=== PATIENT | female | born 1950 | race Caucasian/White ===

== ENCOUNTER 2017-09-17 16:03 | Inpatient (IN) | payer MEDICARE, SELFPAY ==
[2017-09-17 16:14] VITALS: BP 160/121; PULSE 112; RESP 24; TEMP 36.7; O2SAT 99; BMI 53.1
--- NOTE | 2017-09-17 16:20 | CT_ITS ---
CT abdomen pelvis w con CLINICAL INDICATION: Abdominal pain, GI bleed, acute abdominal pain ITS.REASON: gi bleed ORDERING PHYSICIAN: Benton Atwood MD PATIENT AGE: 67 years COMPARISON: None TECHNIQUE: Axial images obtained with sagittal and coronal reformats. PROCEDURE: Oral Contrast: None IV Contrast: 75 mL's of [id number]. FINDINGS: No acute finding in the lung bases. There has been prior cholecystectomy. No ductal dilatation. The liver has an unremarkable appearance. There is splenomegaly at 19 cm. The pancreas and right adrenal gland are unremarkable. Nonspecific nodularity left adrenal gland indeterminate. There is a 2 x 1.9 cm round area of isodensity involving the left kidney posteriorly and superiorly which could be due to a renal cyst however, the texture is somewhat coarse possibly related to the technique. Solid lesion or complex cyst is considered. Recommend ultrasound for further evaluation. No obstructing renal or ureteral calculi. Scattered small lymph nodes are present in the mesentery's. There is mild stranding of the fat medial to the paracolic gutters on both sides slightly more prominent on the right. This is of questionable clinical significance. The stranding of the fat on the right is posterior to the appendix but not immediately adjacent to the appendix. No convincing evidence of appendicitis. Diverticulosis of the colon, no evidence of diverticulitis. Prior hysterectomy. Mild wall thickening of the rectum possibly related to lack of distention. The stomach is slightly distended with heterogeneous density nonspecific but could be seen with blood products. There are severe osteoarthritic changes of the right hip with subcortical cystic change and mild osteoarthritic change of the left hip. IMPRESSION: 1. Mild wall thickening of the rectum . This may be related to nondistention. Inflammation or even neoplasm is also a consideration in this patient with GI bleeding. There is diverticulosis of the colon 2. Mild stomach distention with heterogeneous slight hyperdensity of the contents which could be related to blood products 3. Splenomegaly. 4. Complex left renal lesion. Recommend ultrasound for further evaluation
[2017-09-17 16:34] LABS: Basophils % 0.2 % (0.1-2.0); Eosinophils # 0.2 K/mm3 (0.0-0.4); Eosinophils % 2.1 % (0.1-12.0); Hematocrit 33.4 % (37.0-47.0); Hemoglobin 10.1 g/dL (12.2-16.2); Lymphocytes # 1.3 K/mm3 (0.7-4.5); Lymphocytes % 14.4 K/mm3 (10-50); Mean Corpuscular HGB Conc 30.1 g/dL (31.8-35.4); Mean Corpuscular Hemoglobin 24.3 pg (27.0-31.2); Mean Corpuscular Volume 80.6 fl (81-99); Monocytes # 0.3 K/mm3 (0.1-1.0); Monocytes % 3.1 % (1.7-9.3); Neutrophils # 7.4 K/mm3 (1.8-7.8); Neutrophils % 80.2 % (37.0-80.0); Platelet Count 178 K/mm3 (142-424); Red Blood Count 4.15 M/mm3 (4.20-5.40); Red Cell Distribution Width 16.5 % (11.5-17.5); White Blood Count 9.2 K/mm3 (4.8-10.8)
[2017-09-17 16:54] LABS: Microscopic, Urine URINE MICROSCOPIC (MICROSCOPIC)
[2017-09-17 17:02] LABS: Alanine Aminotransferase 63 U/L (12-78); Albumin Level 2.9 gm/dL (3.4-5.0); Albumin/Globulin Ratio 0.7 (1.1-1.8); Alkaline Phosphatase 218 U/L (46-116); Anion Gap 14.9 mEq/L (5-15); Aspartate Amino Transferase 56 U/L (15-37); Bilirubin,Total 0.5 mg/dL (0.2-1.0); Blood Urea Nitrogen 19 mg/dL (7-18); Carbon Dioxide 24 mmol/L (21.0-32.0); Chloride 98 mmol/L (98-107); Creatine Kinase 62 U/L (26-192); Creatinine Clearance Estimated 34 mL/min (0-300); Creatinine,Serum 1.35 mg/dL (0.55-1.02); Estimated Glomerular Filt Rate 39 ml/min (>60); GFR (African American) 48 ML/MIN (>60); Globulin 4.3 gm/dl (1.3-3.2); Lipase 131 u/L (73-393); Potassium 4.9 mmoL/L (3.5-5.1); Sodium 132 mmol/L (136-145); Total Protein,Serum 7.2 gm/dL (6.4-8.2); Troponin I 0.03 ng/ml (0.00-0.06)
[2017-09-17 17:15] LABS: CKMB Relative Index 0.8 U/L (0-4.0); Creatine Kinase MB < 0.5 mg/ml (0.0-3.6); Glucose 512 mg/dL (74-106)
[2017-09-17 17:16] LABS: Appearance,Urine CLEAR (Clear); Bilirubin,Urine Negative (Negative); Blood, Urine 2+ (Negative); Color,Urine YELLOW (Yellow); Glucose,Urine (UA) 3+ (Negative); Ketones,Urine Negative (Negative); Leukocyte Esterase,Urine Negative (Negative); Nitrate,Urine Negative (Negative); PH,Urine 5.5 (5.0-8.5); Protein,Urine Negative (Negative); Urobilinogen,Urine 0.2 EU/dl (0.2)
--- NOTE | 2017-09-17 17:16 | PC.NURSE ---
CRITICAL LAB VALUE CALLED FROM LAB BY [facility]. GLUCOSE 512. DR ROQUE NOTIFIED.
[2017-09-17 17:29] LABS: Bacteria,Urine 3+ /lpf; WBC,Urine Occasional #/hpf (0-3)
--- NOTE | 2017-09-17 17:46 | HMH.EDGENADL ---
ED Disposition Clinical Impression: Upper gastrointestinal bleed, Hyperglycemia Disposition: Still a Patient Condition on Discharge: Good - Critical Care Critical Care Time: No Attestation: On 09/17/17, the high probability of a clinically significant, sudden or life threatening deterioration of the following system(s) required my full and direct attention, intervention and personal management. The time I documented below is in addition to time spent performing reported procedures but includes the following listed in this critical care notation. Medical Decision Making - [place] Inquiry Pt receiving controlled substance: No Vital Signs: 09/17/17 16:14 09/17/17 20:20 Temperature 98.1 F 98.9 F Temperature Source Oral Oral Pulse Rate 80 Pulse Rate [Right Brachial] 112 H Respiratory Rate 24 16 Blood Pressure 135/85 Blood Pressure [Right Arm] 160/121 Blood Pressure Mean [Right Arm] 134 Blood Pressure Source Automatic Cuff Blood Pressure Position Supine 02 Sat by Pulse Oximetry 99 Oxygen Delivery Method Room Air Room Air - Lab Data Lab Results 09/17/17 13:25: WBC 9.2, RBC 4.15 L, Hgb 10.1 L, Hct 33.4 L, MCV 80.6 L, MCH 24.3 L, MCHC 30.1 L, RDW 16.5, Plt Count 178, MPV 8.0, Neut % (Auto) 80.2 H, Lymph % (Auto) 14.4, [place] % (Auto) 3.1, Eos % (Auto) 2.1, Baso % (Auto) 0.2, Neut # (Auto) 7.4, Lymph # (Auto) 1.3, [place] # (Auto) 0.3, Eos # (Auto) 0.2, Baso # (Auto) 0.0 09/17/17 13:25: Sodium 132 L, Potassium 4.9, Chloride 98, Carbon Dioxide 24, Anion Gap 14.9, BUN 19 H, Creatinine 1.35 H, Estimated Creat Clear 34, Estimated GFR 39 L, Est GFR ( Amer) 48 L, Glucose 512 H*, Calcium 8.0 L, Total Bilirubin 0.5, AST 56 H, ALT 63, Alkaline Phosphatase 218 H, Total Creatine Kinase 62, CK-MB (CK-2) < 0.5, CK-MB (CK-2) Rel Index 0.8, Troponin I 0.03, Total Protein 7.2, Albumin 2.9 L, Globulin 4.3 H, Albumin/Globulin Ratio 0.7 L, Lipase 131 09/17/17 16:35: Urine Color Yellow, Urine Appearance Clear, Urine pH 5.5, Ur Specific [place] 1.010, Urine Protein Negative, Urine Glucose (UA) 3+, Urine Ketones Negative, Urine Blood 2+, Urine Nitrate Negative, Urine Bilirubin Negative, Urine Urobilinogen 0.2, Ur Leukocyte Esterase Negative, Urine RBC None, Urine WBC Occasional, Ur Squamous Epith Cells 3-5, Urine Bacteria 3+, Stool Occult Blood Positive A Result diagrams: 09/17/17 13:25 09/17/17 13:25 Orders (Tests/Meds): ED MEDICATIONS Generic Name Dose Route Start Last Admin Trade Name Freq PRN Reason Stop Dose Admin Pantoprazole Sodium 80 mg/ 100 mls @ 10 mls/hr 09/17/17 17:36 09/17/17 18:00 Sodium Chloride IV 09/20/17 17:35 10 mls/hr .Q10H HALIE Administration Sodium Chloride 10 ml 09/17/17 17:51 09/17/17 17:53 Rad-Saline Flush 10ml Syringe IV 10/17/17 17:50 10 ml NEEDED PRN Administration Maintain IV Site Discontinued Medications Generic Name Dose Route Start Last Admin Trade Name Freq PRN Reason Stop Dose Admin Pantoprazole Sodium 80 mg/ 100 mls @ 100 mls/hr 09/17/17 16:35 09/17/17 16:36 Sodium Chloride IV 09/17/17 17:34 100 mls/hr ONCE ONE Administration Sodium Chloride 500 mls @ 999 mls/hr 09/17/17 16:45 09/17/17 18:00 Sod Chlor 0.9% 1000ml Bag IV 09/17/17 17:15 999 mls/hr .Q31M HALIE Administration Insulin Human Lispro 12 unit 09/17/17 18:16 09/17/17 18:27 Humalog 100 Units/Ml 3ml Vial (Ssi) SQ 09/17/17 18:17 12 unit ONCE ONE Administration Iopamidol 75 ml 09/17/17 17:51 09/17/17 17:53 [id number]; 75ml Vial IV 09/17/17 17:52 75 ml ONCE ONE Administration Ondansetron HCl 4 mg 09/17/17 16:35 09/17/17 16:36 Zofran 4mg/2ml Vial IV 09/17/17 16:36 4 mg ONCE ONE Administration Sodium Chloride 1,000 ml 09/17/17 18:17 09/17/17 18:27 Sod Chlor 0.9% 1000ml Bag IV 09/17/17 18:18 1,000 ml BOLUS ONE Administration ORDERS Category Date Time Status CT abdomen pelvis w con Stat Cat Scan 09/17/17 16:20 Taken U
[2017-09-17 18:38] LABS: Occult Blood,Stool Positive (Negative)
[2017-09-17 20:20] VITALS: BP 135/85; PULSE 80; RESP 16; TEMP 37.2; O2SAT 96
[2017-09-17 20:58] VITALS: BMI 51.5
[2017-09-17 20:59] VITALS: BP 181/84; PULSE 108; RESP 22; TEMP 37.3; O2SAT 98
--- NOTE | 2017-09-17 21:06 | XR_ITS ---
XR chest portable HISTORY: ITS.REASON: GI bleed, scope in AM ORDERING PHYSICIAN: Yaerd Bowie MD PATIENT AGE: 67 years COMPARISON: None available FINDINGS: The cardiomediastinal silhouette and pulmonary vascularity are within normal limits. The lungs are clear without infiltrates, suspicious nodules, or pleural effusions. No acute bony abnormalities. IMPRESSION: Negative chest, no acute finding
--- NOTE | 2017-09-17 21:10 | HMH.ACPN2 ---
Internal Medicine - PN: Subj *Date: 09/17/17 *Time: 21:10 Interval history: This 67-year-old female was admitted with GI bleeding. Yesterday she started with dark stools. Today she has had some dark stools but also some stools with blood. He vomited once apparently with a small blood clot present. There is a strong family history of colon cancer and gets colonoscopies on a regular basis. She states she had a colonoscopy last year [facility]. We have record of a colonoscopy 12/07/[address] Waldrop here at [facility]. This study showed multiple angioectasias in the colon. She also had diverticulosis and 5 polyps were removed at the time. I am not aware of the pathology reports on those polyps. She also had surgery at [facility] July 17, 2001. At that time Dr. Galan did a total vaginal hysterectomy and BSO with anterior and posterior colporrhaphies. Also in her [facility] record is a negative mammogram August 11, 2002. Exam Vital signs and Labs for Last 24 Hours: Temp Pulse Resp BP Pulse Ox 99.1 F 108 H 22 181/84 98 09/17/17 20:59 09/17/17 20:59 09/17/17 20:59 09/17/17 20:59 09/17/17 20:59 I & O for Last 24 hours: Intake & Output 09/15/17 09/16/17 09/17/17 09/18/17 11:59 11:59 11:59 11:59 Intake Total 1500 / 1500 Balance 1500 / 1500 Weight 291 lb 2 oz - Constitutional no acute distress Comments: Somewhat pale - *Routine HEENT Exam Eye: Present: PERRL ENT: Present: mucous membranes moist - *Routine Respiratory Exam Present: CTA bilaterally - *Routine Cardiovascular Exam Present: tachycardia (sinus, 120) - *Routine Abdominal Exam Comments: Obese, soft, nontender. - *Routine Rectal Exam Comments: Not performed at this time. - *Routine Neurological Exam Present: alert, CN II-XII intact Assessment and Plan (1) Lower GI bleed Current visit: Yes Status: Acute Category: Medical Code(s): K92.2 - Gastrointestinal hemorrhage, unspecified (2) Anemia due to acute blood loss Current visit: Yes Status: Acute Category: Medical Code(s): D62 - Acute posthemorrhagic anemia (3) Obesity Current visit: Yes Status: Chronic Category: Medical Code(s): E66.9 - Obesity, unspecified (4) Type 2 diabetes mellitus Current visit: Yes Status: Chronic Category: Medical Code(s): E11.9 - Type 2 diabetes mellitus without complications - Assessment and plan all Dx Assessment and Plan for all problems:: Follow H&H. Type and hold PRBC. She is scheduled for UGI in AM per Dr. Herring, but with hx of polyps and angioectasias will likely require colonoscopy as well
--- NOTE | 2017-09-17 21:18 | P.PN_ITS ---
Internal Medicine - PN: Subj *Date: 09/17/17 *Time: 21:10 Interval history: This 67-year-old female was admitted with GI bleeding. Yesterday she started with dark stools. Today she has had some dark stools but also some stools with blood. He vomited once apparently with a small blood clot present. There is a strong family history of colon cancer and gets colonoscopies on a regular basis. She states she had a colonoscopy last year [facility]. We have record of a colonoscopy 12/07/[address] Waldrop here at [facility]. This study showed multiple angioectasias in the colon. She also had diverticulosis and 5 polyps were removed at the time. I am not aware of the pathology reports on those polyps. She also had surgery at [facility] July 17, 2001. At that time Dr. Galan did a total vaginal hysterectomy and BSO with anterior and posterior colporrhaphies. Also in her [facility] record is a negative mammogram August 11, 2002. Exam Vital signs and Labs for Last 24 Hours: Temp Pulse Resp BP Pulse Ox 99.1 F 108 H 22 181/84 98 09/17/17 20:59 09/17/17 20:59 09/17/17 20:59 09/17/17 20:59 09/17/17 20:59 I & O for Last 24 hours: Intake & Output 09/15/17 09/16/17 09/17/17 09/18/17 11:59 11:59 11:59 11:59 Intake Total 1500 / 1500 Balance 1500 / 1500 Weight 291 lb 2 oz - Constitutional no acute distress Comments: Somewhat pale - *Routine HEENT Exam Eye: Present: PERRL ENT: Present: mucous membranes moist - *Routine Respiratory Exam Present: CTA bilaterally - *Routine Cardiovascular Exam Present: tachycardia (sinus, 120) - *Routine Abdominal Exam Comments: Obese, soft, nontender. - *Routine Rectal Exam Comments: Not performed at this time. - *Routine Neurological Exam Present: alert, CN II-XII intact Assessment and Plan (1) Lower GI bleed Current visit: Yes Status: Acute Category: Medical Code(s): K92.2 - Gastrointestinal hemorrhage, unspecified (2) Anemia due to acute blood loss Current visit: Yes Status: Acute Category: Medical Code(s): D62 - Acute posthemorrhagic anemia (3) Obesity Current visit: Yes Status: Chronic Category: Medical Code(s): E66.9 - Obesity, unspecified (4) Type 2 diabetes mellitus Current visit: Yes Status: Chronic Category: Medical Code(s): E11.9 - Type 2 diabetes mellitus without complications - Assessment and plan all Dx Assessment and Plan for all problems:: Follow H&H. Type and hold PRBC. She is scheduled for UGI in AM per Dr. Herring , but with hx of polyps and angioectasias will likely require colonoscopy as well
[2017-09-17 21:30] VITALS: O2SAT 98
[2017-09-17 21:35] LABS: Basophils % 0.4 % (0.1-2.0); Eosinophils # 0.2 K/mm3 (0.0-0.4); Hematocrit 31.6 % (37.0-47.0); Hemoglobin 9.6 g/dL (12.2-16.2); Lymphocytes # 2.5 K/mm3 (0.7-4.5); Lymphocytes % 24.6 K/mm3 (10-50); Mean Corpuscular HGB Conc 30.3 g/dL (31.8-35.4); Mean Corpuscular Hemoglobin 24.4 pg (27.0-31.2); Mean Corpuscular Volume 80.6 fl (81-99); Mean Platelet Volume 8.4 fl (7.4-10.4); Monocytes # 0.4 K/mm3 (0.1-1.0); Monocytes % 4.3 % (1.7-9.3); Neutrophils % 68.8 % (37.0-80.0); Platelet Count 202 K/mm3 (142-424); Red Blood Count 3.92 M/mm3 (4.20-5.40); Red Cell Distribution Width 16.7 % (11.5-17.5); White Blood Count 10.2 K/mm3 (4.8-10.8)
[2017-09-18] VITALS (46 sets, daily range): BP systolic 85–151; BP diastolic 36–97; PULSE 87–110; RESP 16–22; TEMP 36.4–37.4; O2SAT 93–100
[2017-09-18 01:16] LABS: POC Glucose,Bedside 338 mg/dL (70-110)
--- NOTE | 2017-09-18 04:27 | PC.NURSE ---
pt has not rested well this shift, pt c/o nausea and vomiting PRN medication given per MAR which provided temporary relief, pt has had several episodes of diarrhea this shift, dark red blood noted in stool, bowel sounds are hyperactive, breath sounds are clear, no acute distress noted at this time, call light in reach, will continue to monitor.
--- NOTE | 2017-09-18 05:32 | PC.NURSE ---
pt had 100 emesis blood tinged
--- NOTE | 2017-09-18 06:21 | HMH.GSCON ---
*Admission Date: 09/17/17 *Chief complaint: Blood in vomit and bowels *History of present illness: Patient is a 67-year-old morbidly obese diabetic white female. She states that yesterday she had some vague abdominal pain. She then had vomiting of what she describes as clots. She had dark stools and had had bowel movements with fresh or blood. Presented to the emergency department where she was seen and evaluated. She is found to be hemodynamically stable with hemoglobin and hematocrit within reasonable limits. She did undergo CT scan which interestingly revealed findings of generous appendix. Given her clinical history plan was made for admission and surgical consultation. Of note, the patient has undergone regular colonoscopies and had a colonoscopy last year in [facility] which was reportedly unremarkable. She is previously had polyps and telangiectasias on the colonoscopies. Review of Systems - Review of Systems Review of systems:: pertinent systems reviewed and negative unless documented below [facility] History I have reviewed the patient's past medical history: Yes Medical History: Reports:: Congestive Heart Failure, Diabetes Mellitus Type 2, Heart Murmur, Hyperlipidemia, Hypertension, MRSA Denies:: Cancer, Diabetes Mellitus Type 1 Other Medical History: Reports: Arthritis, Liver Disease Laterality Cases: Left: Arthroscopy Knee Other Surgeries: Yes: Colonoscopy, Hysterectomy-Total, Tubal Ligation Amputation: Yes (right great toe) Fractures: No - *Social History Educational Level: Completed College Smoking Status: Never smoker Alcohol Intake: never Occupational Status: disabled - Psychiatric History Expresses thoughts of harming self/others: None Suicide Plan Description: No Plan *Family Hx:: Cancer, Coronary Artery Disease, Diabetes, Hyperlipidemia, Hypertension Meds Home Medications Medication Instructions Recorded Confirmed Type Budesonide/Formoterol Fumarate 2 puffs IH BID 09/17/17 09/17/17 History [Symbicort 160-4.5 Mcg Inhaler] Cyclobenzaprine HCl 10 mg PO BID 09/17/17 09/17/17 History [Cyclobenzaprine 10mg Tab] Diclofenac Sodium [Diclofenac 75mg 75 mg PO BID 09/17/17 09/17/17 History Tab] Fluoxetine HCl [Fluoxetine HCl] 40 mg PO DAILY 09/17/17 09/17/17 History Gabapentin [Gabapentin 300mg Cap] 300 mg PO TID 09/17/17 09/17/17 History Hydrocodone/Acetaminophen 1 tab PO BID 09/17/17 09/17/17 History [Hydrocodone-Acetamin 10-325 mg] Insulin Regular, Human [Humulin R] 10 units SQ ACHS 09/17/17 09/17/17 History Levothyroxine Sodium 112 mcg PO DAILY 09/17/17 09/17/17 History [Levothyroxine 112mcg (0.112mg) Tab] Lisinopril/Hydrochlorothiazide 1 tab PO DAILY 09/17/17 09/17/17 History [Lisinopril-Hctz 10-12.5 mg Tab] Omeprazole [Omeprazole 40mg 40 mg PO DAILY 09/17/17 09/17/17 History Capsule] glipiZIDE [Glipizide ER] 10 mg PO BID 09/17/17 09/17/17 History Allergies Allergy/AdvReac Type Severity Reaction Status Date / Time Diazepam Allergy Intermediate I-HIVES Uncoded 06/24/17 14:39 Tuberculin Allergy Unknown POSITIVE Uncoded 06/24/17 14:39 REACTOR TO SKIN TEST Exam Vital signs and Labs for Last 24 Hours: Temp Pulse Resp BP Pulse Ox 98.6 F 100 H 20 141/59 99 09/18/17 04:00 09/18/17 04:00 09/18/17 04:00 09/18/17 04:00 09/18/17 04:00 Laboratory Results - last 24 hr 09/17/17 21:30: WBC 10.2, RBC 3.92 L, Hgb 9.6 L, Hct 31.6 L, MCV 80.6 L, MCH 24.4 L, MCHC 30.3 L, RDW 16.7, Plt Count 202, MPV 8.4, Neut % (Auto) 68.8, Lymph % (Auto) 24.6, [place] % (Auto) 4.3, Eos % (Auto) 2.0, Baso % (Auto) 0.4, Neut # (Auto) 7.0, Lymph # (Auto) 2.5, [place] # (Auto) 0.4, Eos # (Auto) 0.2, Baso # (Auto) 0.0 09/17/17 22:29: POC Glucose 338 09/17/17 22:40: Blood Type O Positive, Antibody Screen Negative, Crossmatch (AHG) See Detail I & O for Last 24 hours: Intake & Output 09/15/17 09/16/17 09/17/17 09/18/17 11:59 11:59 11:59 11:59 Intake Total 890 / 23
--- NOTE | 2017-09-18 06:24 | P.CONS_ITS ---
*Admission Date: 09/17/17 *Chief complaint: Blood in vomit and bowels *History of present illness: Patient is a 67-year-old morbidly obese diabetic white female. She states that yesterday she had some vague abdominal pain. She then had vomiting of what she describes as clots. She had dark stools and had had bowel movements with fresh or blood. Presented to the emergency department where she was seen and evaluated. She is found to be hemodynamically stable with hemoglobin and hematocrit within reasonable limits. She did undergo CT scan which interestingly revealed findings of generous appendix. Given her clinical history plan was made for admission and surgical consultation. Of note, the patient has undergone regular colonoscopies and had a colonoscopy last year in [facility] which was reportedly unremarkable. She is previously had polyps and telangiectasias on the colonoscopies. Review of Systems - Review of Systems Review of systems:: pertinent systems reviewed and negative unless documented below [facility] History I have reviewed the patient's past medical history: Yes Medical History: Reports:: Congestive Heart Failure, Diabetes Mellitus Type 2, Heart Murmur, Hyperlipidemia, Hypertension, MRSA Denies:: Cancer, Diabetes Mellitus Type 1 Other Medical History: Reports: Arthritis, Liver Disease Laterality Cases: Left: Arthroscopy Knee Other Surgeries: Yes: Colonoscopy, Hysterectomy-Total, Tubal Ligation Amputation: Yes (right great toe) Fractures: No - *Social History Educational Level: Completed College Smoking Status: Never smoker Alcohol Intake: never Occupational Status: disabled - Psychiatric History Expresses thoughts of harming self/others: None Suicide Plan Description: No Plan *Family Hx:: Cancer, Coronary Artery Disease, Diabetes, Hyperlipidemia, Hypertension Meds Home Medications Medication Instructions Recorded Confirmed Type Budesonide/Formoterol Fumarate 2 puffs IH BID 09/17/17 09/17/17 History [Symbicort 160-4.5 Mcg Inhaler] Cyclobenzaprine HCl 10 mg PO BID 09/17/17 09/17/17 History [Cyclobenzaprine 10mg Tab] Diclofenac Sodium [Diclofenac 75mg 75 mg PO BID 09/17/17 09/17/17 History Tab] Fluoxetine HCl [Fluoxetine HCl] 40 mg PO DAILY 09/17/17 09/17/17 History Gabapentin [Gabapentin 300mg Cap] 300 mg PO TID 09/17/17 09/17/17 History Hydrocodone/Acetaminophen 1 tab PO BID 09/17/17 09/17/17 History [Hydrocodone-Acetamin 10-325 mg] Insulin Regular, Human [Humulin R] 10 units SQ ACHS 09/17/17 09/17/17 History Levothyroxine Sodium 112 mcg PO DAILY 09/17/17 09/17/17 History [Levothyroxine 112mcg (0.112mg) Tab] Lisinopril/Hydrochlorothiazide 1 tab PO DAILY 09/17/17 09/17/17 History [Lisinopril-Hctz 10-12.5 mg Tab] Omeprazole [Omeprazole 40mg 40 mg PO DAILY 09/17/17 09/17/17 History Capsule] glipiZIDE [Glipizide ER] 10 mg PO BID 09/17/17 09/17/17 History Allergies Allergy/AdvReac Type Severity Reaction Status Date / Time Diazepam Allergy Intermediate I-HIVES Uncoded 06/24/17 14:39 Tuberculin Allergy Unknown POSITIVE Uncoded 06/24/17 14:39 REACTOR TO SKIN TEST Exam Vital signs and Labs for Last 24 Hours: Temp Pulse Resp BP Pulse Ox 98.6 F 100 H 20 141/59 99 09/18/17 04:00 09/18/17 04:00 09/18/17 04:00 09/18/17 04:00 09/18/17 04:00 Laboratory Results - last 24 hr 09/17/17 21:3
[2017-09-18 07:04] LABS: POC Glucose,Bedside 386 mg/dL (70-110)
[2017-09-18 07:08] LABS: Basophils % 0.3 % (0.1-2.0); Eosinophils # 0.1 K/mm3 (0.0-0.4); Eosinophils % 1.6 % (0.1-12.0); Lymphocytes # 1.6 K/mm3 (0.7-4.5); Mean Corpuscular HGB Conc 30.7 g/dL (31.8-35.4); Mean Corpuscular Hemoglobin 24.4 pg (27.0-31.2); Mean Corpuscular Volume 79.4 fl (81-99); Mean Platelet Volume 7.7 fl (7.4-10.4); Monocytes # 0.3 K/mm3 (0.1-1.0); Neutrophils # 6.7 K/mm3 (1.8-7.8); Neutrophils % 77.1 % (37.0-80.0); Platelet Count 144 K/mm3 (142-424); Red Blood Count 2.75 M/mm3 (4.20-5.40); Red Cell Distribution Width 17.2 % (11.5-17.5); White Blood Count 8.7 K/mm3 (4.8-10.8)
[2017-09-18 07:11] LABS: Hematocrit 21.8 % (37.0-47.0)
[2017-09-18 07:12] LABS: Hemoglobin 6.7 g/dL (12.2-16.2)
--- NOTE | 2017-09-18 07:26 | HMH.PHAVTE ---
[facility] Pharmacy VTE Monitoring - Patient Demographics Admission date: 09/17/17 Report Date: 09/18/17 Time: 07:26 Allergies/Adverse Reactions: Patient Allergies Diazepam Allergy (Intermediate, Uncoded 06/24/17 14:39) I-HIVES Tuberculin Allergy (Unknown, Uncoded 06/24/17 14:39) POSITIVE REACTOR TO SKIN TEST Height: 1.6 m Weight: 132.052 kg Patient Problems: Current Active Problems Upper gastrointestinal bleed (Acute) Hyperglycemia (Acute) Lower GI bleed (Acute) Anemia due to acute blood loss (Acute) Obesity (Chronic) Type 2 diabetes mellitus (Chronic) - VTE Risk Labs: VTE Related Lab Results Hgb 6.7 g/dL (12.2-16.2) L* D 09/18/17 06:30 Hct 21.8 % (37.0-47.0) L* 09/18/17 06:30 Plt Count 144 K/mm3 (142-424) D 09/18/17 06:30 BUN 19 mg/dL (7-18) H 09/17/17 13:25 Creatinine 1.35 mg/dL (0.55-1.02) H 09/17/17 13:25 Estimated Creat Clear 34 mL/min (0-300) 09/17/17 13:25 VTE Score: 7 VTE Risk Level: Moderate Risk - Prophylaxis VTE Prophylaxis Ordered?: Yes Types of VTE Prophylaxis: TEDS Knee High Location of Applied Device: Bilateral Lower Extremeties - VTE Diagnosis Confirmed Treatment or plan recommended: Continue Current Treatment
--- NOTE | 2017-09-18 07:32 | PC.NURSE ---
Dr Bowie notified of critical Hgb of 6.7 and Hct of 21.8 along with more frequent bowel movements and blood in stool, orders obtained to begin transfusion of 3 units PRBC now and hold an additional 3 units
--- NOTE | 2017-09-18 07:34 | PC.NURSE ---
Dr. Herring notified per [place] of critical Hgb and Hct due to scheduled EGD
--- NOTE | 2017-09-18 08:24 | HMH.HP ---
*Admission Date: 09/17/17 *Chief complaint: abdominal pain, vomiting blood, blood in stool *History of present illness: Patient is a 67-year-old morbidly obese diabetic white female. She states that yesterday she had some vague abdominal pain. She then had vomiting of what she describes as clots. She had dark stools and had had bowel movements with fresh blood. She presented to the emergency department where she was seen and evaluated. She did undergo a CT scan which interestingly revealed findings of a generous appendix. Given her clinical history, she was admitted for a surgical consultation. She has undergone regular colonoscopies and had a colonoscopy last year in [facility] which was reportedly unremarkable. She has previously had polyps and telangiectasias on the colonoscopies. There is a strong family history of colon cancer. We have record of a colonoscopy 12/07/[address] Palma gerber at [facility]. This study showed multiple telangioectasias in the colon. She also had diverticulosis and 5 polyps were removed at the time. She has continued to vomit blood and have blood in her stool all night. At this time her H&H is low and she is getting ready to have a blood transfusion. [facility] History Medical History: Reports:: Congestive Heart Failure, Diabetes Mellitus Type 2, Heart Murmur, Hyperlipidemia, Hypertension, MRSA Denies:: Cancer, Diabetes Mellitus Type 1 Other Medical History: Reports: Arthritis, Liver Disease Laterality Cases: Left: Arthroscopy Knee Other Surgeries: Yes: Colonoscopy, Hysterectomy-Total, Tubal Ligation Amputation: Yes (right great toe) Fractures: No - *Social History Educational Level: Completed College Smoking Status: Never smoker Alcohol Intake: never Occupational Status: disabled - Psychiatric History Expresses thoughts of harming self/others: None Suicide Plan Description: No Plan *Family Hx:: Cancer, Coronary Artery Disease, Diabetes, Hyperlipidemia, Hypertension Review of Systems - Constitutional Reports weakness, Denies fever(s), Denies headache(s) - Eyes Denies blurry vision, Denies double vision - ENT Reports nasal congestion, Denies sore throat - *Cardiovascular Reports shortness of breath, Denies chest pain - *Respiratory Reports shortness of breath, Denies cough - *Gastrointestinal Reports abdominal pain, Reports vomiting blood, Reports bright, red blood in stools, Reports nausea, Reports vomiting - *Genitourinary Denies difficulty urinating, Denies painful urination - *Musculoskeletal Reports body aches, Denies joint pain - *Neurologic Reports dizziness, Reports weakness, Denies headache(s) Meds Home Medications Medication Instructions Recorded Confirmed Type Budesonide/Formoterol Fumarate 2 puffs IH BID 09/17/17 09/17/17 History [Symbicort 160-4.5 Mcg Inhaler] Cyclobenzaprine HCl 10 mg PO BID 09/17/17 09/17/17 History [Cyclobenzaprine 10mg Tab] Diclofenac Sodium [Diclofenac 75mg 75 mg PO BID 09/17/17 09/17/17 History Tab] Fluoxetine HCl [Fluoxetine HCl] 40 mg PO BID 09/17/17 09/18/17 History Gabapentin [Gabapentin 300mg Cap] 600 mg PO TID 09/17/17 09/18/17 History Hydrocodone/Acetaminophen 1 tab PO TIDP PRN 09/17/17 09/18/17 History [Hydrocodone-Acetamin 10-325 mg] Insulin Regular, Human [Humulin R] 10 units SQ ACHS 09/17/17 09/17/17 History Levothyroxine Sodium 112 mcg PO DAILY 09/17/17 09/17/17 History [Levothyroxine 112mcg (0.112mg) Tab] Lisinopril/Hydrochlorothiazide 1 tab PO DAILY 09/17/17 09/17/17 History [Lisinopril-Hctz 10-12.5 mg Tab] Omeprazole [Omeprazole 40mg 40 mg PO DAILY 09/17/17 09/17/17 History Capsule] glipiZIDE [Glipizide ER] 10 mg PO DAILY 09/17/17 09/18/17 History Allergies Allergy/AdvReac Type Severity Reaction Status Date / Time Diazepam Allergy Intermediate I-HIVES Uncoded 06/24/17 14:39 Tuberculin Allergy Unknown POSITIVE Uncoded 06/24/17 14:39 REACTOR TO SKIN TEST
--- NOTE | 2017-09-18 08:29 | P.HP_ITS ---
*Admission Date: 09/17/17 *Chief complaint: abdominal pain, vomiting blood, blood in stool *History of present illness: Patient is a 67-year-old morbidly obese diabetic white female. She states that yesterday she had some vague abdominal pain. She then had vomiting of what she describes as clots. She had dark stools and had had bowel movements with fresh blood. She presented to the emergency department where she was seen and evaluated. She did undergo a CT scan which interestingly revealed findings of a generous appendix. Given her clinical history, she was admitted for a surgical consultation. She has undergone regular colonoscopies and had a colonoscopy last year in [facility] which was reportedly unremarkable. She has previously had polyps and telangiectasias on the colonoscopies. There is a strong family history of colon cancer. We have record of a colonoscopy 12/07/[address] Palma gerber at [facility]. This study showed multiple telangioectasias in the colon. She also had diverticulosis and 5 polyps were removed at the time. She has continued to vomit blood and have blood in her stool all night. At this time her H&H is low and she is getting ready to have a blood transfusion. [facility] History Medical History: Reports:: Congestive Heart Failure, Diabetes Mellitus Type 2, Heart Murmur, Hyperlipidemia, Hypertension, MRSA Denies:: Cancer, Diabetes Mellitus Type 1 Other Medical History: Reports: Arthritis, Liver Disease Laterality Cases: Left: Arthroscopy Knee Other Surgeries: Yes: Colonoscopy, Hysterectomy-Total, Tubal Ligation Amputation: Yes (right great toe) Fractures: No - *Social History Educational Level: Completed College Smoking Status: Never smoker Alcohol Intake: never Occupational Status: disabled - Psychiatric History Expresses thoughts of harming self/others: None Suicide Plan Description: No Plan *Family Hx:: Cancer, Coronary Artery Disease, Diabetes, Hyperlipidemia, Hypertension Review of Systems - Constitutional Reports weakness, Denies fever(s), Denies headache(s) - Eyes Denies blurry vision, Denies double vision - ENT Reports nasal congestion, Denies sore throat - *Cardiovascular Reports shortness of breath, Denies chest pain - *Respiratory Reports shortness of breath, Denies cough - *Gastrointestinal Reports abdominal pain, Reports vomiting blood, Reports bright, red blood in stools, Reports nausea, Reports vomiting - *Genitourinary Denies difficulty urinating, Denies painful urination - *Musculoskeletal Reports body aches, Denies joint pain - *Neurologic Reports dizziness, Reports weakness, Denies headache(s) Meds Home Medications Medication Instructions Recorded Confirmed Type Budesonide/Formoterol Fumarate 2 puffs IH BID 09/17/17 09/17/17 History [Symbicort 160-4.5 Mcg Inhaler] Cyclobenzaprine HCl 10 mg PO BID 09/17/17 09/17/17 History [Cyclobenzaprine 10mg Tab] Diclofenac Sodium [Diclofenac 75mg 75 mg PO BID 09/17/17 09/17/17 History Tab] Fluoxetine HCl [Fluoxetine HCl] 40 mg PO BID 09/17/17 09/18/17 History Gabapentin [Gabapentin 300mg Cap] 600 mg PO TID 09/17/17 09/18/17 History Hydrocodone/Acetaminophen 1 tab PO TIDP PRN 09/17/17 09/18/17 History [Hydrocodone-Acetamin 10-325 mg] Insulin Regular, Human [Humulin R] 10 units SQ ACHS 09/17/17 09/17/17 History Levothyroxine Sodium 112 mcg PO DAILY 09/17/17 09/17/17 History [Levothyroxine 112mcg (0.112mg) Tab] Lisinopril/Hydrochlorothiazid
[2017-09-18 12:07] LABS: POC Glucose,Bedside 332 mg/dL (70-110)
--- NOTE | 2017-09-18 14:15 | HMH.SCOPE ---
- Procedure: Date: 09/18/17 Procedure Performed:: Esophagogastroduodenoscopy Indications:: 67-year-old white female with multiple medical comorbidities. She has had some epigastric pain. She presented to the emergency department with signs of GI blood loss. She does describe some symptoms progressively consistent with hematochezia. She was admitted for inpatient management. Initially her hemoglobin was within reasonable limits. Following morning she had significant drop in hemoglobin and hematocrit. She is appropriately transfused. Surgical consultation was obtained and plan was made for upper endoscopy initially. Performing Provider:: Bebo Herring MD Referring Provider:: Darryl Bowie MD Sedation:: Propofol Procedure:: Consent was obtained and patient was taken to endoscopy procedure room. She was positioned in a lateral decubitus position. Adequate intravenous sedation was achieved with anesthesia titration of propofol. Olympus endoscope was inserted via the oropharynx. In the proximal esophagus there was some minor nodularity likely consistent with chronic esophagitis. However, visualization was somewhat difficult due to the patient's body habitus and secretions. The endoscope was advanced through the esophagus remainder which appeared relatively unremarkable. Stomach was cannulated and insufflated. Retroflexion revealed no evidence of any significant hiatal hernia. There was some diffuse nonerosive gastritis. There was findings of some minor benign-appearing gastric polyps and minuscule erosions in the prepyloric location but no evidence of any recent bleeding or ulcerations. Pylorus was traversed. Duodenal bulb and duodenal sweep appeared unremarkable. Endoscope was withdrawn through the stomach and esophagus with careful surveillance. Endoscope was withdrawn. Findings:: Probable diffuse chronic esophagitis with some nodularity of the proximal esophagus. Diffuse nonerosive gastritis with minuscule erosions focally at the prepylorus and rare polyp Recommendations:: No obvious source of upper GI etiology for blood loss. She may have lower GI source/etiology such as diverticular bleed. Tentatively will plan for colonoscopy tomorrow. I would recommend a follow-up upper endoscopy in several weeks for reassessment of the esophagus. Complications:: None immediate Estimated blood obtained (mL): 1
--- NOTE | 2017-09-18 14:20 | P.PN_ITS ---
[facility] Anesthesia Checklist - Patient Identification Patient Identification: Arm Band, Verbal (Name & ) - Structural Data Admitted From: Inpatient Planned Operative Procedure/s: egd Consent for Planned Operative Procedure(s) Verified: Yes Verified Documents: Surgical Consent - NPO Status Verified Time NPO: 00:00 - Chart Verification Results Verified: CBC, BMP - Additional verifications Patient : No Anesthesia Reactions: No Hx Blood Transfusions: Yes Blood Transfusion Reaction: No Cephalosporin Allergy: No Previous Colonoscopy: Yes - Cardiovascular Assessment Heart Sounds: S1 & S2 Pulse Strength: Baseline Pulse Rhythm: Regular Peripheral Edema: No - Airway Assessment C-Spine Mobility Assessed: Yes TMJ Mobility Assessed: Yes Dentition: Edentulous - Neurological Assessment Level of Consciousness: Awake, Alert, Appropriate Hx Seizures: No Numbness or tingling in extremities: No - Anesthesia Plan Anesthesia Risk discussed: Yes Anesthesia Plan: Verified ASA Class: III Anesthesia Type: MAC [facility] Anesthesia HX I have reviewed the patient's past medical history: Yes Medical History: Reports:: Congestive Heart Failure, Diabetes Mellitus Type 2, Heart Murmur, Hyperlipidemia, Hypertension, MRSA Denies:: Cancer, Diabetes Mellitus Type 1 Other Medical History: Reports: Arthritis, Liver Disease Laterality Cases: Left: Arthroscopy Knee Other Surgeries: Yes: Colonoscopy, Hysterectomy-Total, Tubal Ligation Amputation: Yes (right great toe) Fractures: No *Family Hx:: Cancer, Coronary Artery Disease, Diabetes, Hyperlipidemia, Hypertension
--- NOTE | 2017-09-18 14:55 | PC.NURSE ---
DURING BLOOD ADMINISTRATION PT DOWN FOR EGD. BLOOD MONITORED BY MARY LOREDO DURING EGD PROCEDURE. BLOOD COMPLETED AT 1336 DURING PROCEDURE.
--- NOTE | 2017-09-18 14:56 | PC.NURSE ---
ONE HOUR POST VITAL COMPLETED BY MARY LOREDO WITH SURGERY/PRE OP
--- NOTE | 2017-09-18 15:09 | PC.NURSE ---
DURING BLOOD ADMINISTRATION PT WAS TAKEN FOR EDG PROCEDURE. BLOOD BEING MONITORED BY MARY LOREDO IN PREOP/SURGERY DURING EGD. COMPLETION TIME 1336 WHILE IN EGD.
--- NOTE | 2017-09-18 15:12 | PC.NURSE ---
THIS VITAL WAS OBTAINED PER MARY.
[2017-09-18 16:25] LABS: Hematocrit 26.1 % (37.0-47.0); Hemoglobin 8.5 g/dL (12.2-16.2)
[2017-09-18 17:40] LABS: POC Glucose,Bedside 345 mg/dL (70-110)
--- NOTE | 2017-09-18 19:53 | PC.NURSE ---
REPORT GIVEN TO RADHA LOREDO
[2017-09-18 22:38] LABS: Hematocrit 28.3 % (37.0-47.0); Hemoglobin 8.9 g/dL (12.2-16.2)
[2017-09-18 23:05] LABS: POC Glucose,Bedside 235 mg/dL (70-110)
[2017-09-19] VITALS (37 sets, daily range): BP systolic 95–169; BP diastolic 46–89; PULSE 89–97; RESP 12–20; TEMP 36.5–37.1; O2SAT 93–100; BMI 53.0
--- NOTE | 2017-09-19 02:47 | PC.NURSE ---
last unit of blood transfused 09/18/17 at 1936, post H&H has improved with Hgb 8.9 and Hct 28.3, since transfusion pt states she feels better, pt states her bowel movements have decreased and less blood is noted in stool, pt denies nausea and vomiting at this time, pt has been able to rest well this shift, breath sounds are clear, bowel sounds are hyperactive, pt has been drinking golytely and tolerating well, no acute distress noted at this time, call light in reach, will continue to monitor.
[2017-09-19 06:47] LABS: Basophils % 0.3 % (0.1-2.0); Eosinophils # 0.2 K/mm3 (0.0-0.4); Eosinophils % 3.1 % (0.1-12.0); Hemoglobin 9.6 g/dL (12.2-16.2); Lymphocytes # 1.8 K/mm3 (0.7-4.5); Lymphocytes % 23.7 K/mm3 (10-50); Mean Corpuscular Hemoglobin 25.8 pg (27.0-31.2); Mean Corpuscular Volume 83.1 fl (81-99); Mean Platelet Volume 7.5 fl (7.4-10.4); Monocytes # 0.3 K/mm3 (0.1-1.0); Monocytes % 4.3 % (1.7-9.3); Neutrophils # 5.2 K/mm3 (1.8-7.8); Neutrophils % 68.6 % (37.0-80.0); Platelet Count 107 K/mm3 (142-424); Red Blood Count 3.73 M/mm3 (4.20-5.40); Red Cell Distribution Width 16.9 % (11.5-17.5); White Blood Count 7.6 K/mm3 (4.8-10.8)
[2017-09-19 06:59] LABS: Anion Gap 12.6 mEq/L (5-15); Blood Urea Nitrogen 15 mg/dL (7-18); Carbon Dioxide 25 mmol/L (21.0-32.0); Chloride 102 mmol/L (98-107); Creatinine Clearance Estimated 40 mL/min (0-300); Creatinine,Serum 1.17 mg/dL (0.55-1.02); Estimated Glomerular Filt Rate 46 ml/min (>60); GFR (African American) 56 ML/MIN (>60); Glucose 311 mg/dL (74-106); Potassium 3.6 mmoL/L (3.5-5.1); Sodium 136 mmol/L (136-145)
--- NOTE | 2017-09-19 07:15 | PC.NURSE ---
Report given to Hallie Devine RN
--- NOTE | 2017-09-19 08:22 | P.PN_ITS ---
Internal Medicine - PN: Subj *Date: 09/19/17 *Time: 08:19 Interval history: The patient is feeling much better today. She had an EGD yesterday showing no source of the bleeding. She did tolerate clear liquids last night. She is scheduled for a colonoscopy this morning. She states when she started the GoLYTELY last night, she was having completely bloody stools. The blood has now resolved and her stools are only watery. Still has some lower abdominal pain. Exam Vital signs and Labs for Last 24 Hours: Temp Pulse Resp BP Pulse Ox 98.6 F 94 H 20 148/89 100 09/19/17 00:00 09/19/17 04:00 09/19/17 04:00 09/19/17 04:00 09/19/17 04:00 Laboratory Results - last 24 hr 09/17/17 22:40: Blood Type O Positive, Antibody Screen Negative, Crossmatch (AHG ) See Detail 09/18/17 12:00: POC Glucose 332 09/18/17 16:05: Hgb 8.5 L D, Hct 26.1 L 09/18/17 17:09: POC Glucose 345 09/18/17 22:20: Hgb 8.9 L, Hct 28.3 L 09/18/17 22:27: POC Glucose 235 09/19/17 06:30: WBC 7.6, RBC 3.73 L D, Hgb 9.6 L, Hct 31.0 L, MCV 83.1, MCH 25.8 L, MCHC 31.0 L, RDW 16.9, Plt Count 107 L D, MPV 7.5, Neut % (Auto) 68.6, Lymph % (Auto) 23.7, [place] % (Auto) 4.3, Eos % (Auto) 3.1, Baso % (Auto) 0.3, Neut # (Auto) 5.2, Lymph # (Auto) 1.8, [place] # (Auto) 0.3, Eos # (Auto) 0.2, Baso # (Auto) 0.0 09/19/17 06:30: Sodium 136, Potassium 3.6 D, Chloride 102, Carbon Dioxide 25, Anion Gap 12.6, BUN 15, Creatinine 1.17 H, Estimated Creat Clear 40, Estimated GFR 46 L, Est GFR ( Amer) 56 L, Glucose 311 H I & O for Last 24 hours: Intake & Output 09/16/17 09/17/17 09/18/17 09/19/17 11:59 11:59 11:59 11:59 Intake Total 940 / 2440 1188 / 1188 Output Total 300 / 300 Balance 640 / 2140 1188 / 1188 Weight 291 lb 2 oz 299 lb 3 oz - Constitutional no acute distress - *Routine Respiratory Exam Present: CTA bilaterally - *Routine Cardiovascular Exam Present: RRR - *Routine Abdominal Exam Present: soft, normoactive bowel sounds, tenderness (bilateral lower quadrants) - *Routine Extremities Exam Absent: edema Assessment and Plan (1) Lower GI bleed Current visit: Yes Status: Acute Category: Medical Code(s): K92.2 - Gastrointestinal hemorrhage, unspecified (2) Anemia due to acute blood loss Current visit: Yes Status: Acute Category: Medical Code(s): D62 - Acute posthemorrhagic anemia (3) Obesity Current visit: Yes Status: Chronic Category: Medical Code(s): E66.9 - Obesity, unspecified (4) Type 2 diabetes mellitus Current visit: Yes Status: Chronic Category: Medical Code(s): E11.9 - Type 2 diabetes mellitus without complications (5) Hypertension Current visit: Yes Status: Chronic Category: Medical Code(s): I10 - Essential (primary) hypertension - Assessment and plan all Dx Assessment and Plan for all problems:: Patient is having colonoscopy today. Will discuss further care with surgery.
--- NOTE | 2017-09-19 09:04 | PC.NURSE ---
Patient off floor for colonoscopy.
--- NOTE | 2017-09-19 10:20 | P.PCN_ITS ---
- Procedure: Date: 09/19/17 Procedure Performed:: Total colonoscopy Indications:: Patient is a 67-year-old diabetic female. She presented to the emergency department with hematochezia characterized as maroon colored stools. She describes some significant rectal blood. She also stated that she had an episode of hematemesis. ER evaluation included CT scan which was relatively unremarkable. She was found to have a reasonable hemoglobin and hematocrit and was admitted for inpatient management. She showed significant decline her hemoglobin and hematocrit overnight requiring transfusion. Surgery was consulted and yesterday she underwent upper endoscopy which revealed no evidence of any obvious etiology for acute blood loss. Plan was made for colonoscopy. She underwent bowel preparation yesterday and she states that the bleeding resolved overnight. Plan was made to proceed with colonoscopy. It should be noted that patient has undergone regular colonoscopies due to family history of colon cancer and had a colonoscopy last year in [facility]. Performing Provider:: Bebo Herring MD Referring Provider:: Darryl Bowie MD Sedation:: Propofol Procedure:: Consent was obtained and patient was taken to endoscopy procedure room. She was positioned in a lateral decubitus position. Anesthesia was achieved with titration of propofol. Variable stiffness Olympus colonoscope was inserted via the anus. With minimal difficulty it was advanced to the cecum. Ileocecal valve and appendiceal orifice were clearly identified. Colonoscope was advanced briefly into the ileocecal valve. Colonoscope was withdrawn through the colon with careful surveillance. She had evidence of pandiverticulosis. She had scattered telangiectasias. These were rare. In the sigmoid colon there is some minor ethmoid diverticuli with edema. Within the rectum there was noted to be internal hemorrhoids which were nonbleeding. Colonoscope was withdrawn. Findings:: Diverticulosis Rare vascular telangiectasias Recommendations:: They had lower GI bleeding possibly as a diverticular bleed versus telangiectasia. Former more likely. This appears to have resolved at this. May be able to discharge once hemoglobin is assuredly stable Complications:: None Estimated blood obtained (mL): 0
--- NOTE | 2017-09-19 11:34 | PC.NURSE ---
Patient returned from floor from colonscopy at 1045 VS: B/P 135/53 P: 91 RR: 18 O2: 93% on RA. Only complaint is pain in her knees at this time. States that this pain is chronic and just needs her am meds. AM meds given at this time.
[2017-09-19 16:05] LABS: POC Glucose,Bedside 306 mg/dL (70-110)
[2017-09-19 16:05] LABS: POC Glucose,Bedside 321 mg/dL (70-110)
[2017-09-19 16:50] LABS: Hematocrit 24.5 % (37.0-47.0)
[2017-09-19 16:55] LABS: POC Glucose,Bedside 405 mg/dL (70-110)
[2017-09-19 16:59] LABS: Hemoglobin 7.7 g/dL (12.2-16.2)
--- NOTE | 2017-09-19 17:29 | P.PN_ITS ---
Internal Medicine - PN: Subj *Date: 09/19/17 *Time: 17:26 Interval history: Clinically stable and comfortable. Colonoscopy revealed no specific bleeding lesion. Telangiectasias were present, but no polyps. H&H at this time is 7.7. Will transfuse 2 units PRBC. Exam Vital signs and Labs for Last 24 Hours: Temp Pulse Resp BP Pulse Ox 98.0 F 95 H 18 143/56 98 09/19/17 16:00 09/19/17 16:00 09/19/17 16:00 09/19/17 16:00 09/19/17 16:00 Laboratory Results - last 24 hr 09/17/17 22:40: Blood Type O Positive, Antibody Screen Negative, Crossmatch (AHG ) See Detail 09/18/17 17:09: POC Glucose 345 09/18/17 22:20: Hgb 8.9 L, Hct 28.3 L 09/18/17 22:27: POC Glucose 235 09/19/17 05:56: POC Glucose 306 09/19/17 06:30: WBC 7.6, RBC 3.73 L D, Hgb 9.6 L, Hct 31.0 L, MCV 83.1, MCH 25.8 L, MCHC 31.0 L, RDW 16.9, Plt Count 107 L D, MPV 7.5, Neut % (Auto) 68.6, Lymph % (Auto) 23.7, [place] % (Auto) 4.3, Eos % (Auto) 3.1, Baso % (Auto) 0.3, Neut # (Auto) 5.2, Lymph # (Auto) 1.8, [place] # (Auto) 0.3, Eos # (Auto) 0.2, Baso # (Auto) 0.0 09/19/17 06:30: Sodium 136, Potassium 3.6 D, Chloride 102, Carbon Dioxide 25, Anion Gap 12.6, BUN 15, Creatinine 1.17 H, Estimated Creat Clear 40, Estimated GFR 46 L, Est GFR ( Amer) 56 L, Glucose 311 H 09/19/17 11:20: POC Glucose 321 09/19/17 16:20: Hgb 7.7 L*, Hct 24.5 L 09/19/17 16:24: POC Glucose 405 I & O for Last 24 hours: Intake & Output 09/17/17 09/18/17 09/19/17 09/20/17 11:59 11:59 11:59 11:59 Intake Total 940 / 2440 1188 / 1188 240 / 240 Output Total 300 / 300 100 / 100 Balance 640 / 2140 1188 / 1188 140 / 140 Weight 291 lb 2 oz 299 lb 3 oz 299 lb 2.994 oz Assessment and Plan (1) Lower GI bleed Current visit: Yes Status: Acute Category: Medical Code(s): K92.2 - Gastrointestinal hemorrhage, unspecified (2) Anemia due to acute blood loss Current visit: Yes Status: Acute Category: Medical Code(s): D62 - Acute posthemorrhagic anemia (3) Obesity Current visit: Yes Status: Chronic Category: Medical Code(s): E66.9 - Obesity, unspecified (4) Type 2 diabetes mellitus Current visit: Yes Status: Chronic Category: Medical Code(s): E11.9 - Type 2 diabetes mellitus without complications (5) Hypertension Current visit: Yes Status: Chronic Category: Medical Code(s): I10 - Essential (primary) hypertension - Assessment and plan all Dx Assessment and Plan for all problems:: transfuse 2 units PRBC.
--- NOTE | 2017-09-19 17:59 | PC.NURSE ---
Spoke with Dr. Bowie face to face related to patient's hgb results. States that he wants 2 units PRBCs transfused now. States that he is not sure if he knows how to put the order in himself but he would try. This nurse looked at his progress note and saw the transfuse order at the bottom of the note. New order placed to transfuse 2 units now.
--- NOTE | 2017-09-19 18:58 | PC.NURSE ---
4th unit of blood started. Patient tolerated this well. Denies any pain or discomfort at this time. Daughter at bedside.
--- NOTE | 2017-09-19 19:34 | PC.NURSE ---
report given to lupe carr
[2017-09-19 23:39] LABS: POC Glucose,Bedside 370 mg/dL (70-110)
[2017-09-20] VITALS (8 sets, daily range): BP systolic 109–143; BP diastolic 41–74; PULSE 76–92; RESP 18–20; TEMP 36.6–37.3; O2SAT 94–98
[2017-09-20 06:59] LABS: POC Glucose,Bedside 249 mg/dL (70-110)
--- NOTE | 2017-09-20 07:33 | PC.NURSE ---
REPORT GIVEN TO Kimberly SCHMITZ W/C
--- NOTE | 2017-09-20 07:49 | PC.NURSE ---
PT SLEPT INTERVALS. RECEIVED 2 UNITS OF PRBC THIS SHIFT AND TOLERATED THEM WELL. NO S/S OF REACTION NOTED. ON ROOM AIR. ONE IV INFUSING NS AND PROTONIX DRIP, OTHER IS NOW SALINE LOCKED. FLUSHES WELL. NO C/O PAIN OR DISCOMFORT REPORTED. UP TO BSC WITH ASSIST. PT HAS CBC THIS AM ORDERED. PT STABLE. REPORT TO ONCOMING NURSE.
[2017-09-20 08:04] LABS: Basophils % 0.3 % (0.1-2.0); Eosinophils # 0.1 K/mm3 (0.0-0.4); Monocytes # 0.2 K/mm3 (0.1-1.0); Platelet Count 80 K/mm3 (142-424); Red Blood Count 3.52 M/mm3 (4.20-5.40)
--- NOTE | 2017-09-20 08:31 | HMH.ACPN2 ---
Internal Medicine - PN: Subj *Date: 09/20/17 *Time: 08:31 Interval history: Patient states she is feeling much better today. She slept well last night has been tolerating her diet. She has had a normal bowel movement and no nausea and vomiting. Exam Vital signs and Labs for Last 24 Hours: Temp Pulse Resp BP Pulse Ox 98.9 F 88 20 109/52 95 09/20/17 08:00 09/20/17 08:00 09/20/17 08:00 09/20/17 08:00 09/20/17 08:00 Laboratory Results - last 24 hr 09/17/17 22:40: Blood Type O Positive, Antibody Screen Negative, Crossmatch (AHG) See Detail 09/19/17 05:56: POC Glucose 306 09/19/17 11:20: POC Glucose 321 09/19/17 16:20: Hgb 7.7 L*, Hct 24.5 L 09/19/17 16:24: POC Glucose 405 09/19/17 22:56: POC Glucose 370 09/20/17 06:25: POC Glucose 249 I & O for Last 24 hours: Intake & Output 09/17/17 09/18/17 09/19/17 09/20/17 11:59 11:59 11:59 11:59 Intake Total 940 / 2440 1188 / 1188 3247 / 3247 Output Total 300 / 300 901 / 901 Balance 640 / 2140 1188 / 1188 2346 / 2346 Weight 291 lb 2 oz 299 lb 3 oz 300 lb 6 oz - Constitutional no acute distress - *Routine Respiratory Exam Present: CTA bilaterally - *Routine Cardiovascular Exam Present: RRR - *Routine Abdominal Exam Present: soft, normoactive bowel sounds. Absent: tenderness - *Routine Extremities Exam Present: edema Assessment and Plan (1) Lower GI bleed Current visit: Yes Status: Acute Category: Medical Code(s): K92.2 - Gastrointestinal hemorrhage, unspecified (2) Anemia due to acute blood loss Current visit: Yes Status: Acute Category: Medical Code(s): D62 - Acute posthemorrhagic anemia (3) Obesity Current visit: Yes Status: Chronic Category: Medical Code(s): E66.9 - Obesity, unspecified (4) Type 2 diabetes mellitus Current visit: Yes Status: Chronic Category: Medical Code(s): E11.9 - Type 2 diabetes mellitus without complications (5) Hypertension Current visit: Yes Status: Chronic Category: Medical Code(s): I10 - Essential (primary) hypertension - Assessment and plan all Dx Assessment and Plan for all problems:: Colonoscopy revealed no specific bleeding lesion. Telangiectasias were present, but no polyps. Her H&H last night was 7.7. She was tansfused with 2 units of PRBC. Will get labs this am. If H&H has improved, she can possibly be discharged home.
[2017-09-20 08:36] LABS: Eosinophils % 2.9 % (0.1-12.0); Hematocrit 29.4 % (37.0-47.0); Lymphocytes % 27.9 K/mm3 (10-50); Mean Corpuscular HGB Conc 32.9 g/dL (31.8-35.4); Mean Corpuscular Hemoglobin 27.4 pg (27.0-31.2); Mean Corpuscular Volume 83.4 fl (81-99); Mean Platelet Volume 8.1 fl (7.4-10.4); Neutrophils # 2.4 K/mm3 (1.8-7.8); Red Cell Distribution Width 17.1 % (11.5-17.5); White Blood Count 3.7 K/mm3 (4.8-10.8)
--- NOTE | 2017-09-20 08:36 | P.PN_ITS ---
Internal Medicine - PN: Subj *Date: 09/20/17 *Time: 08:31 Interval history: Patient states she is feeling much better today. She slept well last night has been tolerating her diet. She has had a normal bowel movement and no nausea and vomiting. Exam Vital signs and Labs for Last 24 Hours: Temp Pulse Resp BP Pulse Ox 98.9 F 88 20 109/52 95 09/20/17 08:00 09/20/17 08:00 09/20/17 08:00 09/20/17 08:00 09/20/17 08:00 Laboratory Results - last 24 hr 09/17/17 22:40: Blood Type O Positive, Antibody Screen Negative, Crossmatch (AHG ) See Detail 09/19/17 05:56: POC Glucose 306 09/19/17 11:20: POC Glucose 321 09/19/17 16:20: Hgb 7.7 L*, Hct 24.5 L 09/19/17 16:24: POC Glucose 405 09/19/17 22:56: POC Glucose 370 09/20/17 06:25: POC Glucose 249 I & O for Last 24 hours: Intake & Output 09/17/17 09/18/17 09/19/17 09/20/17 11:59 11:59 11:59 11:59 Intake Total 940 / 2440 1188 / 1188 3247 / 3247 Output Total 300 / 300 901 / 901 Balance 640 / 2140 1188 / 1188 2346 / 2346 Weight 291 lb 2 oz 299 lb 3 oz 300 lb 6 oz - Constitutional no acute distress - *Routine Respiratory Exam Present: CTA bilaterally - *Routine Cardiovascular Exam Present: RRR - *Routine Abdominal Exam Present: soft, normoactive bowel sounds. Absent: tenderness - *Routine Extremities Exam Present: edema Assessment and Plan (1) Lower GI bleed Current visit: Yes Status: Acute Category: Medical Code(s): K92.2 - Gastrointestinal hemorrhage, unspecified (2) Anemia due to acute blood loss Current visit: Yes Status: Acute Category: Medical Code(s): D62 - Acute posthemorrhagic anemia (3) Obesity Current visit: Yes Status: Chronic Category: Medical Code(s): E66.9 - Obesity, unspecified (4) Type 2 diabetes mellitus Current visit: Yes Status: Chronic Category: Medical Code(s): E11.9 - Type 2 diabetes mellitus without complications (5) Hypertension Current visit: Yes Status: Chronic Category: Medical Code(s): I10 - Essential (primary) hypertension - Assessment and plan all Dx Assessment and Plan for all problems:: Colonoscopy revealed no specific bleeding lesion. Telangiectasias were present , but no polyps. Her H&H last night was 7.7. She was tansfused with 2 units of PRBC. Will get labs this am. If H&H has improved, she can possibly be discharged home.
[2017-09-20 08:41] LABS: Hemoglobin 9.7 g/dL (12.2-16.2)
--- NOTE | 2017-09-20 08:59 | HMH.GSPN ---
Subjective Patient reports: no new complaints, feels better Narrative: No rectal bleeding for about 36 hours. Required transfusion of 2 units overnight for dropping H/H 7.7 with good response. Exam Vital signs and Labs for Last 24 Hours: Temp Pulse Resp BP Pulse Ox 98.9 F 88 20 109/52 95 09/20/17 08:00 09/20/17 08:00 09/20/17 08:00 09/20/17 08:00 09/20/17 08:00 Laboratory Results - last 24 hr 09/17/17 22:40: Blood Type O Positive, Antibody Screen Negative, Crossmatch (AHG) See Detail 09/19/17 05:56: POC Glucose 306 09/19/17 11:20: POC Glucose 321 09/19/17 16:20: Hgb 7.7 L*, Hct 24.5 L 09/19/17 16:24: POC Glucose 405 09/19/17 22:56: POC Glucose 370 09/20/17 06:25: POC Glucose 249 09/20/17 06:42: WBC 3.7 L D, RBC 3.52 L, Hgb 9.7 L D, Hct 29.4 L, MCV 83.4, MCH 27.4, MCHC 32.9, RDW 17.1, Plt Count 80 L D, MPV 8.1, Neut % (Auto) 64.0, Lymph % (Auto) 27.9, [place] % (Auto) 5.0, Eos % (Auto) 2.9, Baso % (Auto) 0.3, Neut # (Auto) 2.4, Lymph # (Auto) 1.0, [place] # (Auto) 0.2, Eos # (Auto) 0.1, Baso # (Auto) 0.0 I & O for Last 24 hours: Intake & Output 09/17/17 09/18/17 09/19/17 09/20/17 11:59 11:59 11:59 11:59 Intake Total 940 / 2440 1188 / 1188 3247 / 3247 Output Total 300 / 300 901 / 901 Balance 640 / 2140 1188 / 1188 2346 / 2346 Weight 291 lb 2 oz 299 lb 3 oz 300 lb 6 oz - *Routine Abdominal Exam Present: soft Progress Note: A&P (1) Lower GI bleed Status: Acute Assessment and plan: No evidence of any additional bleeding. Once H/H determined to be stable may be able to discharge. Current Visit: Yes (2) Anemia due to acute blood loss Status: Acute Current Visit: Yes (3) Obesity Status: Chronic Current Visit: Yes (4) Type 2 diabetes mellitus Status: Chronic Current Visit: Yes (5) Hypertension Status: Chronic Current Visit: Yes
[2017-09-20 09:01] LABS: Alanine Aminotransferase 36 U/L (12-78); Albumin Level 2.6 gm/dL (3.4-5.0); Albumin/Globulin Ratio 0.8 (1.1-1.8); Alkaline Phosphatase 134 U/L (46-116); Anion Gap 14.4 mEq/L (5-15); Aspartate Amino Transferase 30 U/L (15-37); Bilirubin,Total 0.4 mg/dL (0.2-1.0); Blood Urea Nitrogen 11 mg/dL (7-18); Carbon Dioxide 23 mmol/L (21.0-32.0); Chloride 106 mmol/L (98-107); Creatinine Clearance Estimated 44 mL/min (0-300); Estimated Glomerular Filt Rate 56 ml/min (>60); GFR (African American) 67 ML/MIN (>60); Globulin 3.1 gm/dl (1.3-3.2); Glucose 238 mg/dL (74-106); Potassium 3.4 mmoL/L (3.5-5.1); Sodium 140 mmol/L (136-145); Total Protein,Serum 5.7 gm/dL (6.4-8.2)
[2017-09-20 09:14] LABS: Calcium 6.9 mg/dL (8.5-10.1)
[2017-09-20 11:24] LABS: POC Glucose,Bedside 298 mg/dL (70-110)
[2017-09-20 14:32] LABS: Hematocrit 29.6 % (37.0-47.0); Hemoglobin 9.6 g/dL (12.2-16.2)
--- NOTE | 2017-09-20 17:32 | PC.NURSE ---
PT HAS BEEN A&Ox4 THIS SHIFT. VSS. AFEBRILE. HEART RATE REG. LUNGS CTA. ABD ROUND, SOFT AND NON-TENDER /C ACTIVE BS X4 QUADS. PT REPORTS NO S/S OF BLEEDING THIS SHIFT. PT HAS REQUIRED INSULIN SLIDING SCALE COVERAGE (SEE MAR). PT C/O CHRONIC PAIN TO LOWER EXTREMITIES SECONDARY TO NEUROPATHY. PROTONIX GTT @ 10ML/HR INFUSING /C 0.9%NaCl @ 100ML/HR VIA (L) HAND. NO S/S OF INFILTRATION. (R) HAND IV SALINE LOCKED; FLUSHES EASILY WITH GOOD BLOOD RETURN. BED IN LOW POSITION, CALL [facility] WITHIN REACH. FAMILY HAS BEEN VISITING THIS SHIFT. WILL CONTINUE TO MONITOR.
--- NOTE | 2017-09-20 19:03 | PC.NURSE ---
Report given to Antony Mcwillimas RN
--- NOTE | 2017-09-20 19:53 | PC.NURSE ---
PT FULL CODE, REPORT FROM HEYDI
--- NOTE | 2017-09-20 21:20 | PC.NURSE ---
Dr Bowie visited. New orders received.
[2017-09-21] VITALS: BP 154/75; PULSE 92; RESP 18; TEMP 36.8; O2SAT 96
[2017-09-21 02:12] LABS: POC Glucose,Bedside 345 mg/dL (70-110)
[2017-09-21 02:13] LABS: POC Glucose,Bedside 294 mg/dL (70-110)
[2017-09-21 04:00] VITALS: BP 144/59; PULSE 87; RESP 18; TEMP 36.9; O2SAT 95
--- NOTE | 2017-09-21 05:55 | PC.NURSE ---
PT SLEPT LONG INTERVALS THIS SHIFT. C/O KNEE PAIN X2 REQUIRING PRN PAIN MEDICATION. STOPPED PROTONIX GTT ORDER WAS PLACED YESTERDAY TO D/C IT. CONTINUES ON IV FLUIDS NS@100/HR. VSS. BREATH SOUNDS CLEAR. NO COUGH NOTED. NO C/O CHEST PAIN OR SOA. CONTINUES ON ROOM AIR. PT STABLE. WILL CONTINUE TO MONITOR. REPORT TO BE GIVEN TO ONCOMING NURSE.
[2017-09-21 06:24] LABS: Basophils % 0.2 % (0.1-2.0); Eosinophils # 0.1 K/mm3 (0.0-0.4); Eosinophils % 3.2 % (0.1-12.0); Hemoglobin 8.7 g/dL (12.2-16.2); Lymphocytes # 0.8 K/mm3 (0.7-4.5); Lymphocytes % 26.8 K/mm3 (10-50); Mean Corpuscular HGB Conc 32.5 g/dL (31.8-35.4); Mean Corpuscular Hemoglobin 27.1 pg (27.0-31.2); Mean Corpuscular Volume 83.5 fl (81-99); Mean Platelet Volume 8.5 fl (7.4-10.4); Monocytes # 0.1 K/mm3 (0.1-1.0); Monocytes % 4.9 % (1.7-9.3); Neutrophils # 1.8 K/mm3 (1.8-7.8); Platelet Count 76 K/mm3 (142-424); Red Cell Distribution Width 17.5 % (11.5-17.5); White Blood Count 2.8 K/mm3 (4.8-10.8)
[2017-09-21 06:28] LABS: Hematocrit 26.7 % (37.0-47.0)
[2017-09-21 06:44] LABS: Anion Gap 11.6 mEq/L (5-15); Blood Urea Nitrogen 8 mg/dL (7-18); Carbon Dioxide 25 mmol/L (21.0-32.0); Chloride 106 mmol/L (98-107); Creatinine Clearance Estimated 44 mL/min (0-300); Creatinine,Serum 0.89 mg/dL (0.55-1.02); Estimated Glomerular Filt Rate 64 ml/min (>60); GFR (African American) 77 ML/MIN (>60); Glucose 232 mg/dL (74-106); Potassium 3.6 mmoL/L (3.5-5.1); Sodium 139 mmol/L (136-145)
[2017-09-21 07:08] LABS: POC Glucose,Bedside 243 mg/dL (70-110)
--- NOTE | 2017-09-21 07:18 | PC.NURSE ---
REPORT GIVEN TO Kimberly SCHMITZ W/C
[2017-09-21 08:00] VITALS: BP 124/63; PULSE 96; RESP 18; TEMP 36.3; O2SAT 98
--- NOTE | 2017-09-21 08:15 | PC.NURSE ---
0715 - Report received from Antony Mcwilliams RN
--- NOTE | 2017-09-21 09:04 | HMH.GSPN ---
Subjective Patient reports: no new complaints Narrative: Patient feels well with no complaints. No clinical bleeding. Exam Vital signs and Labs for Last 24 Hours: Temp Pulse Resp BP Pulse Ox 97.3 F L 96 H 18 124/63 98 09/21/17 08:00 09/21/17 08:00 09/21/17 08:00 09/21/17 08:00 09/21/17 08:00 Laboratory Results - last 24 hr 09/17/17 22:40: Crossmatch (AHG) See Detail 09/20/17 06:42: Sodium 140, Potassium 3.4 L, Chloride 106, Carbon Dioxide 23, Anion Gap 14.4, BUN 11 D, Creatinine 1.00, Estimated Creat Clear 44, Estimated GFR 56 L, Est GFR ( Amer) 67, Glucose 238 H, Calcium 6.9 L D, Total Bilirubin 0.4, AST 30 D, ALT 36 D, Alkaline Phosphatase 134 H, Total Protein 5.7 L, Albumin 2.6 L, Globulin 3.1, Albumin/Globulin Ratio 0.8 L 09/20/17 10:54: POC Glucose 298 09/20/17 14:00: Hgb 9.6 L, Hct 29.6 L 09/20/17 17:16: POC Glucose 345 09/20/17 20:12: POC Glucose 294 09/21/17 06:15: WBC 2.8 L, RBC 3.20 L, Hgb 8.7 L, Hct 26.7 L, MCV 83.5, MCH 27.1, MCHC 32.5, RDW 17.5, Plt Count 76 L, MPV 8.5, Neut % (Auto) 65.0, Lymph % (Auto) 26.8, [place] % (Auto) 4.9, Eos % (Auto) 3.2, Baso % (Auto) 0.2, Neut # (Auto) 1.8, Lymph # (Auto) 0.8, [place] # (Auto) 0.1, Eos # (Auto) 0.1, Baso # (Auto) 0.0 09/21/17 06:15: Sodium 139, Potassium 3.6, Chloride 106, Carbon Dioxide 25, Anion Gap 11.6, BUN 8 D, Creatinine 0.89, Estimated Creat Clear 44, Estimated GFR 64, Est GFR ( Amer) 77, Glucose 232 H 09/21/17 06:24: POC Glucose 243 I & O for Last 24 hours: Intake & Output 09/18/17 09/19/17 09/20/17 09/21/17 11:59 11:59 11:59 11:59 Intake Total 940 / 2440 1188 / 1188 3247 / 3247 3477 / 3477 Output Total 300 / 300 901 / 901 1800 / 1800 Balance 640 / 2140 1188 / 1188 2346 / 2346 1677 / 1677 Weight 291 lb 2 oz 299 lb 3 oz 300 lb 6 oz - *Routine Abdominal Exam Present: soft Progress Note: A&P (1) Lower GI bleed Status: Acute Assessment and plan: No additional surgical recommendations at this time. She does seem to be showing evidence of some pancytopenia on her CBC this morning. Current Visit: Yes (2) Anemia due to acute blood loss Status: Acute Current Visit: Yes (3) Obesity Status: Chronic Current Visit: Yes (4) Type 2 diabetes mellitus Status: Chronic Current Visit: Yes (5) Hypertension Status: Chronic Current Visit: Yes
--- NOTE | 2017-09-21 09:34 | HMH.ACPN2 ---
Internal Medicine - PN: Subj *Date: 09/21/17 *Time: 09:34 Interval history: The patient is comfortable and anxious for discharge. Her hemoglobin has declined from 9.7 to 8.7 which is of concern. She has seen no active bleeding. The case is discussed with Dr. Herring. My plan is to discharge patient and see her in follow-up in the office tomorrow and repeat a CBC. I will also discharge her on sucralfate 1 g 4 times daily. Exam Vital signs and Labs for Last 24 Hours: Temp Pulse Resp BP Pulse Ox 97.3 F L 96 H 18 124/63 98 09/21/17 08:00 09/21/17 08:00 09/21/17 08:00 09/21/17 08:00 09/21/17 08:00 Laboratory Results - last 24 hr 09/17/17 22:40: Crossmatch (AHG) See Detail 09/20/17 10:54: POC Glucose 298 09/20/17 14:00: Hgb 9.6 L, Hct 29.6 L 09/20/17 17:16: POC Glucose 345 09/20/17 20:12: POC Glucose 294 09/21/17 06:15: WBC 2.8 L, RBC 3.20 L, Hgb 8.7 L, Hct 26.7 L, MCV 83.5, MCH 27.1, MCHC 32.5, RDW 17.5, Plt Count 76 L, MPV 8.5, Neut % (Auto) 65.0, Lymph % (Auto) 26.8, [place] % (Auto) 4.9, Eos % (Auto) 3.2, Baso % (Auto) 0.2, Neut # (Auto) 1.8, Lymph # (Auto) 0.8, [place] # (Auto) 0.1, Eos # (Auto) 0.1, Baso # (Auto) 0.0 09/21/17 06:15: Sodium 139, Potassium 3.6, Chloride 106, Carbon Dioxide 25, Anion Gap 11.6, BUN 8 D, Creatinine 0.89, Estimated Creat Clear 44, Estimated GFR 64, Est GFR ( Amer) 77, Glucose 232 H 09/21/17 06:24: POC Glucose 243 I & O for Last 24 hours: Intake & Output 03/09/19/17 09/20/17 09/21/17 11:59 11:59 11:59 11:59 Intake Total 940 / 2440 1188 / 1188 3247 / 3247 3477 / 3477 Output Total 300 / 300 901 / 901 1800 / 1800 Balance 640 / 2140 1188 / 1188 2346 / 2346 1677 / 1677 Weight 291 lb 2 oz 299 lb 3 oz 300 lb 6 oz - Constitutional no acute distress - *Routine Respiratory Exam Present: CTA bilaterally - *Routine Cardiovascular Exam Present: RRR - *Routine Abdominal Exam Present: soft Comments: Obese - *Routine Extremities Exam Comments: 2+ leg edema Assessment and Plan (1) Lower GI bleed Current visit: Yes Status: Acute Category: Medical Code(s): K92.2 - Gastrointestinal hemorrhage, unspecified (2) Anemia due to acute blood loss Current visit: Yes Status: Acute Category: Medical Code(s): D62 - Acute posthemorrhagic anemia (3) Obesity Current visit: Yes Status: Chronic Category: Medical Code(s): E66.9 - Obesity, unspecified (4) Type 2 diabetes mellitus Current visit: Yes Status: Chronic Qualifiers: Diabetes mellitus complication status: without complication Category: Medical Code(s): E11.9 - Type 2 diabetes mellitus without complications (5) Hypertension Current visit: Yes Status: Chronic Category: Medical Code(s): I10 - Essential (primary) hypertension (6) Hyperglycemia Current visit: Yes Status: Chronic Category: Medical Code(s): R73.9 - Hyperglycemia, unspecified - Assessment and plan all Dx Assessment and Plan for all problems:: Discharge today with follow-up tomorrow in the office for CBC. Sucralfate added to the regimen
--- NOTE | 2017-09-21 09:37 | P.PN_ITS ---
Internal Medicine - PN: Subj *Date: 09/21/17 *Time: 09:34 Interval history: The patient is comfortable and anxious for discharge. Her hemoglobin has declined from 9.7 to 8.7 which is of concern. She has seen no active bleeding. The case is discussed with Dr. Herring. My plan is to discharge patient and see her in follow-up in the office tomorrow and repeat a CBC. I will also discharge her on sucralfate 1 g 4 times daily. Exam Vital signs and Labs for Last 24 Hours: Temp Pulse Resp BP Pulse Ox 97.3 F L 96 H 18 124/63 98 09/21/17 08:00 09/21/17 08:00 09/21/17 08:00 09/21/17 08:00 09/21/17 08:00 Laboratory Results - last 24 hr 09/17/17 22:40: Crossmatch (AHG) See Detail 09/20/17 10:54: POC Glucose 298 09/20/17 14:00: Hgb 9.6 L, Hct 29.6 L 09/20/17 17:16: POC Glucose 345 09/20/17 20:12: POC Glucose 294 09/21/17 06:15: WBC 2.8 L, RBC 3.20 L, Hgb 8.7 L, Hct 26.7 L, MCV 83.5, MCH 27.1 , MCHC 32.5, RDW 17.5, Plt Count 76 L, MPV 8.5, Neut % (Auto) 65.0, Lymph % ( Auto) 26.8, [place] % (Auto) 4.9, Eos % (Auto) 3.2, Baso % (Auto) 0.2, Neut # (Auto ) 1.8, Lymph # (Auto) 0.8, [place] # (Auto) 0.1, Eos # (Auto) 0.1, Baso # (Auto) 0.0 09/21/17 06:15: Sodium 139, Potassium 3.6, Chloride 106, Carbon Dioxide 25, Anion Gap 11.6, BUN 8 D, Creatinine 0.89, Estimated Creat Clear 44, Estimated GFR 64, Est GFR ( Amer) 77, Glucose 232 H 09/21/17 06:24: POC Glucose 243 I & O for Last 24 hours: Intake & Output 03/09/19/17 09/20/17 09/21/17 11:59 11:59 11:59 11:59 Intake Total 940 / 2440 1188 / 1188 3247 / 3247 3477 / 3477 Output Total 300 / 300 901 / 901 1800 / 1800 Balance 640 / 2140 1188 / 1188 2346 / 2346 1677 / 1677 Weight 291 lb 2 oz 299 lb 3 oz 300 lb 6 oz - Constitutional no acute distress - *Routine Respiratory Exam Present: CTA bilaterally - *Routine Cardiovascular Exam Present: RRR - *Routine Abdominal Exam Present: soft Comments: Obese - *Routine Extremities Exam Comments: 2+ leg edema Assessment and Plan (1) Lower GI bleed Current visit: Yes Status: Acute Category: Medical Code(s): K92.2 - Gastrointestinal hemorrhage, unspecified (2) Anemia due to acute blood loss Current visit: Yes Status: Acute Category: Medical Code(s): D62 - Acute posthemorrhagic anemia (3) Obesity Current visit: Yes Status: Chronic Category: Medical Code(s): E66.9 - Obesity, unspecified (4) Type 2 diabetes mellitus Current visit: Yes Status: Chronic Qualifiers: Diabetes mellitus complication status: without complication Category: Medical Code(s): E11.9 - Type 2 diabetes mellitus without complications (5) Hypertension Current visit: Yes Status: Chronic Category: Medical Code(s): I10 - Essential (primary) hypertension (6) Hyperglycemia Current visit: Yes Status: Chronic Category: Medical Code(s): R73.9 - Hyperglycemia, unspecified - Assessment and plan all Dx Assessment and Plan for all problems:: Discharge today with follow-up tomorrow in the office for CBC. Sucralfate added to the regimen
--- NOTE | 2017-09-22 15:19 | HMH.DCSUM ---
General - General Admission date: 09/17/17 Discharge date: 09/21/17 HPI HPI: Patient is a 67-year-old morbidly obese diabetic white female. She states that yesterday she had some vague abdominal pain. She then had vomiting of what she describes as clots. She had dark stools and had had bowel movements with fresh blood. She presented to the emergency department where she was seen and evaluated. She did undergo a CT scan which interestingly revealed findings of a generous appendix. Given her clinical history, she was admitted for a surgical consultation. She has undergone regular colonoscopies and had a colonoscopy last year in [place] which was reportedly unremarkable. She has previously had polyps and telangiectasias on the colonoscopies. There is a strong family history of colon cancer. We have record of a colonoscopy 12/07/[address] Waldrop here at [facility]. This study showed multiple telangioectasias in the colon. She also had diverticulosis and 5 polyps were removed at the time. Hospital Course Hospital Course: She continued to vomit blood and have blood in her stool and her H&H dropped, therefore she had to have a blood transfusion. She was seen by surgery and Dr. Herring did an EGD. He found diffuse chronic esophagitis with some nodularity of the proximal esophagus. He also found diffuse nonerosive gastritis with minuscule erosions focally at the prepylorus and rare polyp. There was no obvious source of upper GI etiology for blood loss. She then had a colonoscopy. The colonoscopy revealed no specific bleeding lesion. Telangiectasias were present, but there were no polyps. Her H&H dropped again, therefore she was transfused with 2 more units PRBC. She began feeling better and was tolerating a diet. Her H&H dropped slightly but she was stable to be discharged on sucralfate 1g 4 times a day. She will follow-up in the office for a repeat CBC. Objective Vital signs: Temp Pulse Resp BP Pulse Ox 97.3 F L 96 H 18 124/63 98 09/21/17 08:00 09/21/17 08:00 09/21/17 08:00 09/21/17 08:00 09/21/17 08:00 Narrative: - Constitutional Comments: Does not appear to feel well - *Routine HEENT Exam Head: Present: normocephalic, atraumatic Eye: Present: EOMI, PERRL ENT: Present: mucous membranes dry - *Routine Neck Exam Present: supple, full ROM - *Routine Respiratory Exam Present: CTA bilaterally - *Routine Cardiovascular Exam Present: tachycardia - *Routine Abdominal Exam Present: soft, normoactive bowel sounds, tenderness (diffusely ttp but worse in the lower quadrants) - *Routine Extremities Exam Present: edema - *Routine Skin Exam Present: pallor - *Routine Neurological Exam Present: alert, oriented X3 DS: Diagnosis - Discharge Diagnosis (1) Lower GI bleed Status: Acute (2) Anemia due to acute blood loss Status: Acute (3) Obesity Status: Chronic (4) Type 2 diabetes mellitus Status: Chronic (5) Hypertension Status: Chronic Discharge Plan - Patient Discharge Instructions ACTIVITY: Limited activity DIET: continue same diet Additional Instructions: Return to the hospital with any evidence of bleeding. Patient Instructions: Gastrointestinal Bleeding - Follow up Plan Follow up with: Yared Bowie MD [Primary Care Provider] - (Appointment tomorrow in the office of [facility]) Disposition: Home, Self-Longterm Medications: Home Medications Medication Instructions Recorded Confirmed Type Budesonide/Formoterol Fumarate 2 puffs IH BID 09/17/17 09/17/17 History [Symbicort 160-4.5 Mcg Inhaler] Cyclobenzaprine HCl 10 mg PO BID 09/17/17 09/17/17 History [Cyclobenzaprine 10mg Tab] Fluoxetine HCl 40 mg PO BID 09/17/17 09/18/17 History Gabapentin [Gabapentin 300mg Cap] 600 mg PO TID 09/17/17 09/18/17 History Hydrocodone/Acetaminophen 1 tab PO TIDP PRN 09/17/17 09/18/17 History [Hydrocodone-Acetam
--- NOTE | 2017-09-22 15:25 | P.DS_ITS ---
General - General Admission date: 09/17/17 Discharge date: 09/21/17 HPI HPI: Patient is a 67-year-old morbidly obese diabetic white female. She states that yesterday she had some vague abdominal pain. She then had vomiting of what she describes as clots. She had dark stools and had had bowel movements with fresh blood. She presented to the emergency department where she was seen and evaluated. She did undergo a CT scan which interestingly revealed findings of a generous appendix. Given her clinical history, she was admitted for a surgical consultation. She has undergone regular colonoscopies and had a colonoscopy last year in [facility] which was reportedly unremarkable. She has previously had polyps and telangiectasias on the colonoscopies. There is a strong family history of colon cancer. We have record of a colonoscopy 12/07/[address] Waldrop here at [facility]. This study showed multiple telangioectasias in the colon. She also had diverticulosis and 5 polyps were removed at the time. Hospital Course Hospital Course: She continued to vomit blood and have blood in her stool and her H&H dropped, therefore she had to have a blood transfusion. She was seen by surgery and Dr. Herring did an EGD. He found diffuse chronic esophagitis with some nodularity of the proximal esophagus. He also found diffuse nonerosive gastritis with minuscule erosions focally at the prepylorus and rare polyp. There was no obvious source of upper GI etiology for blood loss. She then had a colonoscopy. The colonoscopy revealed no specific bleeding lesion. Telangiectasias were present, but there were no polyps. Her H&H dropped again, therefore she was transfused with 2 more units PRBC. She began feeling better and was tolerating a diet. Her H&H dropped slightly but she was stable to be discharged on sucralfate 1g 4 times a day. She will follow-up in the office for a repeat CBC. Objective Vital signs: Temp Pulse Resp BP Pulse Ox 97.3 F L 96 H 18 124/63 98 09/21/17 08:00 09/21/17 08:00 09/21/17 08:00 09/21/17 08:00 09/21/17 08:00 Narrative: - Constitutional Comments: Does not appear to feel well - *Routine HEENT Exam Head: Present: normocephalic, atraumatic Eye: Present: EOMI, PERRL ENT: Present: mucous membranes dry - *Routine Neck Exam Present: supple, full ROM - *Routine Respiratory Exam Present: CTA bilaterally - *Routine Cardiovascular Exam Present: tachycardia - *Routine Abdominal Exam Present: soft, normoactive bowel sounds, tenderness (diffusely ttp but worse in the lower quadrants) - *Routine Extremities Exam Present: edema - *Routine Skin Exam Present: pallor - *Routine Neurological Exam Present: alert, oriented X3 DS: Diagnosis - Discharge Diagnosis (1) Lower GI bleed Status: Acute (2) Anemia due to acute blood loss Status: Acute (3) Obesity Status: Chronic (4) Type 2 diabetes mellitus Status: Chronic (5) Hypertension Status: Chronic Discharge Plan - Patient Discharge Instructions ACTIVITY: Limited activity DIET: continue same diet Additional Instructions: Return to the hospital with any evidence of bleeding. Patient Instructions: Gastrointestinal Bleeding - Follow up Plan Follow up with: Yared Bowie MD [Primary Care Provider] - (Appointment tomorrow in the office of [facility]) Disposition: Home, Self-Fpc Medications:
== END 2017-09-21 11:05 | disposition home or self-care (01) | DRG 378 ==
LOC: ER 18:14 → 2ND 20:05
PROVIDERS: Physician Assistant; Surgery; Admitting Provider Family Medicine; Emergency Provider Emergency Medicine; PCP Family Medicine; Visit Provider Family Medicine
PROC: 0DJ08ZZ Inspection of Upper Intestinal Tract, Via Natural or Artificial Opening Endoscopic (ICD-10-PCS; CPT 43235; principal; 2017-09-18 14:00)
PROC: 0DJD8ZZ Inspection of Lower Intestinal Tract, Via Natural or Artificial Opening Endoscopic (ICD-10-PCS; principal; 2017-09-19 09:00)
DX: K92.2 Gastrointestinal hemorrhage, unspecified (principal); D62 Acute posthemorrhagic anemia; E66.01 Morbid (severe) obesity due to excess calories; Z68.43 Body mass index [BMI] 50.0-59.9, adult; E11.9 Type 2 diabetes mellitus without complications; I10 Essential (primary) hypertension; Z71.3 Dietary counseling and surveillance
CPT/HCPCS: 43235; 36415; 71045; 74177; 80048; 80053; 81001; 82272; 82550; 82553; 82962; 83690; 84484; 85014; 85018; 85025; 85044; 86850; 87086; 87088; 87186; 93005; 94761; 96365; 96366; 96367; 96372; 96374; 96375; 99284; 99291; G0328; J2405; P9016; Q9967

== ENCOUNTER 2017-09-23 04:23 | Inpatient (IN) | payer MEDICARE, SELFPAY ==
[2017-09-23] VITALS (29 sets, daily range): BP systolic 103–159; BP diastolic 42–90; PULSE 80–114; RESP 16–24; TEMP 36.2–37.4; O2SAT 95–100; BMI 53.1; BMI 53.8
[2017-09-23 04:54] LABS: Basophils % 0.2 % (0.1-2.0); Eosinophils # 0.2 K/mm3 (0.0-0.4); Eosinophils % 3.1 % (0.1-12.0); Hematocrit 27.4 % (37.0-47.0); Hemoglobin 8.8 g/dL (12.2-16.2); Lymphocytes # 1.1 K/mm3 (0.7-4.5); Lymphocytes % 17.3 K/mm3 (10-50); Mean Corpuscular HGB Conc 31.9 g/dL (31.8-35.4); Mean Corpuscular Hemoglobin 26.7 pg (27.0-31.2); Mean Corpuscular Volume 83.7 fl (81-99); Mean Platelet Volume 9.6 fl (7.4-10.4); Monocytes # 0.3 K/mm3 (0.1-1.0); Monocytes % 4.6 % (1.7-9.3); Neutrophils # 4.8 K/mm3 (1.8-7.8); Neutrophils % 74.7 % (37.0-80.0); Platelet Count 125 K/mm3 (142-424); Red Blood Count 3.28 M/mm3 (4.20-5.40); Red Cell Distribution Width 17.3 % (11.5-17.5); White Blood Count 6.4 K/mm3 (4.8-10.8)
[2017-09-23 05:04] LABS: Alanine Aminotransferase 34 U/L (12-78); Albumin Level 2.5 gm/dL (3.4-5.0); Albumin/Globulin Ratio 0.7 (1.1-1.8); Alkaline Phosphatase 158 U/L (46-116); Anion Gap 11.7 mEq/L (5-15); Aspartate Amino Transferase 29 U/L (15-37); Bilirubin,Total 0.5 mg/dL (0.2-1.0); Blood Urea Nitrogen 8 mg/dL (7-18); Carbon Dioxide 26 mmol/L (21.0-32.0); Chloride 101 mmol/L (98-107); Creatinine Clearance Estimated 42 mL/min (0-300); Creatinine,Serum 1.11 mg/dL (0.55-1.02); Estimated Glomerular Filt Rate 49 ml/min (>60); GFR (African American) 60 ML/MIN (>60); Globulin 3.7 gm/dl (1.3-3.2); Glucose 338 mg/dL (74-106); Potassium 3.7 mmoL/L (3.5-5.1); Sodium 135 mmol/L (136-145); Total Protein,Serum 6.2 gm/dL (6.4-8.2)
--- NOTE | 2017-09-23 05:38 | HMH.EDGIBL ---
ED Disposition Clinical Impression: Lower GI bleed Disposition: Admitted as Observation Condition on Discharge: Good Instructions: DI for Gastrointestinal Bleeding Referrals: Yaerd Bowie MD [Primary Care Provider] - - Critical Care Critical Care Time: No Attestation: On 09/23/17, the high probability of a clinically significant, sudden or life threatening deterioration of the following system(s) required my full and direct attention, intervention and personal management. The time I documented below is in addition to time spent performing reported procedures but includes the following listed in this critical care notation. Medical Decision Making - Medical Records Medical records reviewed: Yes: I reviewed the patient's medical records. - Vaughn Inquiry Pt receiving controlled substance: No Vaughn was queried for this patient: No Vital Signs: 09/23/17 04:31 09/23/17 05:55 Temperature 98.6 F Temperature Source Oral Pulse Rate [Right Brachial] 101 H 101 H Respiratory Rate 20 18 Blood Pressure [Right Arm] 153/68 121/90 Blood Pressure Mean [Right Arm] 96 100 Blood Pressure Source [Right Arm] Automatic Cuff Automatic Cuff Blood Pressure Position [Right Arm] Supine Sitting 02 Sat by Pulse Oximetry 98 96 Oxygen Delivery Method Room Air Room Air - Lab Data Lab results reviewed: Yes: I reviewed the patient's lab results. Lab Results 09/23/17 04:40: WBC 6.4 D, RBC 3.28 L, Hgb 8.8 L, Hct 27.4 L, MCV 83.7, MCH 26.7 L, MCHC 31.9, RDW 17.3, Plt Count 125 L D, MPV 9.6, Neut % (Auto) 74.7, Lymph % (Auto) 17.3, [place] % (Auto) 4.6, Eos % (Auto) 3.1, Baso % (Auto) 0.2, Neut # (Auto) 4.8, Lymph # (Auto) 1.1, [place] # (Auto) 0.3, Eos # (Auto) 0.2, Baso # (Auto) 0.0 09/23/17 04:40: Sodium 135 L, Potassium 3.7, Chloride 101, Carbon Dioxide 26, Anion Gap 11.7, BUN 8, Creatinine 1.11 H D, Estimated Creat Clear 42, Estimated GFR 49 L, Est GFR ( Amer) 60 D, Glucose 338 H, Calcium 7.7 L D, Total Bilirubin 0.5, AST 29, ALT 34, Alkaline Phosphatase 158 H, Total Protein 6.2 L, Albumin 2.5 L, Globulin 3.7 H, Albumin/Globulin Ratio 0.7 L Result diagrams: 09/23/17 04:40 09/23/17 04:40 - Physician Consults Physician Consulted: ru Reason -: Admission Additional Consult: gilsonran Reason -: Pt condition GI Bleed HPI - General Chief complaint: GI Bleed Stated complaint: GI Bleed;Blood in stool Time Seen by Provider: 09/23/17 05:38 Mode of Arrival: Wheelchair Source of Information: Patient, Spouse, Medical Record Limitations: Physical Limitations Description of Symptoms (Recalled from ER Triage Doc. by RN): reports gi bleed. was just dc from hospital on friday for a gi bleed, was seen in [facility] office friday for a follow up. reports red stool states it is not bright red blood, but not coffee ground either - History of Present Illness HPI Narrative: pt with recent h admit with gi bleed - pt was seen yesterday by dr ru logan MD complaint: gross hematochezia Onset (ago): day(s) Consistency: intermittent Severity: moderate Context: diverticular disease - Related Data Home Medications Medication Instructions Recorded Confirmed Budesonide/Formoterol Fumarate 2 puffs IH BID 09/17/17 09/23/17 [Symbicort 160-4.5 Mcg Inhaler] Cyclobenzaprine HCl 10 mg PO BID 09/17/17 09/23/17 [Cyclobenzaprine 10mg Tab] Fluoxetine HCl 40 mg PO BID 09/17/17 09/23/17 Gabapentin [Gabapentin 300mg Cap] 600 mg PO TID 09/17/17 09/23/17 Hydrocodone/Acetaminophen 1 tab PO TIDP PRN 09/17/17 09/23/17 [Hydrocodone-Acetamin 10-325 mg] Insulin Regular, Human [Humulin R] 0 units SQ ACHS 09/17/17 09/23/17 Levothyroxine Sodium 112 mcg PO DAILY 09/17/17 09/23/17 [Levothyroxine 112mcg (0.112mg) Tab] Lisinopril/Hydrochlorothiazide 1 tab PO DAILY 09/17/17 09/23/17 [Lisinopril-Hctz 10-12.5 mg Tab] Omeprazole [Omeprazole 40mg 40 mg PO DAILY 09/17/17 09/23/17 Capsule] glipiZIDE [Glipizide ER] 10 mg PO BID
--- NOTE | 2017-09-23 05:41 | ED_ITS ---
ED Disposition Clinical Impression: Lower GI bleed Disposition: Admitted as Observation Condition on Discharge: Good Instructions: DI for Gastrointestinal Bleeding Referrals: Yared Bowie MD [Primary Care Provider] - - Critical Care Critical Care Time: No Attestation: On 09/23/17, the high probability of a clinically significant, sudden or life threatening deterioration of the following system(s) required my full and direct attention, intervention and personal management. The time I documented below is in addition to time spent performing reported procedures but includes the following listed in this critical care notation. Medical Decision Making - Medical Records Medical records reviewed: Yes: I reviewed the patient's medical records. - Vaughn Inquiry Pt receiving controlled substance: No Vaughn was queried for this patient: No Vital Signs: 09/23/17 04:31 09/23/17 05:55 Temperature 98.6 F Temperature Source Oral Pulse Rate [Right Brachial] 101 H 101 H Respiratory Rate 20 18 Blood Pressure [Right Arm] 153/68 121/90 Blood Pressure Mean [Right Arm] 96 100 Blood Pressure Source [Right Arm] Automatic Cuff Automatic Cuff Blood Pressure Position [Right Arm] Supine Sitting 02 Sat by Pulse Oximetry 98 96 Oxygen Delivery Method Room Air Room Air - Lab Data Lab results reviewed: Yes: I reviewed the patient's lab results. Lab Results 09/23/17 04:40: WBC 6.4 D, RBC 3.28 L, Hgb 8.8 L, Hct 27.4 L, MCV 83.7, MCH 26.7 L, MCHC 31.9, RDW 17.3, Plt Count 125 L D, MPV 9.6, Neut % (Auto) 74.7, Lymph % (Auto) 17.3, [place] % (Auto) 4.6, Eos % (Auto) 3.1, Baso % (Auto) 0.2, Neut # (Auto) 4.8, Lymph # (Auto) 1.1, [place] # (Auto) 0.3, Eos # (Auto) 0.2, Baso # (Auto) 0.0 09/23/17 04:40: Sodium 135 L, Potassium 3.7, Chloride 101, Carbon Dioxide 26, Anion Gap 11.7, BUN 8, Creatinine 1.11 H D, Estimated Creat Clear 42, Estimated GFR 49 L, Est GFR ( Amer) 60 D, Glucose 338 H, Calcium 7.7 L D, Total Bilirubin 0.5, AST 29, ALT 34, Alkaline Phosphatase 158 H, Total Protein 6.2 L, Albumin 2.5 L, Globulin 3.7 H, Albumin/Globulin Ratio 0.7 L Result diagrams: 09/23/17 04:40 09/23/17 04:40 - Physician Consults Physician Consulted: ru Reason -: Admission Additional Consult: gilsonran Reason -: Pt condition GI Bleed HPI - General Chief complaint: GI Bleed Stated complaint: GI Bleed;Blood in stool Time Seen by Provider: 09/23/17 05:38 Mode of Arrival: Wheelchair Source of Information: Patient, Spouse, Medical Record Limitations: Physical Limitations Description of Symptoms (Recalled from ER Triage Doc. by RN): reports gi bleed. was just dc from hospital on friday for a gi bleed, was seen in [facility] office friday for a follow up. reports red stool states it is not bright red blood, but not coffee ground either - History of Present Illness HPI Narrative: pt with recent h admit with gi bleed - pt was seen yesterday by dr ru logan MD complaint: gross hematochezia Onset (ago): day(s) Consistency: intermittent Severity: moderate Context: diverticular disease - Related Data Home Medications Medication Instructions Recorded Confirmed Budesonide/Formoterol Fumarate 2 puffs IH BID 09/17/17 09/23/17 [Symbicort 160-4.5 Mcg Inhaler] Cyclobenzaprine HCl 10 mg PO BID 09/17/17 09/23/17 [Cyclobenzaprine 10mg Tab] Fluoxetine HCl 40 mg PO BID 09/17/17
[2017-09-23 06:10] LABS: Calcium 7.7 mg/dL (8.5-10.1)
--- NOTE | 2017-09-23 07:20 | PC.NURSE ---
Dr. Sarabia spoke with Dr. Bowie.
--- NOTE | 2017-09-23 07:27 | PC.NURSE ---
Dr. Sarabia spoke with Dr. Herring.
--- NOTE | 2017-09-23 08:29 | NM_ITS ---
NM GI Bleed (Tagged RBC) CLINICAL INDICATION: ITS.REASON: gi bleed ORDERING PHYSICIAN: Yared Bowie MD PATIENT AGE: 67 years DOSE: 26.0 mCi technetium sulfur colloid with tagged on longus red blood cells COMPARISON: None FINDINGS: Anterior images obtained of the abdomen for 5 minutes for 1 hour following the injection of radiopharmaceutical. During this time there is no evidence of lower GI bleed. The patient rebleeds within the next 24 hours then would recommend rescanning. IMPRESSION: Negative for lower GI bleed
--- NOTE | 2017-09-23 09:14 | P.PN_ITS ---
Internal Medicine - PN: Subj *Date: 09/23/17 *Time: 09:10 Interval history: Ms. Amin returns to the hospital after her GI bleed. She saw some blood in her stool last night and had been instructed to return if this occurred. She was actually seen in the office of [facility] yesterday by Dr. vences. Her hemoglobin in the office was 9 which was actually up from an 8.7 at time of discharge. She refused her weight yesterday in the office. She seems to be holding fluid having greater than 2+ pretibial edema today. This could account for some decline in her H&H. She also has noticed swelling of the upper lip today. Sucralfate is the only new thing that we have added to her regimen. 4 she is also taking iron. Dr. Herring was consulted regarding readmission. He felt that we should put her in and tag red blood cells for a radiologic study for her blood loss. Exam Vital signs and Labs for Last 24 Hours: Temp Pulse Resp BP Pulse Ox 97.8 F 96 H 18 117/50 97 09/23/17 08:52 09/23/17 08:52 09/23/17 08:52 09/23/17 08:52 09/23/17 08:52 Laboratory Results - last 24 hr 09/23/17 08:00: Blood Type O Positive, Antibody Screen Negative, Crossmatch (AHG ) See Detail I & O for Last 24 hours: Intake & Output 09/20/17 09/21/17 09/22/17 09/23/17 11:59 11:59 11:59 11:59 Weight 304 lb 4 oz - Constitutional no acute distress - *Routine HEENT Exam Comments: She does have some swelling of the upper lip. - *Routine Respiratory Exam Absent: respiratory distress, stridor, wheezes - *Routine Cardiovascular Exam Present: RRR - *Routine Abdominal Exam Comments: Obese, soft, and nontender. - *Routine Rectal Exam Comments: Not performed today. When she was scoped Dr. Herring noted some hemorrhoidal tissue. - *Routine Neurological Exam Present: alert, oriented X3 Assessment and Plan (1) Lower GI bleed Current visit: Yes Status: Acute Category: Medical Code(s): K92.2 - Gastrointestinal hemorrhage, unspecified (2) Anemia due to acute blood loss Current visit: No Status: Acute Category: Medical Code(s): D62 - Acute posthemorrhagic anemia (3) Hyperglycemia Current visit: No Status: Chronic Category: Medical Code(s): R73.9 - Hyperglycemia, unspecified (4) Hypertension Current visit: No Status: Chronic Category: Medical Code(s): I10 - Essential (primary) hypertension (5) Obesity Current visit: No Status: Chronic Category: Medical Code(s): E66.9 - Obesity, unspecified (6) Type 2 diabetes mellitus Current visit: No Status: Chronic Qualifiers: Diabetes mellitus complication status: without complication Category: Medical Code(s): E11.9 - Type 2 diabetes mellitus without complications - Assessment and plan all Dx Assessment and Plan for all problems:: Tagged red blood cell study has been ordered by Dr. Sarabia.
--- NOTE | 2017-09-23 09:16 | XR_ITS ---
XR chest 2V HISTORY: ITS.REASON: edema ORDERING PHYSICIAN: Yared Bowie MD PATIENT AGE: 67 years COMPARISON: 09/17/2017 FINDINGS: Borderline cardiomegaly without failure.. The lungs are clear without infiltrates, suspicious nodules, or pleural effusions. Calcified granuloma left midlung Mild degenerative change thoracic spine. IMPRESSION: No change with no acute finding
--- NOTE | 2017-09-23 10:01 | HMH.HP ---
*Admission Date: 09/23/17 *Chief complaint: GI bleeding *History of present illness: Ms. Amin is a 71-year-old female who returns to [facility] after her GI bleed. She was discharged to home from [facility] on 09/21/2017 and did fine until awakening at about 2 AM this morning with nausea. She then went to the bathroom and had a stool with noted blood and blood clots. She also noted that the previous day she had had several normal stools without any noted blood. During the hospitalization she had a GI workup with upper endoscopy and colonoscopy which revealed diffuse chronic esophagitis, nonerosive gastritis, diverticulosis, and rare vascular telangiectasis. She was seen in the office of [facility] 09/22/[address] Bowie. She saw some blood in her stool last night and had been instructed to return to the hospital if this occurred; her hemoglobin in the office was 9 which was actually up from an 8.7 at time of discharge. She appeared to be holding fluid with having greater than 2+ pretibial edema today. This could account for some decline in her H&H. She also noticed swelling of the upper lip today. Sucralfate is the only new thing that we have added to her regimen. She is also taking iron. Dr. Herring was consulted regarding readmission. He felt that we should put her in and tag red blood cells for a radiologic study for her blood loss. At time of this exam patient is just feeling weak. She denies abdominal pain, and nausea. She has completed breakfast and ate without any problems. [facility] History Medical History: Reports:: Congestive Heart Failure, Diabetes Mellitus Type 2, Heart Murmur, Hyperlipidemia, Hypertension Denies:: Cancer, Diabetes Mellitus Type 1, MRSA, Seizures Other Medical History: Reports: Arthritis, Liver Disease. Denies: Blood Transfusion Reaction Laterality Cases: Left: Arthroscopy Knee Other Surgeries: Yes: Colonoscopy, EGD, Hysterectomy-Total, Tubal Ligation Amputation: Yes (right great toe) Fractures: No - *Social History Educational Level: Completed College Smoking Status: Never smoker Alcohol Intake: never Occupational Status: retired, disabled Housing: house Household Members: spouse - Psychiatric History Expresses thoughts of harming self/others: None Suicide Plan Description: No Plan *Family Hx:: Unable to obtain, Cancer, Coronary Artery Disease, Diabetes, Hyperlipidemia, Hypertension Review of Systems - *Neurologic Denies seizure-like activity Meds Home Medications Medication Instructions Recorded Confirmed Type Budesonide/Formoterol Fumarate 2 puffs IH BID 09/17/17 09/23/17 History [Symbicort 160-4.5 Mcg Inhaler] Cyclobenzaprine HCl 10 mg PO BID 09/17/17 09/23/17 History [Cyclobenzaprine 10mg Tab] Fluoxetine HCl 40 mg PO BID 09/17/17 09/23/17 History Gabapentin [Gabapentin 300mg Cap] 600 mg PO TID 09/17/17 09/23/17 History Hydrocodone/Acetaminophen 1 tab PO TIDP PRN 09/17/17 09/23/17 History [Hydrocodone-Acetamin 10-325 mg] Insulin Regular, Human [Humulin R] 0 units SQ ACHS 09/17/17 09/23/17 History Levothyroxine Sodium 112 mcg PO DAILY 09/17/17 09/23/17 History [Levothyroxine 112mcg (0.112mg) Tab] Lisinopril/Hydrochlorothiazide 1 tab PO DAILY 09/17/17 09/23/17 History [Lisinopril-Hctz 10-12.5 mg Tab] Omeprazole [Omeprazole 40mg 40 mg PO DAILY 09/17/17 09/23/17 History Capsule] glipiZIDE [Glipizide ER] 10 mg PO BID 09/17/17 09/23/17 History Albuterol Sulfate [Albuterol HFA 2 puffs IH Q4HP PRN 09/18/17 09/23/17 History Inhaler] Furosemide [Furosemide 20mg Tab] 20 mg PO DAILYP PRN 09/18/17 09/23/17 History Insulin Glargine,Hum.rec.anlog 55 unit SQ DAILY 09/18/17 09/23/17 History [Lantus Insulin 100units/mL 10mL vial] Polyethylene Glycol 3350 [Miralax 17 gm PO DAILYP PRN 09/18/17 09/23/17 History 17gm Packet] Ferrous Sulfate [Ferrous Sulfate 325 mg PO BID 09/23/17 09/23/17 History 325mg Tablet
--- NOTE | 2017-09-23 10:05 | P.HP_ITS ---
*Admission Date: 09/23/17 *Chief complaint: GI bleeding *History of present illness: Ms. Amin is a 71-year-old female who returns to [facility] after her GI bleed. She was discharged to home from [facility] on 09/21/2017 and did fine until awakening at about 2 AM this morning with nausea. She then went to the bathroom and had a stool with noted blood and blood clots. She also noted that the previous day she had had several normal stools without any noted blood. During the hospitalization she had a GI workup with upper endoscopy and colonoscopy which revealed diffuse chronic esophagitis, nonerosive gastritis, diverticulosis, and rare vascular telangiectasis. She was seen in the office of [facility] 09/22/[address] Bowie. She saw some blood in her stool last night and had been instructed to return to the hospital if this occurred; her hemoglobin in the office was 9 which was actually up from an 8.7 at time of discharge. She appeared to be holding fluid with having greater than 2+ pretibial edema today. This could account for some decline in her H&H. She also noticed swelling of the upper lip today. Sucralfate is the only new thing that we have added to her regimen. She is also taking iron. Dr. Herring was consulted regarding readmission. He felt that we should put her in and tag red blood cells for a radiologic study for her blood loss. At time of this exam patient is just feeling weak. She denies abdominal pain, and nausea. She has completed breakfast and ate without any problems. [facility] History Medical History: Reports:: Congestive Heart Failure, Diabetes Mellitus Type 2, Heart Murmur, Hyperlipidemia, Hypertension Denies:: Cancer, Diabetes Mellitus Type 1, MRSA, Seizures Other Medical History: Reports: Arthritis, Liver Disease. Denies: Blood Transfusion Reaction Laterality Cases: Left: Arthroscopy Knee Other Surgeries: Yes: Colonoscopy, EGD, Hysterectomy-Total, Tubal Ligation Amputation: Yes (right great toe) Fractures: No - *Social History Educational Level: Completed College Smoking Status: Never smoker Alcohol Intake: never Occupational Status: retired, disabled Housing: house Household Members: spouse - Psychiatric History Expresses thoughts of harming self/others: None Suicide Plan Description: No Plan *Family Hx:: Unable to obtain, Cancer, Coronary Artery Disease, Diabetes, Hyperlipidemia, Hypertension Review of Systems - *Neurologic Denies seizure-like activity Meds Home Medications Medication Instructions Recorded Confirmed Type Budesonide/Formoterol Fumarate 2 puffs IH BID 09/17/17 09/23/17 History [Symbicort 160-4.5 Mcg Inhaler] Cyclobenzaprine HCl 10 mg PO BID 09/17/17 09/23/17 History [Cyclobenzaprine 10mg Tab] Fluoxetine HCl 40 mg PO BID 09/17/17 09/23/17 History Gabapentin [Gabapentin 300mg Cap] 600 mg PO TID 09/17/17 09/23/17 History Hydrocodone/Acetaminophen 1 tab PO TIDP PRN 09/17/17 09/23/17 History [Hydrocodone-Acetamin 10-325 mg] Insulin Regular, Human [Humulin R] 0 units SQ ACHS 09/17/17 09/23/17 History Levothyroxine Sodium 112 mcg PO DAILY 09/17/17 09/23/17 History [Levothyroxine 112mcg (0.112mg) Tab] Lisinopril/Hydrochlorothiazide 1 tab PO DAILY 09/17/17 09/23/17 History [Lisinopril-Hctz 10-12.5 mg Tab] Omeprazole [Omeprazole 40mg 40 mg PO DAILY 09/17/17 09/23/17 History Capsule] glipiZIDE [Glipizide ER] 10 mg PO BID 09/17/17 09/23/17 History Albuterol Sulfate [Albuterol HFA 2 puffs IH
--- NOTE | 2017-09-23 11:30 | PC.NURSE ---
obtained order to place lima for procedure related to pt having lasix and having to lay for a long period of time without getting up. tried to place lima and pt requested this nurse to stop and not place it after an attempt related to pain.
[2017-09-23 13:22] LABS: POC Glucose,Bedside 378 mg/dL (70-110)
--- NOTE | 2017-09-23 13:26 | PC.NURSE ---
Pt's bowel movement consisted of blood clots. Nurse aware.
[2017-09-23 16:33] LABS: POC Glucose,Bedside 355 mg/dL (70-110)
--- NOTE | 2017-09-23 16:54 | PC.NURSE ---
pt lungs are clear, bowel and heart sounds normal. 2 units of blood transfused this shift as ordered. pt is able to use bedside commode with assist. pt did have moderate bowel movement that appeared to be blood clots. no c/o of pain. no reactions to transfusion. iv patent. call light in reach. new allergy added related to pt stating that sucralfate causes lips to swell. will continue to monitor pt condition.
--- NOTE | 2017-09-23 19:13 | PC.NURSE ---
report given to merlin sung rn
[2017-09-23 19:18] LABS: Hematocrit 28.9 % (37.0-47.0); Hemoglobin 9.5 g/dL (12.2-16.2)
--- NOTE | 2017-09-23 20:01 | PC.NURSE ---
A TINT OF BLOOD NOTED IN PTS URINE. NURSE NOTIFIED
[2017-09-23 22:28] LABS: POC Glucose,Bedside 291 mg/dL (70-110)
[2017-09-24] VITALS (7 sets, daily range): BP systolic 103–149; BP diastolic 57–66; PULSE 92–104; RESP 16–22; TEMP 36.7–37.4; O2SAT 94–99; BMI 54.1
[2017-09-24 06:33] LABS: POC Glucose,Bedside 270 mg/dL (70-110)
--- NOTE | 2017-09-24 06:37 | PC.NURSE ---
Patient resting majority of shift. No sign or symptoms of distress noted. Only patient complaint is her chronic knee pain. Denies and other discomforts. Patient is alert and oriented x3.
[2017-09-24 07:43] LABS: Basophils % 0.2 % (0.1-2.0); Eosinophils # 0.2 K/mm3 (0.0-0.4); Eosinophils % 3.6 % (0.1-12.0); Hematocrit 28.4 % (37.0-47.0); Hemoglobin 9.4 g/dL (12.2-16.2); Lymphocytes # 1.3 K/mm3 (0.7-4.5); Lymphocytes % 22.5 K/mm3 (10-50); Mean Corpuscular Hemoglobin 27.2 pg (27.0-31.2); Mean Corpuscular Volume 82.6 fl (81-99); Mean Platelet Volume 8.8 fl (7.4-10.4); Monocytes # 0.3 K/mm3 (0.1-1.0); Neutrophils # 4.1 K/mm3 (1.8-7.8); Neutrophils % 68.7 % (37.0-80.0); Platelet Count 116 K/mm3 (142-424); Red Blood Count 3.44 M/mm3 (4.20-5.40); Red Cell Distribution Width 16.6 % (11.5-17.5); White Blood Count 5.9 K/mm3 (4.8-10.8)
[2017-09-24 08:11] LABS: Anion Gap 13.5 mEq/L (5-15); Blood Urea Nitrogen 11 mg/dL (7-18); Carbon Dioxide 27 mmol/L (21.0-32.0); Chloride 100 mmol/L (98-107); Creatinine Clearance Estimated 46 mL/min (0-300); Creatinine,Serum 0.96 mg/dL (0.55-1.02); Estimated Glomerular Filt Rate 58 ml/min (>60); GFR (African American) 71 ML/MIN (>60); Glucose 260 mg/dL (74-106); Potassium 3.5 mmoL/L (3.5-5.1); Sodium 137 mmol/L (136-145)
--- NOTE | 2017-09-24 08:14 | HMH.ACPN2 ---
Internal Medicine - PN: Subj *Date: 09/24/17 *Time: 08:14 Interval history: Patient states she is tired this morning. She denies any pain. She slept off and on throughout the night and did eat well this morning. Exam Vital signs and Labs for Last 24 Hours: Temp Pulse Resp BP Pulse Ox 99.0 F 93 H 22 133/65 95 09/24/17 04:00 09/24/17 04:00 09/24/17 04:00 09/24/17 04:00 09/24/17 04:00 Laboratory Results - last 24 hr 09/23/17 08:00: Blood Type O Positive, Antibody Screen Negative, Crossmatch (AHG) See Detail 09/23/17 13:12: POC Glucose 378 09/23/17 16:22: POC Glucose 355 09/23/17 18:45: Hgb 9.5 L, Hct 28.9 L 09/23/17 20:02: POC Glucose 291 09/24/17 06:18: POC Glucose 270 09/24/17 06:30: WBC 5.9, RBC 3.44 L, Hgb 9.4 L, Hct 28.4 L, MCV 82.6, MCH 27.2, MCHC 33.0, RDW 16.6, Plt Count 116 L, MPV 8.8, Neut % (Auto) 68.7, Lymph % (Auto) 22.5, [place] % (Auto) 5.0, Eos % (Auto) 3.6, Baso % (Auto) 0.2, Neut # (Auto) 4.1, Lymph # (Auto) 1.3, [place] # (Auto) 0.3, Eos # (Auto) 0.2, Baso # (Auto) 0.0 I & O for Last 24 hours: Intake & Output 09/21/17 09/22/17 09/23/17 09/24/17 11:59 11:59 11:59 11:59 Intake Total 1582 / 1582 Output Total 600 / 600 1300 / 1300 Balance -600 / -600 282 / 282 Weight 304 lb 4 oz 305 lb 4 oz - Constitutional no acute distress - *Routine Respiratory Exam Present: CTA bilaterally - *Routine Cardiovascular Exam Present: RRR - *Routine Abdominal Exam Present: soft, normoactive bowel sounds. Absent: tenderness - *Routine Extremities Exam Present: edema Assessment and Plan (1) Lower GI bleed Current visit: Yes Status: Acute Category: Medical Code(s): K92.2 - Gastrointestinal hemorrhage, unspecified (2) Anemia due to acute blood loss Current visit: No Status: Acute Category: Medical Code(s): D62 - Acute posthemorrhagic anemia (3) Hyperglycemia Current visit: No Status: Chronic Category: Medical Code(s): R73.9 - Hyperglycemia, unspecified (4) Hypertension Current visit: No Status: Chronic Category: Medical Code(s): I10 - Essential (primary) hypertension (5) Obesity Current visit: No Status: Chronic Category: Medical Code(s): E66.9 - Obesity, unspecified (6) Type 2 diabetes mellitus Current visit: No Status: Chronic Qualifiers: Diabetes mellitus complication status: without complication Category: Medical Code(s): E11.9 - Type 2 diabetes mellitus without complications - Assessment and plan all Dx Assessment and Plan for all problems:: Tagged RBC study shows no evidence of a lower GI bleed. Pt's H&H is stable this am. Will discuss further care with Dr. Bowie.
[2017-09-24 11:02] LABS: Uric Acid 5.9 mg/dL (2.6-7.2)
--- NOTE | 2017-09-24 11:31 | HMH.GSCON ---
*Admission Date: 09/23/17 *Chief complaint: Rectal bleeding *History of present illness: Ms. Amin is a 71-year-old female who returns to [facility] after her GI bleed. She was discharged to home from [facility] on 09/21/2017 and did fine until awakening at about 2 AM this morning with nausea. She then went to the bathroom and had a stool with noted blood and blood clots. She also noted that the previous day she had had several normal stools without any noted blood. During the hospitalization she had a GI workup with upper endoscopy and colonoscopy which revealed diffuse chronic esophagitis, nonerosive gastritis, diverticulosis, and rare vascular telangiectasis. She was seen in the office of [facility] 09/22/[address] Bowie. She saw some blood in her stool last night and had been instructed to return to the hospital if this occurred; her hemoglobin in the office was 9 which was actually up from an 8.7 at time of discharge. She appeared to be holding fluid with having greater than 2+ pretibial edema today. This could account for some decline in her H&H. She also noticed swelling of the upper lip today. Sucralfate is the only new thing that we have added to her regimen. She is also taking iron. Dr. Herring was consulted regarding readmission. He felt that we should put her in and tag red blood cells for a radiologic study for her blood loss. At time of this exam patient is just feeling weak. She denies abdominal pain, and nausea. She has completed breakfast and ate without any problems. Review of Systems - Review of Systems Review of systems:: pertinent systems reviewed and negative unless documented below - *Neurologic Denies seizure-like activity [facility] History Medical History: Reports:: Congestive Heart Failure, Diabetes Mellitus Type 2, Heart Murmur, Hyperlipidemia, Hypertension Denies:: Cancer, Diabetes Mellitus Type 1, MRSA, Seizures Other Medical History: Reports: Arthritis, Liver Disease. Denies: Blood Transfusion Reaction Laterality Cases: Left: Arthroscopy Knee Other Surgeries: Yes: Colonoscopy, EGD, Hysterectomy-Total, Tubal Ligation Amputation: Yes (right great toe) Fractures: No - *Social History Educational Level: Completed College Smoking Status: Never smoker Alcohol Intake: never Occupational Status: retired, disabled Housing: house Household Members: spouse - Psychiatric History Expresses thoughts of harming self/others: None Suicide Plan Description: No Plan *Family Hx:: Unable to obtain, Cancer, Coronary Artery Disease, Diabetes, Hyperlipidemia, Hypertension Meds Home Medications Medication Instructions Recorded Confirmed Type Budesonide/Formoterol Fumarate 2 puffs IH BID 09/17/17 09/23/17 History [Symbicort 160-4.5 Mcg Inhaler] Cyclobenzaprine HCl 10 mg PO BID 09/17/17 09/23/17 History [Cyclobenzaprine 10mg Tab] Fluoxetine HCl 40 mg PO BID 09/17/17 09/23/17 History Gabapentin [Gabapentin 300mg Cap] 600 mg PO TID 09/17/17 09/23/17 History Hydrocodone/Acetaminophen 1 tab PO TIDP PRN 09/17/17 09/23/17 History [Hydrocodone-Acetamin 10-325 mg] Insulin Regular, Human [Humulin R] 0 units SQ ACHS 09/17/17 09/23/17 History Levothyroxine Sodium 112 mcg PO DAILY 09/17/17 09/23/17 History [Levothyroxine 112mcg (0.112mg) Tab] Lisinopril/Hydrochlorothiazide 1 tab PO DAILY 09/17/17 09/23/17 History [Lisinopril-Hctz 10-12.5 mg Tab] Omeprazole [Omeprazole 40mg 40 mg PO DAILY 09/17/17 09/23/17 History Capsule] glipiZIDE [Glipizide ER] 10 mg PO BID 09/17/17 09/23/17 History Albuterol Sulfate [Albuterol HFA 2 puffs IH Q4HP PRN 09/18/17 09/23/17 History Inhaler] Furosemide [Furosemide 20mg Tab] 20 mg PO DAILYP PRN 09/18/17 09/23/17 History Insulin Glargine,Hum.rec.anlog 55 unit SQ HS 09/18/17 09/23/17 History [Lantus Insulin 100units/mL 10mL vial] Polyethylene Glycol 3350 [Miralax 17 gm PO DAILYP PRN 09/18/17 09/23/17 Hist
--- NOTE | 2017-09-24 11:34 | P.CONS_ITS ---
*Admission Date: 09/23/17 *Chief complaint: Rectal bleeding *History of present illness: Ms. Amin is a 71-year-old female who returns to [facility] after her GI bleed. She was discharged to home from [facility] on 09/21/2017 and did fine until awakening at about 2 AM this morning with nausea. She then went to the bathroom and had a stool with noted blood and blood clots. She also noted that the previous day she had had several normal stools without any noted blood. During the hospitalization she had a GI workup with upper endoscopy and colonoscopy which revealed diffuse chronic esophagitis, nonerosive gastritis, diverticulosis, and rare vascular telangiectasis. She was seen in the office of [facility] 09/22/[address] Bowie. She saw some blood in her stool last night and had been instructed to return to the hospital if this occurred; her hemoglobin in the office was 9 which was actually up from an 8.7 at time of discharge. She appeared to be holding fluid with having greater than 2+ pretibial edema today. This could account for some decline in her H&H. She also noticed swelling of the upper lip today. Sucralfate is the only new thing that we have added to her regimen. She is also taking iron. Dr. Herring was consulted regarding readmission. He felt that we should put her in and tag red blood cells for a radiologic study for her blood loss. At time of this exam patient is just feeling weak. She denies abdominal pain, and nausea. She has completed breakfast and ate without any problems. Review of Systems - Review of Systems Review of systems:: pertinent systems reviewed and negative unless documented below - *Neurologic Denies seizure-like activity [facility] History Medical History: Reports:: Congestive Heart Failure, Diabetes Mellitus Type 2, Heart Murmur, Hyperlipidemia, Hypertension Denies:: Cancer, Diabetes Mellitus Type 1, MRSA, Seizures Other Medical History: Reports: Arthritis, Liver Disease. Denies: Blood Transfusion Reaction Laterality Cases: Left: Arthroscopy Knee Other Surgeries: Yes: Colonoscopy, EGD, Hysterectomy-Total, Tubal Ligation Amputation: Yes (right great toe) Fractures: No - *Social History Educational Level: Completed College Smoking Status: Never smoker Alcohol Intake: never Occupational Status: retired, disabled Housing: house Household Members: spouse - Psychiatric History Expresses thoughts of harming self/others: None Suicide Plan Description: No Plan *Family Hx:: Unable to obtain, Cancer, Coronary Artery Disease, Diabetes, Hyperlipidemia, Hypertension Meds Home Medications Medication Instructions Recorded Confirmed Type Budesonide/Formoterol Fumarate 2 puffs IH BID 09/17/17 09/23/17 History [Symbicort 160-4.5 Mcg Inhaler] Cyclobenzaprine HCl 10 mg PO BID 09/17/17 09/23/17 History [Cyclobenzaprine 10mg Tab] Fluoxetine HCl 40 mg PO BID 09/17/17 09/23/17 History Gabapentin [Gabapentin 300mg Cap] 600 mg PO TID 09/17/17 09/23/17 History Hydrocodone/Acetaminophen 1 tab PO TIDP PRN 09/17/17 09/23/17 History [Hydrocodone-Acetamin 10-325 mg] Insulin Regular, Human [Humulin R] 0 units SQ ACHS 09/17/17 09/23/17 History Levothyroxine Sodium 112 mcg PO DAILY 09/17/17 09/23/17 History [Levothyroxine 112mcg (0.112mg) Tab] Lisinopril/Hydrochlorothiazide 1 tab PO DAILY 09/17/17 09/23/17 History [Lisinopril-Hctz 10-12.5 mg Tab] Omeprazole [Omeprazole 40mg 40 mg PO DAILY 09/17/17 09/23/17 History Capsule]
--- NOTE | 2017-09-24 16:50 | SW/DCPLANNER ---
Spoke with patient during care rounds regarding discharge plans. Patient stated that she does not have any needs at home at this time but feels as if she could benefit from home health services. I will follow up with patient at time of discharge to assist with needs/orders/setting up home health.
[2017-09-24 17:27] LABS: POC Glucose,Bedside 416 mg/dL (70-110)
[2017-09-24 17:27] LABS: POC Glucose,Bedside 357 mg/dL (70-110)
--- NOTE | 2017-09-24 19:21 | PC.NURSE ---
report given to kari
--- NOTE | 2017-09-24 19:25 | PC.NURSE ---
PT FULL CODE, REPORT FROM [email or web address]
[2017-09-24 21:43] LABS: POC Glucose,Bedside 349 mg/dL (70-110)
[2017-09-25] VITALS (24 sets, daily range): BP systolic 108–148; BP diastolic 54–75; PULSE 83–98; RESP 16–20; TEMP 36.6–37.4; O2SAT 94–99
--- NOTE | 2017-09-25 05:49 | PC.NURSE ---
PT ALERT AND ORIENTED. SLEPT MOST ALL OF SHIFT. NO REQUEST FOR PAIN MED OF THIS TIME. RESPIRATIONS EVEN AND UNLABORED, BREATH SOUNDS EQUAL AND CLEAR THROUGHOUT. IV X2 SALINE LOCKED, PATENT. NO BLEEDING REPORTED. PT HAS A.M LABS SCHEDULED. PT STABLE. WILL CONTINUE TO MONITOR. REPORT TO BE GIVEN TO ONCOMING NURSE.
[2017-09-25 07:11] LABS: Anion Gap 10.2 mEq/L (5-15); Blood Urea Nitrogen 11 mg/dL (7-18); Carbon Dioxide 30 mmol/L (21.0-32.0); Chloride 99 mmol/L (98-107); Creatinine Clearance Estimated 44 mL/min (0-300); Creatinine,Serum 0.95 mg/dL (0.55-1.02); Estimated Glomerular Filt Rate 59 ml/min (>60); GFR (African American) 71 ML/MIN (>60); Glucose 255 mg/dL (74-106); Potassium 3.2 mmoL/L (3.5-5.1); Sodium 136 mmol/L (136-145)
[2017-09-25 07:15] LABS: Basophils % 0.1 % (0.1-2.0); Eosinophils # 0.1 K/mm3 (0.0-0.4); Eosinophils % 2.9 % (0.1-12.0); Hematocrit 25.1 % (37.0-47.0); Hemoglobin 8.1 g/dL (12.2-16.2); Lymphocytes % 24.9 K/mm3 (10-50); Mean Corpuscular HGB Conc 32.1 g/dL (31.8-35.4); Mean Corpuscular Hemoglobin 26.8 pg (27.0-31.2); Mean Corpuscular Volume 83.5 fl (81-99); Mean Platelet Volume 8.7 fl (7.4-10.4); Monocytes # 0.2 K/mm3 (0.1-1.0); Monocytes % 5.1 % (1.7-9.3); Neutrophils # 2.6 K/mm3 (1.8-7.8); Platelet Count 112 K/mm3 (142-424); Red Cell Distribution Width 16.9 % (11.5-17.5); White Blood Count 3.9 K/mm3 (4.8-10.8)
--- NOTE | 2017-09-25 07:34 | PC.NURSE ---
REPORT GIVEN TO Maribel ANGELES W/C
--- NOTE | 2017-09-25 08:07 | P.PN_ITS ---
Subjective Narrative: Patient states that she has still passed some old blood clots. Exam Vital signs and Labs for Last 24 Hours: Temp Pulse Resp BP Pulse Ox 98.6 F 95 H 16 121/67 95 09/25/17 07:47 09/25/17 07:47 09/25/17 07:47 09/25/17 07:47 09/25/17 07:47 Laboratory Results - last 24 hr 09/24/17 06:30: Sodium 137, Potassium 3.5, Chloride 100, Carbon Dioxide 27, Anion Gap 13.5, BUN 11 D, Creatinine 0.96, Estimated Creat Clear 46, Estimated GFR 58 L, Est GFR ( Amer) 71, Glucose 260 H 09/24/17 06:30: Uric Acid 5.9 09/24/17 12:02: POC Glucose 416 09/24/17 17:04: POC Glucose 357 09/24/17 21:34: POC Glucose 349 09/25/17 06:37: WBC 3.9 L D, RBC 3.00 L, Hgb 8.1 L, Hct 25.1 L, MCV 83.5, MCH 26.8 L, MCHC 32.1, RDW 16.9, Plt Count 112 L, MPV 8.7, Neut % (Auto) 67.0, Lymph % (Auto) 24.9, [place] % (Auto) 5.1, Eos % (Auto) 2.9, Baso % (Auto) 0.1, Neut # (Auto) 2.6, Lymph # (Auto) 1.0, [place] # (Auto) 0.2, Eos # (Auto) 0.1, Baso # (Auto) 0.0 09/25/17 06:37: Sodium 136, Potassium 3.2 L, Chloride 99, Carbon Dioxide 30, Anion Gap 10.2, BUN 11, Creatinine 0.95, Estimated Creat Clear 44, Estimated GFR 59, Est GFR ( Amer) 71, Glucose 255 H I & O for Last 24 hours: Intake & Output 09/22/17 09/23/17 09/24/17 09/25/17 11:59 11:59 11:59 11:59 Intake Total 1822 / 1822 980 / 980 Output Total 600 / 600 1600 / 1600 2500 / 2500 Balance -600 / -600 222 / 222 -1520 / -1520 Weight 304 lb 4 oz 305 lb 4 oz 302 lb 9 oz - Constitutional no acute distress - *Routine Abdominal Exam Present: soft Comments: Minor tenderness in the epigastrium Progress Note: A&P (1) Lower GI bleed Status: Acute Assessment and plan: She has shown some decrease in Hgb/Hct. Possibility that this has been a diverticular bleed that was recurrent bleeding and likely no longer bleeding. This is suggested by the negative tagged red blood cell scan. Possibility of mild bowel etiology may be entertained. At this point I would recommend upper GI with small bowel follow-through tomorrow morning. May ultimately need capsule endoscopy. Current Visit: Yes (2) Anemia due to acute blood loss Status: Acute Current Visit: No (3) Hyperglycemia Status: Chronic Current Visit: No (4) Hypertension Status: Chronic Current Visit: No (5) Obesity Status: Chronic Current Visit: No (6) Type 2 diabetes mellitus Status: Chronic Current Visit: No
--- NOTE | 2017-09-25 08:21 | HMH.ACPN2 ---
Internal Medicine - PN: Subj *Date: 09/25/17 *Time: 08:21 Interval history: Patient has shown some decrease in Hgb/Hct. She states she has been passing dark blood and clots in her stool during the night. She denies any pain. She was able to sleep. She is tolerating her diet. Exam Vital signs and Labs for Last 24 Hours: Temp Pulse Resp BP Pulse Ox 98.6 F 95 H 16 121/67 95 09/25/17 07:47 09/25/17 07:47 09/25/17 07:47 09/25/17 07:47 09/25/17 07:47 Laboratory Results - last 24 hr 09/24/17 06:30: Uric Acid 5.9 09/24/17 12:02: POC Glucose 416 09/24/17 17:04: POC Glucose 357 09/24/17 21:34: POC Glucose 349 09/25/17 06:37: WBC 3.9 L D, RBC 3.00 L, Hgb 8.1 L, Hct 25.1 L, MCV 83.5, MCH 26.8 L, MCHC 32.1, RDW 16.9, Plt Count 112 L, MPV 8.7, Neut % (Auto) 67.0, Lymph % (Auto) 24.9, [place] % (Auto) 5.1, Eos % (Auto) 2.9, Baso % (Auto) 0.1, Neut # (Auto) 2.6, Lymph # (Auto) 1.0, [place] # (Auto) 0.2, Eos # (Auto) 0.1, Baso # (Auto) 0.0 09/25/17 06:37: Sodium 136, Potassium 3.2 L, Chloride 99, Carbon Dioxide 30, Anion Gap 10.2, BUN 11, Creatinine 0.95, Estimated Creat Clear 44, Estimated GFR 59, Est GFR ( Amer) 71, Glucose 255 H I & O for Last 24 hours: Intake & Output 09/22/17 09/23/17 09/24/17 09/25/17 11:59 11:59 11:59 11:59 Intake Total 1822 / 1822 980 / 980 Output Total 600 / 600 1600 / 1600 2500 / 2500 Balance -600 / -600 222 / 222 -1520 / -1520 Weight 304 lb 4 oz 305 lb 4 oz 302 lb 9 oz - Constitutional no acute distress - *Routine Respiratory Exam Present: CTA bilaterally - *Routine Cardiovascular Exam Present: RRR - *Routine Abdominal Exam Present: soft, normoactive bowel sounds, tenderness (epigastric area) - *Routine Extremities Exam Present: edema Assessment and Plan (1) Lower GI bleed Current visit: Yes Status: Acute Category: Medical Code(s): K92.2 - Gastrointestinal hemorrhage, unspecified (2) Anemia due to acute blood loss Current visit: No Status: Acute Category: Medical Code(s): D62 - Acute posthemorrhagic anemia (3) Hyperglycemia Current visit: No Status: Chronic Category: Medical Code(s): R73.9 - Hyperglycemia, unspecified (4) Hypertension Current visit: No Status: Chronic Category: Medical Code(s): I10 - Essential (primary) hypertension (5) Obesity Current visit: No Status: Chronic Category: Medical Code(s): E66.9 - Obesity, unspecified (6) Type 2 diabetes mellitus Current visit: No Status: Chronic Qualifiers: Diabetes mellitus complication status: without complication Category: Medical Code(s): E11.9 - Type 2 diabetes mellitus without complications - Assessment and plan all Dx Assessment and Plan for all problems:: Dr. Herring has seen the patient. He thinks this could possibly have been a diverticular bleed with recurrent bleeding and likely no longer bleeding. Her tagged red blood cell scan was negative. He recommends an upper GI with small bowel follow-through tomorrow morning. The patient may ultimately need a capsule endoscopy. Will discuss giving more blood with Dr. Bowie.
--- NOTE | 2017-09-25 11:28 | US_ITS ---
US kidney retroperitoneal comp HISTORY: ITS.REASON: left renal lesion on CT. Blood loss ORDERING PHYSICIAN: Yared Bowie MD PATIENT AGE: 67 years COMPARISON: CT scan of 09/17/2017 FINDINGS: RIGHT KIDNEY:9 x 5 x 5 cm. No hydronephrosis or obvious renal mass. LEFT KIDNEY:9 x 6 x 5 cm. Isoechoic area along the upper pole left kidney a 2 x 2 cm corresponding to the CT abnormality. This may represent a cyst. There are some low-level internal echoes but may be technical in nature due to the depth of the lesion. Follow-up recommended Incidental note is made of splenomegaly at 17 cm. Ascites is also present. IMPRESSION: 2 cm isoechoic area along upper pole left kidney corresponding to the CT abnormality and may represent a renal cyst. Recommend 6 month follow-up to confirm stability. Splenomegaly with ascites
[2017-09-25 11:57] LABS: POC Glucose,Bedside 257 mg/dL (70-110)
[2017-09-25 12:33] LABS: POC Glucose,Bedside 419 mg/dL (70-110)
[2017-09-25 16:28] LABS: POC Glucose,Bedside 376 mg/dL (70-110)
--- NOTE | 2017-09-25 19:09 | P.PN_ITS ---
Internal Medicine - PN: Subj *Date: 09/25/17 *Time: 19:08 Interval history: She has been stable today. She has received her 2 units of packed red blood cells. We are awaiting the H&H. A CEA is ordered. On her CBC in the morning I will check a manual differential. She requested Flexeril 10 mg p.o. twice daily which she usually takes at home. She says she does not tolerate Valium. Exam Vital signs and Labs for Last 24 Hours: Temp Pulse Resp BP Pulse Ox 98.9 F 91 H 20 117/62 94 L 09/25/17 18:10 09/25/17 18:10 09/25/17 18:10 09/25/17 18:10 09/25/17 18:10 Laboratory Results - last 24 hr 09/23/17 08:00: Blood Type O Positive, Antibody Screen Negative, Crossmatch (AHG ) See Detail 09/24/17 21:34: POC Glucose 349 09/25/17 06:24: POC Glucose 257 09/25/17 06:37: WBC 3.9 L D, RBC 3.00 L, Hgb 8.1 L, Hct 25.1 L, MCV 83.5, MCH 26.8 L, MCHC 32.1, RDW 16.9, Plt Count 112 L, MPV 8.7, Neut % (Auto) 67.0, Lymph % (Auto) 24.9, [place] % (Auto) 5.1, Eos % (Auto) 2.9, Baso % (Auto) 0.1, Neut # (Auto) 2.6, Lymph # (Auto) 1.0, [place] # (Auto) 0.2, Eos # (Auto) 0.1, Baso # (Auto) 0.0 09/25/17 06:37: Sodium 136, Potassium 3.2 L, Chloride 99, Carbon Dioxide 30, Anion Gap 10.2, BUN 11, Creatinine 0.95, Estimated Creat Clear 44, Estimated GFR 59, Est GFR ( Amer) 71, Glucose 255 H 09/25/17 12:03: POC Glucose 419 09/25/17 16:11: POC Glucose 376 I & O for Last 24 hours: Intake & Output 09/23/17 09/24/17 09/25/17 09/26/17 11:59 11:59 11:59 11:59 Intake Total 1822 / 1822 980 / 980 720 / 720 Output Total 600 / 600 1600 / 1600 2700 / 2700 1900 / 1900 Balance -600 / -600 222 / 222 -1720 / -1720 -1180 / -1180 Weight 304 lb 4 oz 305 lb 4 oz 302 lb 9 oz Assessment and Plan (1) Lower GI bleed Current visit: Yes Status: Acute Category: Medical Code(s): K92.2 - Gastrointestinal hemorrhage, unspecified (2) Anemia due to acute blood loss Current visit: No Status: Acute Category: Medical Code(s): D62 - Acute posthemorrhagic anemia (3) Hyperglycemia Current visit: No Status: Chronic Category: Medical Code(s): R73.9 - Hyperglycemia, unspecified (4) Hypertension Current visit: No Status: Chronic Category: Medical Code(s): I10 - Essential (primary) hypertension (5) Obesity Current visit: No Status: Chronic Category: Medical Code(s): E66.9 - Obesity, unspecified (6) Type 2 diabetes mellitus Current visit: No Status: Chronic Qualifiers: Diabetes mellitus complication status: without complication Category: Medical Code(s): E11.9 - Type 2 diabetes mellitus without complications
[2017-09-25 19:22] LABS: Hematocrit 31.7 % (37.0-47.0)
[2017-09-25 19:39] LABS: Hemoglobin 10.8 g/dL (12.2-16.2)
--- NOTE | 2017-09-25 19:56 | PC.NURSE ---
pt received 2 units of prbc. no issues or reactions. stated pain and spasms prn med given for pain and md notified of spasms. no changes from previous assessment. black color stools noted. call light in reach. report given to cass rivera.
[2017-09-25 22:01] LABS: POC Glucose,Bedside 286 mg/dL (70-110)
[2017-09-26 04:00] VITALS: BP 159/85; PULSE 89; RESP 24; TEMP 36.8; O2SAT 95
--- NOTE | 2017-09-26 05:42 | PC.NURSE ---
PATIENT SEEMS TO HAVE RESTED WELL ON AND OFF THIS SHIFT. ONE VERY SMALL BOWEL MOVEMENT WAS NOTED BY THIS NURSE AND WAS DARK IN APPEARANCE. NO BRIGHT RED BLOOD NOTED. FSBS ELEVATED AND SLIDING SCALE INSULIN GIVEN. PATIENT DID C/O PAIN TO KNEE X1 AND RECEIVED PRN PAIN MEDICATION, WHICH WAS EFFECTIVE. PATIENT CURRENTLY IN BED ASLEEP. NO OTHER PROBLEMS NOTED AT THIS TIME. VSS. WILL CONTINUE TO MONITOR.
[2017-09-26 06:15] LABS: POC Glucose,Bedside 249 mg/dL (70-110)
[2017-09-26 06:42] LABS: MANUAL DIFFERENTIAL MANUAL DIFFERENTIAL (MANUAL DIFF)
[2017-09-26 06:45] LABS: Basophils % 0.1 % (0.1-2.0); Eosinophils # 0.1 K/mm3 (0.0-0.4); Hematocrit 29.5 % (37.0-47.0); Mean Corpuscular HGB Conc 33.1 g/dL (31.8-35.4); Mean Corpuscular Hemoglobin 27.7 pg (27.0-31.2); Mean Corpuscular Volume 83.7 fl (81-99); Monocytes # 0.2 K/mm3 (0.1-1.0); Neutrophils # 2.9 K/mm3 (1.8-7.8); Neutrophils % 68.9 % (37.0-80.0); Platelet Count 102 K/mm3 (142-424); Red Blood Count 3.52 M/mm3 (4.20-5.40); Red Cell Distribution Width 16.8 % (11.5-17.5); White Blood Count 4.2 K/mm3 (4.8-10.8)
[2017-09-26 06:52] LABS: Anion Gap 6.1 mEq/L (5-15); Blood Urea Nitrogen 11 mg/dL (7-18); Carbon Dioxide 30 mmol/L (21.0-32.0); Chloride 98 mmol/L (98-107); Creatinine Clearance Estimated 43 mL/min (0-300); Creatinine,Serum 1.02 mg/dL (0.55-1.02); Estimated Glomerular Filt Rate 54 ml/min (>60); GFR (African American) 66 ML/MIN (>60); Glucose 253 mg/dL (74-106); Potassium 3.1 mmoL/L (3.5-5.1); Sodium 131 mmol/L (136-145)
[2017-09-26 06:59] LABS: Hemoglobin 9.8 g/dL (12.2-16.2)
--- NOTE | 2017-09-26 07:35 | PC.NURSE ---
REPORT GIVEN TO Kimberly SCHMITZ W/C
[2017-09-26 07:37] VITALS: BP 155/74; PULSE 97; RESP 20; TEMP 36.9; O2SAT 98
--- NOTE | 2017-09-26 07:37 | P.PN_ITS ---
Subjective Patient reports: feels better Narrative: Patient feels well without any complaints. She has had a few clots with bowel movements. Denies pain or nausea. Exam Vital signs and Labs for Last 24 Hours: Temp Pulse Resp BP Pulse Ox 98.2 F 89 24 159/85 95 09/26/17 04:00 09/26/17 04:00 09/26/17 04:00 09/26/17 04:00 09/26/17 04:00 Laboratory Results - last 24 hr 09/23/17 08:00: Blood Type O Positive, Antibody Screen Negative, Crossmatch (AHG ) See Detail 09/25/17 06:24: POC Glucose 257 09/25/17 12:03: POC Glucose 419 09/25/17 16:11: POC Glucose 376 09/25/17 19:12: Hgb 10.8 L D, Hct 31.7 L 09/25/17 21:26: POC Glucose 286 09/26/17 06:00: WBC 4.2 L, RBC 3.52 L, Hgb 9.8 L, Hct 29.5 L, MCV 83.7, MCH 27.7 , MCHC 33.1, RDW 16.8, Plt Count 102 L, Neut % (Auto) 68.9, Lymph % (Auto) 23.0 , [place] % (Auto) 5.0, Eos % (Auto) 3.0, Baso % (Auto) 0.1, Neut # (Auto) 2.9, Lymph # (Auto) 1.0, [place] # (Auto) 0.2, Eos # (Auto) 0.1, Baso # (Auto) 0.0 09/26/17 06:00: Sodium 131 L, Potassium 3.1 L, Chloride 98, Carbon Dioxide 30, Anion Gap 6.1, BUN 11, Creatinine 1.02, Estimated Creat Clear 43, Estimated GFR 54 L, Est GFR ( Amer) 66, Glucose 253 H 09/26/17 06:01: POC Glucose 249 I & O for Last 24 hours: Intake & Output 09/23/17 09/24/17 09/25/17 09/26/17 11:59 11:59 11:59 11:59 Intake Total 1822 / 1822 980 / 980 920 / 920 Output Total 600 / 600 1600 / 1600 2700 / 2700 2900 / 2900 Balance -600 / -600 222 / 222 -1720 / -1720 -1979 / -1979 Weight 304 lb 4 oz 305 lb 4 oz 302 lb 9 oz 304 lb 6 oz - *Routine Abdominal Exam Present: soft. Absent: tenderness Progress Note: A&P (1) Lower GI bleed Status: Acute Assessment and plan: She had units of packed red blood cells yesterday with greater than expected increase in hemoglobin from 8.1-10.8. This morning's hemoglobin is more appropriate at 9.8. Plan for small bowel follow-through today to rule out small bowel lesion. Otherwise plan to continue to monitor for clinical bleeding and monitor hemoglobin and hematocrit. At this point would favor diverticular bleed which had transiently resolved then recurred then resolved once again. Monitor closely. Current Visit: Yes (2) Anemia due to acute blood loss Status: Acute Current Visit: No (3) Hyperglycemia Status: Chronic Current Visit: No (4) Hypertension Status: Chronic Current Visit: No (5) Obesity Status: Chronic Current Visit: No (6) Type 2 diabetes mellitus Status: Chronic Current Visit: No
[2017-09-26 08:00] VITALS: O2SAT 96
[2017-09-26 08:10] LABS: Eosinophils % 1 % (0-3); Lymphocytes % 16 % (10-50); Monocytes % 3 % (2-9); Neutrophils % 79 % (42-76); Total Cells Counted 100
[2017-09-26 08:11] LABS: Platelet Estimate Slight Decrease; RBC Morphology Normal
--- NOTE | 2017-09-26 08:20 | P.PN_ITS ---
Internal Medicine - PN: Subj *Date: 09/26/17 *Time: 08:18 Interval history: Patient is still passing some clots in her stool. She did get a blood transfusion yesterday and her H&H has improved. She denies any pain and did eat breakfast this morning. Exam Vital signs and Labs for Last 24 Hours: Temp Pulse Resp BP Pulse Ox 98.5 F 97 H 20 155/74 98 09/26/17 07:37 09/26/17 07:37 09/26/17 07:37 09/26/17 07:37 09/26/17 07:37 Laboratory Results - last 24 hr 09/23/17 08:00: Blood Type O Positive, Antibody Screen Negative, Crossmatch (AHG ) See Detail 09/25/17 06:24: POC Glucose 257 09/25/17 12:03: POC Glucose 419 09/25/17 16:11: POC Glucose 376 09/25/17 19:12: Hgb 10.8 L D, Hct 31.7 L 09/25/17 21:26: POC Glucose 286 09/26/17 06:00: WBC 4.2 L, RBC 3.52 L, Hgb 9.8 L, Hct 29.5 L, MCV 83.7, MCH 27.7 , MCHC 33.1, RDW 16.8, Plt Count 102 L, Neut % (Auto) 68.9, Lymph % (Auto) 23.0 , [place] % (Auto) 5.0, Eos % (Auto) 3.0, Baso % (Auto) 0.1, Neut # (Auto) 2.9, Lymph # (Auto) 1.0, [place] # (Auto) 0.2, Eos # (Auto) 0.1, Baso # (Auto) 0.0, Total Counted 100, Neutrophils % (Manual) 79 H, Lymphocytes % (Manual) 16, Monocytes % (Manual) 3, Eosinophils % (Manual) 1, Basophils % (Manual) 1.0, Platelet Estimate Slight decrease, RBC Morphology Normal 09/26/17 06:00: Sodium 131 L, Potassium 3.1 L, Chloride 98, Carbon Dioxide 30, Anion Gap 6.1, BUN 11, Creatinine 1.02, Estimated Creat Clear 43, Estimated GFR 54 L, Est GFR ( Amer) 66, Glucose 253 H 09/26/17 06:01: POC Glucose 249 I & O for Last 24 hours: Intake & Output 09/23/17 09/24/17 09/25/17 09/26/17 11:59 11:59 11:59 11:59 Intake Total 1822 / 1822 980 / 980 920 / 920 Output Total 600 / 600 1600 / 1600 2700 / 2700 2900 / 2900 Balance -600 / -600 222 / 222 -1720 / -1720 -1979 / -1979 Weight 304 lb 4 oz 305 lb 4 oz 302 lb 9 oz 304 lb 6 oz - Constitutional no acute distress - *Routine Respiratory Exam Present: CTA bilaterally - *Routine Cardiovascular Exam Present: RRR - *Routine Abdominal Exam Present: soft, normoactive bowel sounds. Absent: tenderness - *Routine Extremities Exam Absent: edema Assessment and Plan (1) Lower GI bleed Current visit: Yes Status: Acute Category: Medical Code(s): K92.2 - Gastrointestinal hemorrhage, unspecified (2) Anemia due to acute blood loss Current visit: No Status: Acute Category: Medical Code(s): D62 - Acute posthemorrhagic anemia (3) Hyperglycemia Current visit: No Status: Chronic Category: Medical Code(s): R73.9 - Hyperglycemia, unspecified (4) Hypertension Current visit: No Status: Chronic Category: Medical Code(s): I10 - Essential (primary) hypertension (5) Obesity Current visit: No Status: Chronic Category: Medical Code(s): E66.9 - Obesity, unspecified (6) Type 2 diabetes mellitus Current visit: No Status: Chronic Qualifiers: Diabetes mellitus complication status: without complication Category: Medical Code(s): E11.9 - Type 2 diabetes mellitus without complications - Assessment and plan all Dx Assessment and Plan for all problems:: Surgery note states patient is to have an upper GI with small bowel follow- through today. The patient has however eaten breakfast this morning and radiology states she has to be n.p.o. after midnight to do this test. We will discussed with the surgeon.
[2017-09-26 11:58] VITALS: BP 143/77; PULSE 93; RESP 20; TEMP 36.9; O2SAT 97
[2017-09-26 12:24] LABS: POC Glucose,Bedside 357 mg/dL (70-110)
--- NOTE | 2017-09-26 14:54 | PC.NURSE ---
PT WAS OFF THE FLOOR DURING CARE ROUNDS
--- NOTE | 2017-09-26 15:34 | DIET.NUTRFU ---
Pt stated that the food has been really good and she had no complaints. Pt had no questions about diet or nutritional concerns with new diabetic restrictions. Pt appetite has been good with avg PO intake of 75% at last four meals. Glucose improving since diabetic restrictions have been added to diet with 286, 253, 249 recorded. Will continue to monitor.
--- NOTE | 2017-09-26 16:00 | FL_ITS ---
FL upper GI small bowel HISTORY: ITS.REASON: GI bleed ORDERING PHYSICIAN: Yared Bowie MD PATIENT AGE: 67 years COMPARISON: None FINDINGS: The esophagus, stomach, and duodenum have an unremarkable appearance. There is no evidence of hiatal hernia. No ulcer or mass evident. No mucosal abnormalities apparent. There is normal peristalsis. The duodenal C-loop is nondisplaced. There is mild GE reflux noted during the exam. Small bowel has an unremarkable appearance. No obstructing lesions, masses, or mucosal eyes are apparent. FLUOROSCOPY TIME : 2 minutes and 2 seconds. IMPRESSION: 1. Mild gastroesophageal reflux. 2. Otherwise negative upper GI and small bowel follow-through
[2017-09-26 16:58] LABS: POC Glucose,Bedside 307 mg/dL (70-110)
[2017-09-26 20:00] VITALS: BP 113/50; PULSE 89; RESP 20; TEMP 37.1
[2017-09-26 21:00] VITALS: O2SAT 97
[2017-09-27] VITALS: BP 130/66; PULSE 91; RESP 24; TEMP 36.9; O2SAT 97
[2017-09-27 01:04] LABS: POC Glucose,Bedside 310 mg/dL (70-110)
[2017-09-27 04:00] VITALS: BP 118/63; PULSE 81; RESP 18; TEMP 36.9; O2SAT 98
--- NOTE | 2017-09-27 05:17 | PC.NURSE ---
PT RESTED WELL THIS SHIFT. REPORTED ONE STOOL AT BEGINNING OF SHIFT, PT STATES NO BLOOD NOTED. NO C/O PAIN. MEDS ADMIN PER SEP. NO OTHER CONCERNS AT THIS TIME, WILL CONT. TO MONITOR.
[2017-09-27 06:23] LABS: POC Glucose,Bedside 196 mg/dL (70-110)
[2017-09-27 07:02] LABS: Basophils % 0.2 % (0.1-2.0); Eosinophils # 0.1 K/mm3 (0.0-0.4); Eosinophils % 2.8 % (0.1-12.0); Hematocrit 30.8 % (37.0-47.0); Hemoglobin 10.2 g/dL (12.2-16.2); Lymphocytes # 0.8 K/mm3 (0.7-4.5); Lymphocytes % 20.2 K/mm3 (10-50); Mean Corpuscular HGB Conc 32.9 g/dL (31.8-35.4); Monocytes # 0.2 K/mm3 (0.1-1.0); Monocytes % 5.9 % (1.7-9.3); Neutrophils % 70.9 % (37.0-80.0); Platelet Count 103 K/mm3 (142-424); Red Blood Count 3.63 M/mm3 (4.20-5.40); Red Cell Distribution Width 16.9 % (11.5-17.5); White Blood Count 4.2 K/mm3 (4.8-10.8)
[2017-09-27 07:05] LABS: Anion Gap 9.4 mEq/L (5-15); Blood Urea Nitrogen 10 mg/dL (7-18); Carbon Dioxide 30 mmol/L (21.0-32.0); Chloride 99 mmol/L (98-107); Creatinine Clearance Estimated 44 mL/min (0-300); Creatinine,Serum 0.92 mg/dL (0.55-1.02); Estimated Glomerular Filt Rate 61 ml/min (>60); GFR (African American) 74 ML/MIN (>60); Glucose 188 mg/dL (74-106); Potassium 3.4 mmoL/L (3.5-5.1); Sodium 135 mmol/L (136-145)
--- NOTE | 2017-09-27 07:24 | PC.NURSE ---
report given to Rosalva Rivera RN
[2017-09-27 07:40] VITALS: BP 135/70; PULSE 91; RESP 20; TEMP 36.8; O2SAT 96
--- NOTE | 2017-09-27 07:54 | HMH.ACPN2 ---
Internal Medicine - PN: Subj *Date: 09/27/17 *Time: 07:54 Interval history: She seems to have stabilized. Her H&H has actually increased. She is in no discomfort. She is not short of breath. She is anxious for discharge if possible. Exam Vital signs and Labs for Last 24 Hours: Temp Pulse Resp BP Pulse Ox 98.2 F 91 H 20 135/70 96 09/27/17 07:40 09/27/17 07:40 09/27/17 07:40 09/27/17 07:40 09/27/17 07:40 Laboratory Results - last 24 hr 09/26/17 06:00: Total Counted 100, Neutrophils % (Manual) 79 H, Lymphocytes % (Manual) 16, Monocytes % (Manual) 3, Eosinophils % (Manual) 1, Basophils % (Manual) 1.0, Platelet Estimate Slight decrease, RBC Morphology Normal 09/26/17 12:03: POC Glucose 357 09/26/17 16:30: POC Glucose 307 09/26/17 20:51: POC Glucose 310 09/27/17 06:11: POC Glucose 196 09/27/17 06:46: WBC 4.2 L, RBC 3.63 L, Hgb 10.2 L, Hct 30.8 L, MCV 85.0, MCH 28.0, MCHC 32.9, RDW 16.9, Plt Count 103 L, MPV 9.0, Neut % (Auto) 70.9, Lymph % (Auto) 20.2, [place] % (Auto) 5.9, Eos % (Auto) 2.8, Baso % (Auto) 0.2, Neut # (Auto) 3.0, Lymph # (Auto) 0.8, [place] # (Auto) 0.2, Eos # (Auto) 0.1, Baso # (Auto) 0.0 09/27/17 06:46: Sodium 135 L, Potassium 3.4 L, Chloride 99, Carbon Dioxide 30, Anion Gap 9.4, BUN 10, Creatinine 0.92, Estimated Creat Clear 44, Estimated GFR 61, Est GFR ( Amer) 74, Glucose 188 H Laboratory Tests 09/23/17 09/24/17 09/25/17 18:45 06:30 06:37 Hgb 9.5 L 9.4 L 8.1 L 0309/26/17 09/27/17 19:12 06:00 06:46 Hgb 10.8 L D 9.8 L 10.2 L I & O for Last 24 hours: Intake & Output 09/24/17 09/25/17 09/26/17 09/27/17 11:59 11:59 11:59 11:59 Intake Total 1822 / 1822 980 / 980 920 / 920 Output Total 1600 / 1600 2700 / 2700 2900 / 2900 1700 / 1700 Balance 222 / 222 -1720 / -1720 -1980 / -1980 -1700 / -1700 Weight 305 lb 4 oz 302 lb 9 oz 304 lb 6 oz 302 lb 1 oz - Constitutional no acute distress - *Routine HEENT Exam Eye: Present: PERRL. Absent: conjunctival icterus ENT: Present: mucous membranes moist - *Routine Respiratory Exam Present: CTA bilaterally - *Routine Cardiovascular Exam Present: RRR - *Routine Abdominal Exam Present: soft. Absent: tenderness - *Routine Extremities Exam Absent: edema Assessment and Plan (1) Lower GI bleed Current visit: Yes Status: Acute Category: Medical Code(s): K92.2 - Gastrointestinal hemorrhage, unspecified (2) Anemia due to acute blood loss Current visit: No Status: Acute Category: Medical Code(s): D62 - Acute posthemorrhagic anemia (3) Hyperglycemia Current visit: No Status: Chronic Category: Medical Code(s): R73.9 - Hyperglycemia, unspecified (4) Hypertension Current visit: No Status: Chronic Category: Medical Code(s): I10 - Essential (primary) hypertension (5) Obesity Current visit: No Status: Chronic Category: Medical Code(s): E66.9 - Obesity, unspecified (6) Type 2 diabetes mellitus Current visit: No Status: Chronic Qualifiers: Diabetes mellitus complication status: without complication Category: Medical Code(s): E11.9 - Type 2 diabetes mellitus without complications - Assessment and plan all Dx Assessment and Plan for all problems:: Discharge today. Continue iron. See medication list. The patient was instructed to return in the event of recurrent bleeding. She will otherwise be seen in the office of [facility] on Friday 09/29.
--- NOTE | 2017-09-27 07:58 | P.PN_ITS ---
Internal Medicine - PN: Subj *Date: 09/27/17 *Time: 07:54 Interval history: She seems to have stabilized. Her H&H has actually increased. She is in no discomfort. She is not short of breath. She is anxious for discharge if possible. Exam Vital signs and Labs for Last 24 Hours: Temp Pulse Resp BP Pulse Ox 98.2 F 91 H 20 135/70 96 09/27/17 07:40 09/27/17 07:40 09/27/17 07:40 09/27/17 07:40 09/27/17 07:40 Laboratory Results - last 24 hr 09/26/17 06:00: Total Counted 100, Neutrophils % (Manual) 79 H, Lymphocytes % ( Manual) 16, Monocytes % (Manual) 3, Eosinophils % (Manual) 1, Basophils % ( Manual) 1.0, Platelet Estimate Slight decrease, RBC Morphology Normal 09/26/17 12:03: POC Glucose 357 09/26/17 16:30: POC Glucose 307 09/26/17 20:51: POC Glucose 310 09/27/17 06:11: POC Glucose 196 09/27/17 06:46: WBC 4.2 L, RBC 3.63 L, Hgb 10.2 L, Hct 30.8 L, MCV 85.0, MCH 28.0, MCHC 32.9, RDW 16.9, Plt Count 103 L, MPV 9.0, Neut % (Auto) 70.9, Lymph % (Auto) 20.2, [place] % (Auto) 5.9, Eos % (Auto) 2.8, Baso % (Auto) 0.2, Neut # ( Auto) 3.0, Lymph # (Auto) 0.8, [place] # (Auto) 0.2, Eos # (Auto) 0.1, Baso # (Auto ) 0.0 09/27/17 06:46: Sodium 135 L, Potassium 3.4 L, Chloride 99, Carbon Dioxide 30, Anion Gap 9.4, BUN 10, Creatinine 0.92, Estimated Creat Clear 44, Estimated GFR 61, Est GFR ( Amer) 74, Glucose 188 H Laboratory Tests 09/23/17 09/24/17 09/25/17 18:45 06:30 06:37 Hgb 9.5 L 9.4 L 8.1 L 0309/26/17 09/27/17 19:12 06:00 06:46 Hgb 10.8 L D 9.8 L 10.2 L I & O for Last 24 hours: Intake & Output 09/24/17 09/25/17 09/26/17 09/27/17 11:59 11:59 11:59 11:59 Intake Total 1822 / 1822 980 / 980 920 / 920 Output Total 1600 / 1600 2700 / 2700 2900 / 2900 1700 / 1700 Balance 222 / 222 -1720 / -1720 -1980 / -1980 -1700 / -1700 Weight 305 lb 4 oz 302 lb 9 oz 304 lb 6 oz 302 lb 1 oz - Constitutional no acute distress - *Routine HEENT Exam Eye: Present: PERRL. Absent: conjunctival icterus ENT: Present: mucous membranes moist - *Routine Respiratory Exam Present: CTA bilaterally - *Routine Cardiovascular Exam Present: RRR - *Routine Abdominal Exam Present: soft. Absent: tenderness - *Routine Extremities Exam Absent: edema Assessment and Plan (1) Lower GI bleed Current visit: Yes Status: Acute Category: Medical Code(s): K92.2 - Gastrointestinal hemorrhage, unspecified (2) Anemia due to acute blood loss Current visit: No Status: Acute Category: Medical Code(s): D62 - Acute posthemorrhagic anemia (3) Hyperglycemia Current visit: No Status: Chronic Category: Medical Code(s): R73.9 - Hyperglycemia, unspecified (4) Hypertension Current visit: No Status: Chronic Category: Medical Code(s): I10 - Essential (primary) hypertension (5) Obesity Current visit: No Status: Chronic Category: Medical Code(s): E66.9 - Obesity, unspecified (6) Type 2 diabetes mellitus Current visit: No Status: Chronic Qualifiers: Diabetes mellitus complication status: without complication Category: Medical Code(s): E11.9 - Type 2 diabetes mellitus without complications - Assessment and plan all Dx Assessment and Plan for all problems:: Discharge today. Continue iron. See medication list. The patient was instructed to return in the event of recurrent bleeding. She will
--- NOTE | 2017-09-27 08:53 | P.PN_ITS ---
Subjective Patient reports: feels better (wanting to go home) Exam Vital signs and Labs for Last 24 Hours: Temp Pulse Resp BP Pulse Ox 98.2 F 91 H 20 135/70 96 09/27/17 07:40 09/27/17 07:40 09/27/17 07:40 09/27/17 07:40 09/27/17 07:40 Laboratory Results - last 24 hr 09/26/17 12:03: POC Glucose 357 09/26/17 16:30: POC Glucose 307 09/26/17 20:51: POC Glucose 310 09/27/17 06:11: POC Glucose 196 09/27/17 06:46: WBC 4.2 L, RBC 3.63 L, Hgb 10.2 L, Hct 30.8 L, MCV 85.0, MCH 28.0, MCHC 32.9, RDW 16.9, Plt Count 103 L, MPV 9.0, Neut % (Auto) 70.9, Lymph % (Auto) 20.2, [place] % (Auto) 5.9, Eos % (Auto) 2.8, Baso % (Auto) 0.2, Neut # ( Auto) 3.0, Lymph # (Auto) 0.8, [place] # (Auto) 0.2, Eos # (Auto) 0.1, Baso # (Auto ) 0.0 09/27/17 06:46: Sodium 135 L, Potassium 3.4 L, Chloride 99, Carbon Dioxide 30, Anion Gap 9.4, BUN 10, Creatinine 0.92, Estimated Creat Clear 44, Estimated GFR 61, Est GFR ( Amer) 74, Glucose 188 H I & O for Last 24 hours: Intake & Output 09/24/17 09/25/17 09/26/17 09/27/17 11:59 11:59 11:59 11:59 Intake Total 1822 / 1822 980 / 980 920 / 920 Output Total 1600 / 1600 2700 / 2700 2900 / 2900 1700 / 1700 Balance 222 / 222 -1720 / -1720 -1979 / -1979 -1699 / -1700 Weight 305 lb 4 oz 302 lb 9 oz 304 lb 6 oz 302 lb 1 oz - Constitutional no acute distress - *Routine Respiratory Exam Absent: respiratory distress - *Routine Abdominal Exam Present: soft Progress Note: A&P (1) Lower GI bleed Status: Acute Assessment and plan: HH improved this AM. No sign of ongoing blood loss. D/C home as per PCP RTC with Dr. Herring in ~ 1 week Current Visit: Yes (2) Anemia due to acute blood loss Status: Acute Current Visit: No (3) Hyperglycemia Status: Chronic Current Visit: No (4) Hypertension Status: Chronic Current Visit: No (5) Obesity Status: Chronic Current Visit: No (6) Type 2 diabetes mellitus Status: Chronic Current Visit: No
[2017-09-27 18:36] LABS: CEA 2.5 ng/mL (0.0-4.7)
--- NOTE | 2017-09-28 11:18 | HMH.DCSUM ---
General - General Admission date: 09/23/17 Discharge date: 09/27/17 HPI HPI: Ms. Amin is a 71-year-old female who returns to [facility] after her GI bleed. She was discharged to home from [facility] on 09/21/2017 and did fine until awakening at about 2 AM this morning with nausea. She then went to the bathroom and had a stool with noted blood and blood clots. She also noted that the previous day she had had several normal stools without any noted blood. During the hospitalization she had a GI workup with upper endoscopy and colonoscopy which revealed diffuse chronic esophagitis, nonerosive gastritis, diverticulosis, and rare vascular telangiectasis. She was seen in the office of [facility] 09/22/[address] Bowie. She saw some blood in her stool last night and had been instructed to return to the hospital if this occurred; her hemoglobin in the office was 9 which was actually up from an 8.7 at time of discharge. She appeared to be holding fluid with having greater than 2+ pretibial edema today. This could account for some decline in her H&H. She also noticed swelling of the upper lip today. Sucralfate is the only new thing that we have added to her regimen. She is also taking iron. Dr. Herring was consulted regarding readmission. He felt that we should put her in and tag red blood cells for a radiologic study for her blood loss. Hospital Course Hospital Course: She was initially given 2 units of PRBC's. Her tagged RBC study showed no evidence of a lower GI bleed. Her H&H dropped again and she had to be given 2 more units of PRBC's. Dr. Herring felt she would need an Upper GI with SBFT. The patient had her upper GI with small bowel follow-through. It was negative. Her H&H stablized and she was anxious for discharge. She was stable to be discharged on iron. She was instructed to return in the event of recurrent bleeding. She will otherwise be seen in the office of [facility] on Friday 09/29. Objective Vital signs: Temp Pulse Resp BP Pulse Ox 98.2 F 91 H 20 135/70 96 09/27/17 07:40 09/27/17 07:40 09/27/17 07:40 09/27/17 07:40 09/27/17 07:40 Narrative: - Constitutional no acute distress, morbidly obese - *Routine HEENT Exam Head: Present: normocephalic, atraumatic Eye: Present: PERRL. Absent: scleral injection ENT: Present: mucous membranes moist - *Routine Neck Exam Present: supple. Absent: lymphadenopathy, thyromegaly - *Routine Respiratory Exam Present: CTA bilaterally - *Routine Cardiovascular Exam Present: RRR - *Routine Abdominal Exam Present: soft, normoactive bowel sounds. Absent: tenderness, guarding - *Routine Extremities Exam Present: edema. Absent: calf tenderness - *Routine Neurological Exam Present: alert, oriented X3 Results Labs on day of discharge: Labs from last 24 hours 09/25/17 19:12 Carcinoembryonic Ag 2.5 DS: Diagnosis - Discharge Diagnosis (1) Lower GI bleed Status: Acute (2) Anemia due to acute blood loss Status: Acute (3) Hyperglycemia Status: Chronic (4) Hypertension Status: Chronic (5) Obesity Status: Chronic (6) Type 2 diabetes mellitus Status: Chronic Discharge Plan - Patient Discharge Instructions ACTIVITY: Limited activity DIET: low fat, low cholesterol Additional Instructions: FiberCon tablets are recommended, 2 daily. Patient Instructions: Gastrointestinal Bleeding - Follow up Plan Follow up with: Bebo Herring MD [Staff Physician] - 1 week Yared Bowie MD [Primary Care Provider] - Disposition: Home, Self-Shelter Medications: Home Medications Medication Instructions Recorded Confirmed Type Budesonide/Formoterol Fumarate 2 puffs IH BID 09/17/17 09/23/17 History [Symbicort 160-4.5 Mcg Inhaler] Cyclobenzaprine HCl 10 mg PO BID 09/17/17 09/23/17 History [Cyclobenzaprine 10mg Tab] Fluoxe
--- NOTE | 2017-09-28 11:25 | P.DS_ITS ---
General - General Admission date: 09/23/17 Discharge date: 09/27/17 HPI HPI: Ms. Amin is a 71-year-old female who returns to [facility] after her GI bleed. She was discharged to home from [facility] on 09[facility]2017 and did fine until awakening at about 2 AM this morning with nausea. She then went to the bathroom and had a stool with noted blood and blood clots. She also noted that the previous day she had had several normal stools without any noted blood. During the hospitalization she had a GI workup with upper endoscopy and colonoscopy which revealed diffuse chronic esophagitis, nonerosive gastritis, diverticulosis, and rare vascular telangiectasis. She was seen in the office of [facility] 09/22/[address] Bowie. She saw some blood in her stool last night and had been instructed to return to the hospital if this occurred; her hemoglobin in the office was 9 which was actually up from an 8.7 at time of discharge. She appeared to be holding fluid with having greater than 2+ pretibial edema today. This could account for some decline in her H&H. She also noticed swelling of the upper lip today. Sucralfate is the only new thing that we have added to her regimen. She is also taking iron. Dr. Herring was consulted regarding readmission. He felt that we should put her in and tag red blood cells for a radiologic study for her blood loss. Hospital Course Hospital Course: She was initially given 2 units of PRBC's. Her tagged RBC study showed no evidence of a lower GI bleed. Her H&H dropped again and she had to be given 2 more units of PRBC's. Dr. Herring felt she would need an Upper GI with SBFT. The patient had her upper GI with small bowel follow-through. It was negative. Her H&H stablized and she was anxious for discharge. She was stable to be discharged on iron. She was instructed to return in the event of recurrent bleeding. She will otherwise be seen in the office of [facility] on Friday 09/29. Objective Vital signs: Temp Pulse Resp BP Pulse Ox 98.2 F 91 H 20 135/70 96 09/27/17 07:40 09/27/17 07:40 09/27/17 07:40 09/27/17 07:40 09/27/17 07:40 Narrative: - Constitutional no acute distress, morbidly obese - *Routine HEENT Exam Head: Present: normocephalic, atraumatic Eye: Present: PERRL. Absent: scleral injection ENT: Present: mucous membranes moist - *Routine Neck Exam Present: supple. Absent: lymphadenopathy, thyromegaly - *Routine Respiratory Exam Present: CTA bilaterally - *Routine Cardiovascular Exam Present: RRR - *Routine Abdominal Exam Present: soft, normoactive bowel sounds. Absent: tenderness, guarding - *Routine Extremities Exam Present: edema. Absent: calf tenderness - *Routine Neurological Exam Present: alert, oriented X3 Results Labs on day of discharge: Labs from last 24 hours 09/25/17 19:12 Carcinoembryonic Ag 2.5 DS: Diagnosis - Discharge Diagnosis (1) Lower GI bleed Status: Acute (2) Anemia due to acute blood loss Status: Acute (3) Hyperglycemia Status: Chronic (4) Hypertension Status: Chronic (5) Obesity Status: Chronic (6) Type 2 diabetes mellitus Status: Chronic Discharge Plan - Patient Discharge Instructions ACTIVITY: Limited activity DIET: low fat, low cholesterol Additional Instructions: FiberCon tablets are recommende
--- NOTE | 2017-09-30 13:25 | SW/DCPLANNER ---
Patient has been accepted for home health services under [facility].....I have spoke with Adela from [place] and she has stated that they will be contacting this patient. I have attempted to contact patient multiple times along with quality nurse Valentina to make a follow up phone call. There has been no answer at patients phone number nor husbands phone number. Adela has stated she will contact me back if she can not make contact with patient.
== END 2017-09-27 09:51 | disposition home or self-care (01) | DRG 378 ==
LOC: ER 07:47 → 2ND 07:58
PROVIDERS: Physician Assistant; Admitting Provider Family Medicine; Emergency Provider Emergency Medicine; PCP Family Medicine; Visit Provider Family Medicine
DX: K92.2 Gastrointestinal hemorrhage, unspecified (principal); D62 Acute posthemorrhagic anemia; I50.9 Heart failure, unspecified; E11.9 Type 2 diabetes mellitus without complications; I10 Essential (primary) hypertension
CPT/HCPCS: 36430; 36415; 71046; 74245; 76770; 78278; 80048; 80053; 82378; 82962; 84550; 85007; 85014; 85018; 85025; 85048; 85049; 86850; 94640; 99282; 99284; A9512; A9560; P9016

== ENCOUNTER → 2017-12-23 09:03 | Outpatient (CLI) | payer MEDICARE, SELFPAY ==
[2017-12-23 13:38] LABS: Basophils % 0.3 % (0.1-2.0); Eosinophils # 0.1 K/mm3 (0.0-0.4); Eosinophils % 4.6 % (0.1-12.0); Hematocrit 37.8 % (37.0-47.0); Hemoglobin 11.8 g/dL (12.2-16.2); Lymphocytes # 0.7 K/mm3 (0.7-4.5); Lymphocytes % 23.2 K/mm3 (10-50); Mean Corpuscular HGB Conc 31.2 g/dL (31.8-35.4); Mean Corpuscular Hemoglobin 25.1 pg (27.0-31.2); Mean Corpuscular Volume 80.5 fl (81-99); Mean Platelet Volume 8.9 fl (7.4-10.4); Monocytes # 0.2 K/mm3 (0.1-1.0); Monocytes % 5.4 % (1.7-9.3); Neutrophils # 1.9 K/mm3 (1.8-7.8); Neutrophils % 66.6 % (37.0-80.0); Platelet Count 81 K/mm3 (142-424); Red Cell Distribution Width 14.3 % (11.5-17.5); White Blood Count 2.8 K/mm3 (4.8-10.8)
[2017-12-23 13:56] LABS: Alanine Aminotransferase 60 U/L (12-78); Albumin Level 3.3 gm/dL (3.4-5.0); Albumin/Globulin Ratio 0.7 (1.1-1.8); Alkaline Phosphatase 240 U/L (46-116); Anion Gap 16.8 mEq/L (5-15); Aspartate Amino Transferase 63 U/L (15-37); Bilirubin,Total 0.5 mg/dL (0.2-1.0); Blood Urea Nitrogen 15 mg/dL (7-18); Calcium 8.9 mg/dL (8.5-10.1); Carbon Dioxide 24 mmol/L (21.0-32.0); Chloride 99 mmol/L (98-107); Chol/HDL Ratio 7.2 (1-3.5); Cholesterol 239 mg/dL (140-200); Creatinine,Serum 1.14 mg/dL (0.55-1.02); Estimated Glomerular Filt Rate 48 ml/min (>60); Free T4 (Free Thyroxine) 1.27 ng/dl (0.76-1.46); GFR (African American) 58 ML/MIN (>60); Globulin 4.5 gm/dl (1.3-3.2); Glucose 347 mg/dL (74-106); HDL Cholesterol 33 mg/dL (29-89); LDL Cholesterol 141 mg/dL (0-130); Potassium 4.8 mmoL/L (3.5-5.1); Sodium 135 mmol/L (136-145); Thyroid Stimulating Hormone 6.19 uIU/ml (0.358-3.740); Total Protein,Serum 7.8 gm/dL (6.4-8.2); Triglycerides 323 mg/dL (30-200); VLDL Cholesterol 65 mg/dL (0-40)
== END ==
PROVIDERS: PCP Physician Assistant; Visit Provider Physician Assistant
DX: I10 Essential (primary) hypertension (principal); E11.9 Type 2 diabetes mellitus without complications; E78.5 Hyperlipidemia, unspecified; E03.9 Hypothyroidism, unspecified
CPT/HCPCS: 36415; 80053; 80061; 83036; 84439; 84443; 85025

== ENCOUNTER → 2018-04-08 08:08 | Outpatient (CLI) | payer MEDICARE, OTHER, SELFPAY ==
[2018-04-08 13:47] LABS: Basophils % 0.3 % (0.1-2.0); Eosinophils # 0.2 K/mm3 (0.0-0.4); Eosinophils % 4.7 % (0.1-12.0); Hematocrit 34.2 % (37.0-47.0); Lymphocytes # 0.9 K/mm3 (0.7-4.5); Mean Corpuscular HGB Conc 32.3 g/dL (31.8-35.4); Mean Corpuscular Hemoglobin 26.2 pg (27.0-31.2); Mean Platelet Volume 8.3 fl (7.4-10.4); Monocytes # 0.2 K/mm3 (0.1-1.0); Monocytes % 4.7 % (1.7-9.3); Neutrophils # 2.9 K/mm3 (1.8-7.8); Neutrophils % 69.3 % (37.0-80.0); Platelet Count 99 K/mm3 (142-424); Red Blood Count 4.22 M/mm3 (4.20-5.40); Red Cell Distribution Width 14.4 % (11.5-17.5); White Blood Count 4.2 K/mm3 (4.8-10.8)
[2018-04-08 14:07] LABS: Alanine Aminotransferase 25 U/L (12-78); Albumin Level 3.1 gm/dL (3.4-5.0); Albumin/Globulin Ratio 0.7 (1.1-1.8); Alkaline Phosphatase 237 U/L (46-116); Anion Gap 15.1 mEq/L (5-15); Aspartate Amino Transferase 25 U/L (15-37); Bilirubin,Total 0.3 mg/dL (0.2-1.0); Blood Urea Nitrogen 33 mg/dL (7-18); Calcium 8.5 mg/dL (8.5-10.1); Carbon Dioxide 25 mmol/L (21.0-32.0); Chloride 99 mmol/L (98-107); Chol/HDL Ratio 5.1 (1-3.5); Cholesterol 182 mg/dL (140-200); Creatinine,Serum 1.33 mg/dL (0.55-1.02); Estimated Glomerular Filt Rate 40 ml/min (>60); GFR (African American) 48 ML/MIN (>60); Globulin 4.2 gm/dl (1.3-3.2); Glucose 123 mg/dL (74-106); HDL Cholesterol 36 mg/dL (29-89); LDL Cholesterol 107 mg/dL (0-130); Potassium 4.1 mmoL/L (3.5-5.1); Sodium 135 mmol/L (136-145); Thyroid Stimulating Hormone 2.91 uIU/ml (0.358-3.740); Total Protein,Serum 7.3 gm/dL (6.4-8.2); Triglycerides 193 mg/dL (30-200); VLDL Cholesterol 39 mg/dL (0-40)
[2018-04-08 14:19] LABS: Hemoglobin A1C 9.9 % (0.0-7.0)
== END ==
PROVIDERS: PCP Nurse Practitioner Family; Visit Provider Nurse Practitioner Family
DX: E11.9 Type 2 diabetes mellitus without complications (principal); I10 Essential (primary) hypertension; E78.5 Hyperlipidemia, unspecified; E03.9 Hypothyroidism, unspecified
CPT/HCPCS: 36415; 80053; 80061; 83036; 84443; 85025

== ENCOUNTER → 2019-01-13 14:56 | Outpatient (CLI) | payer MEDICARE, SELFPAY ==
[2019-01-13 15:09] LABS: Basophils % 0.5 % (0.1-2.0); Eosinophils # 0.1 K/mm3 (0.0-0.4); Eosinophils % 2.9 % (0.1-12.0); Hematocrit 30.8 % (37.0-47.0); Hemoglobin 9.2 g/dL (12.2-16.2); Lymphocytes # 0.7 K/mm3 (0.7-4.5); Lymphocytes % 25.9 % (10-50); Mean Corpuscular Hemoglobin 24.5 pg (27.0-31.2); Mean Corpuscular Volume 81.8 fl (81-99); Monocytes # 0.1 K/mm3 (0.1-1.0); Monocytes % 3.5 % (1.7-9.3); Neutrophils # 1.9 K/mm3 (1.8-7.8); Neutrophils % 67.2 % (37.0-80.0); Platelet Count 81 K/mm3 (142-424); Red Blood Count 3.77 M/mm3 (4.20-5.40); Red Cell Distribution Width 15.4 % (11.5-17.5); White Blood Count 2.8 K/mm3 (4.8-10.8)
[2019-01-13 15:24] LABS: Alanine Aminotransferase 38 U/L (12-78); Albumin Level 2.8 gm/dL (3.4-5.0); Albumin/Globulin Ratio 0.6 (1.1-1.8); Alkaline Phosphatase 195 U/L (46-116); Amylase 34 U/L (25-115); Anion Gap 13.8 mEq/L (5-15); Aspartate Amino Transferase 35 U/L (15-37); Bilirubin,Total 0.3 mg/dL (0.2-1.0); Blood Urea Nitrogen 27 mg/dL (7-18); Calcium 8.7 mg/dL (8.5-10.1); Carbon Dioxide 24 mmol/L (21.0-32.0); Chloride 103 mmol/L (98-107); Creatinine,Serum 1.39 mg/dL (0.55-1.02); Estimated Glomerular Filt Rate 38 ml/min (>60); GFR (African American) 46 ML/MIN (>60); Globulin 4.4 gm/dl (1.3-3.2); Glucose 318 mg/dL (74-106); Potassium 4.8 mmoL/L (3.5-5.1); Sodium 136 mmol/L (136-145); Total Protein,Serum 7.2 gm/dL (6.4-8.2)
== END ==
PROVIDERS: Visit Provider Nurse Practitioner Family
DX: R10.9 Unspecified abdominal pain (principal); K62.5 Hemorrhage of anus and rectum; Z87.19 Personal history of other diseases of the digestive system
CPT/HCPCS: 36415; 80053; 82150; 85025

== ENCOUNTER → 2019-01-27 09:41 | Outpatient (CLI) | payer MEDICARE, OTHER, SELFPAY ==
[2019-01-27 14:30] LABS: Basophils % 0.5 % (0.1-2.0); Eosinophils # 0.1 K/mm3 (0.0-0.4); Eosinophils % 1.9 % (0.1-12.0); Hemoglobin 8.4 g/dL (12.2-16.2); Lymphocytes # 0.6 K/mm3 (0.7-4.5); Lymphocytes % 24.1 % (10-50); Mean Corpuscular Hemoglobin 23.4 pg (27.0-31.2); Mean Platelet Volume 8.9 fl (7.4-10.4); Monocytes # 0.2 K/mm3 (0.1-1.0); Monocytes % 5.7 % (1.7-9.3); Neutrophils # 1.8 K/mm3 (1.8-7.8); Neutrophils % 67.8 % (37.0-80.0); Platelet Count 90 K/mm3 (142-424); Red Blood Count 3.59 M/mm3 (4.20-5.40); Red Cell Distribution Width 15.5 % (11.5-17.5); White Blood Count 2.6 K/mm3 (4.8-10.8)
[2019-01-27 14:36] LABS: Anion Gap 15.5 mEq/L (5-15); Blood Urea Nitrogen 18 mg/dL (7-18); Calcium 8.5 mg/dL (8.5-10.1); Carbon Dioxide 23 mmol/L (21.0-32.0); Chloride 100 mmol/L (98-107); Estimated Glomerular Filt Rate 41 ml/min (>60); GFR (African American) 50 ML/MIN (>60); Glucose 275 mg/dL (74-106); Potassium 4.5 mmoL/L (3.5-5.1); Sodium 134 mmol/L (136-145)
[2019-01-27 15:01] LABS: Hemoglobin A1C 10.5 % (0.0-7.0)
== END ==
PROVIDERS: PCP Family Medicine; Visit Provider Family Medicine
DX: E11.9 Type 2 diabetes mellitus without complications (principal); I10 Essential (primary) hypertension; Z79.4 Long term (current) use of insulin
CPT/HCPCS: 36415; 80048; 83036; 85025

== ENCOUNTER → 2019-02-01 11:02 | Outpatient (POV) | payer MEDICARE, OTHER, SELFPAY | PROVIDERS: PCP Family Medicine; Visit Provider Nurse Practitioner Family | DX: Z00.00 Encounter for general adult medical examination without abnormal findings (principal) ==

== ENCOUNTER → 2019-02-08 07:36 | Outpatient (CLI) | payer MEDICARE, OTHER, SELFPAY ==
--- NOTE | 2019-02-08 08:00 | US_ITS ---
US abdomen limited History:Abnormal liver functions Ordering Physician:Latonya Mccollum APRN Patient Age: 68 years Comparison:None Findings: Pancreas:Unremarkable. No obvious mass or abnormal fluid collection. No ductal dilatation. The tail the pancreas is poorly demonstrated due to overlying bowel gas. Liver:Unremarkable. No obvious mass or abnormal fluid collection. No ductal dilatation. There is appropriate direction of blood flow within a nondilated portal vein Right Kidney:Unremarkable. Normal size and echogenicity. No hydronephrosis Gallbladder: Postcholecystectomy. Common bile duct is normal at 3 mm. IMPRESSION: Prior cholecystectomy, no acute finding
[2019-02-08 10:40] LABS: Prothrombin Time 11.4 seconds (9.4-11.8)
[2019-02-08 11:02] LABS: Basophils % 0.1 % (0.1-2.0); Eosinophils # 0.1 K/mm3 (0.0-0.4); Eosinophils % 2.4 % (0.1-12.0); Hematocrit 27.2 % (37.0-47.0); Hemoglobin 8.3 g/dL (12.2-16.2); Lymphocytes # 0.5 K/mm3 (0.7-4.5); Mean Corpuscular HGB Conc 30.4 g/dL (31.8-35.4); Mean Corpuscular Hemoglobin 24.1 pg (27.0-31.2); Mean Corpuscular Volume 79.3 fl (81-99); Mean Platelet Volume 8.8 fl (7.4-10.4); Monocytes # 0.1 K/mm3 (0.1-1.0); Monocytes % 4.4 % (1.7-9.3); Neutrophils # 1.7 K/mm3 (1.8-7.8); Neutrophils % 73.1 % (37.0-80.0); Platelet Count 81 K/mm3 (142-424); Red Blood Count 3.43 M/mm3 (4.20-5.40); Red Cell Distribution Width 15.7 % (11.5-17.5); White Blood Count 2.4 K/mm3 (4.8-10.8)
[2019-02-08 11:44] LABS: Alanine Aminotransferase 38 U/L (12-78); Albumin/Globulin Ratio 0.7 (1.1-1.8); Alkaline Phosphatase 209 U/L (46-116); Anion Gap 13.6 mEq/L (5-15); Aspartate Amino Transferase 27 U/L (15-37); Bilirubin,Total 0.4 mg/dL (0.2-1.0); Blood Urea Nitrogen 20 mg/dL (7-18); Calcium 8.6 mg/dL (8.5-10.1); Carbon Dioxide 26 mmol/L (21.0-32.0); Chloride 103 mmol/L (98-107); Creatinine,Serum 1.17 mg/dL (0.55-1.02); Estimated Glomerular Filt Rate 46 ml/min (>60); Ferritin 34 ng/mL (8-388); GFR (African American) 56 ML/MIN (>60); Globulin 4.1 gm/dl (1.3-3.2); Glucose 335 mg/dL (74-106); Potassium 4.6 mmoL/L (3.5-5.1); Sodium 138 mmol/L (136-145); Total Protein,Serum 7.1 gm/dL (6.4-8.2)
[2019-02-09 08:31] LABS: Ceruloplasmin 33.2 mg/dL (19.0-39.0); Hep A Ab, IgM Negative (Negative); Hepatitis B Core Antibody IgM Negative (Negative); Hepatitis B Surface Antigen Negative (Negative); Immunoglobulin A, Qn 380 mg/dL (87-352); Immunoglobulin G, Qn 1533 mg/dL (700-1600); Iron 26 ug/dL (27-139); Iron Saturation 10 % (15-55); UIBC 238 ug/dL (118-369)
[2019-02-09 15:09] LABS: Angiotensin Converting Enzyme 17 U/L (14-82)
[2019-02-09 20:47] LABS: Deamidated Gliadin Abs, IgA 7 units (0-19); Deamidated Gliadin Abs, IgG 4 units (0-19); Tissue Transglutaminase IgA Ab <2 U/mL (0-3); Tissue Transglutaminase IgG Ab <2 U/mL (0-5)
[2019-02-09 20:48] LABS: Actin (Smooth Muscle) Antibody 7 Units (0-19); Endomysial IgA Antibody Negative (Negative); Hepatitis C Antibody <0.1 s/co ratio (0.0-0.9); Immunoglobulin M, Qn 142 mg/dL (26-217); Liver-Kidney Microsomal Ab 1.1 Units (0.0-20.0); Mitochondrial (M2) Antibody <20.0 Units (0.0-20.0)
[2019-02-10 07:11] LABS: ALT (SGPT) P5P 34 IU/L (0-40); AST (SGOT) P5P 37 IU/L (0-40); Alpha 2-Macroglobulins, Qn 193 mg/dL (110-276); Apolipoprotein A-1 107 mg/dL (116-209); Bilirubin, Total 0.3 mg/dL (0.0-1.2); Cholesterol, Total 158 mg/dL (100-199); Fibrosis Score 0.47 (0.00-0.21); Fibrosis Stage F1-F2 (.); GGT 160 IU/L (0-60); Glucose 357 mg/dL (65-99); Haptoglobin 90 mg/dL (34-200); NASH Score 0.75 (0.25); Steatosis Score 0.94 (0.00-0.30); Triglycerides 172 mg/dL (0-149)
[2019-02-10 11:13] LABS: Reticulin IgA Antibody Negative titer (Neg:<1:2.5)
[2019-02-10 13:14] LABS: Alpha-1-Antitrypsin 156 mg/dL (90-200)
[2019-02-17 14:20] LABS: Antinuclear Antibodies (ANA) Negative
== END ==
PROVIDERS: PCP Family Medicine; Visit Provider Nurse Practitioner Family
DX: K76.0 Fatty (change of) liver, not elsewhere classified (principal); R94.5 Abnormal results of liver function studies; R19.4 Change in bowel habit; R13.10 Dysphagia, unspecified; K30 Functional dyspepsia; R11.2 Nausea with vomiting, unspecified; R14.0 Abdominal distension (gaseous); R19.7 Diarrhea, unspecified; D64.9 Anemia, unspecified; K92.1 Melena
CPT/HCPCS: 36415; 76705; 80053; 80074; 81256; 82103; 82104; 82164; 82390; 82728; 82784; 83516; 83540; 83550; 85025; 85610; 86038; 86255; 86256; 86376

== ENCOUNTER 2019-02-27 11:38 | Observation (INO) ==
[2019-02-27 12:05] LABS: Basophils % 0.2 % (0.1-2.0); Eosinophils % 0.4 % (0.1-12.0); Hematocrit 28.8 % (37.0-47.0); Hemoglobin 8.7 g/dL (12.2-16.2); Lymphocytes # 0.5 K/mm3 (0.7-4.5); Lymphocytes % 9.2 % (10-50); Mean Corpuscular HGB Conc 30.4 g/dL (31.8-35.4); Mean Corpuscular Volume 81.2 fl (81-99); Mean Platelet Volume 8.6 fl (7.4-10.4); Monocytes # 0.2 K/mm3 (0.1-1.0); Monocytes % 3.9 % (1.7-9.3); Neutrophils # 4.8 K/mm3 (1.8-7.8); Neutrophils % 86.4 % (37.0-80.0); Platelet Count 87 K/mm3 (142-424); Red Blood Count 3.54 M/mm3 (4.20-5.40); Red Cell Distribution Width 16.2 % (11.5-17.5); White Blood Count 5.6 K/mm3 (4.8-10.8)
[2019-02-27 12:16] LABS: Albumin Level 3.3 gm/dL (3.4-5.0); Albumin/Globulin Ratio 0.7 (1.1-1.8); Anion Gap 17.9 mEq/L (5-15); Calcium 8.7 mg/dL (8.5-10.1); Globulin 4.6 gm/dl (1.3-3.2); Total Protein,Serum 7.9 gm/dL (6.4-8.2)
[2019-02-27 12:20] LABS: Lymphocytes % 8 % (10-50); Neutrophils % 92 % (42-76); Total Cells Counted 100
[2019-02-27 12:21] LABS: Hypochromasia 2+
--- NOTE | 2019-02-27 12:44 | Emergency Department Note ---
ED Disposition Clinical Impression: Hyperglycemia Altered mental status Qualifiers: Altered mental status type: disorientation Qualified Code(s): R41.0 - Disorientation, unspecified CHF (congestive heart failure) Qualifiers: Heart failure type: unspecified Heart failure chronicity: acute on chronic Qualified Code(s): I50.9 - Heart failure, unspecified Disposition: Admitted as Observation Condition on Discharge: [facility] - Critical Care Critical Care Time: No Attestation: On 02/27/19, the high probability of a clinically significant, sudden or life threatening deterioration of the following system(s) required my full and direct attention, intervention and personal management. The time I documented below is in addition to time spent performing reported procedures but includes the following listed in this critical care notation. Medical Decision Making - [place] Inquiry Pt receiving controlled substance: No Vital Signs: 02/27/19 11:48 02/27/19 12:09 02/27/19 12:30 Temperature 98.3 F Temperature Source Oral Pulse Rate [Right Brachial] 104 H 101 H 100 H Respiratory Rate 24 Blood Pressure [Right Arm] 150/101 H 122/63 148/73 H Blood Pressure Mean [Right Arm] 117 82 98 Blood Pressure Source [Right Arm] Automatic Cuff Blood Pressure Position [Right Arm] Sitting 02 Sat by Pulse Oximetry 97 96 99 Oxygen Delivery Method Room Air 02/27/19 13:00 02/27/19 14:00 02/27/19 14:30 Temperature Temperature Source Pulse Rate [Right Brachial] 107 H 102 H 67 Respiratory Rate 18 18 Blood Pressure [Right Arm] 161/95 H 146/77 H 146/76 H Blood Pressure Mean [Right Arm] 117 100 99 Blood Pressure Source [Right Arm] Automatic Cuff Automatic Cuff Blood Pressure Position [Right Arm] Supine Supine 02 Sat by Pulse Oximetry 96 98 100 Oxygen Delivery Method Room Air Room Air 02/27/19 14:55 02/27/19 15:18 Temperature Temperature Source Pulse Rate [Right Brachial] 102 H 98 H Respiratory Rate Blood Pressure [Right Arm] 127/95 H 152/72 H Blood Pressure Mean [Right Arm] 105 98 Blood Pressure Source [Right Arm] Blood Pressure Position [Right Arm] 02 Sat by Pulse Oximetry 97 98 Oxygen Delivery Method - Lab Data Lab Results 02/27/19 11:58: WBC 5.6, RBC 3.54 L, Hgb 8.7 L, Hct 28.8 L, MCV 81.2, MCH 24.7 L , MCHC 30.4 L, RDW 16.2, Plt Count 87 L, MPV 8.6, Neut % (Auto) 86.4 H, Lymph % (Auto) 9.2 L, [place] % (Auto) 3.9, Eos % (Auto) 0.4, Baso % (Auto) 0.2, Neut # (Auto) 4.8, Lymph # (Auto) 0.5 L, [place] # (Auto) 0.2, Eos # (Auto) 0.0, Baso # (Auto) 0.0, Total Counted 100, Neutrophils % (Manual) 92 H, Lymphocytes % (Manual) 8 L, Platelet Estimate Moderate decrease, Hypochromasia 2+ 02/27/19 11:58: Sodium 132 L, Potassium 3.9, Chloride 97 L, Carbon Dioxide 21, Anion Gap 17.9 H, BUN 14, Creatinine 1.30 H, Estimated Creat Clear 38, Estimated GFR 41 L, Est GFR ( Amer) 50 L, Glucose 446 H*, Calcium 8.7, Total Bilirubin 1.0, AST 31, ALT 34, Alkaline Phosphatase 196 H, Total Protein 7.9, Albumin 3.3 L, Globulin 4.6 H, Albumin/Globulin Ratio 0.7 L, Amylase 22 L, Lipase 118 02/27/19 11:58: TSH 5.55 H D 02/27/19 11:58: Troponin I < 0.02, Acetone Level None detected 02/27/19 11:58: B-Natriuretic Peptide 281 H 02/27/19 11:58: PT 12.0 H, INR 1.16 H 02/27/19 11:58: Plasma/Serum Alcohol 0 02/27/19 12:07: Urine Color Yellow, Urine Appearance Clear, Urine pH 5.0, Ur Specific [place] 1.015, Urine Protein Negative, Urine Glucose (UA) 3+, Urine Ketones 1+, Urine Blood Trace-i, Urine Nitrate Negative, Urine Bilirubin Negative, Urine Urobilinogen 0.2, Ur Leukocyte Esterase Negative, Urine WBC 3-5, Ur Squamous Epith Cells 5-10, Urine Bacteria 1+ 02/27/19 12:51: VBG pH 7.37, VBG pCO2 33.3 L, VBG pO2 107.5 H, VBG HCO3 18.6 L, VBG Total CO2 19.6 L, VBG O2 Saturation 97.4 H, VBG Base Excess -6.8 L 02/27/19 15:10: Ammonia 41 02/27/19 16:08: POC Glucose 416 H* Result diagrams: 02/27/19 11:58 02/27/19 11:58 Orders (Tests/Meds): ED MEDICATIONS Discontinued Medications Generic Name Dose Route Start Last Admin Trade Name Freq PRN Reason Stop Dose Admin Furosemide 40 mg 02/27/19 16:32 Lasix 40mg/4ml Vial IV 02/27/19 16:33 ONCE ONE Insulin Human Regular 5 unit 02/27/19 13:55 02/27/19 14:18 Humulin R Insulin 100 Units/Ml 10ml Vial IVP 02/27/19 13:56 5 unit ONCE ONE Administration ORDERS Category Date Time Status XR chest portable Stat Exams 02/27/19 12:52 Taken Drug Screen,Urine Stat Lab 02/27/19 12:51 Ordered Urinalysis and Microscopic Stat Lab 02/27/19 12:51 Ordered - Radiology Data #1 Image(s): Chest Image Reviewed: Yes I reviewed the patient's radiology image CHF - CT Data CT Scan: Head, Abdomen, Pelvis Time Received: 14:[address] Reviewed: Yes: I have viewed the radiologist's interpretation Findings Narrative: Head - negative. Abdomen/Pelvis: FINDINGS: The there are atelectatic changes in the lung bases with trace right-sided effusion. There is a minimal amount of perihepatic fluid. Post cholecystectomy there is splenomegaly at 16 cm. The pancreas and kidneys have an unremarkable appearance. There is mild haziness of the mesenteric fat centrally. A calcific density is present along the anterior aspect of the right psoas muscle consistent with a phleboliths. There is some mild stranding of the fat in the right and left paracolic gutter region. No intestinal obstruction or free air. Mild periportal adenopathy is noted. There is a nodule in the left adrenal gland which is unchanged there is diverticulosis of the descending and sigmoid colon. No evidence of appendicitis. There is mild haziness of the pelvic fat. There is mild subcutaneous edema. Small amount fluid is present in the pelvis. There are post hysterectomy changes. There are severe osteoarthritic changes of the right hip with prominent subarticular cystic changes of the acetabulum and femoral head. IMPRESSION: The liver margin is slightly irregular with trace perihepatic and pelvic fluid with splenomegaly raising the suspicion of portal hypertension and early cirrhosis. There is mild thickening of the pericolic gutters on both sides. There is mild edema also at the mesenteric fat. Colonic diverticulosis but no evidence of diverticulitis. Progressive osteoarthritic changes of the right femoral head was severe subarticular cystic changes Dictated by: Mateo Babin MD 02/27/2019 14:22 - ECG Data Tracing #1 EKG interpreted by Benton Atwood MD: Rhythm: sinus Rate: 97 [place]: normal Ectopy: none Conduction: normal ST Segment Changes: none T Wave Changes: none Q Waves: none No evidence of acute ischemia or injury - Physician Consults Physician Consulted: Mirta Time: 16:18 Reason -: Admission Comment/Response: Agrees to admit the patient to the hospital. We discussed the patient's clinical information, including history, exam, laboratory and radiology results and ED course. Per hospital procedure, I will write temporary bridge inpatient orders on the patient. Specific orders requested by the admitting physician: Hold home medications. Sliding scale insulin. Ne urochecks. NS 100 cc/hr. General Adult HPI - General Chief complaint: Nausea/Vomiting/Diarrhea Stated complaint: ams and weakness Time Seen by Provider: 02/27/19 12:44 Mode of Arrival: Family Vehicle Limitations: No Limitations Description of Symptoms (Recalled from ER Triage Doc. by RN): PT HAS A MYRIAD OF COMPLAINTS. STATES SHE HAS BEEN HAVING BOWEL ISSUES FOR AT LEAST A WEEK, NOT SURE IF SHE HAS TAKEN ANYTHING TO HELP THEM OR NOT, BUT DEFINITELY DID NOT TRY ANY ENEMAS; SHE HAS BACK PAIN, HAS MISSED SEVERAL DOSES OF ANTI-HTN MEDS AND HER DIURETIC PER HER . FEELS LIKE SHE IS "CONSTIPATED AND 'SWOLLEN'". SOME NAUSEA. - History of Present Illness HPI narrative: History obtained from patient and . Patient says she has been ill for 4 to 5 days. She is "talking out of her head". Complaining of low back pain, not eating, drinking, or taking her medications for 4 to 5 days. Nausea and vomiting. States that she is stating that she is impacted and has had some intermittent abdominal pain. Legs are swollen. She is complaining of shortness of breath. Tried to get her to go to the doctor couple of days ago, but she would not. Sees Dr. Sy in [place]. She is chronically anemic. - Related Data Home Medications Medication Instructions Recorded Confirmed Budesonide/Formoterol Fumarate 2 puffs IH BID 09/17/17 02/27/19 [Symbicort 160-4.5 Mcg Inhaler] Cyclobenzaprine HCl 10 mg PO BID 09/17/17 02/27/19 [Cyclobenzaprine 10mg Tab] Fluoxetine HCl 40 mg PO BID 09/17/17 02/27/19 Gabapentin [Gabapentin 300mg Cap] 600 mg PO TID 09/17/17 02/27/19 Hydrocodone/Acetaminophen 1 tab PO TIDP PRN 09/17/17 02/27/19 [Hydrocodone-Acetamin 10-325 mg] Insulin Regular, Human [Humulin R] 1 units SQ ACHS 09/17/17 02/27/19 Levothyroxine Sodium 112 mcg PO DAILY 09/17/17 02/27/19 [Levothyroxine 112mcg (0.112mg) Tab] Lisinopril/Hydrochlorothiazide 1 tab PO DAILY 09/17/17 02/27/19 [Lisinopril-Hctz 10-12.5 mg Tab] Omeprazole [Omeprazole 40mg 40 mg PO DAILY 09/17/17 02/27/19 Capsule] glipiZIDE [Glipizide ER] 10 mg PO BID 09/17/17 02/27/19 Albuterol Sulfate [Albuterol HFA 2 puffs IH Q4HP PRN 09/18/17 02/27/19 Inhaler] Furosemide [Furosemide 20mg Tab] 20 mg PO DAILYP PRN 09/18/17 02/27/19 Insulin Glargine,Hum.rec.anlog 55 unit SQ HS 09/18/17 02/27/19 [Lantus Insulin 100units/mL 10mL vial] Calcium Polycarbophil [FiberCon 1,250 mg PO DAILY 11/10/17 02/27/19 625mg tablet] Previous Rx's Medication Instructions Recorded Ondansetron HCl [Zofran 4mg Tab] 4 mg PERIBULBAR Q8 #20 tab 11/10/17 Allergies Allergy/AdvReac Type Severity Reaction Status Date / Time sucralfate Allergy Intermediate Swelling Verified 09/23/17 13:58 of Lip/Tongue/Throat polyethylene glycol 3350 Allergy Swelling Verified 11/10/17 11:50 [From Miralax] of Lip/Tongue/Throat Diazepam Allergy Intermediate I-HIVES Uncoded 06/24/17 14:39 Tuberculin Allergy Unknown POSITIVE Uncoded 06/24/17 14:39 REACTOR TO SKIN TEST [facility] History - Hepatitis A Screen Drug use history?: No High risk sexual behaviors?: No History of sexually transmitted infection?: No Currently employed?: No Childcare worker?: No Do you have indoor plumbing?: Yes Do you have electricity?: Yes Attestation statement:: This patient has been screened for Hepatitis A risk factors. I have reviewed the patient's past medical history: Yes Medical History: Reports:: Congestive Heart Failure, Diabetes Mellitus Type 1, Heart Murmur, Hyperlipidemia, Hypertension Denies:: Cancer, Diabetes Mellitus Type 2, MRSA, Seizures Other Medical History: Reports: Arthritis, Liver Disease. Denies: Blood Transfusion Reaction Laterality Cases: Left: Arthroscopy Knee Other Surgeries: Yes: Cholecystectomy, Colonoscopy, EGD, Hysterectomy-Total, Tubal Ligation Amputation: Yes (right great toe) Fractures: No - Social History Smoking Status: Never smoker Alcohol Intake: never Occupational Status: retired, disabled Housing: house Household Members: spouse Family Hx:: Unable to obtain, Cancer, Coronary Artery Disease, Diabetes, Hyperlipidemia, Hypertension ROS Obtained: Yes All systems reviewed & no additional complaints - Constitutional Constitutional: Denies fever(s) - Cardiovascular Cardiovascular: Denies chest pain - Respiratory Respiratory: No cough, Yes dyspnea - Gastrointestinal Gastrointestingal: Reports: abdominal pain, constipation, nausea, vomiting - Genitourinary Female Genitourinary: Denies difficulty voiding - Musculoskeletal Musculoskeletal: Reports back pain - Neurologic Neurologic: Reports confusion, Denies focal weakness, Denies headache(s) Physical Exam - General General appearance: alert, other (Confused) Comment: Restless - Head Head exam: atraumatic, normocephalic - Eye Eye exam: Present: normal appearance, EOMI - ENT ENT exam: Present: mucous membranes dry - Neck Neck exam: Present: normal inspection, trachea midline. Absent: meningismus - Chest Chest inspection: Present: normal inspection, symmetric chest wall rise - Respiratory Respiratory exam: Present: normal lung sounds bilaterally. Absent: respiratory distress - Cardiovascular Cardiovascular exam: Present: regular rate, normal rhythm, normal heart sounds - Abdominal Exam Abdominal exam: Present: soft, tenderness, normal bowel sounds. Absent: distention, guarding, rebound, rigidity Abdominal tenderness: Present: diffuse - Extremities Exam Extremities exam: Present: pedal edema - Neurological Exam Neurological exam: Present: alert, CN II-XII intact. Absent: oriented X3, motor sensory deficit - Psychiatric Psychiatric exam: Present: anxious - Skin Skin exam: Present: warm, dry
[2019-02-27 13:21] LABS: VBG Base Excess -6.8 mmol/L (-2.4-2.3); VBG HCO3 18.6 mmol/L (23-30); VBG Oxygen Saturation 97.4 % (50-70); VBG PCO2 33.3 mmol/L (35-51); VBG PH 7.37 mmol/L (7.31-7.41); VBG PO2 107.5 mmol/L (28-40); VBG Total CO2 19.6 mmol/L (23-27)
[2019-02-27 13:37] LABS: Acetone, Serum (Rapid) None Detected (None Detect)
[2019-02-27 14:47] LABS: INR 1.16 (0.9-1.1)
[2019-02-28 07:16] LABS: Anion Gap 14.3 mEq/L (5-15); Calcium 8.4 mg/dL (8.5-10.1)
--- NOTE | 2019-02-28 08:22 | Pharmacy Consult Notes ---
[facility] Pharmacy VTE Monitoring - Patient Demographics Admission date: 02/27/19 Report Date: 02/28/19 Time: 08:22 Allergies/Adverse Reactions: Patient Allergies sucralfate Allergy (Intermediate, Verified 09/23/17 13:58) Swelling of Lip/Tongue/Throat polyethylene glycol 3350 [From Miralax] Allergy (Verified 11/10/17 11:50) Swelling of Lip/Tongue/Throat Diazepam Allergy (Intermediate, Uncoded 06/24/17 14:39) I-HIVES Tuberculin Allergy (Unknown, Uncoded 06/24/17 14:39) POSITIVE REACTOR TO SKIN TEST Height: 1.6 m Weight: 127.459 kg Patient Problems: Current Active Problems Hyperglycemia (Chronic) Altered mental status (Acute) CHF (congestive heart failure) (Acute) - VTE Risk Labs: VTE Related Lab Results Hgb 8.7 g/dL (12.2-16.2) L 02/27/19 11:58 Hct 28.8 % (37.0-47.0) L 02/27/19 11:58 Plt Count 87 K/mm3 (142-424) L 02/27/19 11:58 PT 12.0 seconds (9.4-11.8) H 02/27/19 11:58 INR 1.16 (0.9-1.1) H 02/27/19 11:58 BUN 20 mg/dL (7-18) H D 02/28/19 06:42 Creatinine 1.22 mg/dL (0.55-1.02) H 02/28/19 06:42 Estimated Creat Clear 38 mL/min (50-200) 02/28/19 06:42 Was VTE Risk Assessment Performed: Yes VTE Score: 3 VTE Risk Level: Low Risk - Prophylaxis VTE Prophylaxis Ordered?: Yes Types of VTE Prophylaxis: TEDS Knee High Location of Applied Device: Bilateral Lower Extremeties
--- NOTE | 2019-02-28 08:26 | History & Physical Report ---
*Admission Date: 02/27/19 *Chief complaint: Mental status changes and sickness *History of present illness: 68-year-old white female: Presented to emergency department yesterday evening with the below noted complaint: History obtained from patient and . Patient says she has been ill for 4 to 5 days. She is "talking out of her head". Complaining of low back pain, not eating, drinking, or taking her medications for 4 to 5 days. Nausea and vomiting. States that she is stating that she is impacted and has had some intermittent abdominal pain. Legs are swollen. She is complaining of shortness of breath. Tried to get her to go to the doctor couple of days ago, but she would not. Sees Dr. Sy in [place]. ER evaluation revealed fairly unremarkable labs except for significant hyperglycemia and mild hypocalcemia. CHF was noted on x-ray, and patient was admitted for further evaluation of mental status change, and CHF issues with IV diuresis. We have a record deficit in regards to her chronic medical illnesses but she appears to have chronic anemia. She also takes a host of medications that could be mood altering including opiates, muscle relaxers and gabapentin. [facility] History I have reviewed the patient's past medical history: Yes Medical History: Reports:: Congestive Heart Failure, Diabetes Mellitus Type 1, Heart Murmur, Hyperlipidemia, Hypertension Denies:: Cancer, Diabetes Mellitus Type 2, MRSA, Seizures *Have you ever received a pneumonia vaccine?: Yes *Have you received a flu vaccine this season?: No Other Medical History: Reports: Arthritis, Liver Disease. Denies: Blood Transfusion Reaction Laterality Cases: Left: Arthroscopy Knee Other Surgeries: Yes: Cholecystectomy, Colonoscopy, EGD, Hysterectomy-Total, Tubal Ligation Amputation: Yes (right great toe) Fractures: No - *Social History Educational Level: Completed High School Smoking Status: Never smoker Alcohol Intake: never *Occupational Status:: retired, disabled Housing: house Household Members: spouse *Travel in the last 8 weeks: None - Psychiatric History Expresses thoughts of harming self/others: None Suicide Plan Description: No Plan Family Hx:: Unable to obtain, Cancer, Coronary Artery Disease, Diabetes, Hyperlipidemia, Hypertension Review of Systems - Review of Systems Review of systems:: unable to obtain Review of systems as noted in HPI and ER notes from . This morning she states she feels better, denies cardiac or pulmonary issues. Denies nausea or vomiting. - *Neurologic Reports confusion, Denies localized weakness, Denies headache(s) Meds Home Medications Medication Instructions Recorded Confirmed Type Budesonide/Formoterol Fumarate 2 puffs IH BID 09/17/17 02/27/19 History [Symbicort 160-4.5 Mcg Inhaler] Cyclobenzaprine HCl 10 mg PO BID 09/17/17 02/27/19 History [Cyclobenzaprine 10mg Tab] Fluoxetine HCl 40 mg PO BID 09/17/17 02/27/19 History Gabapentin [Gabapentin 300mg Cap] 600 mg PO TID 09/17/17 02/27/19 History Hydrocodone/Acetaminophen 1 tab PO TIDP PRN 09/17/17 02/27/19 History [Hydrocodone-Acetamin 10-325 mg] Insulin Regular, Human [Humulin R] 1 units SQ ACHS 09/17/17 02/27/19 History Levothyroxine Sodium 112 mcg PO DAILY 09/17/17 02/27/19 History [Levothyroxine 112mcg (0.112mg) Tab] Lisinopril/Hydrochlorothiazide 1 tab PO DAILY 09/17/17 02/27/19 History [Lisinopril-Hctz 10-12.5 mg Tab] Omeprazole [Omeprazole 40mg 40 mg PO DAILY 09/17/17 02/27/19 History Capsule] glipiZIDE [Glipizide ER] 10 mg PO BID 09/17/17 02/27/19 History Albuterol Sulfate [Albuterol HFA 2 puffs IH Q4HP PRN 09/18/17 02/27/19 History Inhaler] Furosemide [Furosemide 20mg Tab] 20 mg PO DAILYP PRN 09/18/17 02/27/19 History Insulin Glargine,Hum.rec.anlog 55 unit SQ HS 09/18/17 02/27/19 History [Lantus Insulin 100units/mL 10mL vial] Calcium Polycarbophil [FiberCon 1,250 mg PO DAILY 11/10/17 02/27/19 History 625mg tablet] Ondansetron HCl [Zofran 4mg Tab] 4 mg PERIBULBAR Q8 #20 tab 11/10/17 02/27/19 Rx Allergies Allergy/AdvReac Type Severity Reaction Status Date / Time sucralfate Allergy Intermediate Swelling Verified 09/23/17 13:58 of Lip/Tongue/Throat polyethylene glycol 3350 Allergy Swelling Verified 11/10/17 11:50 [From Miralax] of Lip/Tongue/Throat Diazepam Allergy Intermediate I-HIVES Uncoded 06/24/17 14:39 Tuberculin Allergy Unknown POSITIVE Uncoded 06/24/17 14:39 REACTOR TO SKIN TEST Exam Vital signs and Labs for Last 24 Hours: Temp Pulse Resp BP Pulse Ox 98.9 F 88 18 133/65 94 L 02/28/19 04:00 02/28/19 06:34 02/28/19 04:00 02/28/19 04:00 02/28/19 04:00 Laboratory Results - last 24 hr 02/27/19 11:58: WBC 5.6, RBC 3.54 L, Hgb 8.7 L, Hct 28.8 L, MCV 81.2, MCH 24.7 L , MCHC 30.4 L, RDW 16.2, Plt Count 87 L, MPV 8.6, Neut % (Auto) 86.4 H, Lymph % (Auto) 9.2 L, [place] % (Auto) 3.9, Eos % (Auto) 0.4, Baso % (Auto) 0.2, Neut # (Auto) 4.8, Lymph # (Auto) 0.5 L, [place] # (Auto) 0.2, Eos # (Auto) 0.0, Baso # (Auto) 0.0, Total Counted 100, Neutrophils % (Manual) 92 H, Lymphocytes % (Manual) 8 L, Platelet Estimate Moderate decrease, Hypochromasia 2+ 02/27/19 11:58: Sodium 132 L, Potassium 3.9, Chloride 97 L, Carbon Dioxide 21, Anion Gap 17.9 H, BUN 14, Creatinine 1.30 H, Estimated Creat Clear 38, Estimated GFR 41 L, Est GFR ( Amer) 50 L, Glucose 446 H*, Calcium 8.7, Total Bilirubin 1.0, AST 31, ALT 34, Alkaline Phosphatase 196 H, Total Protein 7.9, Albumin 3.3 L, Globulin 4.6 H, Albumin/Globulin Ratio 0.7 L, Amylase 22 L, Lipase 118 02/27/19 11:58: TSH 5.55 H D 02/27/19 11:58: Troponin I < 0.02, Acetone Level None detected 02/27/19 11:58: B-Natriuretic Peptide 281 H 02/27/19 11:58: PT 12.0 H, INR 1.16 H 02/27/19 11:58: Plasma/Serum Alcohol 0 02/27/19 12:07: Urine Color Yellow, Urine Appearance Clear, Urine pH 5.0, Ur Specific [place] 1.015, Urine Protein Negative, Urine Glucose (UA) 3+, Urine Ketones 1+, Urine Blood Trace-i, Urine Nitrate Negative, Urine Bilirubin Negative, Urine Urobilinogen 0.2, Ur Leukocyte Esterase Negative, Urine WBC 3-5, Ur Squamous Epith Cells 5-10, Urine Bacteria 1+ 02/27/19 12:51: VBG pH 7.37, VBG pCO2 33.3 L, VBG pO2 107.5 H, VBG HCO3 18.6 L, VBG Total CO2 19.6 L, VBG O2 Saturation 97.4 H, VBG Base Excess -6.8 L 02/27/19 15:10: Ammonia 41 02/27/19 16:08: POC Glucose 416 H* 02/27/19 18:07: POC Glucose 381 H* 02/27/19 20:23: POC Glucose 322 H* 02/28/19 06:42: Sodium 135 L, Potassium 3.3 L, Chloride 99, Carbon Dioxide 25, Anion Gap 14.3, BUN 20 H D, Creatinine 1.22 H, Estimated Creat Clear 38, Estimated GFR 44 L, Est GFR ( Amer) 53 L, Glucose 291 H D, Calcium 8.4 L I & O for Last 24 hours: Intake & Output 02/25/19 02/26/19 02/27/19 02/28/19 11:59 11:59 11:59 11:59 Intake Total 1240 / 1240 Balance 1240 / 1240 Weight 320 lb 281 lb Narrative: Patient is awake, much more talkative according to her . Still disoriented to place and time. Cannot remember her medication list or her phone number. Cranial nerves are intact, oropharynx clear. No JVD. Lungs have crackles in both bases with some rhonchi. Heart rate regular. Her obesity impairs exam accuracy. Abdomen obese but soft. Extremities warm and well-perfused. 1+ edema. Sacral edema at 1+. She is missing the great toe on the right foot-history of staph infection with amputation several years ago. She responds to commands well, power is equal in all 4 extremities. Assessment and Plan (1) Hypocalcemia Current visit: Yes Status: Acute Category: Medical Code(s): E83.51 - Hypocalcemia Mild. Replace with calcium gluconate today. (2) Morbid obesity Current visit: Yes Status: Acute Category: Medical Code(s): E66.01 - Morbid (severe) obesity due to excess calories Complicates all aspects of her care (3) Altered mental status Current visit: Yes Status: Acute Qualifiers: Altered mental status type: disorientation Qualified Code(s): R41.0 - Disorientation, unspecified Category: Medical Code(s): R41.82 - Altered mental status, unspecified Somewhat improved. Possibly from polypharmacy. Plan will be to hold opiates, muscle relaxers and gabapentin today. MRI tomorrow. (4) CHF (congestive heart failure) Current visit: Yes Status: Acute Qualifiers: Heart failure type: unspecified Heart failure chronicity: acute on chronic Qualified Code(s): I50.9 - Heart failure, unspecified Category: Medical Code(s): I50.9 - Heart failure, unspecified Uncertain etiology. Given vascular changes on chest x-ray try to quantify ejection fraction to determine best course of medication adjustment in the future. (5) Hyperglycemia Current visit: Yes Status: Chronic Category: Medical Code(s): R73.9 - Hyperglycemia, unspecified Treat with sliding scale insulin. Does not seem to be the cause of her mental status problems (6) Hypertension Current visit: No Status: Chronic Category: Medical Code(s): I10 - Essential (primary) hypertension Currently stable. Hold antihypertensives at this point given her need for diuresis. (7) Type 2 diabetes mellitus Current visit: No Status: Chronic Qualifiers: Diabetes mellitus complication status: without complication Category: Medical Code(s): E11.9 - Type 2 diabetes mellitus without complications Complicates all aspects of her care. Previous history of diabetic foot ulcer.
[2019-03-01 06:32] LABS: Basophils % 0.2 % (0.1-2.0); Eosinophils # 0.1 K/mm3 (0.0-0.4); Eosinophils % 2.4 % (0.1-12.0); Hematocrit 26.1 % (37.0-47.0); Lymphocytes # 0.7 K/mm3 (0.7-4.5); Lymphocytes % 16.5 % (10-50); Mean Corpuscular HGB Conc 30.5 g/dL (31.8-35.4); Mean Corpuscular Volume 79.2 fl (81-99); Mean Platelet Volume 7.6 fl (7.4-10.4); Monocytes # 0.2 K/mm3 (0.1-1.0); Monocytes % 5.3 % (1.7-9.3); Neutrophils # 3.1 K/mm3 (1.8-7.8); Neutrophils % 75.6 % (37.0-80.0); Platelet Count 81 K/mm3 (142-424); Red Blood Count 3.29 M/mm3 (4.20-5.40); White Blood Count 4.1 K/mm3 (4.8-10.8)
[2019-03-01 06:35] LABS: Anion Gap 13.6 mEq/L (5-15); Calcium 8.4 mg/dL (8.5-10.1)
--- NOTE | 2019-03-01 08:20 | Progress Note ---
Internal Medicine - PN: Subj *Date: 03/01/19 *Time: 08:16 Interval history: Patient slept well. Complains of some minimal abdominal pain. Just had a bowel movement that was soft and mushy according to the nursing staff. She remains somewhat confused about the date and year, also cannot recall her phone number. Exam Vital signs and Labs for Last 24 Hours: Temp Pulse Resp BP Pulse Ox 98.5 F 94 H 20 144/66 H 93 L 03/01/19 04:00 03/01/19 06:21 03/01/19 04:00 03/01/19 04:00 03/01/19 04:00 Laboratory Results - last 24 hr 02/28/19 06:01: POC Glucose 297 H 02/28/19 12:06: POC Glucose 356 H* 02/28/19 16:38: POC Glucose 335 H* 02/28/19 20:12: POC Glucose 351 H* 03/01/19 05:55: WBC 4.1 L D, RBC 3.29 L, Hgb 8.0 L, Hct 26.1 L, MCV 79.2 L, MCH 24.2 L, MCHC 30.5 L, RDW 17.0, Plt Count 81 L, MPV 7.6, Neut % (Auto) 75.6, Lymph % (Auto) 16.5, [place] % (Auto) 5.3, Eos % (Auto) 2.4, Baso % (Auto) 0.2, Neut # (Auto) 3.1, Lymph # (Auto) 0.7, [place] # (Auto) 0.2, Eos # (Auto) 0.1, Baso # (Auto) 0.0 03/01/19 05:55: Sodium 135 L, Potassium 3.6, Chloride 99, Carbon Dioxide 26, Anion Gap 13.6, BUN 22 H, Creatinine 1.07 H, Estimated Creat Clear 43, Estimated GFR 51 L, Est GFR ( Amer) 62, Glucose 314 H, Calcium 8.4 L I & O for Last 24 hours: Intake & Output 02/26/19 02/27/19 02/28/19 03/01/19 11:59 11:59 11:59 11:59 Intake Total 1480 / 1480 410 / 410 Output Total 100 / 100 Balance 1480 / 1480 310 / 310 Weight 320 lb 281 lb 272 lb 1 oz Narrative: Patient is alert. Disoriented to place and time. Abdomen soft and nontender. Normal bowel sounds. Heart rate regular. Good air movement. Obesity related edema. Good distal perfusion. Moving extremities well. Assessment and Plan (1) Hypocalcemia Current visit: Yes Status: Acute Category: Medical Code(s): E83.51 - Hypocalcemia (2) Morbid obesity Current visit: Yes Status: Acute Category: Medical Code(s): E66.01 - Morbid (severe) obesity due to excess calories (3) Altered mental status Current visit: Yes Status: Acute Qualifiers: Altered mental status type: disorientation Qualified Code(s): R41.0 - Disorientation, unspecified Category: Medical Code(s): R41.82 - Altered mental status, unspecified (4) CHF (congestive heart failure) Current visit: Yes Status: Acute Qualifiers: Heart failure type: unspecified Heart failure chronicity: acute on chronic Qualified Code(s): I50.9 - Heart failure, unspecified Category: Medical Code(s): I50.9 - Heart failure, unspecified (5) Hyperglycemia Current visit: Yes Status: Chronic Category: Medical Code(s): R73.9 - Hyperglycemia, unspecified (6) Hypertension Current visit: No Status: Chronic Category: Medical Code(s): I10 - Essential (primary) hypertension (7) Type 2 diabetes mellitus Current visit: No Status: Chronic Qualifiers: Diabetes mellitus complication status: without complication Category: Medical Code(s): E11.9 - Type 2 diabetes mellitus without complications - Assessment and plan all Dx Assessment and Plan for all problems:: Metabolic status is stable. Patient remains confused. Continue work-up with MRI today. PT/OT evaluation today. Continue to hold mind altering substances.
--- NOTE | 2019-03-01 09:45 | Electrocardiograph Report ---
APPROVED REPORT Exam: Resting ECG HR:97 bpm ECG Measurements Heart Rate 97 AXES NC 150 P 54 QRSd 84 QRS 31 QT 370 T103 QTc 469 <Conclusion> Normal sinus rhythm Abnormal QRS-T angle, consider primary T wave abnormality Abnormal ECG Electronically signed by : Camden Kirby, 03/01/2019 09:44:56
[2019-03-02 06:13] LABS: Basophils % 0.4 % (0.1-2.0); Eosinophils # 0.1 K/mm3 (0.0-0.4); Eosinophils % 3.5 % (0.1-12.0); Hemoglobin 8.3 g/dL (12.2-16.2); Lymphocytes # 0.7 K/mm3 (0.7-4.5); Lymphocytes % 17.4 % (10-50); Mean Corpuscular HGB Conc 30.9 g/dL (31.8-35.4); Mean Corpuscular Volume 78.8 fl (81-99); Mean Platelet Volume 7.9 fl (7.4-10.4); Monocytes # 0.2 K/mm3 (0.1-1.0); Monocytes % 5.3 % (1.7-9.3); Neutrophils % 73.5 % (37.0-80.0); Platelet Count 89 K/mm3 (142-424); Red Blood Count 3.42 M/mm3 (4.20-5.40); Red Cell Distribution Width 17.3 % (11.5-17.5)
[2019-03-02 06:22] LABS: Albumin/Globulin Ratio 0.7 (1.1-1.8); Anion Gap 12.8 mEq/L (5-15); Bilirubin,Total 0.8 mg/dL (0.2-1.0); Calcium 8.4 mg/dL (8.5-10.1); Globulin 4.3 gm/dl (1.3-3.2); Total Protein,Serum 7.3 gm/dL (6.4-8.2)
--- NOTE | 2019-03-02 07:11 | Progress Note ---
Internal Medicine - PN: Subj *Date: 03/02/19 *Time: 08:54 Interval history: Patient doing better this morning. Fatigued and tired however significant improvement in orientation to person place and time. Did not wear CPAP overnight. Making good urine, no nausea or vomiting. Denies shortness of breath or chest pain. Tolerating p.o. intake. Spoke with cardiology this morning abou preliminary finding on echo from yesterday of possible mitral valve vegetation. Patient remains afebrile, no murmur. Exam Vital signs and Labs for Last 24 Hours: Temp Pulse Resp BP Pulse Ox 98.2 F 88 18 144/76 H 95 03/02/19 04:00 03/02/19 04:00 03/02/19 04:00 03/02/19 04:00 03/02/19 04:00 Laboratory Results - last 24 hr 03/01/19 06:11: POC Glucose 299 H 03/01/19 11:06: POC Glucose 378 H* 03/01/19 16:58: POC Glucose 367 H* 03/01/19 20:16: POC Glucose 387 H* 03/02/19 05:55: WBC 4.0 L, RBC 3.42 L, Hgb 8.3 L, Hct 27.0 L, MCV 78.8 L, MCH 24.3 L, MCHC 30.9 L, RDW 17.3, Plt Count 89 L, MPV 7.9, Neut % (Auto) 73.5, Lymph % (Auto) 17.4, [place] % (Auto) 5.3, Eos % (Auto) 3.5, Baso % (Auto) 0.4, Neut # (Auto) 3.0, Lymph # (Auto) 0.7, [place] # (Auto) 0.2, Eos # (Auto) 0.1, Baso # (Auto) 0.0 03/02/19 05:55: Sodium 134 L, Potassium 3.8, Chloride 99, Carbon Dioxide 26, Anion Gap 12.8, BUN 17, Creatinine 1.01, Estimated Creat Clear 43, Estimated GFR 55 L, Est GFR ( Amer) 66, Glucose 293 H, Calcium 8.4 L, Total Bilirubin 0.8, AST 27, ALT 25 D, Alkaline Phosphatase 172 H, Total Protein 7.3, Albumin 3.0 L, Globulin 4.3 H, Albumin/Globulin Ratio 0.7 L 03/02/19 06:00: POC Glucose 314 H* I & O for Last 24 hours: Intake & Output 02/27/19 02/28/19 03/01/19 03/02/19 23:59 23:59 23:59 23:59 Intake Total 1240 / 1240 600 / 650 890 / 890 Output Total 700 / 700 200 / 200 Balance 1240 / 1240 600 / 650 190 / 190 -200 / -200 Weight 127.006 kg 127.459 kg 123.405 kg 124.795 kg Narrative: Patient is alert. Oriented to place and time. Abdomen soft and nontender. Normal bowel sounds. Heart rate regular, no murmur Good air movement. Obesity related edema. Good distal perfusion. Moving extremities well. Assessment and Plan (1) Hypocalcemia Current visit: Yes Status: Acute Category: Medical Code(s): E83.51 - Hypocalcemia (2) Morbid obesity Current visit: Yes Status: Acute Category: Medical Code(s): E66.01 - Morbid (severe) obesity due to excess calories (3) Altered mental status Current visit: Yes Status: Acute Qualifiers: Altered mental status type: disorientation Qualified Code(s): R41.0 - Disorientation, unspecified Category: Medical Code(s): R41.82 - Altered mental status, unspecified (4) CHF (congestive heart failure) Current visit: Yes Status: Acute Qualifiers: Heart failure type: unspecified Heart failure chronicity: acute on chronic Qualified Code(s): I50.9 - Heart failure, unspecified Category: Medical Code(s): I50.9 - Heart failure, unspecified (5) Hyperglycemia Current visit: Yes Status: Chronic Category: Medical Code(s): R73.9 - Hyperglycemia, unspecified (6) Hypertension Current visit: No Status: Chronic Category: Medical Code(s): I10 - Essential (primary) hypertension (7) Type 2 diabetes mellitus Current visit: No Status: Chronic Qualifiers: Diabetes mellitus complication status: without complication Category: Medical Code(s): E11.9 - Type 2 diabetes mellitus without complications - Assessment and plan all Dx Assessment and Plan for all problems:: Patient continuing to show improvement with holding medications. Given incidental finding yesterday of possible vegetation on mitral valve, requested [facility] cardiology to review echocardiogram. If vegetation seen, formal consult will be placed for them to assess patient and anticipate performance of a VERNA. Given no fevers, no other signs of endocarditis, will hold on antibiotics at this time. Blood cultures obtained. Continues to require inpatient management. Restarted basal insulin for this evening.
--- NOTE | 2019-03-02 12:55 | Consult Report ---
History of Present Illness Consult date: 03/02/19 Requesting physician: Watson Joaquin Chief complaint: abnormal echo with mitral valve abnormality Additional Medical History:: 1. Diabetes mellitus, type II, treated for about 15 years 2. Hypertension, treated for about 15 years 3. Hyperlipidemia, intolerant to statin therapy due to myalgias 4. Obesity 5. COPD with no history of tobacco use. 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 Chronic anemia with history of transfusions. History of hemorrhoids and polyps A. Planned EGD and colonoscopy early March 2019 7. Congestive heart failure by chest x-ray with BNP of 281, 02/2019 A. 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 RVSP estimated at 50 to 60 mmHg indicative of moderate pulmonary hypertension History of present illness: 68-year-old white female: Presented to emergency department yesterday evening with the below noted complaint: History obtained from patient and . Patient says she has been ill for 4 to 5 days. She is "talking out of her head". Complaining of low back pain, not eating, drinking, or taking her medications for 4 to 5 days. Nausea and vomiting. States that she is stating that she is impacted and has had some intermittent abdominal pain. Legs are swollen. She is complaining of shortness of breath. Tried to get her to go to the doctor couple of days ago, but she would not. Sees Dr. Sy in [place]. ER evaluation revealed fairly unremarkable labs except for significant hyperglycemia and mild hypocalcemia. CHF was noted on x-ray, and patient was admitted for further evaluation of mental status change, and CHF issues with IV diuresis. We have a record deficit in regards to her chronic medical illnesses but she appears to have chronic anemia. She also takes a host of medications that could be mood altering including opiates, muscle relaxers and gabapentin The above per Dr. Kirby on admission. During her hospitalization patient had an echocardiogram performed due to congestive heart failure noted on chest x-ray on admission with mildly elevated BNP at 281. Echocardiogram showed normal LV size and function with a 1.1 cm thin echogenic mobile mass on the mitral valve. No significant stenosis or regurgitation noted but concern for vegetation was noted. Patient has remained afebrile with low to normal white count during her hospital stay. Cardiology consulted for evaluation recommendations. [facility] History Medical History: Reports:: Congestive Heart Failure, Diabetes Mellitus Type 1, Heart Murmur, Hyperlipidemia, Hypertension Denies:: Cancer, Diabetes Mellitus Type 2, MRSA, Seizures *Have you ever received a pneumonia vaccine?: Yes *Have you received a flu vaccine this season?: No Other Medical History: Reports: Arthritis, Liver Disease. Denies: Blood Transfusion Reaction Laterality Cases: Left: Arthroscopy Knee Other Surgeries: Yes: Cholecystectomy, Colonoscopy, EGD, Hysterectomy-Total, Tubal Ligation Amputation: Yes (right great toe) Fractures: No - *Social History Educational Level: Completed High School Smoking Status: Never smoker Alcohol Intake: never *Occupational Status:: retired, disabled Housing: house Household Members: spouse *Travel in the last 8 weeks: None - Psychiatric History Expresses thoughts of harming self/others: None Suicide Plan Description: No Plan Family Hx:: Unable to obtain, Cancer, Coronary Artery Disease, Diabetes, Hyperlipidemia, Hypertension Meds Home Medications Medication Instructions Recorded Confirmed Type Budesonide/Formoterol Fumarate 2 puffs IH BID 09/17/17 02/27/19 History [Symbicort 160-4.5 Mcg Inhaler] Cyclobenzaprine HCl 10 mg PO BID 09/17/17 02/27/19 History [Cyclobenzaprine 10mg Tab] Fluoxetine HCl 40 mg PO BID 09/17/17 02/27/19 History Gabapentin [Gabapentin 300mg Cap] 600 mg PO TID 09/17/17 02/27/19 History Hydrocodone/Acetaminophen 1 tab PO TIDP PRN 09/17/17 02/27/19 History [Hydrocodone-Acetamin 10-325 mg] Insulin Regular, Human [Humulin R] 1 units SQ ACHS 09/17/17 02/27/19 History Albuterol Sulfate [Albuterol HFA 2 puffs IH Q4HP PRN 09/18/17 02/27/19 History Inhaler] Insulin Glargine,Hum.rec.anlog 55 unit SQ HS 09/18/17 02/27/19 History [Lantus Insulin 100units/mL 10mL vial] Calcium Polycarbophil [FiberCon 1,250 mg PO DAILY 11/10/17 02/27/19 History 625mg tablet] Levothyroxine Sodium 137 mcg PO DAILY 02/28/19 02/28/19 History [Levothyroxine 137mcg (0.137mg) Tab] Lisinopril [Lisinopril 10mg Tab] 10 mg PO DAILY 02/28/19 02/28/19 History Pantoprazole Sodium [Protonix 40mg 40 mg PO DAILY 02/28/19 02/28/19 History tablet] glipiZIDE [Glipizide ER] 10 mg PO BID 02/28/19 02/28/19 History Allergies Allergy/AdvReac Type Severity Reaction Status Date / Time diazepam Allergy Intermediate Hives Verified 03/01/19 08:35 sucralfate Allergy Intermediate Swelling Verified 09/23/17 13:58 of Lip/Tongue/Throat tuberculin,PPD,multi-puncture Allergy Intermediate Redness of Verified 03/01/19 08:35 Skin tuberculin, purified protein Allergy Mild Redness of Verified 03/01/19 08:35 deriva Skin [From Tubersol] polyethylene glycol 3350 Allergy Swelling Verified 11/10/17 11:50 [From Miralax] of Lip/Tongue/Throat Review of Systems - *Cardiovascular Reports shortness of breath with activity, Denies chest pain - *Respiratory Reports cough, Reports shortness of breath with activity - *Gastrointestinal Reports constipation, Denies nausea, Denies vomiting - *Genitourinary Denies blood in urine - *Musculoskeletal Denies joint pain, Denies back pain - *Neurologic Reports confusion, Denies localized weakness, Denies headache(s) Exam Vital signs and Labs for Last 24 Hours: Temp Pulse Resp BP Pulse Ox 98.2 F 83 16 143/72 H 96 03/02/19 08:00 03/02/19 10:07 03/02/19 08:00 03/02/19 08:00 03/02/19 08:00 Laboratory Results - last 24 hr 03/01/19 16:58: POC Glucose 367 H* 03/01/19 20:16: POC Glucose 387 H* 03/02/19 05:55: WBC 4.0 L, RBC 3.42 L, Hgb 8.3 L, Hct 27.0 L, MCV 78.8 L, MCH 24.3 L, MCHC 30.9 L, RDW 17.3, Plt Count 89 L, MPV 7.9, Neut % (Auto) 73.5, Lymph % (Auto) 17.4, [place] % (Auto) 5.3, Eos % (Auto) 3.5, Baso % (Auto) 0.4, Neut # (Auto) 3.0, Lymph # (Auto) 0.7, [place] # (Auto) 0.2, Eos # (Auto) 0.1, Baso # (Auto) 0.0 03/02/19 05:55: Sodium 134 L, Potassium 3.8, Chloride 99, Carbon Dioxide 26, Anion Gap 12.8, BUN 17, Creatinine 1.01, Estimated Creat Clear 43, Estimated GFR 55 L, Est GFR ( Amer) 66, Glucose 293 H, Calcium 8.4 L, Total Bilirubin 0.8, AST 27, ALT 25 D, Alkaline Phosphatase 172 H, Total Protein 7.3, Albumin 3.0 L, Globulin 4.3 H, Albumin/Globulin Ratio 0.7 L 03/02/19 06:00: POC Glucose 314 H* 03/02/19 11:38: POC Glucose 331 H* I & O for Last 24 hours: Intake & Output 02/28/19 03/01/19 03/02/19 03/03/19 11:59 11:59 11:59 11:59 Intake Total 1480 / 1480 770 / 770 900 / 900 Output Total 100 / 100 800 / 800 Balance 1480 / 1480 670 / 670 100 / 100 Weight 281 lb 272 lb 1 oz 275 lb 2 oz - *Routine HEENT Exam Head: Present: normocephalic Eye: Present: EOMI, PERRL ENT: Present: mucous membranes moist - *Routine Neck Exam Present: supple. Absent: JVD, carotid bruit - *Routine Respiratory Exam Present: CTA bilaterally. Absent: accessory muscle use, rales, rhonchi, wheezes - *Routine Cardiovascular Exam Present: RRR, murmur. Absent: gallop, rubs - *Routine Abdominal Exam Present: soft. Absent: tenderness, distended, guarding - *Routine Extremities Exam Present: edema. Absent: calf tenderness - *Routine Neurological Exam Present: alert, oriented X3, moving all extremities Assessment and Plan (1) Hypocalcemia Current visit: Yes Status: Acute Category: Medical Code(s): E83.51 - Hypocalcemia (2) Morbid obesity Current visit: Yes Status: Acute Category: Medical Code(s): E66.01 - Morbid (severe) obesity due to excess calories (3) Altered mental status Current visit: Yes Status: Acute Qualifiers: Altered mental status type: disorientation Qualified Code(s): R41.0 - Disorientation, unspecified Category: Medical Code(s): R41.82 - Altered mental status, unspecified (4) CHF (congestive heart failure) Current visit: Yes Status: Acute Qualifiers: Heart failure type: unspecified Heart failure chronicity: acute on chronic Qualified Code(s): I50.9 - Heart failure, unspecified Category: Medical Code(s): I50.9 - Heart failure, unspecified (5) Hyperglycemia Current visit: Yes Status: Chronic Category: Medical Code(s): R73.9 - Hyperglycemia, unspecified (6) Hypertension Current visit: No Status: Chronic Category: Medical Code(s): I10 - Essential (primary) hypertension (7) Type 2 diabetes mellitus Current visit: No Status: Chronic Qualifiers: Diabetes mellitus complication status: without complication Category: Medical Code(s): E11.9 - Type 2 diabetes mellitus without complications - Assessment and plan all Dx Assessment and Plan for all problems:: 1. Echocardiogram reviewed with Dr. Almeida who feels that the structure of the mitral valve is a ruptured chordae tendon and is not insurance representative of mitral valve vegetation. There is no significant mitral regurgitation, the patient has remained afebrile with low or normal white count during her stay and no stigmata of mitral valve vegetation ([place] lesions, Osler's nodes or evidence of septic emboli on MRI of brain). Agree with blood cultures to further verify no evidence of valvular vegetation. Patient will still need transesophageal echocardiogram but this could be done as an outpatient. Dr. Munoz is unavailable this week but returns next week. 2. Recommend patient continue with diuretic therapy for moderate pulmonary hypertension with close monitoring of renal functions and potassium level. 3. Would recommend follow-up in our office next week to schedule transesophageal echo.
[2019-03-03 06:30] LABS: Basophils % 0.2 % (0.1-2.0); Eosinophils # 0.1 K/mm3 (0.0-0.4); Eosinophils % 3.3 % (0.1-12.0); Hematocrit 27.3 % (37.0-47.0); Hemoglobin 8.2 g/dL (12.2-16.2); Lymphocytes # 0.7 K/mm3 (0.7-4.5); Lymphocytes % 22.2 % (10-50); Mean Corpuscular HGB Conc 30.1 g/dL (31.8-35.4); Mean Corpuscular Volume 79.5 fl (81-99); Mean Platelet Volume 8.8 fl (7.4-10.4); Monocytes # 0.2 K/mm3 (0.1-1.0); Monocytes % 6.5 % (1.7-9.3); Neutrophils # 2.2 K/mm3 (1.8-7.8); Neutrophils % 67.8 % (37.0-80.0); Platelet Count 87 K/mm3 (142-424); Red Blood Count 3.43 M/mm3 (4.20-5.40); Red Cell Distribution Width 17.2 % (11.5-17.5); White Blood Count 3.2 K/mm3 (4.8-10.8)
[2019-03-03 06:48] LABS: Anion Gap 13.7 mEq/L (5-15); Calcium 8.4 mg/dL (8.5-10.1)
--- NOTE | 2019-03-03 08:15 | Discharge Summary ---
General - General Admission date:: 02/27/19 Discharge date: 03/03/19 HPI HPI: 68-year-old white female: Presented to emergency department yesterday evening with the below noted complaint: History obtained from patient and . Patient says she has been ill for 4 to 5 days. She is "talking out of her head". Complaining of low back pain, not eating, drinking, or taking her medications for 4 to 5 days. Nausea and vomiting. States that she is stating that she is impacted and has had some intermittent abdominal pain. Legs are swollen. She is complaining of shortness of breath. Tried to get her to go to the doctor couple of days ago, but she would not. Sees Dr. Sy in [place]. ER evaluation revealed fairly unremarkable labs except for significant hyperglycemia and mild hypocalcemia. CHF was noted on x-ray, and patient was admitted for further evaluation of mental status change, and CHF issues with IV diuresis. We have a record deficit in regards to her chronic medical illnesses but she appears to have chronic anemia. She also takes a host of medications that could be mood altering including opiates, muscle relaxers and gabapentin. Hospital Course Hospital Course: Patient was admitted as noted, medications were held as noted in HPI and other work-up ensued. MRI was negative for structural lesions or stroke disease. Echocardiogram was done which revealed an unusual structure on the mitral valve that was felt to be a ruptured chordae tendon a given the patient had no signs or stigmata of infection or myocarditis or endocarditis. Patient cleared from a mental status perspective with the cessation of gabapentin and Lortab and also continuing/restarting her CPAP which she apparently has not been compliant with at home. Physical therapy evaluated her, felt that she was safe for discharge from a physical therapy perspective if her would be available to help. This morning I talked with her about her need to reduce her medication burden. We also talked about her need for cardiology follow-up for a VERNA and continuing diuretic therapy. We will be discharge her home today. Follow-up in our office in [place] in 2 days and follow-up with cardiology next week to schedule VERNA. Objective Vital signs: Temp Pulse Resp BP Pulse Ox 98.4 F 92 H 18 152/76 H 95 03/03/19 04:00 03/03/19 06:02 03/03/19 04:00 03/03/19 04:00 03/03/19 04:00 Narrative: Alert. Up in chair, able to recite the year, date, her phone number and her location which is vastly improved over 2 days ago. Heart rate regular. No murmurs. Lungs have good air movement, morbid obesity noted, limits exam accuracy. Obesity related ankle edema but otherwise good perfusion. Neurologic exam cleared, able to move all extremities. Oropharynx clear, no JVD. Results Labs on day of discharge: Labs from last 24 hours 03/03/19 03/03/19 03/03/19 06:10 05:50 05:50 WBC 3.2 L RBC 3.43 L Hgb 8.2 L Hct 27.3 L MCV 79.5 L MCH 23.9 L MCHC 30.1 L RDW 17.2 Plt Count 87 L MPV 8.8 Neut % (Auto) 67.8 Lymph % (Auto) 22.2 [place] % (Auto) 6.5 Eos % (Auto) 3.3 Baso % (Auto) 0.2 Neut # (Auto) 2.2 Lymph # (Auto) 0.7 [place] # (Auto) 0.2 Eos # (Auto) 0.1 Baso # (Auto) 0.0 ESR Sodium 137 Potassium 3.7 Chloride 101 Carbon Dioxide 26 Anion Gap 13.7 BUN 15 Creatinine 0.98 Estimated Creat Clear 44 Estimated GFR 57 L Est GFR ( Amer) 69 Glucose 275 H POC Glucose 272 H Calcium 8.4 L 03/02/19 03/02/19 03/02/19 20:27 16:54 13:30 WBC RBC Hgb Hct MCV MCH MCHC RDW Plt Count MPV Neut % (Auto) Lymph % (Auto) [place] % (Auto) Eos % (Auto) Baso % (Auto) Neut # (Auto) Lymph # (Auto) [place] # (Auto) Eos # (Auto) Baso # (Auto) ESR 106 H Sodium Potassium Chloride Carbon Dioxide Anion Gap BUN Creatinine Estimated Creat Clear Estimated GFR Est GFR ( Amer) Glucose POC Glucose 361 H* 466 H* Calcium 03/02/19 11:38 WBC RBC Hgb Hct MCV MCH MCHC RDW Plt Count MPV Neut % (Auto) Lymph % (Auto) [place] % (Auto) Eos % (Auto) Baso % (Auto) Neut # (Auto) Lymph # (Auto) [place] # (Auto) Eos # (Auto) Baso # (Auto) ESR Sodium Potassium Chloride Carbon Dioxide Anion Gap BUN Creatinine Estimated Creat Clear Estimated GFR Est GFR ( Amer) Glucose POC Glucose 331 H* Calcium DS: Diagnosis - Discharge Diagnosis (1) Hypocalcemia Status: Resolved (2) Morbid obesity Status: Chronic (3) Altered mental status Status: Resolved (4) CHF (congestive heart failure) Status: Chronic (5) Hyperglycemia Status: Chronic (6) Hypertension Status: Chronic (7) Type 2 diabetes mellitus Status: Chronic Discharge Plan - Patient Discharge Instructions ACTIVITY: Continue current activity DIET: continue same diet Patient Instructions: DI for Hyperglycemia -- Adult, DI for Altered Mental Status - Follow up Plan Follow up with: Rola Gonzalez APRN [Nurse Practitioner] - 03/05/19 French Munoz MD [Staff Physician] - 1 week Disposition: Home, Self-Half-Way Medications: Home Medications Medication Instructions Recorded Confirmed Type Budesonide/Formoterol Fumarate 2 puffs IH BID 09/17/17 02/27/19 History [Symbicort 160-4.5 Mcg Inhaler] Cyclobenzaprine HCl 10 mg PO BID 09/17/17 02/27/19 History [Cyclobenzaprine 10mg Tab] Fluoxetine HCl 40 mg PO BID 09/17/17 02/27/19 History Gabapentin [Gabapentin 300mg Cap] 600 mg PO TID 09/17/17 02/27/19 History Hydrocodone/Acetaminophen 1 tab PO TIDP PRN 09/17/17 02/27/19 History [Hydrocodone-Acetamin 10-325 mg] Insulin Regular, Human [Humulin R] 1 units SQ ACHS 09/17/17 02/27/19 History Albuterol Sulfate [Albuterol HFA 2 puffs IH Q4HP PRN 09/18/17 02/27/19 History Inhaler] Insulin Glargine,Hum.rec.anlog 55 unit SQ HS 09/18/17 02/27/19 History [Lantus Insulin 100units/mL 10mL vial] Calcium Polycarbophil [FiberCon 1,250 mg PO DAILY 11/10/17 02/27/19 History 625mg tablet] Levothyroxine Sodium 137 mcg PO DAILY 02/28/19 02/28/19 History [Levothyroxine 137mcg (0.137mg) Tab] Lisinopril [Lisinopril 10mg Tab] 10 mg PO DAILY 02/28/19 02/28/19 History Pantoprazole Sodium [Protonix 40mg 40 mg PO DAILY 02/28/19 02/28/19 History tablet] glipiZIDE [Glipizide ER] 10 mg PO BID 02/28/19 02/28/19 History Furosemide [Lasix 20mg tablet] 20 mg PO DAILY #30 tab 03/03/19 Rx Prescriptions/Medication Reconciliation: New Furosemide [Lasix 20mg tablet] 20 mg PO DAILY #30 tab Continued Insulin Regular, Human [Humulin R] 1 units SQ ACHS Budesonide/Formoterol Fumarate [Symbicort 160-4.5 Mcg Inhaler] 2 puffs IH BID Insulin Glargine,Hum.rec.anlog [Lantus Insulin 100units/mL 10mL vial] 55 unit SQ HS Calcium Polycarbophil [FiberCon 625mg tablet] 1,250 mg PO DAILY Levothyroxine Sodium [Levothyroxine 137mcg (0.137mg) Tab] 137 mcg PO DAILY Albuterol Sulfate [Albuterol HFA Inhaler] 2 puffs IH Q4HP PRN PRN Reason: Shortness Of Breath Or Wheezing Discontinued Hydrocodone/Acetaminophen [Hydrocodone-Acetamin 10-325 mg] 1 tab PO TIDP PRN PRN Reason: PAIN Gabapentin [Gabapentin 300mg Cap] 600 mg PO TID Fluoxetine HCl 40 mg PO BID Cyclobenzaprine HCl [Cyclobenzaprine 10mg Tab] 10 mg PO BID Pantoprazole Sodium [Protonix 40mg tablet] 40 mg PO DAILY glipiZIDE [Glipizide ER] 10 mg PO BID Lisinopril [Lisinopril 10mg Tab] 10 mg PO DAILY - Problem Reconciliation Problems Reviewed?: Yes
== END 2019-03-03 09:30 | disposition home or self-care (01) ==
LOC: 2ND 11:38 → ER 11:38 → 2ND 17:51
PROVIDERS: ADMIT Internal Medicine Adolescent Medicine; ATTEND Internal Medicine Adolescent Medicine
CPT/HCPCS: 36415; 70450; 70551; 71010; 71045; 74176; 80048; 80053; 81001; 82009; 82140; 82150; 82175; 82803; 82962; 83655; 83690; 83825; 83880; 84443; 84484; 85007; 85025; 85610; 85651; 87040; 93005; 93306; 94640; 96365; 96375; 97110; 97116; 97161; 97166; 97535; 99284; G0378; J2405

== ENCOUNTER → 2019-03-31 11:56 | Outpatient (CLI) | payer MEDICARE, OTHER, SELFPAY ==
--- NOTE | 2019-03-31 | CA_ITS ---
APPROVED REPORT Exam: Pharmacologic Technologist: Heidi Tucker, Ht: 5 ft 3 in Wt: 276 lbs BSA: 2.22 m2 HR: 90 bpm BP: 132/64 mmHg Rhythm: NSR Medical History Medical History: Hyperlipidemia, HTN, Diabetic ??? Insulin Medications: Levothyroxine,,,,, Metoprolol,,,,, Gabapentin,,,,, Lasix,,,,, SyMBICORT,,,,, Albuterol,,,,, Fluoxetine,,,,, CyclobenAPRINE,,,,, Allergies: VALIUM Stress Test Details Test: LEXISCAN HR Resting HR: 95 bpm Max Heart Rate (APMHR): 154 bpm Max HR Achieved: 102 bpm Target HR (85% APMHR): 130 bpm % of APMHR: 66 Recovery HR: 93 bpm BP Resting BP: 132.0/64.0 mmHg Max BP: 144.0/69.0 mmHg Recovery BP: 139.0/68.0 mmHg ECG Resting ECG: NSR Clinical Exercise duration: 04:22 min Highest Stage Achieved: Stress ECG Conclusion DURING INFUSION OF LEXISCAN THE PATIENT HAD MILD SOA AND MALAISE. NO CHEST PAIN. RARE PVC. NO SIGNIFICANT CHANGES. UNREMARKABLE LEXISCAN STRESS. MYOVIEW IMAGES REPORTED SEPARATELY. Electronically signed by : French Munoz, 03/31/2019 21:41:33
--- NOTE | 2019-03-31 12:06 | NM_ITS ---
APPROVED REPORT Exam: Nuclear Stress Test Indication: ABNORMAL EKG, SOB, OBESITY, HYPERTENSION, D.M., SYNCOPE, FATIQUE Patient Location: Outpatient Stress Tech: Mar Mahernkson [place] Tech:KIT Jose RT (R)(N)(M) Ht: 5 ft 3 in Wt: 276 lbs HR: 90 bpm BP: 132/64 mmHg BSA: 2.22 m2 BMI: 48.8 History: ABNORMAL EKG, SOB, OBESITY, HYPERTENSION, D.M., SYNCOPE, FATIQUE Procedure: Patient received a 0.4 mg of intravenous Lexiscan, resting heart rate 90 bpm, resting blood pressure 132/64 mmHg, with Lexiscan maximum heart rate achived was 95 bpm which is Less than 85 % of the maximum predicted heart rate and blood pressure was 124/67 mmHg. With Lexiscan, patient denied any complaint of chest pain. Electrocardiogram Resting electrocardiogram showed sinus rhythm, with Lexiscan there is less than 1.[address] segment depression noted from the baseline EKG. The EKG portion of the Lexiscan Myoview is nondiagnostic. Cardiac Stress and Resting SPECT Images: Cardiac Stress and Resting SPECT images were obtained using technetium 99m Myoview 32.4 mCi stress and 10.44 mCi at rest. Gated SPECT with analysis of segmental wall motion and calculation of the ejection fraction also done. Cardiac stress and resting SPECT images show uniform myocardial activity without segmental perfusion abnormality, computer derived ejection fraction is over 65% with no regional wall motion abnormality, right ventricle is normal size and contractility. Conclusion: 1. The EKG portion of the Lexiscan Myoview is nondiagnostic. 2. No scintigraphic evidence of reversible ischemia seen, computer derived ejection fraction is over 65% with no regional wall motion abnormality, right ventricle is normal size and contractility. 3. Normal Lexiscan Myoview study. Electronically signed by : French Munoz, 03/31/2019 21:43:48
[2019-03-31 12:35] LABS: Basophils % 0.2 % (0.1-2.0); Eosinophils # 0.1 K/mm3 (0.0-0.4); Eosinophils % 1.6 % (0.1-12.0); Hematocrit 30.9 % (37.0-47.0); Hemoglobin 8.9 g/dL (12.2-16.2); Lymphocytes # 0.7 K/mm3 (0.7-4.5); Lymphocytes % 22.8 % (10-50); Mean Corpuscular HGB Conc 28.8 g/dL (31.8-35.4); Mean Corpuscular Volume 76.4 fl (81-99); Mean Platelet Volume 10.6 fl (7.4-10.4); Monocytes # 0.1 K/mm3 (0.1-1.0); Monocytes % 4.7 % (1.7-9.3); Neutrophils # 2.1 K/mm3 (1.8-7.8); Neutrophils % 70.7 % (37.0-80.0); Platelet Count 89 K/mm3 (142-424); Red Blood Count 4.04 M/mm3 (4.20-5.40); Red Cell Distribution Width 16.6 % (11.5-17.5)
--- NOTE | 2019-03-31 14:02 | HMH.ITSHM ---
Current Home Medications as stated by this patient Bebe Amin or eligibility services representative. []symbicort fluoxetine levothyroxine gabapentin cyclobenzaprine furosemide albuterol metoprolol
[2019-03-31 20:24] LABS: Blood Urea Nitrogen 13 mg/dL (7-18); Calcium 7.8 mg/dL (8.5-10.1); Carbon Dioxide 28 mmol/L (21.0-32.0); Chloride 97 mmol/L (98-107); Creatinine,Serum 1.04 mg/dL (0.55-1.02); Estimated Glomerular Filt Rate 53 ml/min (>60); GFR (African American) 64 ML/MIN (>60); Glucose 382 mg/dL (74-106); Sodium 134 mmol/L (136-145)
== END ==
PROVIDERS: Visit Provider Internal Medicine Cardiovascular Disease
DX: R06.00 Dyspnea, unspecified; R94.31 Abnormal electrocardiogram [ECG] [EKG]; I50.9 Heart failure, unspecified; R60.9 Edema, unspecified; R93.1 Abnormal findings on diagnostic imaging of heart and coronary circulation
CPT/HCPCS: 36415; 78452; 80048; 85025; 93017; A9502; J2785

== ENCOUNTER 2019-04-12 13:05 | Outpatient (CLI) | payer MEDICARE, OTHER, SELFPAY ==
[2019-04-12 13:30] VITALS: BP 124/56; PULSE 84; RESP 18; TEMP 36.5; O2SAT 97
[2019-04-12 13:54] VITALS: BP 121/55; PULSE 81; RESP 18; O2SAT 96
== END 2019-04-12 13:54 | disposition home or self-care (01) ==
LOC: INF 13:05
PROVIDERS: Visit Provider Nurse Practitioner Family
DX: D50.9 Iron deficiency anemia, unspecified (principal); T45.4X5A Adverse effect of iron and its compounds, initial encounter
CPT/HCPCS: 96374; Q0138

== ENCOUNTER 2019-04-15 13:31 | Outpatient (CLI) | payer MEDICARE, OTHER, SELFPAY ==
[2019-04-15 13:50] VITALS: BP 144/60; PULSE 88; RESP 18; O2SAT 94
[2019-04-15 14:21] VITALS: BP 131/70; PULSE 92; RESP 18; O2SAT 96
== END 2019-04-15 14:21 | disposition home or self-care (01) ==
LOC: INF 13:31
PROVIDERS: Visit Provider Nurse Practitioner Family
DX: D50.9 Iron deficiency anemia, unspecified (principal); T45.4X5A Adverse effect of iron and its compounds, initial encounter
CPT/HCPCS: 96374; Q0138

== ENCOUNTER → 2019-07-05 13:42 | Outpatient (CLI) | payer MEDICARE, OTHER, SELFPAY ==
[2019-07-05 14:14] LABS: Basophils % 0.3 % (0.1-2.0); Eosinophils # 0.1 K/mm3 (0.0-0.4); Eosinophils % 2.3 % (0.1-12.0); Hematocrit 34.5 % (37.0-47.0); Hemoglobin 10.6 g/dL (12.2-16.2); Lymphocytes # 0.7 K/mm3 (0.7-4.5); Mean Corpuscular HGB Conc 30.8 g/dL (31.8-35.4); Mean Corpuscular Hemoglobin 25.6 pg (27.0-31.2); Mean Platelet Volume 8.2 fl (7.4-10.4); Monocytes # 0.2 K/mm3 (0.1-1.0); Monocytes % 3.9 % (1.7-9.3); Neutrophils % 75.5 % (37.0-80.0); Platelet Count 89 K/mm3 (142-424); Red Blood Count 4.15 M/mm3 (4.20-5.40); Red Cell Distribution Width 16.7 % (11.5-17.5)
[2019-07-05 14:19] LABS: Ammonia 13 umol/L (19-54)
[2019-07-05 15:18] LABS: Prothrombin Time 11.4 seconds (9.4-11.8)
[2019-07-05 16:24] LABS: Alanine Aminotransferase 30 U/L (12-78); Albumin Level 2.9 gm/dL (3.4-5.0); Albumin/Globulin Ratio 0.7 (1.1-1.8); Alkaline Phosphatase 196 U/L (46-116); Anion Gap 12.7 mEq/L (5-15); Aspartate Amino Transferase 32 U/L (15-37); Bilirubin,Total 0.7 mg/dL (0.2-1.0); Blood Urea Nitrogen 11 mg/dL (7-18); Calcium 8.3 mg/dL (8.5-10.1); Carbon Dioxide 27 mmol/L (21.0-32.0); Chloride 102 mmol/L (98-107); Creatinine,Serum 0.81 mg/dL (0.55-1.02); Estimated Glomerular Filt Rate 71 ml/min (>60); Ferritin 131 ng/mL (8-388); GFR (African American) 86 ML/MIN (>60); Glucose 209 mg/dL (74-106); Potassium 3.7 mmoL/L (3.5-5.1); Sodium 138 mmol/L (136-145); Total Protein,Serum 6.9 gm/dL (6.4-8.2)
[2019-07-07 05:19] LABS: Iron 41 ug/dL (27-139); UIBC 175 ug/dL (118-369)
[2019-07-07 06:01] LABS: Iron Saturation 19 % (15-55)
[2019-07-07 12:20] LABS: AFP, Tumor Marker 2.6 ng/mL (0.0-8.3)
== END ==
PROVIDERS: Visit Provider Nurse Practitioner Family
DX: R94.5 Abnormal results of liver function studies (principal); K74.60 Unspecified cirrhosis of liver; K75.81 Nonalcoholic steatohepatitis (NASH)
CPT/HCPCS: 36415; 80053; 82105; 82140; 82728; 83540; 83550; 85025; 85610

== ENCOUNTER → 2019-07-08 09:58 | Outpatient (CLI) | payer MEDICARE, OTHER, SELFPAY ==
--- NOTE | 2019-07-08 10:06 | US_ITS ---
PROCEDURE: US ABDOMEN LIMITED CLINICAL INDICATION: ASCITES COMPARISON: [facility] US abdomen limited from 02/08/2019 CT ABDOMEN PELVIS WO CON from 02/27/2019 CT ABDOMEN PELVIS W CON from 07/03/2019 FINDINGS: The patient was scheduled for ultrasound-guided paracentesis. Upon inspection, there was only a small amount of ascites noted. It was not felt to be prudent to perform a therapeutic paracentesis. A diagnostic paracentesis could be attempted with sonographic guidance. Provider Latonya Mccollum was notified of these findings and it was decided to forego the paracentesis at this time. IMPRESSION: Small amount of ascites as described above. Paracentesis not performed at this time. Dictated by: Mateo Babin MD 07/08/2019 14:58 Electronically signed by Mateo Babin MD in [place] 07/08/2019 14:58
== END ==
PROVIDERS: PCP Family Medicine; Visit Provider Nurse Practitioner Family
DX: R94.5 Abnormal results of liver function studies (principal); R18.8 Other ascites; K74.60 Unspecified cirrhosis of liver; K75.81 Nonalcoholic steatohepatitis (NASH)
CPT/HCPCS: 76705

== ENCOUNTER → 2019-08-19 12:11 | Outpatient (CLI) | payer MEDICARE, OTHER, SELFPAY ==
[2019-08-19 13:01] LABS: Basophils % 0.3 % (0.1-2.0); Eosinophils # 0.2 K/mm3 (0.0-0.4); Eosinophils % 3.7 % (0.1-12.0); Hematocrit 37.1 % (37.0-47.0); Lymphocytes # 0.6 K/mm3 (0.7-4.5); Lymphocytes % 14.8 % (10-50); Mean Corpuscular HGB Conc 32.3 g/dL (31.8-35.4); Mean Corpuscular Hemoglobin 27.7 pg (27.0-31.2); Mean Corpuscular Volume 85.7 fl (81-99); Mean Platelet Volume 8.9 fl (7.4-10.4); Monocytes # 0.2 K/mm3 (0.1-1.0); Monocytes % 4.2 % (1.7-9.3); Neutrophils # 3.3 K/mm3 (1.8-7.8); Platelet Count 87 K/mm3 (142-424); Red Blood Count 4.33 M/mm3 (4.20-5.40); Red Cell Distribution Width 15.6 % (11.5-17.5); White Blood Count 4.3 K/mm3 (4.8-10.8)
[2019-08-19 14:57] LABS: Ferritin 263 ng/mL (8-388)
[2019-08-20 08:35] LABS: Iron 59 ug/dL (27-139); UIBC 185 ug/dL (118-369)
[2019-08-20 10:51] LABS: Iron Saturation 24 % (15-55)
== END ==
PROVIDERS: Visit Provider Internal Medicine Medical Oncology
DX: D50.9 Iron deficiency anemia, unspecified (principal)
CPT/HCPCS: 36415; 82728; 83540; 83550; 85025

== ENCOUNTER → 2019-08-30 09:19 | Outpatient (POV) | payer MEDICARE, OTHER, SELFPAY | PROVIDERS: PCP Nurse Practitioner Family; Visit Provider Nurse Practitioner Family | DX: Z00.00 Encounter for general adult medical examination without abnormal findings (principal) ==

== ENCOUNTER 2019-09-29 13:22 | Inpatient (IN) ==
[2019-09-29 13:53] LABS: Basophils % 0.3 % (0.1-2.0); Eosinophils # 0.1 K/mm3 (0.0-0.4); Eosinophils % 2.1 % (0.1-12.0); Hematocrit 31.4 % (37.0-47.0); Hemoglobin 10.4 g/dL (12.2-16.2); Lymphocytes # 0.6 K/mm3 (0.7-4.5); Mean Corpuscular HGB Conc 33.2 g/dL (31.8-35.4); Mean Corpuscular Volume 87.1 fl (81-99); Mean Platelet Volume 9.5 fl (7.4-10.4); Monocytes # 0.2 K/mm3 (0.1-1.0); Monocytes % 5.3 % (1.7-9.3); Neutrophils # 3.2 K/mm3 (1.8-7.8); Neutrophils % 78.3 % (37.0-80.0); Platelet Count 101 K/mm3 (142-424); Red Cell Distribution Width 15.9 % (11.5-17.5)
[2019-09-29 15:14] LABS: Erythrocyte Sedimentation Rate > 140 mm/hr (0-30)
--- NOTE | 2019-09-29 15:36 | Pharmacy Consult Notes ---
[facility] Pharmacy VTE Monitoring - Patient Demographics Admission date: 09/29/19 Report Date: 09/29/19 Time: 15:36 Allergies/Adverse Reactions: Patient Allergies diazepam Allergy (Intermediate, Verified 08/19/19 12:02) Hives sucralfate Allergy (Intermediate, Verified 08/19/19 12:02) Swelling of Lip/Tongue/Throat tuberculin,PPD,multi-puncture Allergy (Intermediate, Verified 08/19/19 12:02) Redness of Skin tuberculin, purified protein deriva [From Tubersol] Allergy (Mild, Verified 08/19/19 12:02) Redness of Skin - VTE Risk Labs: VTE Related Lab Results Hgb 10.4 g/dL (12.2-16.2) L 09/29/19 13:29 Hct 31.4 % (37.0-47.0) L 09/29/19 13:29 Plt Count 101 K/mm3 (142-424) L 09/29/19 13:29 - Prophylaxis VTE Prophylaxis Ordered?: Yes Types of VTE Prophylaxis: TEDS Knee High Location of Applied Device: Bilateral Lower Extremeties
[2019-09-29 15:37] LABS: Chloride 101 mmol/L (98-107)
[2019-09-29 15:38] LABS: Sodium 131 mmol/L (136-145)
[2019-09-29 15:41] LABS: Alanine Aminotransferase 31 U/L (12-78); Albumin Level 3.2 g/dl (3.5-5.0); Albumin/Globulin Ratio 0.8 (1.1-1.8); Alkaline Phosphatase 249 U/L (38-126); Anion Gap 15.1 mEq/L (5-15); Aspartate Amino Transferase 42 U/L (14-36); Bilirubin,Total 1.1 mg/dl (0.2-1.3); Blood Urea Nitrogen 35 mg/dl (7-17); Calcium 8.6 mg/dl (8.4-10.2); Carbon Dioxide 22 mmol/L (22.0-30.0); Globulin 4.1 g/dL (1.3-3.2); Total Protein,Serum 7.3 g/dl (6.3-8.2)
[2019-09-29 15:46] LABS: C-Reactive Protein 40.8 mg/L (0-4)
[2019-09-29 15:55] LABS: Glucose 514 mg/dl (74-100)
--- NOTE | 2019-09-29 17:03 | Pharmacy Consult Notes ---
- Pharmacy Consult Date: 09/29/19 Time: 17:01 Referring provider: DR. PRESSLEY Reason for Consult:: VANCOMYCIN DOSING Allergies and ADEs:: Allergies Allergy/AdvReac Type Severity Reaction Status Date / Time diazepam Allergy Intermediate Hives Verified 09/29/19 16:41 sucralfate Allergy Intermediate Swelling Verified 09/29/19 16:41 of Lip/Tongue/Throat tuberculin,PPD,multi-puncture Allergy Intermediate Redness of Verified 09/29/19 16:41 Skin tuberculin, purified protein Allergy Mild Redness of Verified 09/29/19 16:41 deriva Skin [From Tubersol] Home Medications:: Home Medications Medication Instructions Recorded Confirmed Type Budesonide/Formoterol Fumarate 2 puffs IH BID 09/17/17 09/29/19 History [Symbicort 160-4.5 Mcg Inhaler] Insulin Regular, Human [Humulin R] 0 units SQ ACHS 09/17/17 09/29/19 History Albuterol Sulfate [Albuterol HFA 2 puffs IH Q4HP PRN 09/18/17 09/29/19 History Inhaler] Insulin Glargine,Hum.rec.anlog 55 unit SQ HS 09/18/17 09/29/19 History [Lantus Insulin 100units/mL 10mL vial] Levothyroxine Sodium 137 mcg PO DAILY 02/28/19 09/29/19 History [Levothyroxine 137mcg (0.137mg) Tab] Furosemide [Lasix 20mg tablet] 20 mg PO DAILY 03/05/19 09/29/19 History cyclobenzaprine 10 mg tablet 10 mg PO BID tab 04/08/19 09/29/19 History hydrocodone 10 mg-acetaminophen 1 tab PO TID PRN tab 04/08/19 09/29/19 History 325 mg tablet pantoprazole 40 mg tablet,delayed 40 mg PO DAILY 04/08/19 09/29/19 History release Metoprolol Succinate 25 mg PO QDAY 04/12/19 09/29/19 History Fluoxetine HCl 40 mg PO DAILY 09/29/19 09/29/19 History Insulin Glargine,Hum.rec.anlog 25 unit SQ DAILY 09/29/19 09/29/19 History [Lantus Insulin 100units/mL 10mL vial] Metformin HCl [Metformin HCl ER] 500 mg PO DAILY 09/29/19 09/29/19 History Spironolactone 100 mg PO DAILY 09/29/19 09/29/19 History glipiZIDE [Glipizide ER] 10 mg PO BID 09/29/19 09/29/19 History Height: 1.6 m Weight: 117.651 kg Laboratory Results:: Laboratory Results - last 24 hr 09/29/19 13:29: Sodium 131 L, Potassium 7.1 H*, Chloride 101, Carbon Dioxide 22, Anion Gap 15.1 H, BUN 35 H, Creatinine 1.40 H, Estimated GFR 38 L, Est GFR ( Amer) 45 L, Glucose 514 H*, Calcium 8.6, Total Bilirubin 1.1, AST 42 H, ALT 31, Alkaline Phosphatase 249 H, C-Reactive Protein 40.8 H, Total Protein 7.3, Albumin 3.2 L, Globulin 4.1 H, Albumin/Globulin Ratio 0.8 L 09/29/19 13:29: WBC 4.0 L, RBC 3.60 L, Hgb 10.4 L, Hct 31.4 L, MCV 87.1, MCH 29.0, MCHC 33.2, RDW 15.9, Plt Count 101 L, MPV 9.5, Neut % (Auto) 78.3, Lymph % (Auto) 14.0, [place] % (Auto) 5.3, Eos % (Auto) 2.1, Baso % (Auto) 0.3, Neut # (Auto) 3.2, Lymph # (Auto) 0.6 L, [place] # (Auto) 0.2, Eos # (Auto) 0.1, Baso # (Auto) 0.0, ESR > 140 H Medical History: Reports:: Anxiety, Congestive Heart Failure, Chronic Obstructive Pulmonary Disease (COPD), Diabetes Mellitus Type 2, Heart Murmur, Hyperlipidemia, Hypertension Denies:: Cancer, Diabetes Mellitus Type 1, Internal Pacemaker, Lung Disease, MRSA, Seizures Assessment and Plan - Assessment and plan all Dx Assessment and Plan for all problems:: BASED ON PATIENT FACTORS, RECOMMEND VANCOMYCIN 2 GM IV ONCE, FOLLOWED BY VANCOMYCIN 1750 MG IV Q24H. PHARMACY WILL FOLLOW DAILY AND ADJUST APPROPRIATE.
--- NOTE | 2019-09-29 21:10 | History & Physical Report ---
*Admission Date: 09/29/19 *Chief complaint: Left ankle wound, pain *History of present illness: 69 yr old female with complicated past medical history presented to clinic accompanied by her today with complaint of LEFT ankle pain, swelling, erythema, drainage. Evidently symptoms began around 2 weeks ago after she hit her ankle on her motorized wheelchair. Was seen in clinic around that time, labs were obtained and labs along with exam were felt to be consistent with acute gout. She was started on indomethacin and later prescribed allopurinol. She has been taking the indomethacin which helps a little with her pain but has not started allopurinol. Pain, swelling, drainage have increased steadily and they came in today for re- evaluation. She was noted to have significant swelling around the LEFT ankle worse at the medial aspect and had multiple pustules that were draining serous to purulent drainage. Wound drainage was obtained for culture and she was sent for imaging and lab evaluation which were both markedly abnormal, concerning for osteomyelitis and she was admitted for management. History additionally includes diabetes mellilitus on long-term insulin. She notes that glucose has been averaging over 500. She does have a history of complicated infection requiring amputation of the right great toe. Also has history of liver cirrhosis with esophageal varicies and her medical care has been quite fragmented over the past couple of years as she is noncompliant with follow-up. [facility] History I have reviewed the patient's past medical history: Yes Medical History: Reports:: Anxiety, Congestive Heart Failure, Chronic Obstructive Pulmonary Disease (COPD), Depression, Diabetes Mellitus Type 2, Heart Murmur, Hyperlipidemia, Hypertension, MRSA Denies:: Cancer, Diabetes Mellitus Type 1, Internal Pacemaker, Lung Disease, Seizures *Have you ever received a pneumonia vaccine?: Yes *Have you received a flu vaccine this season?: Yes Other Medical History: Reports: Anemia, Arthritis, Hypothyroidism, Liver Disease, Sinus Problems, Thyroid Disease, Other (cirrhosis with esophageal varicies). Denies: Blood Transfusion Reaction Laterality Cases: Left: Arthroscopy Knee Other Surgeries: Yes: Cholecystectomy, Colonoscopy, EGD, Hysterectomy-Total, Tubal Ligation. 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 Smoking Status: Never smoker Alcohol Intake: never Substance Use Type: denies use *Occupational Status:: retired Housing: apartment Household Members: spouse *Travel in the last 8 weeks: None - Psychiatric History Pschychiatric History:: Reports:: Anxiety Family Hx:: Anemia, Asthma, Cancer, Diabetes, Hyperlipidemia, Hypertension, Kidney Disease Review of Systems - Review of Systems Review of systems:: pertinent systems reviewed and negative unless documented below - Constitutional Denies chills, Denies fever(s) - Eyes Reports other (right eye erythema, 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 with 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, benign) - ENT Reports poor balance, Denies sore throat - *Cardiovascular Reports leg swelling, Reports leg sores, Denies chest pain, Denies shortness of breath - *Respiratory Denies cough - *Gastrointestinal Denies abdominal pain, Denies constipation, Denies nausea - *Musculoskeletal Reports joint pain (LEFT ankle), 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, 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) - Integumentary/Breasts Reports itching, Reports skin ulcer, Reports sores (see HPI) - *Neurologic Denies dizziness, Denies localized weakness - Psychiatric Reports anxiety (on fluoxetine) Meds Home Medications Medication Instructions Recorded Confirmed Type Budesonide/Formoterol Fumarate 2 puffs IH BID 09/17/17 09/29/19 History [Symbicort 160-4.5 Mcg Inhaler] Insulin Regular, Human [Humulin R] 0 units SQ ACHS 09/17/17 09/29/19 History Albuterol Sulfate [Albuterol HFA 2 puffs IH Q4HP PRN 09/18/17 09/29/19 History Inhaler] Insulin Glargine,Hum.rec.anlog 55 unit SQ HS 09/18/17 09/29/19 History [Lantus Insulin 100units/mL 10mL vial] Levothyroxine Sodium 137 mcg PO DAILY 02/28/19 09/29/19 History [Levothyroxine 137mcg (0.137mg) Tab] Furosemide [Lasix 20mg tablet] 20 mg PO DAILY 03/05/19 09/29/19 History cyclobenzaprine 10 mg tablet 10 mg PO BID tab 04/08/19 09/29/19 History hydrocodone 10 mg-acetaminophen 1 tab PO TID PRN tab 04/08/19 09/29/19 History 325 mg tablet pantoprazole 40 mg tablet,delayed 40 mg PO DAILY 04/08/19 09/29/19 History release Metoprolol Succinate 25 mg PO QDAY 04/12/19 09/29/19 History Fluoxetine HCl 40 mg PO DAILY 09/29/19 09/29/19 History Insulin Glargine,Hum.rec.anlog 25 unit SQ DAILY 09/29/19 09/29/19 History [Lantus Insulin 100units/mL 10mL vial] Metformin HCl [Metformin HCl ER] 500 mg PO DAILY 09/29/19 09/29/19 History Spironolactone 100 mg PO DAILY 09/29/19 09/29/19 History glipiZIDE [Glipizide ER] 10 mg PO BID 09/29/19 09/29/19 History Allergies Allergy/AdvReac Type Severity Reaction Status Date / Time diazepam Allergy Intermediate Hives Verified 09/29/19 16:41 sucralfate Allergy Intermediate Swelling Verified 09/29/19 16:41 of Lip/Tongue/Throat tuberculin,PPD,multi-puncture Allergy Intermediate Redness of Verified 09/29/19 16:41 Skin tuberculin, purified protein Allergy Mild Redness of Verified 09/29/19 16:41 deriva Skin [From Tubersol] Exam Vital signs and Labs for Last 24 Hours: Temp Pulse Resp BP Pulse Ox 98.1 F 79 20 112/61 100 09/29/19 20:00 09/29/19 20:00 09/29/19 20:00 09/29/19 20:00 09/29/19 20:00 Laboratory Results - last 24 hr 09/29/19 13:29: Sodium 131 L, Potassium 7.1 H*, Chloride 101, Carbon Dioxide 22, Anion Gap 15.1 H, BUN 35 H, Creatinine 1.40 H, Estimated GFR 38 L, Est GFR ( Amer) 45 L, Glucose 514 H*, Calcium 8.6, Total Bilirubin 1.1, AST 42 H, ALT 31, Alkaline Phosphatase 249 H, C-Reactive Protein 40.8 H, Total Protein 7.3, Albumin 3.2 L, Globulin 4.1 H, Albumin/Globulin Ratio 0.8 L 09/29/19 13:29: WBC 4.0 L, RBC 3.60 L, Hgb 10.4 L, Hct 31.4 L, MCV 87.1, MCH 29.0, MCHC 33.2, RDW 15.9, Plt Count 101 L, MPV 9.5, Neut % (Auto) 78.3, Lymph % (Auto) 14.0, [place] % (Auto) 5.3, Eos % (Auto) 2.1, Baso % (Auto) 0.3, Neut # (Auto) 3.2, Lymph # (Auto) 0.6 L, [place] # (Auto) 0.2, Eos # (Auto) 0.1, Baso # (Auto) 0.0, ESR > 140 H 09/29/19 17:15: Lactate 1.8 I & O for Last 24 hours: Intake & Output 09/27/19 09/28/19 09/29/19 09/30/19 11:59 11:59 11:59 11:59 Intake Total 120 / 120 Balance 120 / 120 Weight 259 lb 6 oz Microbiology Reports for the Last 24 Hours: Microbiology 09/29/19 Unknown Ankle,Left Gram Stain - Final - Constitutional no acute distress, morbidly obese, chronically ill appearing - *Routine HEENT Exam Head: Present: normocephalic, atraumatic Eye: Present: scleral injection (RIGHT eye) ENT: Present: mucous membranes moist - *Routine Neck Exam Present: supple - *Routine Respiratory Exam Present: CTA bilaterally - *Routine Cardiovascular Exam Present: RRR - *Routine Abdominal Exam Present: soft, normoactive bowel sounds. Absent: tenderness - *Routine Extremities Exam Present: edema, pulses intact, tenderness (LEFT ankle), joint swelling (LEFT ankle), amputation (right great toe) - *Routine Skin Exam Present: erythema (LEFT ankle, diffuse, medial aspect), wounds (LEFT ankle, medial aspect, multiple erythema papules at periphery and large fluctuant pustules over the malleolus) - *Routine Neurological Exam Present: alert, oriented X3, moving all extremities Assessment and Plan (1) Cellulitis of left ankle Current visit: Yes Status: Acute Category: Medical Code(s): L03.116 - Cellulitis of left lower limb (2) Wound of left ankle Current visit: Yes Status: Acute Category: Medical Code(s): S91.002A - Unspecified open wound, left ankle, initial encounter (3) Hyperkalemia Current visit: Yes Status: Acute Category: Medical Code(s): E87.5 - Hyperkalemia (4) MELVINA (acute kidney injury) Current visit: Yes Status: Acute Category: Medical Code(s): N17.9 - Acute kidney failure, unspecified (5) Hyponatremia Current visit: Yes Status: Chronic Category: Medical Code(s): E87.1 - Hypo-osmolality and hyponatremia (6) Type 2 diabetes mellitus, with long-term current use of insulin Current visit: Yes Status: Chronic Qualifiers: Diabetes mellitus complication status: with hyperglycemia Qualified Co de(s): E11.65 - Type 2 diabetes mellitus with hyperglycemia; Z79.4 - MCFP (current) use of insulin Category: Medical Code(s): E11.9 - Type 2 diabetes mellitus without complications; Z79.4 - MCFP (current) use of insulin (7) Morbid obesity with BMI of 45.0-49.9, adult Current visit: Yes Status: Chronic Category: Medical Code(s): E66.01 - Morbid (severe) obesity due to excess calories; Z68.42 - Body mass index (BMI) 45.0-49.9, adult (8) Hypoalbuminemia Current visit: Yes Status: Acute Category: Medical Code(s): E88.09 - Other disorders of plasma-protein metabolism, not elsewhere classified (9) Hypothyroidism Current visit: No Status: Chronic Category: Medical Code(s): E03.9 - Hypothyroidism, unspecified (10) Esophageal varices Current visit: No Status: Chronic Qualifiers: Esophageal varices bleeding: without bleeding Category: Medical Code(s): I85.00 - Esophageal varices without bleeding (11) Hepatic cirrhosis Current visit: No Status: Chronic Category: Medical Code(s): K74.60 - Unspecified cirrhosis of liver (12) Chronic pain Current visit: No Status: Chronic Qualifiers: Chronic pain type: other chronic pain Qualified Code(s): G89.29 - Other chronic pain Category: Medical Code(s): G89.29 - Other chronic pain - Assessment and plan all Dx Assessment and Plan for all problems:: Imaging and labs concerning for osteomyelitis. 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
[2019-09-29 22:50] LABS: Anion Gap 12.2 mEq/L (5-15); Calcium 8.8 mg/dl (8.4-10.2)
[2019-09-30 06:49] LABS: Basophils % 0.3 % (0.1-2.0); Eosinophils # 0.1 K/mm3 (0.0-0.4); Eosinophils % 3.3 % (0.1-12.0); Hemoglobin 9.4 g/dL (12.2-16.2); Lymphocytes # 0.8 K/mm3 (0.7-4.5); Lymphocytes % 18.9 % (10-50); Mean Corpuscular HGB Conc 32.3 g/dL (31.8-35.4); Mean Corpuscular Volume 87.5 fl (81-99); Mean Platelet Volume 8.5 fl (7.4-10.4); Monocytes # 0.2 K/mm3 (0.1-1.0); Monocytes % 5.3 % (1.7-9.3); Neutrophils % 72.2 % (37.0-80.0); Platelet Count 99 K/mm3 (142-424); Red Blood Count 3.32 M/mm3 (4.20-5.40); Red Cell Distribution Width 16.1 % (11.5-17.5); White Blood Count 4.1 K/mm3 (4.8-10.8)
[2019-09-30 07:00] LABS: Anion Gap 12.5 mEq/L (5-15); Calcium 8.7 mg/dl (8.4-10.2)
[2019-09-30 07:06] LABS: C-Reactive Protein 48.2 mg/L (0-4)
[2019-09-30 08:00] LABS: Erythrocyte Sedimentation Rate > 140 mm/hr (0-30)
--- NOTE | 2019-09-30 08:03 | Progress Note ---
[facility] Anesthesia Checklist - Patient Identification Patient Identification: Arm Band, Verbal (Name & ) - Structural Data Admitted From: Home Planned Operative Procedure/s: i and d ankle Consent for Planned Operative Procedure(s) Verified: Yes Verified Documents: History and Physical - NPO Status Verified Time NPO: 00:00 - Additional verifications Patient : No Anesthesia Reactions: No Hx Blood Transfusions: Yes Blood Transfusion Reaction: No Cephalosporin Allergy: No Previous Colonoscopy: Yes - Cardiovascular Assessment Heart Sounds: S1 & S2 Pulse Strength: Baseline Pulse Rhythm: Regular Peripheral Edema: No - Airway Assessment C-Spine Mobility Assessed: Yes TMJ Mobility Assessed: Yes Dentition: Edentulous - Neurological Assessment Level of Consciousness: Awake, Alert, Appropriate Hx Seizures: No Numbness or tingling in extremities: No - Anesthesia Plan Anesthesia Risk discussed: Yes Anesthesia Plan: Verified ASA Class: III Anesthesia Type: General [facility] History I have reviewed the patient's past medical history: Yes Medical History: Reports:: Anxiety, Congestive Heart Failure, Chronic Obstructive Pulmonary Disease (COPD), Depression, Diabetes Mellitus Type 2, Heart Murmur, Hyperlipidemia, Hypertension, MRSA, Renal Insufficiency Denies:: Cancer, Diabetes Mellitus Type 1, Internal Pacemaker, Lung Disease, Seizures *Have you ever received a pneumonia vaccine?: Yes *Have you received a flu vaccine this season?: Yes Other Medical History: Reports: Anemia, Arthritis, Hypothyroidism, Liver Disease, Sinus Problems, Thyroid Disease, Other (cirrhosis with esophageal varicies). Denies: Blood Transfusion Reaction Anesthesia experience/problems:: none Laterality Cases: Left: Arthroscopy Knee Other Surgeries: Yes: Cholecystectomy, Colonoscopy, EGD, Hysterectomy-Total, Tubal Ligation. 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
--- NOTE | 2019-09-30 09:03 | Consult Report ---
*Admission Date: 09/29/19 <Nataly Awan - 09/30/19 09:22> *Reason for consult:: Left ankle wound, pain <Nataly Awan - 09/30/19 09:22> *History of present illness: 69 yr old female with complicated past medical history presented to clinic accompanied by her today with complaint of LEFT ankle pain, swelling, erythema, drainage. Evidently symptoms began around 2 weeks ago after she hit her ankle on her motorized wheelchair. Was seen in clinic around that time, labs were obtained and labs along with exam were felt to be consistent with acute gout. She was started on indomethacin and later prescribed allopurinol. She has been taking the indomethacin which helps a little with her pain but has not started allopurinol. Pain, swelling, drainage have increased steadily and they came in today for re- evaluation. She was noted to have significant swelling around the LEFT ankle worse at the medial aspect and had multiple pustules that were draining serous to purulent drainage. Wound drainage was obtained for culture and she was sent for imaging and lab evaluation which were both markedly abnormal, concerning for osteomyelitis and she was admitted for management. History additionally includes diabetes mellilitus on long-term insulin. She notes that glucose has been averaging over 500. She does have a history of complicated infection requiring amputation of the right great toe. Also has history of liver cirrhosis with esophageal varicies and her medical care has been quite fragmented over the past couple of years as she is noncompliant with follow-up. Patient was consulted this morning by Podiatry, she was resting in bed and was being assessed by Dr. Joaquin upon entering the room. We discussed the plans from podiatry standpoint with Dr. Joaquin and the patient to have the patient to get her MRI this morning,which radiology was on standby in the hallway waiting for our assessments to get completed to take her for her MRI. Dr. Shin would like to take the patient around noon today for left incision and drainage, debridement of nonviable soft tissue and bone, bone biopsy and debridement and drain the pus. Patient verbally consented and Dr. Joaquin as well agreed that this would be the best interest with the patient at this time. Patient as well will need ABIs to be completed this morning prior to her I&D procedure. Due to the edema on her legs and pedal pulses were palpable but "weakly palpable", would like to have the EBENEZER to test perfusion and circulation to the lower extremities. [facility] History I have reviewed the patient's past medical history: Yes Medical History: Reports:: Anxiety, Congestive Heart Failure, Chronic Obstr uctive Pulmonary Disease (COPD), Depression, Diabetes Mellitus Type 2, Heart Murmur, Hyperlipidemia, Hypertension, MRSA Denies:: Cancer, Diabetes Mellitus Type 1, Internal Pacemaker, Lung Disease, Seizures *Have you ever received a pneumonia vaccine?: Yes *Have you received a flu vaccine this season?: Yes Other Medical History: Reports: Anemia, Arthritis, Hypothyroidism, Liver Disease, Sinus Problems, Thyroid Disease, Other (cirrhosis with esophageal varicies). Denies: Blood Transfusion Reaction Laterality Cases: Left: Arthroscopy Knee Other Surgeries: Yes: Cholecystectomy, Colonoscopy, EGD, Hysterectomy-Total, Tubal Ligation. 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 Smoking Status: Never smoker Alcohol Intake: never Substance Use Type: denies use *Occupational Status:: retired Housing: apartment Household Members: spouse *Travel in the last 8 weeks: None - Psychiatric History Pschychiatric History:: Reports:: Anxiety Family Hx:: Anemia, Asthma, Cancer, Diabetes, Hyperlipidemia, Hypertension, Kidney Disease <Nataly Awan 09/30/19 09:22> Review of Systems - Review of Systems Review of systems:: pertinent systems reviewed and negative unless documented below <Nunu Shin - 09/30/19 10:31> - Constitutional Denies fatigue <Nataly Awan 09/30/19 09:22> - Eyes Denies change in vision <Nataly Awan 09/30/19 09:22> Comments: The patient's right eye appears to have some subconjunctival hemo rrhage. Patient denies pain in this eye. <Nataly Awan 09/30/19 09:22> - ENT Denies dizziness, Denies difficulty swallowing <Nataly Awan 09/30/19 09:22> - *Cardiovascular Denies chest pain <Nataly Awan 09/30/19 09:22> - *Respiratory Denies shortness of breath <Nataly Awan 09/30/19 09:22> - *Gastrointestinal Denies abdominal pain <Nataly Awan 09/30/19 09:22> - *Musculoskeletal Reports joint swelling <Nataly Awan 09/30/19 09:22> Comments: Left ankle edema and pain <Nataly Awan 09/30/19 09:22> - *Neurologic Reports unsteadiness, Denies dizziness, Denies localized weakness <Nataly Awan 09/30/19 09:22> - Psychiatric Reports anxiety <Nataly Awan 09/30/19 09:22> - Allergic/Immunologic Denies seasonal runny nose <Nataly Awan 09/30/19 09:22> [facility] History Medical History: Reports:: Anxiety, Congestive Heart Failure, Chronic Obstructive Pulmonary Disease (COPD), Depression, Diabetes Mellitus Type 2, Heart Murmur, Hyperlipidemia, Hypertension, MRSA, Renal Insufficiency Denies:: Cancer, Diabetes Mellitus Type 1, Internal Pacemaker, Lung Disease, Seizures <Nataly Awan 09/30/19 09:22> *Have you ever received a pneumonia vaccine?: Yes <Nataly Awan 09/30/19 09:22> *Have you received a flu vaccine this season?: Yes <Nataly Awan 09/30/19 09:22> Other Medical History: Reports: Anemia, Arthritis, Hypothyroidism, Liver Disease, Sinus Problems, Thyroid Disease, Other (cirrhosis with esophageal varicies). Denies: Blood Transfusion Reaction <Nataly Awan 09/30/19 09:22> Anesthesia experience/problems:: none <Nataly Awan 09/30/19 09:22> Laterality Cases: Left: Arthroscopy Knee <Nataly Awan 09/30/19 09:22> Other Surgeries: Yes: Cholecystectomy, Colonoscopy, EGD, Hysterectomy-Total, Tubal Ligation. 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 <Nataly Awan 09/30/19 09:22> Smoking Status: Never smoker <Nataly Awan 09/30/19 09:22> Alcohol Intake: never <Nataly Awan 09/30/19 09:22> Substance Use Type: denies use <Nataly Awan 09/30/19 09:22> *Occupational Status:: retired <Nataly Awan 09/30/19 09:22> Housing: apartment <Nataly Awan 09/30/19 09:22> Household Members: spouse <Nataly Awan 09/30/19 09:22> *Travel in the last 8 weeks: None <Nataly Awan 09/30/19 09:22> - Psychiatric History Pschychiatric History:: Reports:: Anxiety, Depression <Nataly Awan 09/30/19 09:22> Family Hx:: Anemia, Asthma, Cancer, Diabetes, Hyperlipidemia, Hypertension, Kidney Disease <Nataly Awan 09/30/19 09:22> Meds Home Medications Medication Instructions Recorded Confirmed Type Budesonide/Formoterol Fumarate 2 puffs IH BID 09/17/17 09/29/19 History [Symbicort 160-4.5 Mcg Inhaler] Insulin Regular, Human [Humulin R] 0 units SQ ACHS 09/17/17 09/29/19 History Albuterol Sulfate [Albuterol HFA 2 puffs IH Q4HP PRN 09/18/17 09/29/19 History Inhaler] Insulin Glargine,Hum.rec.anlog 55 unit SQ HS 09/18/17 09/29/19 History [Lantus Insulin 100units/mL 10mL vial] Levothyroxine Sodium 137 mcg PO DAILY 02/28/19 09/29/19 History [Levothyroxine 137mcg (0.137mg) Tab] Furosemide [Lasix 20mg tablet] 20 mg PO DAILY 03/05/19 09/29/19 History cyclobenzaprine 10 mg tablet 10 mg PO BID tab 04/08/19 09/29/19 History hydrocodone 10 mg-acetaminophen 1 tab PO TID PRN tab 04/08/19 09/29/19 History 325 mg tablet pantoprazole 40 mg tablet,delayed 40 mg PO DAILY 04/08/19 09/29/19 History release Metoprolol Succinate 25 mg PO QDAY 04/12/19 09/29/19 History Fluoxetine HCl 40 mg PO DAILY 09/29/19 09/29/19 History Insulin Glargine,Hum.rec.anlog 25 unit SQ DAILY 09/29/19 09/29/19 History [Lantus Insulin 100units/mL 10mL vial] Metformin HCl [Metformin HCl ER] 500 mg PO DAILY 09/29/19 09/29/19 History Spironolactone 100 mg PO DAILY 09/29/19 09/29/19 History glipiZIDE [Glipizide ER] 10 mg PO BID 09/29/19 09/29/19 History <Nunu Shin - 09/30/19 10:48> Allergies Allergy/AdvReac Type Severity Reaction Status Date / Time diazepam Allergy Intermediate Hives Verified 09/29/19 16:41 sucralfate Allergy Intermediate Swelling Verified 09/29/19 16:41 of Lip/Tongue/Throat tuberculin,PPD,multi-puncture Allergy Intermediate Redness of Verified 09/29/19 16:41 Skin tuberculin, purified protein Allergy Mild Redness of Verified 09/29/19 16:41 deriva Skin [From Tubersol] <Nunu Shin - 09/30/19 10:48> Exam Vital signs and Labs for Last 24 Hours: Temp Pulse Resp BP Pulse Ox 98.1 F 94 H 20 118/64 100 09/30/19 08:00 09/30/19 08:00 09/30/19 08:00 09/30/19 08:00 09/30/19 08:00 Laboratory Results - last 24 hr 09/29/19 13:29: Sodium 131 L, Potassium 7.1 H*, Chloride 101, Carbon Dioxide 22, Anion Gap 15.1 H, BUN 35 H, Creatinine 1.40 H, Estimated GFR 38 L, Est GFR ( Amer) 45 L, Glucose 514 H*, Calcium 8.6, Total Bilirubin 1.1, AST 42 H, ALT 31, Alkaline Phosphatase 249 H, C-Reactive Protein 40.8 H, Total Protein 7.3, Albumin 3.2 L, Globulin 4.1 H, Albumin/Globulin Ratio 0.8 L 09/29/19 13:29: WBC 4.0 L, RBC 3.60 L, Hgb 10.4 L, Hct 31.4 L, MCV 87.1, MCH 29.0, MCHC 33.2, RDW 15.9, Plt Count 101 L, MPV 9.5, Neut % (Auto) 78.3, Lymph % (Auto) 14.0, [place] % (Auto) 5.3, Eos % (Auto) 2.1, Baso % (Auto) 0.3, Neut # (Auto) 3.2, Lymph # (Auto) 0.6 L, [place] # (Auto) 0.2, Eos # (Auto) 0.1, Baso # (Auto) 0.0, ESR > 140 H 09/29/19 17:15: Lactate 1.8 09/29/19 17:32: POC Glucose 476 H* 09/29/19 21:35: POC Glucose 220 H 09/29/19 22:32: Sodium 136, Potassium 5.2 H D, Chloride 105, Carbon Dioxide 24, Anion Gap 12.2, BUN 34 H, Creatinine 1.40 H, Estimated Creat Clear 32, Estimated GFR 38 L, Est GFR ( Amer) 45 L, Glucose 198 H D, Calcium 8.8 09/30/19 05:08: POC Glucose 118 H 09/30/19 06:10: WBC 4.1 L, RBC 3.32 L, Hgb 9.4 L, Hct 29.0 L, MCV 87.5, MCH 28.3, MCHC 32.3, RDW 16.1, Plt Count 99 L, MPV 8.5, Neut % (Auto) 72.2, Lymph % (Auto) 18.9, [place] % (Auto) 5.3, Eos % (Auto) 3.3, Baso % (Auto) 0.3, Neut # (Auto) 3.0, Lymph # (Auto) 0.8, [place] # (Auto) 0.2, Eos # (Auto) 0.1, Baso # (Auto) 0.0, ESR > 140 H 09/30/19 06:10: Sodium 136, Potassium 5.5 H, Chloride 107, Carbon Dioxide 22, Anion Gap 12.5, BUN 32 H, Creatinine 1.30 H, Estimated Creat Clear 33, Estimated GFR 41 L, Est GFR ( Amer) 49 L, Glucose 117 H D, Calcium 8.7, C-Reactive Protein 48.2 H <Aleida,Nunu - 09/30/19 10:31> Temp Pulse Resp BP Pulse Ox 98.1 F 94 H 20 118/64 100 09/30/19 08:00 09/30/19 08:00 09/30/19 08:00 09/30/19 08:00 09/30/19 08:00 Laboratory Results - last 24 hr 09/29/19 13:29: Sodium 131 L, Potassium 7.1 H*, Chloride 101, Carbon Dioxide 22, Anion Gap 15.1 H, BUN 35 H, Creatinine 1.40 H, Estimated GFR 38 L, Est GFR ( Amer) 45 L, Glucose 514 H*, Calcium 8.6, Total Bilirubin 1.1, AST 42 H, ALT 31, Alkaline Phosphatase 249 H, C-Reactive Protein 40.8 H, Total Protein 7.3, Albumin 3.2 L, Globulin 4.1 H, Albumin/Globulin Ratio 0.8 L 09/29/19 13:29: WBC 4.0 L, RBC 3.60 L, Hgb 10.4 L, Hct 31.4 L, MCV 87.1, MCH 29.0, MCHC 33.2, RDW 15.9, Plt Count 101 L, MPV 9.5, Neut % (Auto) 78.3, Lymph % (Auto) 14.0, [place] % (Auto) 5.3, Eos % (Auto) 2.1, Baso % (Auto) 0.3, Neut # (Auto) 3.2, Lymph # (Auto) 0.6 L, [place] # (Auto) 0.2, Eos # (Auto) 0.1, Baso # (Auto) 0.0, ESR > 140 H 09/29/19 17:15: Lactate 1.8 09/29/19 17:32: POC Glucose 476 H* 09/29/19 21:35: POC Glucose 220 H 09/29/19 22:32: Sodium 136, Potassium 5.2 H D, Chloride 105, Carbon Dioxide 24, Anion Gap 12.2, BUN 34 H, Creatinine 1.40 H, Estimated Creat Clear 32, Estimated GFR 38 L, Est GFR ( Amer) 45 L, Glucose 198 H D, Calcium 8.8 09/30/19 05:08: POC Glucose 118 H 09/30/19 06:10: WBC 4.1 L, RBC 3.32 L, Hgb 9.4 L, Hct 29.0 L, MCV 87.5, MCH 28.3, MCHC 32.3, RDW 16.1, Plt Count 99 L, MPV 8.5, Neut % (Auto) 72.2, Lymph % (Auto) 18.9, [place] % (Auto) 5.3, Eos % (Auto) 3.3, Baso % (Auto) 0.3, Neut # (Auto) 3.0, Lymph # (Auto) 0.8, [place] # (Auto) 0.2, Eos # (Auto) 0.1, Baso # (Auto) 0.0, ESR > 140 H 09/30/19 06:10: Sodium 136, Potassium 5.5 H, Chloride 107, Carbon Dioxide 22, Anion Gap 12.5, BUN 32 H, Creatinine 1.30 H, Estimated Creat Clear 33, Estimated GFR 41 L, Est GFR ( Amer) 49 L, Glucose 117 H D, Calcium 8.7, C-Reactive Protein 48.2 H <Nataly Awan - 09/30/19 09:22> I & O for Last 24 hours: Intake & Output 09/27/19 09/28/19 09/29/19 09/30/19 11:59 11:59 11:59 11:59 Intake Total 1427 / 1427 Output Total 600 / 600 Balance 827 / 827 Weight 251 lb 9 oz <Nunu Shin - 09/30/19 10:48> Intake & Output 09/27/19 09/28/19 09/29/19 09/30/19 23:59 23:59 23:59 23:59 Intake Total 340 / 340 1087 / 1087 Output Total 600 / 600 Balance 340 / 340 487 / 487 Weight 259 lb 6 oz 251 lb 9 oz <Nataly Awan - 09/30/19 09:22> Microbiology Reports for the Last 24 Hours: Microbiology 09/29/19 Unknown Ankle,Left Gram Stain - Final 09/29/19 Unknown Ankle,Left Wound Culture - Preliminary Gram Positive Cocci <Nunu Shin - 09/30/19 10:48> Microbiology 09/29/19 Unknown Ankle,Left Gram Stain - Final 09/29/19 Unknown Ankle,Left Wound Culture - Preliminary Gram Positive Cocci <Nataly Awan - 09/30/19 09:22> - Constitutional no acute distress, obese <Nataly Awan - 09/30/19 09:22> - *Routine HEENT Exam Head: Present: normocephalic <Nataly Awan 09/30/19 09:22> Eye: Present: PERRL (right eye subconjunctival hemorrhage) <Nataly Awan 09/30/19 09:22> ENT: Present: mucous membranes moist <Nataly Awan 09/30/19 09:22> - *Routine Neck Exam Present: full ROM. Absent: JVD <Nataly Awan - 09/30/19 09:22> - *Routine Respiratory Exam Absent: accessory muscle use, respiratory distress <Nataly Awan 09/30/19 09:22> - *Routine Cardiovascular Exam Present: RRR. Absent: JVD <Nataly Awan 09/30/19 09:22> - *Routine Abdominal Exam Present: soft. Absent: distended <Nataly Awan - 09/30/19 09:22> - *Routine Extremities Exam Present: edema, amputation <Nataly Awan 09/30/19 09:22> Comments: Laterally weakly palpable pulses, 2+ pedal edema, previous right hallux amputation. <Nataly Awan 09/30/19 09:22> - Routine Back/Spine/Pelvis Exam Back/Spine: Present: vertebral tenderness <Nataly Awan 09/30/19 09:22> - *Routine Skin Exam Present: erythema, dry <Nataly Awan 09/30/19 09:22> - *Routine Neurological Exam Present: oriented X3 <Nataly Awan - 09/30/19 09:22> - Detailed Lower Extremity Exam Ankle: Left erythema, Left swelling, Left tenderness <Nataly Awan - 09/30/19 09:22> Ankle image: 1 - Multiple draining pustules mostly to medial malleous. Serous to pustular drainage noted. Edema 2+ and erythema, sloughing dermis on ankle and distal foot. <Nataly Awan - 09/30/19 09:22> Results - Labs Result Diagrams: 09/30/19 06:10 09/30/19 06:10 <Nunu Shin - 09/30/19 10:48> Labs: Abnormal lab results 09/29/19 09/29/19 09/29/19 Range/Units 13:29 13:29 17:32 WBC 4.0 L (4.8-10.8) K/mm3 RBC 3.60 L (4.20-5.40) M/mm3 Hgb 10.4 L (12.2-16.2) g/dL Hct 31.4 L (37.0-47.0) % Plt Count 101 L (142-424) K/mm3 Lymph # (Auto) 0.6 L (0.7-4.5) K/mm3 ESR > 140 H (0-30) mm/hr Sodium 131 L (136-145) mmol/L Potassium 7.1 H* (3.5-5.1) mmoL/L Anion Gap 15.1 H (5-15) mEq/L BUN 35 H (7-17) mg/dl Creatinine 1.40 H (0.52-1.04) mg/dl Estimated GFR 38 L (>60) ml/min Est GFR ( Amer) 45 L (>60) ML/MIN Glucose 514 H* (74-100) mg/dl POC Glucose 476 H* (70-110) AST 42 H (14-36) U/L Alkaline Phosphatase 249 H (38-126) U/L C-Reactive Protein 40.8 H (0-4) mg/L Albumin 3.2 L (3.5-5.0) g/dl Globulin 4.1 H (1.3-3.2) g/dL Albumin/Globulin Ratio 0.8 L (1.1-1.8) 09/29/19 09/29/19 09/30/19 Range/Units 21:35 22:32 05:08 WBC (4.8-10.8) K/mm3 RBC (4.20-5.40) M/mm3 Hgb (12.2-16.2) g/dL Hct (37.0-47.0) % Plt Count (142-424) K/mm3 Lymph # (Auto) (0.7-4.5) K/mm3 ESR (0-30) mm/hr Sodium (136-145) mmol/L Potassium 5.2 H D (3.5-5.1) mmoL/L Anion Gap (5-15) mEq/L BUN 34 H (7-17) mg/dl Creatinine 1.40 H (0.52-1.04) mg/dl Estimated GFR 38 L (>60) ml/min Est GFR ( Amer) 45 L (>60) ML/MIN Glucose 198 H D (74-100) mg/dl POC Glucose 220 H 118 H (70-110) AST (14-36) U/L Alkaline Phosphatase (38-126) U/L C-Reactive Protein (0-4) mg/L Albumin (3.5-5.0) g/dl Globulin (1.3-3.2) g/dL Albumin/Globulin Ratio (1.1-1.8) 09/30/19 09/30/19 Range/Units 06:10 06:10 WBC 4.1 L (4.8-10.8) K/mm3 RBC 3.32 L (4.20-5.40) M/mm3 Hgb 9.4 L (12.2-16.2) g/dL Hct 29.0 L (37.0-47.0) % Plt Count 99 L (142-424) K/mm3 Lymph # (Auto) (0.7-4.5) K/mm3 ESR > 140 H (0-30) mm/hr Sodium (136-145) mmol/L Potassium 5.5 H (3.5-5.1) mmoL/L Anion Gap (5-15) mEq/L BUN 32 H (7-17) mg/dl Creatinine 1.30 H (0.52-1.04) mg/dl Estimated GFR 41 L (>60) ml/min Est GFR ( Amer) 49 L (>60) ML/MIN Glucose 117 H D (74-100) mg/dl POC Glucose (70-110) AST (14-36) U/L Alkaline Phosphatase (38-126) U/L C-Reactive Protein 48.2 H (0-4) mg/L Albumin (3.5-5.0) g/dl Globulin (1.3-3.2) g/dL Albumin/Globulin Ratio (1.1-1.8) H & H 09/29/19 09/30/19 Range/Units 13:29 06:10 Hgb 10.4 L 9.4 L (12.2-16.2) g/dL Hct 31.4 L 29.0 L (37.0-47.0) % All other labs normal. <Nunu Shin - 09/30/19 10:48> Abnormal lab results 09/29/19 09/29/19 09/29/19 Range/Units 13:29 13:29 17:32 WBC 4.0 L (4.8-10.8) K/mm3 RBC 3.60 L (4.20-5.40) M/mm3 Hgb 10.4 L (12.2-16.2) g/dL Hct 31.4 L (37.0-47.0) % Plt Count 101 L (142-424) K/mm3 Lymph # (Auto) 0.6 L (0.7-4.5) K/mm3 ESR > 140 H (0-30) mm/hr Sodium 131 L (136-145) mmol/L Potassium 7.1 H* (3.5-5.1) mmoL/L Anion Gap 15.1 H (5-15) mEq/L BUN 35 H (7-17) mg/dl Creatinine 1.40 H (0.52-1.04) mg/dl Estimated GFR 38 L (>60) ml/min Est GFR ( Amer) 45 L (>60) ML/MIN Glucose 514 H* (74-100) mg/dl POC Glucose 476 H* (70-110) AST 42 H (14-36) U/L Alkaline Phosphatase 249 H (38-126) U/L C-Reactive Protein 40.8 H (0-4) mg/L Albumin 3.2 L (3.5-5.0) g/dl Globulin 4.1 H (1.3-3.2) g/dL Albumin/Globulin Ratio 0.8 L (1.1-1.8) 09/29/19 09/29/19 09/30/19 Range/Units 21:35 22:32 05:08 WBC (4.8-10.8) K/mm3 RBC (4.20-5.40) M/mm3 Hgb (12.2-16.2) g/dL Hct (37.0-47.0) % Plt Count (142-424) K/mm3 Lymph # (Auto) (0.7-4.5) K/mm3 ESR (0-30) mm/hr Sodium (136-145) mmol/L Potassium 5.2 H D (3.5-5.1) mmoL/L Anion Gap (5-15) mEq/L BUN 34 H (7-17) mg/dl Creatinine 1.40 H (0.52-1.04) mg/dl Estimated GFR 38 L (>60) ml/min Est GFR ( Amer) 45 L (>60) ML/MIN Glucose 198 H D (74-100) mg/dl POC Glucose 220 H 118 H (70-110) AST (14-36) U/L Alkaline Phosphatase (38-126) U/L C-Reactive Protein (0-4) mg/L Albumin (3.5-5.0) g/dl Globulin (1.3-3.2) g/dL Albumin/Globulin Ratio (1.1-1.8) 09/30/19 09/30/19 Range/Units 06:10 06:10 WBC 4.1 L (4.8-10.8) K/mm3 RBC 3.32 L (4.20-5.40) M/mm3 Hgb 9.4 L (12.2-16.2) g/dL Hct 29.0 L (37.0-47.0) % Plt Count 99 L (142-424) K/mm3 Lymph # (Auto) (0.7-4.5) K/mm3 ESR > 140 H (0-30) mm/hr Sodium (136-145) mmol/L Potassium 5.5 H (3.5-5.1) mmoL/L Anion Gap (5-15) mEq/L BUN 32 H (7-17) mg/dl Creatinine 1.30 H (0.52-1.04) mg/dl Estimated GFR 41 L (>60) ml/min Est GFR ( Amer) 49 L (>60) ML/MIN Glucose 117 H D (74-100) mg/dl POC Glucose (70-110) AST (14-36) U/L Alkaline Phosphatase (38-126) U/L C-Reactive Protein 48.2 H (0-4) mg/L Albumin (3.5-5.0) g/dl Globulin (1.3-3.2) g/dL Albumin/Globulin Ratio (1.1-1.8) H & H 09/29/19 09/30/19 Range/Units 13:29 06:10 Hgb 10.4 L 9.4 L (12.2-16.2) g/dL Hct 31.4 L 29.0 L (37.0-47.0) % All other labs normal. <Nataly Awan - 09/30/19 09:22> - Diagnostic results Ankle/Foot x-ray: report reviewed, image reviewed <Nunu Shin - 09/30/19 10:31> Ankle/Foot MRI: image reviewed <Nunu Shin - 09/30/19 10:31> Assessment and Plan (1) Cellulitis of left ankle Current visit: Yes Status: Acute Category: Medical Code(s): L03.116 - Cellulitis of left lower limb (2) Wound of left ankle Current visit: Yes Status: Acute Category: Medical Code(s): S91.002A - Unspecified open wound, left ankle, initial encounter (3) Hyperkalemia Current visit: Yes Status: Acute Category: Medical Code(s): E87.5 - Hyperkalemia (4) MELVINA (acute kidney injury) Current visit: Yes Status: Acute Category: Medical Code(s): N17.9 - Acute kidney failure, unspecified (5) Hyponatremia Current visit: Yes Status: Chronic Category: Medical Code(s): E87.1 - Hypo-osmolality and hyponatremia (6) Type 2 diabetes mellitus, with long-term current use of insulin Current visit: Yes Status: Chronic Qualifiers: Diabetes mellitus complication status: with hyperglycemia Qualified Code(s): E11.65 - Type 2 diabetes mellitus with hyperglycemia; 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 Category: Medical Code(s): E11.9 - Type 2 diabetes mellitus without complications; Z79.4 - detention (current) use of insulin (7) Morbid obesity with BMI of 45.0-49.9, adult Current visit: Yes Status: Chronic Category: Medical Code(s): E66.01 - Morbid (severe) obesity due to excess calories; Z68.42 - Body mass index (BMI) 45.0-49.9, adult (8) Hypoalbuminemia Current visit: Yes Status: Acute Category: Medical Code(s): E88.09 - Other disorders of plasma-protein metabolism, not elsewhere classified (9) Hypothyroidism Current visit: No Status: Chronic Category: Medical Code(s): E03.9 - Hypothyroidism, unspecified (10) Esophageal varices Current visit: No Status: Chronic Qualifiers: Esophageal varices bleeding: without bleeding Category: Medical Code(s): I85.00 - Esophageal varices without bleeding (11) Hepatic cirrhosis Current visit: No Status: Chronic Category: Medical Code(s): K74.60 - Unspecified cirrhosis of liver (12) Chronic pain Current visit: No Status: Chronic Qualifiers: Chronic pain type: other chronic pain Qualified Code(s): G89.29 - Other ch ronic pain Category: Medical Code(s): G89.29 - Other chronic pain (13) Decreased pedal pulses Start date: 09/30/19 Current visit: Yes Status: Acute Category: Medical Code(s): R09.89 - Other specified symptoms and signs involving the circulatory and respiratory systems (14) Other specified symptoms and signs involving the circulatory and respiratory systems Start date: 09/30/19 Current visit: Yes Status: Acute Category: Medical Code(s): R09.89 - Other specified symptoms and signs involving the circulatory and respiratory systems (15) Lower extremity edema Start date: 09/30/19 Current visit: Yes Status: Acute Category: Medical Code(s): R60.0 - Localized edema <Nataly Awan - 09/30/19 10:39> (1) Cellulitis of left ankle Current visit: Yes Status: Acute Category: Medical Code(s): L03.116 - Cellulitis of left lower limb (2) Wound of left ankle Current visit: Yes Status: Acute Category: Medical Code(s): S91.002A - Unspecified open wound, left ankle, initial encounter (3) Hyperkalemia Current visit: Yes Status: Acute Category: Medical Code(s): E87.5 - Hyperkalemia (4) MELVINA (acute kidney injury) Current visit: Yes Status: Acute Category: Medical Code(s): N17.9 - Acute kidney failure, unspecified (5) Hyponatremia Current visit: Yes Status: Chronic Category: Medical Code(s): E87.1 - Hypo-osmolality and hyponatremia (6) Type 2 diabetes mellitus, with long-term current use of insulin Current visit: Yes Status: Chronic Qualifiers: Diabetes mellitus complication status: with hyperglycemia Qualified Code(s): E11.65 - Type 2 diabetes mellitus with hyperglycemia; Z79.4 - detention (current) use of insulin Category: Medical Code(s): E11.9 - Type 2 diabetes mellitus without complications; 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 (7) Morbid obesity with BMI of 45.0-49.9, adult Current visit: Yes Status: Chronic Category: Medical Code(s): E66.01 - Morbid (severe) obesity due to excess calories; Z68.42 - Body mass index (BMI) 45.0-49.9, adult (8) Hypoalbuminemia Current visit: Yes Status: Acute Category: Medical Code(s): E88.09 - Other disorders of plasma-protein metabolism, not elsewhere classified (9) Hypothyroidism Current visit: No Status: Chronic Category: Medical Code(s): E03.9 - Hypothyroidism, unspecified (10) Esophageal varices Current visit: No Status: Chronic Qualifiers: Esophageal varices bleeding: without bleeding Category: Medical Code(s): I85.00 - Esophageal varices without bleeding (11) Hepatic cirrhosis Current visit: No Status: Chronic Category: Medical Code(s): K74.60 - Unspecified cirrhosis of liver (12) Chronic pain Current visit: No Status: Chronic Qualifiers: Chronic pain type: other chronic pain Qualified Code(s): G89.29 - Other chronic pain Category: Medical Code(s): G89.29 - Other chronic pain (13) Decreased pedal pulses Start date: 09/30/19 Current visit: Yes Status: Acute Category: Medical Code(s): R09.89 - Other specified symptoms and signs involving the circulatory and respiratory systems (14) Other specified symptoms and signs involving the circulatory and respiratory systems Start date: 09/30/19 Current visit: Yes Status: Acute Category: Medical Code(s): R09.89 - Other specified symptoms and signs involving the circulatory and respiratory systems (15) Lower extremity edema Start date: 09/30/19 Current visit: Yes Status: Acute Category: Medical Code(s): R60.0 - Localized edema (16) Cutaneous abscess of left ankle Current visit: Yes Status: Acute Category: Medical Code(s): L02.416 - Cutaneous abscess of left lower limb (17) Abscess of bursa of left ankle Current visit: Yes Status: Acute Category: Medical Code(s): M71.072 - Abscess of bursa, left ankle and foot <Nunu Shin - 09/30/19 10:48> - Assessment and plan all Dx Assessment and Plan for all problems:: Physician Attestation I was present during all of the critical components of the office visit. The patient was seen, evaluated and examined by me. I have read the consult note that was documented by the PROFESSIONAL BASS FISHERMAN and agree with the documentation. I reviewed the left ankle x-rays and MRI. PROCEDURE: MR ANKLE LT WO CON CLINICAL INDICATION: evaluate for osteomyelitis left ankle pain and swelling, possible osteomyelitis on plain film. Pain swelling and redness the COMPARISON: XR ANKLE LT MIN 3V from 09/29/2019 TECHNIQUE: Routine multiplanar multi echo sequences are performed without gadolinium enhancement. FINDINGS: There is diffuse subcutaneous edema about the ankle anterior and lateral. There are scattered ill-defined areas of decreased T1 and increased T2 signal within the medial aspect of the ankle suspicious for areas of cellulitis with involvement of the subcutaneous fat. There is disruption of the normal fatty appearance of the tissue. This extends to the medial malleolar region. There is however normal signal intensity of the medial malleolar region with no evidence of bone marrow edema. There is fragmentation at the tip of the medial malleolus however, and this appears to represent a chronic process. There is a small cutaneous fluid collection along the medial aspect of ankle measuring 5 mm and may be due to small cutaneous abscess. A less well- circumscribed fluid collection is noted in the posterior aspect of the ankle in the subcutaneous tissues measuring 7 mm and may represent a forming cutaneous abscess. No deep localized fluid collections are apparent. No obvious ligamentous or tendinous abnormalities are evident. IMPRESSION: 1. Overall, the findings are consistent with cellulitis of the ankle with heterogeneous increased T2 signal with disruption of the homogeneous fat appearance also suggesting underlying deeper infection. This extends medially extending to the region of the medial malleolus but without obvious destruction of the medial malleolus. 2. There are 2 small cutaneous collections in the medial aspect of the ankle 1 anteriorly and 1 posteriorly and may be due to small cutaneous abscesses. No deep abscesses are evident. 3. No evidence of osteomyelitis We discussed conservative versus surgical treatment options. Conservative treatment options include local wound care, oral and IV antibiotics, change in shoe wear, taping/padding, and off-loading. We discussed surgical intervention for incision and drainage of abscess and bone biopsy. Patient understands that there is a chance that the foot may change shape after surgery. Patient also understands that they could have wound healing complications including delayed healing and infection. We discussed that if the wound does not heal, it is possible that they may need a more proximal amputation and could result in further loss of digits, loss of partial foot or loss of leg. We discussed the risks and benefits in great detail. Other surgical risks include: prolonged pain and swelling, further infection requiring oral or IV antibiotics, delay in healing of soft tissue or bone, nerve or blood vessel damage, CRPS/RSD, DVT, anesthesia complications, and even . All questions answered. Consent obtained. Plan for surgery: today, 09/30/19 1. Left ankle incision and drainage 2. Left ankle bone biospy 3. Left ankle debridement 4. Possible left tendo Achilles lengthening <Nunu Shin - 09/30/19 10:31> Plan: Decreased pedal pulses R09.89 Plan Skin Changes: Discussed with the patient the possibility of vascular disease. I explained the difference between macro and micro vascular disease. I explained that macrovascular disease usually involves stenosis or blockage of arteries and requires stenting to open up the vessel to improve circulation. I explained that microvascular disease is much harder to treat because you cannot stent this and it often involves the feet. We discussed how problems with arterial circulation can cause coldness and discoloration to the toes, pain to the digits, delayed healing of wounds, arterial wounds, and gangrene. We discussed h ow problems with venous circulation can cause fluid retention, swelling, pain and delayed healing of venous wounds. Check vascular studies: EBENEZER/toe pressures to evaluate for new skin changes, will do this prior to I&D today. Lower extremity edema I discussed what edema/swelling is and some of the causes. I explained that both oral and mechanical management may be necessary to help with the symptoms. I explained the importance of wearing appropriate shoes, avoiding tight shoes, a nd elevation. 1.Patient to have her MRI completed this morning as well as ABIs to complete to be completed after that. 2.Plan to have the patient go down to surgery for incision and drainage of the left ankle, debridement of nonviable soft tissue and bone, bone biopsy. 3.Patient is to remain n.p.o. at this time until after all procedures are completed we will update her diet once procedures completed. 4.Podiatry will follow up with patient once all of her procedures are done later on today. <Nataly Awan - 09/30/19 09:42>
--- NOTE | 2019-09-30 10:01 | Progress Note ---
Internal Medicine - PN: Subj *Date: 09/30/19 *Time: 09:53 Interval history: Ms. Amin had no issues overnight. Potassium has come down nicely with holding spironolactone. Denies chest pain, nausea, vomiting, shortness of breath. Still having pain in her left ankle. Bandage is wet this morning with drainage patient getting ready to go to MRI for image this morning. Otherwise patient doing well. Podiatry consulted, appreciate their recommendations and assistance. Afebrile, hemodynamically stable Exam Vital signs and Labs for Last 24 Hours: Temp Pulse Resp BP Pulse Ox 98.1 F 94 H 20 118/64 100 09/30/19 08:00 09/30/19 08:00 09/30/19 08:00 09/30/19 08:00 09/30/19 08:00 Laboratory Results - last 24 hr 09/29/19 13:29: Sodium 131 L, Potassium 7.1 H*, Chloride 101, Carbon Dioxide 22, Anion Gap 15.1 H, BUN 35 H, Creatinine 1.40 H, Estimated GFR 38 L, Est GFR ( Amer) 45 L, Glucose 514 H*, Calcium 8.6, Total Bilirubin 1.1, AST 42 H, ALT 31, Alkaline Phosphatase 249 H, C-Reactive Protein 40.8 H, Total Protein 7.3, Albumin 3.2 L, Globulin 4.1 H, Albumin/Globulin Ratio 0.8 L 09/29/19 13:29: WBC 4.0 L, RBC 3.60 L, Hgb 10.4 L, Hct 31.4 L, MCV 87.1, MCH 29.0, MCHC 33.2, RDW 15.9, Plt Count 101 L, MPV 9.5, Neut % (Auto) 78.3, Lymph % (Auto) 14.0, [place] % (Auto) 5.3, Eos % (Auto) 2.1, Baso % (Auto) 0.3, Neut # (Auto) 3.2, Lymph # (Auto) 0.6 L, [place] # (Auto) 0.2, Eos # (Auto) 0.1, Baso # (Auto) 0.0, ESR > 140 H 09/29/19 17:15: Lactate 1.8 09/29/19 17:32: POC Glucose 476 H* 09/29/19 21:35: POC Glucose 220 H 09/29/19 22:32: Sodium 136, Potassium 5.2 H D, Chloride 105, Carbon Dioxide 24, Anion Gap 12.2, BUN 34 H, Creatinine 1.40 H, Estimated Creat Clear 32, Estimated GFR 38 L, Est GFR ( Amer) 45 L, Glucose 198 H D, Calcium 8.8 09/30/19 05:08: POC Glucose 118 H 09/30/19 06:10: WBC 4.1 L, RBC 3.32 L, Hgb 9.4 L, Hct 29.0 L, MCV 87.5, MCH 28.3, MCHC 32.3, RDW 16.1, Plt Count 99 L, MPV 8.5, Neut % (Auto) 72.2, Lymph % (Auto) 18.9, [place] % (Auto) 5.3, Eos % (Auto) 3.3, Baso % (Auto) 0.3, Neut # (Auto) 3.0, Lymph # (Auto) 0.8, [place] # (Auto) 0.2, Eos # (Auto) 0.1, Baso # (Auto) 0.0, ESR > 140 H 09/30/19 06:10: Sodium 136, Potassium 5.5 H, Chloride 107, Carbon Dioxide 22, Anion Gap 12.5, BUN 32 H, Creatinine 1.30 H, Estimated Creat Clear 33, Estimated GFR 41 L, Est GFR ( Amer) 49 L, Glucose 117 H D, Calcium 8.7, C-Reactive Protein 48.2 H I & O for Last 24 hours: Intake & Output 09/27/19 09/28/19 09/29/19 09/30/19 23:59 23:59 23:59 23:59 Intake Total 340 / 340 1087 / 1087 Output Total 600 / 600 Balance 340 / -260 487 / 487 Weight 117.651 kg 114.107 kg Microbiology Reports for the Last 24 Hours: Microbiology 09/29/19 Unknown Ankle,Left Gram Stain - Final 09/29/19 Unknown Ankle,Left Wound Culture - Preliminary Gram Positive Cocci Narrative: - Constitutional no acute distress, morbidly obese, chronically ill appearing - *Routine HEENT Exam Head: Present: normocephalic, atraumatic Eye: Present: scleral injection (RIGHT eye) ENT: Present: mucous membranes moist - *Routine Neck Exam Present: supple - *Routine Respiratory Exam Present: CTA bilaterally - *Routine Cardiovascular Exam Present: RRR - *Routine Abdominal Exam Present: soft, normoactive bowel sounds. Absent: tenderness - *Routine Extremities Exam Present: edema, pulses intact, tenderness (LEFT ankle), joint swelling (LEFT ankle), amputation (right great toe) - *Routine Skin Exam Present: erythema (LEFT ankle, diffuse, medial aspect), wounds (LEFT ankle, medial aspect, multiple erythema papules at periphery and large fluctuant pustules over the malleolus) - *Routine Neurological Exam Present: alert, oriented X3, moving all extremities Assessment and Plan (1) Cellulitis of left ankle Current visit: Yes Status: Acute Category: Medical Code(s): L03.116 - Cellulitis of left lower limb (2) Wound of left ankle Current visit: Yes Status: Acute Category: Medical Code(s): S91.002A - Unspecified open wound, left ankle, initial encounter (3) Hyperkalemia Current visit: Yes Status: Acute Category: Medical Code(s): E87.5 - Hyperkalemia (4) MELVINA (acute kidney injury) Current visit: Yes Status: Acute Category: Medical Code(s): N17.9 - Acute kidney failure, unspecified (5) Hyponatremia Current visit: Yes Status: Chronic Category: Medical Code(s): E87.1 - Hypo-osmolality and hyponatremia (6) Type 2 diabetes mellitus, with long-term current use of insulin Current visit: Yes Status: Chronic Qualifiers: Diabetes mellitus complication status: with hyperglycemia Qualified Code(s): E11.65 - Type 2 diabetes mellitus with hyperglycemia; Z79.4 - medical terminologist (current) use of insulin Category: Medical Code(s): E11.9 - Type 2 diabetes mellitus without complications; Z79.4 - FDC (current) use of insulin (7) Morbid obesity with BMI of 45.0-49.9, adult Current visit: Yes Status: Chronic Category: Medical Code(s): E66.01 - Morbid (severe) obesity due to excess calories; Z68.42 - Body mass index (BMI) 45.0-49.9, adult (8) Hypoalbuminemia Current visit: Yes Status: Acute Category: Medical Code(s): E88.09 - Other disorders of plasma-protein metabolism, not elsewhere classified (9) Hypothyroidism Current visit: No Status: Chronic Category: Medical Code(s): E03.9 - Hypothyroidism, unspecified (10) Esophageal varices Current visit: No Status: Chronic Qualifiers: Esophageal varices bleeding: without bleeding Category: Medical Code(s): I85.00 - Esophageal varices without bleeding (11) Hepatic cirrhosis Current visit: No Status: Chronic Category: Medical Code(s): K74.60 - Unspecified cirrhosis of liver (12) Chronic pain Current visit: No Status: Chronic Qualifiers: Chronic pain type: other chronic pain Qualified Code(s): G89.29 - Other chronic pain Category: Medical Code(s): G89.29 - Other chronic pain (13) Decreased pedal pulses Start date: 09/30/19 Current visit: Yes Status: Acute Category: Medical Code(s): R09.89 - Other specified symptoms and signs involving the circulatory and respiratory systems (14) Other specified symptoms and signs involving the circulatory and respiratory systems Start date: 09/30/19 Current visit: Yes Status: Acute Category: Medical Code(s): R09.89 - Other specified symptoms and signs involving the circulatory and respiratory systems (15) Lower extremity edema Start date: 09/30/19 Current visit: Yes Status: Acute Category: Medical Code(s): R60.0 - Localized edema - Assessment and plan all Dx Assessment and Plan for all problems:: 69-year-old female with appearance of osteomyelitis in her left ankle. Going for MRI today. Further management pending podiatry recommendations. No change antibiotics, diabetes regimen, blood pressure regimen. We will continue to hold spironolactone as her potassium is improving. Increased pain control with as needed morphine ordered this morning. Continues to require inpatient management for suspected osteomyelitis. Plan for debridement today and further recommendations pending on findings with debridement and MRI
--- NOTE | 2019-09-30 13:04 | Operative Note ---
Date of procedure: 09/30/19 Pre-op Diagnosis:: 1. Left ankle abscess 2. Left ankle cellulitis 3. Left ankle osteomyelitis 4. Left medial ankle ulcer Post-op Diagnosis:: Same Procedure performed:: 1. Left ankle incision and drainage 2. Left ankle medial ulcer debridement 3. Left bone biospy x 3 4. Left application of antibiotic beads Surgeon:: Nunu Shin DPM HEALTHCARE LIAISON:: Abdullahi [employer] Anesthesia: local (20cc 0.5% marcaine plain), LMA Estimated blood loss (mL): 20 Clinical Note:: 69 yr old female with complicated past medical history presented to clinic acc ompanied by her today with complaint of LEFT ankle pain, swelling, erythema, drainage. Evidently symptoms began around 2 weeks ago after she hit her ankle on her motorized wheelchair. Was seen in clinic around that time, labs were obtained and labs along with exam were felt to be consistent with acute gout. She was started on indomethacin and later prescribed allopurinol. She has been taking the indomethacin which helps a little with her pain but has not started allopurinol. Pain, swelling, drainage have increased steadily and they came in today for re- evaluation. She was noted to have significant swelling around the LEFT ankle worse at the medial aspect and had multiple pustules that were draining serous to purulent drainage. Wound drainage was obtained for culture and she was sent for imaging and lab evaluation which were both markedly abnormal, concerning for osteomyelitis and she was admitted for management. Operative findings:: The left ankle had significant edema and erythema with purulent drainage. Drainage noted from several pustules on the medial, medial posterior and anterior medial ankle. The pustules tracked medially up to the tendon as well as around the bursa and deep fascia overlying the Achilles tendon. There was a left medial posterior ulcer measuring approximately 0.7 x 0.8 x 0.3cm. The wound base was 100% fibrotic slough with purulent drainage. This was sharply excisionally debrided with a 15 blade and pickups. The anterior and medial ankle bone was soft. The lateral fibula and anterior tibial bone felt hard. Operative note:: On this date and time patient was deemed an appropriate surgical candidate. With informed consent signed, the patient was taken to the operating theater. The patient was positioned supine. LMA anesthesia was induced. No tourniquet used. The left lower extremity was prepped and draped in normal sterile fashion. Left bone biospy x 3: Attention was directed away from the pustules and purulence. Under intraoperative fluoroscopy the anterior tibia, distal tibia and lateral fibula were marked out. A 15 blade stab incision was made. Dissection was carried down to the level of the bone. Utilizing a Jamshidi needle bone cultures times those 3 places was taken. Bone biopsy for pathology taken from it distal tibia and lateral fibula. Wound was flushed with saline. 2-0 Prolene was used to reapproximate the biopsy sites. Left ankle incision and drainage: Attention was directed to the anterior medial ankle where several pustules were noted. Utilizing a 15 blade a stab incisions were made in each of the pustules. A curvilinear incision was made over the medial malleolus full-thickness. Immediately purulent thick creamy white-yellowish drainage was expressed. Approximately 15 cc of purulence expressed. Utilizing hemostat blunt dissection carried down subcutaneous tissue. There was a tracking noted going laterally over the anterior ankle. There was also a tract noted extending to the deep fascia extending along the medial ankle as well as into the deep fascia overlying the Achilles tendon. Left ankle medial wound ulcer debridement: Attention was directed to the medial posterior ankle where a small ulcer measuring 0.7 x 0.8 x 0.3 cm was noted. Utilizing a 15 blade and forceps the ulcer was sharply debrided. The ulcer was excised to 100% granular wound base. 3 L of bacitracin irrigation was used to flush the wound and pulse lavage. The wound was re-explored and no further signs of infection noted. 2-0 Prolene was then used to reapproximate the wound edges and close the ulcer after wound was flushed. 2-0 Prolene used to reapproximate the edges of the medial incision site. A 7 flat KATIE drain was inserted into the medial incision and 2 small areas were left open for any drainage. Application of antibiotic beads: Vancomycin powder was mixed with OsteoSet beads. The beads were inserted into the incision site and pustule areas. Bleeding controlled. No tourniquet utilized. 2-0 Prolene was used to close skin in an interrupted simple suture fashion. The wounds were cleansed. 20cc 0.5% marcaine plain was injected at the end of the case. Betadine soaked xeroform, 4x4's and dry sterile dressing was then applied to the left foot. The patient was awoken from anesthesia and transferred to recovery with vital signs stable and neurovascular status intact. Materials: 2-0 Prolene 7 flat KATIE drain [facility] osteoset beads with Vanco powder 1g Discharge/Plan: Transfer back to floor. Patient is to maintain dressing clean dry and intact. Continue IV antibiotics. Recommend IV Abx via PICC until bone cultures and bone biospy/pathology finalizes next week. Non weight bearing to the left lower extremity with DME assistance (walker, wheelchair), will need short fracture boot. Obtain post op films, left foot and tib/fib, 2 views. Plan for dressing change tomorrow. Tourniquet time (min): 0 Condition: stable Disposition: floor Specimens:: 1. Left deep ankle wound culture 2. Left anterior tibia bone culture 3. Left distal ankle bone culture and bone pathology 4. Left lateral fibula bone culture and bone pathology Complications:: None
--- NOTE | 2019-09-30 13:07 | Progress Note ---
[facility] Anesthesia Record Part I Intake, IV Amount: 300 Estimated blood loss (mL): 30 Urine output (mL): 0 (NM) Blood Products used (#): none Blood Pressure: 155/87 SaO2: 96 Pulse Rate: 96 Respiratory Rate: 16 Temperature: 98.0 F Patient is:: Awake, Drowsy, Stable Stable to PACU at:: 13:00
[2019-10-01 06:41] LABS: Basophils % 0.3 % (0.1-2.0); Eosinophils # 0.1 K/mm3 (0.0-0.4); Eosinophils % 2.7 % (0.1-12.0); Hemoglobin 9.2 g/dL (12.2-16.2); Lymphocytes # 0.8 K/mm3 (0.7-4.5); Lymphocytes % 18.7 % (10-50); Mean Corpuscular HGB Conc 32.7 g/dL (31.8-35.4); Mean Corpuscular Volume 87.1 fl (81-99); Mean Platelet Volume 8.6 fl (7.4-10.4); Monocytes # 0.2 K/mm3 (0.1-1.0); Monocytes % 5.5 % (1.7-9.3); Neutrophils % 72.8 % (37.0-80.0); Platelet Count 86 K/mm3 (142-424); Red Blood Count 3.22 M/mm3 (4.20-5.40); Red Cell Distribution Width 16.3 % (11.5-17.5); White Blood Count 4.1 K/mm3 (4.8-10.8)
[2019-10-01 06:51] LABS: Anion Gap 14.2 mEq/L (5-15); Calcium 8.2 mg/dl (8.4-10.2)
--- NOTE | 2019-10-01 07:44 | Progress Note ---
Internal Medicine - PN: Subj *Date: 10/01/19 *Time: 12:26 Interval history: Patient remained hemodynamically stable overnight, no fever however having pain in surgical site. Wound being addressed by podiatry this morning on exam. Patient complaining of pain but denies shortness of breath, nausea, chest pain, vomiting, diarrhea. Podiatry concerned given appearance of foot that she needs to be taken back to the OR for repeat debridement and drainage. Appreciate their assistance with this patient Exam Vital signs and Labs for Last 24 Hours: Temp Pulse Resp BP Pulse Ox 97.6 F 96 H 18 135/58 L 99 10/01/19 04:00 10/01/19 04:00 10/01/19 04:00 10/01/19 04:00 10/01/19 04:00 Laboratory Results - last 24 hr 09/30/19 06:10: ESR > 140 H 09/30/19 10:35: POC Glucose 209 H 09/30/19 13:05: POC Glucose 263 H 09/30/19 14:10: POC Glucose 254 H 09/30/19 16:29: POC Glucose 283 H 09/30/19 20:50: POC Glucose 233 H 10/01/19 05:01: POC Glucose 229 H 10/01/19 06:03: WBC 4.1 L, RBC 3.22 L, Hgb 9.2 L, Hct 28.0 L, MCV 87.1, MCH 28.5, MCHC 32.7, RDW 16.3, Plt Count 86 L, MPV 8.6, Neut % (Auto) 72.8, Lymph % (Auto) 18.7, [place] % (Auto) 5.5, Eos % (Auto) 2.7, Baso % (Auto) 0.3, Neut # (Auto) 3.0, Lymph # (Auto) 0.8, [place] # (Auto) 0.2, Eos # (Auto) 0.1, Baso # (Auto) 0.0 10/01/19 06:03: Sodium 135 L, Potassium 5.2 H, Chloride 108 H, Carbon Dioxide 18 L, Anion Gap 14.2, BUN 25 H, Creatinine 1.30 H, Estimated Creat Clear 33, Estimated GFR 41 L, Est GFR ( Amer) 49 L, Glucose 219 H D, Calcium 8.2 L, C-Reactive Protein 67.0 H D 10/01/19 06:03: ESR > 140 H I & O for Last 24 hours: Intake & Output 09/28/19 09/29/19 09/30/19 10/01/19 23:59 23:59 23:59 23:59 Intake Total 340 / 340 1627 / 1867 2108 / 2108 Output Total 700 / 700 525 / 525 Balance 340 / -260 927 / 1167 1583 / 1583 Weight 117.651 kg 114.107 kg 118.643 kg Microbiology Reports for the Last 24 Hours: Microbiology 09/29/19 Unknown Ankle,Left Gram Stain - Final 09/29/19 Unknown Ankle,Left Wound Culture - Final Staphylococcus aureus 09/30/19 11:49 Ankle,Left Gram Stain - Final Narrative: - Constitutional Moderate distress, appears in pain, morbidly obese, chronically ill appearing - *Routine HEENT Exam Head: Present: normocephalic, atraumatic Eye: Present: scleral injection (RIGHT eye) ENT: Present: mucous membranes moist - *Routine Neck Exam Present: supple - *Routine Respiratory Exam Present: CTA bilaterally - *Routine Cardiovascular Exam Present: RRR - *Routine Abdominal Exam Present: soft, normoactive bowel sounds. Absent: tenderness - *Routine Extremities Exam Present: KATIE drain in left medial ankle, multiple sutures in incision sites across dorsum of ankle, 4 inch incision on medial aspect of ankle superficial to medial malleolus with dusky/ecchymotic appearance of wound edge. Exquisitely tender to palpation. Neurovascularly intact in left foot distal to surgical incision - *Routine Skin Exam Present: erythema (LEFT ankle, diffuse, medial aspect), wounds (LEFT ankle, medial aspect, multiple incisions with sutures), no tracking of erythema up lower leg - *Routine Neurological Exam Present: alert, oriented X3, moving all extremities Assessment and Plan (1) Cellulitis of left ankle Current visit: Yes Status: Acute Category: Medical Code(s): L03.116 - Cellulitis of left lower limb (2) Wound of left ankle Current visit: Yes Status: Acute Category: Medical Code(s): S91.002A - Unspecified open wound, left ankle, initial encounter (3) Hyperkalemia Current visit: Yes Status: Acute Category: Medical Code(s): E87.5 - Hyperkalemia (4) MELVINA (acute kidney injury) Current visit: Yes Status: Acute Category: Medical Code(s): N17.9 - Acute kidney failure, unspecified (5) Hyponatremia Current visit: Yes Status: Chronic Category: Medical Code(s): E87.1 - Hypo-osmolality and hyponatremia (6) Type 2 diabetes mellitus, with long-term current use of insulin Current visit: Yes Status: Chronic Qualifiers: Diabetes mellitus complication status: with hyperglycemia Qualified Code(s): E11.65 - Type 2 diabetes mellitus with hyperglycemia; Z79.4 - nursing home (current) use of insulin Category: Medical Code(s): E11.9 - Type 2 diabetes mellitus without complications; 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 (7) Morbid obesity with BMI of 45.0-49.9, adult Current visit: Yes Status: Chronic Category: Medical Code(s): E66.01 - Morbid (severe) obesity due to excess calories; Z68.42 - Body mass index (BMI) 45.0-49.9, adult (8) Hypoalbuminemia Current visit: Yes Status: Acute Category: Medical Code(s): E88.09 - Other disorders of plasma-protein metabolism, not elsewhere classified (9) Hypothyroidism Current visit: No Status: Chronic Category: Medical Code(s): E03.9 - Hypothyroidism, unspecified (10) Esophageal varices Current visit: No Status: Chronic Qualifiers: Esophageal varices bleeding: without bleeding Category: Medical Code(s): I85.00 - Esophageal varices without bleeding (11) Hepatic cirrhosis Current visit: No Status: Chronic Category: Medical Code(s): K74.60 - Unspecified cirrhosis of liver (12) Chronic pain Current visit: No Status: Chronic Qualifiers: Chronic pain type: other chronic pain Qualified Code(s): G89.29 - Other chronic pain Category: Medical Code(s): G89.29 - Other chronic pain (13) Decreased pedal pulses Start date: 09/30/19 Current visit: Yes Status: Acute Category: Medical Code(s): R09.89 - Other specified symptoms and signs involving the circulatory and respiratory systems (14) Other specified symptoms and signs involving the circulatory and respiratory systems Start date: 09/30/19 Current visit: Yes Status: Acute Category: Medical Code(s): R09.89 - Other specified symptoms and signs involving the circulatory and respiratory systems (15) Lower extremity edema Start date: 09/30/19 Current visit: Yes Status: Acute Category: Medical Code(s): R60.0 - Localized edema (16) Cutaneous abscess of left ankle Current visit: Yes Status: Acute Category: Medical Code(s): L02.416 - Cutaneous abscess of left lower limb (17) Abscess of bursa of left ankle Current visit: Yes Status: Acute Category: Medical Code(s): M71.072 - Abscess of bursa, left ankle and foot - Assessment and plan all Dx Assessment and Plan for all problems:: 69-year-old with osteomyelitis of left ankle and numerous complicating comorbidities. Repeat I&D today in the OR per podiatry. Further management pending results. Continue broad-spectrum antibiotics while cultures finalize. Will de-escalate when appropriate. Will likely need PEG placement and prolonged antibiotic therapy of up to 6 weeks. Will refer for placement in skilled care after patient stable and discharge plan in place. Continue current management of blood pressure, diabetes, pain. Patient's condition guarded, prognosis poor. Appreciate podiatry's help with left ankle, surgical management and recommendations per their documentation
--- NOTE | 2019-10-01 08:54 | Progress Note ---
[facility] Anesthesia Record Part II Discharge Time: 14:10 Destination: Medical Surgical Department PACU nurse assessment reviewed?: Yes Patient Condition:: Fair Anesthesia Complications:: None Swallowing reflex intact?: Yes Cyanosis?: No Blood Pressure: 141/68 Pulse Rate: 105 Temperature: 98.4 F Mental Status: Alert & Oriented Pain level:: 0 Nausea and/or vomitting:: None Intake, IV Amount: 0 Comments:: RR 19, O2sat 95% on RA, BS 263 medication ordered
--- NOTE | 2019-10-01 09:08 | Progress Note ---
Subjective Date: 10/01/19 Time: 08:30 Principal diagnosis: Left foot cellulitis, abscess Interval history: Patient is resting in bed complaining of pain to the left foot. She underwent a left foot incision and drainage of abscess, ulcer debridement and bone biopsy yesterday 09/30/2019. Patient is unable to tolerate the dressing change even with morphine and Dilaudid given. Postop x-rays show subcutaneous changes on the foot x-ray. Could be postsurgical or another pocket of purulence. PN: Obj Ex Vital signs: Temp Pulse Resp BP Pulse Ox 98.4 F 105 H 18 141/68 H 99 10/01/19 08:54 10/01/19 08:54 10/01/19 04:00 10/01/19 08:54 10/01/19 04:00 - Constitutional no acute distress - Routine HEENT Exam Head: Present: normocephalic - Routine Respiratory Exam Present: accessory muscle use - Routine Abdominal Exam Present: soft - Routine Extremities Exam Present: cyanosis, amputation (Right hallux) - Detailed Lower Extremity Exam Foot/Toes: Left erythema (L ankle), Left swelling, Left tenderness (L foot, ankle), Left wound Top foot image: 1 - Left foot edema and erythema. Pain to dorsal midfoot. Pain to incision site of I&D. Drainage noted. KATIE drain intact. Sutures intact to bone biospy sites. Skin sloughing with necrotic gangrenous changes noted. - Routine Skin Exam Present: erythema, warm, wounds, gangrene, ecchymosis - Routine Neurological Exam Present: alert, moving all extremities - Routine Psychiatric Exam Present: anxious Progress Note: A&P (1) Cellulitis of left ankle Status: Acute Current Visit: Yes (2) Wound of left ankle Status: Acute Current Visit: Yes (3) Hyperkalemia Status: Acute Current Visit: Yes (4) MELVINA (acute kidney injury) Status: Acute Current Visit: Yes (5) Hyponatremia Status: Chronic Current Visit: Yes (6) Type 2 diabetes mellitus, with long-term current use of insulin Status: Chronic Current Visit: Yes (7) Morbid obesity with BMI of 45.0-49.9, adult Status: Chronic Current Visit: Yes (8) Hypoalbuminemia Status: Acute Current Visit: Yes (9) Hypothyroidism Status: Chronic Current Visit: No (10) Esophageal varices Status: Chronic Current Visit: No (11) Hepatic cirrhosis Status: Chronic Current Visit: No (12) Chronic pain Status: Chronic Current Visit: No (13) Decreased pedal pulses Status: Acute Current Visit: Yes (14) Other specified symptoms and signs involving the circulatory and respiratory systems Status: Acute Current Visit: Yes (15) Lower extremity edema Status: Acute Current Visit: Yes (16) Cutaneous abscess of left ankle Status: Acute Current Visit: Yes (17) Abscess of bursa of left ankle Status: Acute Current Visit: Yes Assessment and Plan for All Diagnoses:: S/p left ankle incision and drainage, debridement of ankle and application of antibiotic beads Sx: 09/30/19, POD #1 X-rays 3 views left foot and tib-fib from 09/30/2019 evaluated by myself. Report noted. FINDINGS: Status post debridement of the medial aspect of the left ankle. There is some soft tissue gas noted anteriorly. Antibiotic beads are present medially at the ankle and hindfoot area with a postsurgical drain also noted in place medially. No acute fracture or dislocation. There are mild degenerative changes of the 1st MTP joint. Other findings: None. IMPRESSION: Postsurgical changes as described above. Patient was seen and evaluated this morning by myself and Dr. Joaquin at bedside. Dressing was removed and there were new gangrenous necrotic changes noted around the incision site. We discussed small vessel disease and her vascular studies. ABIs normal. TBI on the left 0.48. Vascular studies, 10/01/19: Findings: RT EBENEZER:0.97 LT EBENEZER:1.00 RT TBI:0.86 LT TBI:0.48 NORMAL PULSES BILATERAL MARKELL. NORMAL WAVEFORMS MARKELL. DIFFERNCE IN BRACIAL PRESSURES POSSIBLY R/T PT IS IN EXCRUCIATING PAIN AT TIMES. DIFFERNCE IN BRACIAL PRESSURES POSSIBLY related to stenosis of right bracheocephalic or subclavian artery. We discussed conservative versus surgical treatment options. Conservative treatment options include local wound care, oral and IV antibiotics, change in shoe wear, taping/padding, and possible wound vac. We discussed surgical intervention for repeat wash out. Patient also understands that they could have wound healing complications including delayed healing and infection. We discussed that if the wound does not heal, it is possible that they may need a more proximal amputation and could result in further loss of digits, loss of partial foot or loss of leg. We discussed the risks and benefits in great detail. Other surgical risks include: prolonged pain and swelling, further infection requiring oral or IV antibiotics, delay in healing of soft tissue or bone, nerve or blood vessel damage, CRPS/RSD, DVT, anesthesia complications, and even . Concern over possible gangrenous changes, small vessel disease, DM and other co-morbidities that will delay wound healing. Dr. Joaquin gave medical clearance. Plan for surgery: today, 10/01/19: 1. Left ankle, foot incision and drainage 2. Left "wash out"
--- NOTE | 2019-10-01 09:37 | Operative Note ---
Date of procedure: 10/01/19 Pre-op Diagnosis:: 1. Left foot gas gangrene 2. Left ankle abscess 3. Left foot/ankle cellulitis 4. S/p left ankle I&D, debridement of wound, application of antibiotic beads on 10/01/19 Post-op Diagnosis:: Same Procedure performed:: 1. Left foot incision and drainage 2. Left ankle irrigation and debridement 3. Left ankle debridement of non-viable soft tissue 4. Left bone biospy Surgeon:: Nunu Shin DPM [employer] DRIVER:: Rodrick Bolton Anesthesia: GETA Estimated blood loss (mL): 20 Clinical Note:: S/p left ankle incision and drainage, debridement of ankle and application of antibiotic beads Sx: 09/30/19, POD #1 X-rays 3 views left foot and tib-fib from 09/30/2019 evaluated by myself. Report noted. FINDINGS: Status post debridement of the medial aspect of the left ankle. There is some soft tissue gas noted anteriorly. Antibiotic beads are present medially at the ankle and hindfoot area with a postsurgical drain also noted in place medially. No acute fracture or dislocation. There are mild degenerative changes of the 1st MTP joint. Other findings: None. IMPRESSION: Postsurgical changes as described above. Patient was seen and evaluated this morning by myself and Dr. Joaquin at bedside. Dressing was removed and there were new gangrenous necrotic changes noted around the incision site. We discussed small vessel disease and her vascular studies. ABIs, pulses,waveforms normal. TBI on the left 0.48. Vascular studies, 10/01/19: Findings: RT EBENEZER:0.97 LT EBENEZER:1.00 RT TBI:0.86 LT TBI:0.48 DIFFERNCE IN BRACIAL PRESSURES POSSIBLY R/T PT IS IN EXCRUCIATING PAIN AT TIMES. DIFFERNCE IN BRACIAL PRESSURES POSSIBLY related to stenosis of right bracheocephalic or subclavian artery. We discussed conservative versus surgical treatment options. Conservative treatment options include local wound care, oral and IV antibiotics, change in shoe wear, taping/padding, and possible wound vac. We discussed surgical intervention for repeat wash out. Patient also understands that they could have wound healing complications including delayed healing and infection. We discussed that if the wound does not heal, it is possible that they may need a more proximal amputation and could result in further loss of digits, loss of partial foot or loss of leg. We discussed the risks and benefits in great detail. Other surgical risks include: prolonged pain and swelling, further infection requiring oral or IV antibiotics, delay in healing of soft tissue or bone, nerve or blood vessel damage, CRPS/RSD, DVT, anesthesia complications, and even . Concern over possible gangrenous changes, small vessel disease, DM and other co-morbidities that will delay wound healing. Dr. Joaquin gave medical clearance. Operative findings:: The medial left ankle was dusky and had new necrotic changes. There was skin sloughing noted. Antibiotic beads were noted. The underlying subcutaneous tissue was dusky with ramirez discoloration. Several chunks of blood clot noted to the medial ankle as well as the dorsal foot. The medial and dorsal foot had 2 different sinus tracts with purulent creamy white milky drainage expressed. Tracking along the extensor tendons down the foot as well as up the ankle. The deep fascia over the Achilles tendon had purulent tracking as well. Medial malleolus was soft and crumbly. Bone taken for evaluation. Suspicious for gas gangrene of the foot and osteomyelitis of the medial ankle. Operative note:: On this date and time patient was deemed an appropriate surgical candidate. With informed consent signed, the patient was taken to the operating theater. The patient was positioned supine. LMA anesthesia was induced. No tourniquet used. The left lower extremity was prepped and draped in normal sterile fashion. Left ankle irrigation and debridement: Attention was directed to the medial ankle were sutures were loosely reapproxi mated to hold the skin together from previous incision and drainage site. KATIE drain previously removed. Sutures were removed. Gangrenous necrotic changes to the medial ankle. The area was sharply debrided with a 15 blade through skin subcutaneous tissue and to the deep fascia. Several small blood clots noted to dorsal and medial incision. Left bone biospy: Dissection was carried down to the level of the bone. The medial malleolus and medial ankle joint was exposed. Utilizing a ronguer, a piece of bone from the medial tibia was taken. Half of it was sent as a bone culture and the other deena f as bone biopsy for pathology. Wound was flushed with saline. Left foot incision and drainage: Attention was directed to the anterior medial ankle and medial dorsal foot where the previous I&D incision was extended distally. A new incision was also made over the dorsal lateral foot. 15 blade, forceps and blunt dissection used to probe the area. There were 2 separate sinus tracts noted 1 going over the dorsum of the midfoot and the other tracking medially toward the second metatarsal phalangeal joint. Utilizing hemostat blunt dissection carried down subcutaneous tissue, into deep fascia and then overlying the bone. There was purulent thick creamy white-yellowish drainage was expressed. A wound culture of the medial foot taken. Approximately 5 cc of purulence expressed. Left ankle medial debridement of non-viable soft tissue: Attention was directed back to the medial ankle where a full-thickness flap was taken of the skin cutaneous tissue and deep ischemic necrotic tissue utilizing a 15 blade and forceps. The area was sharply excisionally debrided. 3 L of bacitracin irrigation was used to flush the wound and pulse lavage. The wound was re-explored and another purulent tract was noted. It was explored and then a 1 L bag of lactated Ringer's was used to flush the site again. It was reexplored and no further signs of infection noted. 2-0 and 00 Prolene was then used to loosely reapproximate the wound edges. There was a soft tissue defect noted to the medial ankle ~6.0 x 4.0 x 2cm, exposed to deep fascia. Bleeding controlled. No tourniquet utilized. The wounds were cleansed. Betadine soaked quarter inch iodoform packing was then inserted into the sinus tracts. Betadine soaked 4x4's and dry sterile dressing was then applied to the left foot. The patient was awoken from anesthesia and transferred to recovery with vital signs stable and neurovascular status intact. Materials: 0-0, 2-0 Prolene Discharge/Plan: Transfer back to floor. Patient is to maintain dressing clean dry and intact. Continue IV antibiotics. Recommend IV Abx via PICC until bone cultures and bone biospy/pathology finalizes next week. Non weight bearing to the left lower extremity with DME assistance (walker, wheelchair), will need short fracture boot. Obtain post op films, left foot 3 views. Plan for dressing change tomorrow, possible application of wound vac. Tourniquet time (min): 0 Condition: stable Disposition: floor Specimens:: 1. Left foot wound culture 2. Left medial tibia bone culture 3. Left medial tibia bone pathologybiopsy Complications:: None
--- NOTE | 2019-10-01 10:59 | Progress Note ---
[facility] Anesthesia Record Part I Intake, IV Amount: 600 Estimated blood loss (mL): 20 Urine output (mL): 0 Blood Pressure: 165/92 SaO2: 100 Pulse Rate: 108 Respiratory Rate: 16 Temperature: 97 F Patient is:: Drowsy, Stable Stable to PACU at:: 10:55
--- NOTE | 2019-10-01 14:11 | Progress Note ---
[facility] Anesthesia Record Part II Discharge Time: 11:37 Destination: Medical Surgical Department PACU nurse assessment reviewed?: Yes Patient Condition:: Good Anesthesia Complications:: None Swallowing reflex intact?: Yes Cyanosis?: No Blood Pressure: 157/70 Pulse Rate: 108 Temperature: 98.7 F Mental Status: Confused and Disoriented (baseline) Pain level:: 5 Nausea and/or vomitting:: None Intake, IV Amount: 0
--- NOTE | 2019-10-01 17:29 | Pharmacy Consult Notes ---
- Pharmacy Consult Date: 10/01/19 Time: 17:28 Referring provider: DR. PRESSLEY Reason for Consult:: VANCOMYCIN TROUGH LEVEL Allergies and ADEs:: Allergies Allergy/AdvReac Type Severity Reaction Status Date / Time diazepam Allergy Intermediate Hives Verified 09/29/19 16:41 sucralfate Allergy Intermediate Swelling Verified 09/29/19 16:41 of Lip/Tongue/Throat tuberculin,PPD,multi-puncture Allergy Intermediate Redness of Verified 09/29/19 16:41 Skin tuberculin, purified protein Allergy Mild Redness of Verified 09/29/19 16:41 deriva Skin [From Tubersol] Home Medications:: Home Medications Medication Instructions Recorded Confirmed Type Budesonide/Formoterol Fumarate 2 puffs IH BID 09/17/17 09/29/19 History [Symbicort 160-4.5 Mcg Inhaler] Insulin Regular, Human [Humulin R] 0 units SQ ACHS 09/17/17 09/29/19 History Albuterol Sulfate [Albuterol HFA 2 puffs IH Q4HP PRN 09/18/17 09/29/19 History Inhaler] Insulin Glargine,Hum.rec.anlog 55 unit SQ HS 09/18/17 09/29/19 History [Lantus Insulin 100units/mL 10mL vial] Levothyroxine Sodium 137 mcg PO DAILY 02/28/19 09/29/19 History [Levothyroxine 137mcg (0.137mg) Tab] Furosemide [Lasix 20mg tablet] 20 mg PO DAILY 03/05/19 09/29/19 History cyclobenzaprine 10 mg tablet 10 mg PO BID tab 04/08/19 09/29/19 History hydrocodone 10 mg-acetaminophen 1 tab PO TID PRN tab 04/08/19 09/29/19 History 325 mg tablet pantoprazole 40 mg tablet,delayed 40 mg PO DAILY 04/08/19 09/29/19 History release Metoprolol Succinate 25 mg PO DAILY 04/12/19 09/30/19 History Fluoxetine HCl 40 mg PO DAILY 09/29/19 09/29/19 History Insulin Glargine,Hum.rec.anlog 25 unit SQ DAILY 09/29/19 09/29/19 History [Lantus Insulin 100units/mL 10mL vial] Metformin HCl [Metformin HCl ER] 500 mg PO DAILY 09/29/19 09/29/19 History Spironolactone 100 mg PO DAILY 09/29/19 09/29/19 History glipiZIDE [Glipizide ER] 10 mg PO BID 09/29/19 09/29/19 History Height: 1.6 m Weight: 119 kg Laboratory Results:: Laboratory Results - last 24 hr 09/30/19 20:50: POC Glucose 233 H 10/01/19 05:01: POC Glucose 229 H 10/01/19 06:03: WBC 4.1 L, RBC 3.22 L, Hgb 9.2 L, Hct 28.0 L, MCV 87.1, MCH 28.5, MCHC 32.7, RDW 16.3, Plt Count 86 L, MPV 8.6, Neut % (Auto) 72.8, Lymph % (Auto) 18.7, [place] % (Auto) 5.5, Eos % (Auto) 2.7, Baso % (Auto) 0.3, Neut # (Auto) 3.0, Lymph # (Auto) 0.8, [place] # (Auto) 0.2, Eos # (Auto) 0.1, Baso # (Auto) 0.0 10/01/19 06:03: Sodium 135 L, Potassium 5.2 H, Chloride 108 H, Carbon Dioxide 18 L, Anion Gap 14.2, BUN 25 H, Creatinine 1.30 H, Estimated Creat Clear 33, Estimated GFR 41 L, Est GFR ( Amer) 49 L, Glucose 219 H D, Calcium 8.2 L, C-Reactive Protein 67.0 H D 10/01/19 06:03: ESR > 140 H 10/01/19 09:16: POC Glucose 200 H 10/01/19 10:59: POC Glucose 227 H 10/01/19 16:37: Vancomycin Trough 12.0 H 10/01/19 16:39: POC Glucose 262 H Medical History: Reports:: Anxiety, Congestive Heart Failure, Chronic Obstructive Pulmonary Disease (COPD), Depression, Diabetes Mellitus Type 2, Heart Murmur, Hyperlipidemia, Hypertension, MRSA, Renal Insufficiency Denies:: Cancer, Diabetes Mellitus Type 1, Internal Pacemaker, Lung Disease, Seizures Assessment and Plan (1) Cellulitis of left ankle Current visit: Yes Status: Acute Category: Medical Code(s): L03.116 - Cellulitis of left lower limb (2) Wound of left ankle Current visit: Yes Status: Acute Category: Medical Code(s): S91.002A - Unspecified open wound, left ankle, initial encounter (3) Hyperkalemia Current visit: Yes Status: Acute Category: Medical Code(s): E87.5 - Hyperkalemia (4) MELVINA (acute kidney injury) Current visit: Yes Status: Acute Category: Medical Code(s): N17.9 - Acute kidney failure, unspecified (5) Hyponatremia Current visit: Yes Status: Chronic Category: Medical Code(s): E87.1 - Hypo-osmolality and hyponatremia (6) Type 2 diabetes mellitus, with long-term current use of insulin Current visit: Yes Status: Chronic Qualifiers: Diabetes mellitus complication status: with hyperglycemia Qualified Code(s): E11.65 - Type 2 diabetes mellitus with hyperglycemia; Z79.4 - salvage determiner (current) use of insulin Category: Medical Code(s): E11.9 - Type 2 diabetes mellitus without complications; Z79.4 - salvage determiner (current) use of insulin (7) Morbid obesity with BMI of 45.0-49.9, adult Current visit: Yes Status: Chronic Category: Medical Code(s): E66.01 - Morbid (severe) obesity due to excess calories; Z68.42 - Body mass index (BMI) 45.0-49.9, adult (8) Hypoalbuminemia Current visit: Yes Status: Acute Category: Medical Code(s): E88.09 - Other disorders of plasma-protein metabolism, not elsewhere classified (9) Hypothyroidism Current visit: No Status: Chronic Category: Medical Code(s): E03.9 - Hypothyroidism, unspecified (10) Esophageal varices Current visit: No Status: Chronic Qualifiers: Esophageal varices bleeding: without bleeding Category: Medical Code(s): I85.00 - Esophageal varices without bleeding (11) Hepatic cirrhosis Current visit: No Status: Chronic Category: Medical Code(s): K74.60 - Unspecified cirrhosis of liver (12) Chronic pain Current visit: No Status: Chronic Qualifiers: Chronic pain type: other chronic pain Qualified Code(s): G89.29 - Other chronic pain Category: Medical Code(s): G89.29 - Other chronic pain (13) Decreased pedal pulses Start date: 09/30/19 Current visit: Yes Status: Acute Category: Medical Code(s): R09.89 - Other specified symptoms and signs involving the circulatory and respiratory systems (14) Other specified symptoms and signs involving the circulatory and respiratory systems Start date: 09/30/19 Current visit: Yes Status: Acute Category: Medical Code(s): R09.89 - Other specified symptoms and signs involving the circulatory and respiratory systems (15) Lower extremity edema Start date: 09/30/19 Current visit: Yes Status: Acute Category: Medical Code(s): R60.0 - Localized edema (16) Cutaneous abscess of left ankle Current visit: Yes Status: Acute Category: Medical Code(s): L02.416 - Cutaneous abscess of left lower limb (17) Abscess of bursa of left ankle Current visit: Yes Status: Acute Category: Medical Code(s): M71.072 - Abscess of bursa, left ankle and foot - Assessment and plan all Dx Assessment and Plan for all problems:: BASED ON PATIENT FACTORS AND VANCOMYCIN TROUGH LEVEL, RECOMMEND CONTINUING VANCOMYCIN 1750 MG IV Q24H. PHARMACY WILL CONTINUE TO MONITOR DAILY AND ADJUST APPROPRIATE.
--- NOTE | 2019-10-01 21:21 | Electrocardiograph Report ---
APPROVED REPORT Exam: Resting ECG HR:92 bpm ECG Measurements Heart Rate 92 AXES ND 148 P 54 QRSd 86 QRS 10 QT 366 T82 QTc 452 <Conclusion> Normal sinus rhythm Normal ECG Electronically signed by : Camden Kirby, 10/01/2019 21:21:02
[2019-10-02 07:41] LABS: Basophils % 0.3 % (0.1-2.0); Eosinophils # 0.2 K/mm3 (0.0-0.4); Eosinophils % 3.5 % (0.1-12.0); Lymphocytes # 0.8 K/mm3 (0.7-4.5); Lymphocytes % 18.6 % (10-50); Mean Corpuscular HGB Conc 31.8 g/dL (31.8-35.4); Mean Corpuscular Volume 87.7 fl (81-99); Mean Platelet Volume 8.7 fl (7.4-10.4); Monocytes # 0.2 K/mm3 (0.1-1.0); Monocytes % 4.5 % (1.7-9.3); Neutrophils # 3.2 K/mm3 (1.8-7.8); Neutrophils % 73.2 % (37.0-80.0); Platelet Count 86 K/mm3 (142-424); Red Cell Distribution Width 16.3 % (11.5-17.5); White Blood Count 4.4 K/mm3 (4.8-10.8)
[2019-10-02 07:49] LABS: Anion Gap 14.7 mEq/L (5-15); Calcium 7.6 mg/dl (8.4-10.2)
[2019-10-02 07:52] LABS: Hematocrit 25.4 % (37.0-47.0)
[2019-10-02 07:54] LABS: C-Reactive Protein 79.9 mg/L (0-4)
--- NOTE | 2019-10-02 08:28 | Progress Note ---
Internal Medicine - PN: Subj *Date: 10/02/19 *Time: 08:26 Interval history: Patient is sleeping. Apparently had somewhat of an emotionally distressing night. Podiatry notes, culture results and labs reviewed Exam Vital signs and Labs for Last 24 Hours: Temp Pulse Resp BP Pulse Ox 98.1 F 108 H 20 167/91 H 98 10/02/19 04:00 10/02/19 04:00 10/02/19 04:00 10/02/19 04:00 10/02/19 07:53 Laboratory Results - last 24 hr 10/01/19 09:16: POC Glucose 200 H 10/01/19 10:59: POC Glucose 227 H 10/01/19 16:37: Vancomycin Trough 12.0 H 10/01/19 16:39: POC Glucose 262 H 10/01/19 21:20: POC Glucose 226 H 10/02/19 05:22: POC Glucose 232 H 10/02/19 06:51: WBC 4.4 L, RBC 3.30 L, Hgb 8.2 L, Hct 25.4 L, MCV 87.7, MCH 27.9, MCHC 31.8, RDW 16.3, Plt Count 86 L, MPV 8.7, Neut % (Auto) 73.2, Lymph % (Auto) 18.6, [place] % (Auto) 4.5, Eos % (Auto) 3.5, Baso % (Auto) 0.3, Neut # (Auto) 3.2, Lymph # (Auto) 0.8, [place] # (Auto) 0.2, Eos # (Auto) 0.2, Baso # (Auto) 0.0 10/02/19 06:51: Sodium 134 L, Potassium 4.7, Chloride 107, Carbon Dioxide 17 L, Anion Gap 14.7, BUN 18 H D, Creatinine 1.00 D, Estimated Creat Clear 43, Estimated GFR 55 L, Est GFR ( Amer) 67 D, Glucose 205 H, Calcium 7.6 L, C-Reactive Protein 79.9 H 10/02/19 06:51: ESR > 140 H I & O for Last 24 hours: Intake & Output 09/29/19 09/30/19 10/01/19 10/02/19 11:59 11:59 11:59 11:59 Intake Total 1427 / 1427 3248 / 3248 4034 / 4034 Output Total 600 / 600 625 / 625 425 / 425 Balance 827 / 827 2623 / 2623 3609 / 3609 Weight 251 lb 9 oz 261 lb 9 oz 275 lb 2 oz Microbiology Reports for the Last 24 Hours: Microbiology 09/30/19 11:49 Bone Gram Stain - Final 09/30/19 11:49 Bone Surgical Biopsy Culture - Preliminary Gram Positive Cocci 09/30/19 11:49 Bone - Abscess Gram Stain - Final 09/30/19 11:49 Bone - Abscess Surgical Biopsy Culture - Preliminary Gram Positive Cocci 09/30/19 11:49 Ankle,Left Gram Stain - Final 09/30/19 11:49 Ankle,Left Surgical Biopsy Culture - Preliminary Gram Positive Cocci 10/01/19 10:10 Leg,Left - Wound Gram Stain - Final 09/30/19 11:49 Ankle,Left Gram Stain - Final 09/30/19 11:49 Ankle,Left Abscess Culture - Final Staphylococcus aureus 09/29/19 17:15 Blood Blood Culture - Preliminary NO GROWTH AFTER 48 HOURS 09/29/19 17:15 Blood Blood Culture - Preliminary NO GROWTH AFTER 48 HOURS 10/01/19 10:10 Foot,Left - Wound Gram Stain - Final 09/29/19 Unknown Ankle,Left Gram Stain - Final 09/29/19 Unknown Ankle,Left Wound Culture - Final Staphylococcus aureus Narrative: Patient is sleeping comfortably. Anterior lung yoder are clear, heart rate regular. Left ankle wrapped in splint. Abdomen soft nontender. Other extremities are warm and well-perfused. Assessment and Plan (1) Cellulitis of left ankle Current visit: Yes Status: Acute Category: Medical Code(s): L03.116 - Cellulitis of left lower limb (2) Wound of left ankle Current visit: Yes Status: Acute Category: Medical Code(s): S91.002A - Unspecified open wound, left ankle, initial encounter (3) Hyperkalemia Current visit: Yes Status: Acute Category: Medical Code(s): E87.5 - Hyperkalemia (4) MELVINA (acute kidney injury) Current visit: Yes Status: Acute Category: Medical Code(s): N17.9 - Acute kidney failure, unspecified (5) Hyponatremia Current visit: Yes Status: Chronic Category: Medical Code(s): E87.1 - Hypo-osmolality and hyponatremia (6) Type 2 diabetes mellitus, with long-term current use of insulin Current visit: Yes Status: Chronic Qualifiers: Diabetes mellitus complication status: with hyperglycemia Qualified Code(s): E11.65 - Type 2 diabetes mellitus with hyperglycemia; Z79.4 - terminal gauger (current) use of insulin Category: Medical Code(s): E11.9 - Type 2 diabetes mellitus without complica tions; Z79.4 - halfway (current) use of insulin (7) Morbid obesity with BMI of 45.0-49.9, adult Current visit: Yes Status: Chronic Category: Medical Code(s): E66.01 - Morbid (severe) obesity due to excess calories; Z68.42 - Body mass index (BMI) 45.0-49.9, adult (8) Hypoalbuminemia Current visit: Yes Status: Acute Category: Medical Code(s): E88.09 - Other disorders of plasma-protein metabolism, not elsewhere classified (9) Hypothyroidism Current visit: No Status: Chronic Category: Medical Code(s): E03.9 - Hypothyroidism, unspecified (10) Esophageal varices Current visit: No Status: Chronic Qualifiers: Esophageal varices bleeding: without bleeding Category: Medical Code(s): I85.00 - Esophageal varices without bleeding (11) Hepatic cirrhosis Current visit: No Status: Chronic Category: Medical Code(s): K74.60 - Unspecified cirrhosis of liver (12) Chronic pain Current visit: No Status: Chronic Qualifiers: Chronic pain type: other chronic pain Qualified Code(s): G89.29 - Other chronic pain Category: Medical Code(s): G89.29 - Other chronic pain (13) Decreased pedal pulses Start date: 09/30/19 Current visit: Yes Status: Acute Category: Medical Code(s): R09.89 - Other specified symptoms and signs involving the circulatory and respiratory systems (14) Other specified symptoms and signs involving the circulatory and respiratory systems Start date: 09/30/19 Current visit: Yes Status: Acute Category: Medical Code(s): R09.89 - Other specified symptoms and signs involving the circulatory and respiratory systems (15) Lower extremity edema Start date: 09/30/19 Current visit: Yes Status: Acute Category: Medical Code(s): R60.0 - Localized edema (16) Cutaneous abscess of left ankle Current visit: Yes Status: Acute Category: Medical Code(s): L02.416 - Cutaneous abscess of left lower limb (17) Abscess of bursa of left ankle Current visit: Yes Status: Acute Category: Medical Code(s): M71.072 - Abscess of bursa, left ankle and foot - Assessment and plan all Dx Assessment and Plan for all problems:: No changes in plan. Continue current IV antibiotic therapy. Await culture results. Patient will most likely need further debridement and evaluation
--- NOTE | 2019-10-02 10:17 | Progress Note ---
Subjective Date: 10/02/19 Time: 09:15 Principal diagnosis: Left foot cellulitis, abscess Interval history: Patient is resting in bed, eating breakfast and complaining of pain to the left foot and ankle. She underwent a left foot incision and drainage of abscess, ulcer debridement and bone biopsy 09/30/2019 and 10/01/19. Patient is screaming and unable to tolerate the dressing change even with morphine and Dilaudid given. Discussed plan of care with Leodan, her . PN: Obj Ex Vital signs: Temp Pulse Resp BP Pulse Ox 98.2 F 100 H 17 154/71 H 97 10/02/19 08:00 10/02/19 08:00 10/02/19 08:00 10/02/19 08:00 10/02/19 08:00 - Constitutional mild distress, morbidly obese - Routine HEENT Exam Head: Present: normocephalic - Routine Neck Exam Present: supple - Routine Respiratory Exam Absent: respiratory distress - Routine Cardiovascular Exam Present: RRR - Routine Abdominal Exam Present: soft - Routine Extremities Exam Present: cyanosis, edema, tenderness, joint swelling, amputation (R hallux amp) - Detailed Lower Extremity Exam Lower leg: Left erythema Ankle image: 1 - Left foot edema and erythema. Pain to dorsal midfoot, not improving. Pain to incision site of I&D. Drainage noted. Sutures removed from bone biospy sites. Tracking distal to MPJs and proximal 4-5cm up Achilles proximal to ankle joint. Skin sloughing with necrotic gangrenous changes noted. - Routine Skin Exam Present: erythema, mottling, scars, wounds, gangrene, ecchymosis - Routine Neurological Exam Present: alert - Routine Psychiatric Exam Present: anxious Progress Note: A&P (1) Cellulitis of left ankle Status: Acute Current Visit: Yes (2) Wound of left ankle Status: Acute Current Visit: Yes (3) Hyperkalemia Status: Acute Current Visit: Yes (4) MELVINA (acute kidney injury) Status: Acute Current Visit: Yes (5) Hyponatremia Status: Chronic Current Visit: Yes (6) Type 2 diabetes mellitus, with long-term current use of insulin Status: Chronic Current Visit: Yes (7) Morbid obesity with BMI of 45.0-49.9, adult Status: Chronic Current Visit: Yes (8) Hypoalbuminemia Status: Acute Current Visit: Yes (9) Hypothyroidism Status: Chronic Current Visit: No (10) Esophageal varices Status: Chronic Current Visit: No (11) Hepatic cirrhosis Status: Chronic Current Visit: No (12) Chronic pain Status: Chronic Current Visit: No (13) Decreased pedal pulses Status: Acute Current Visit: Yes (14) Other specified symptoms and signs involving the circulatory and respiratory systems Status: Acute Current Visit: Yes (15) Lower extremity edema Status: Acute Current Visit: Yes (16) Cutaneous abscess of left ankle Status: Acute Current Visit: Yes (17) Abscess of bursa of left ankle Status: Acute Current Visit: Yes (18) Necrotizing fasciitis of ankle and foot Status: Acute Current Visit: Yes (19) Necrotizing fasciitis of lower leg Status: Acute Current Visit: Yes Assessment and Plan for All Diagnoses:: S/p left ankle incision and drainage, debridement of ankle and bone biospy Sx: 09/30/19, POD #2 Sx: 10/01/19, POD #1 Patient was seen and evaluated this morning by myself at bedside. Dressing was removed and there were new worsening skin sloughing, gangrenous necrotic changes noted around the incision site. The skin is blistering and sloughing with obvious fascial plan separation. Small thrombosis of foot vessels noted. Significant pain to palpation. Utilizing a 15' blade, forceps the medial ankle was debrided, but patient unable to tolerate. Several retention sutures removed. Betadine and sterile saline "tea solution" used to flush the open areas. Several sinus tracks noted, extending to the MPJs and proximal up the Achilles tendon at least 4-5 cm from ankle joint. I called the , Leodan and discussed plan of care with him and the patient. We discussed conservative versus surgical treatment options. Conservative treatment options include local wound care, oral and IV antibiotics. But because of how fast the infection is spreading, I do not recommend conservative care. I recommend more aggressive debridement and possib le BKA. We discussed surgical intervention for repeat wash out, debridement of non- viable soft tissue and bone, possible guillotine BKA. Patient also understands that they could have wound healing complications including delayed healing and infection. We discussed that if the wound does not heal, it is possible that they may need a more proximal amputation and could result loss of partial foot or loss of leg. We discussed the risks and benefits in great detail. Other surgical risks include: prolonged pain and swelling, further infection requiring oral or IV antibiotics, delay in healing of soft tissue or bone, nerve or blood vessel damage, CRPS/RSD, DVT, anesthesia complications, and even . Concern over necrotizing fasciitis, gangrenous changes, small vessel disease, DM and other co-morbidities that will delay wound healing. Dr. Kirby given update, she has medical clearance. Consulted Dr. Pardo, she will scrub the case and do proximal debridement vs. amputation as needed. Plan for surgery: 10/03/19: 1. Left ankle, foot incision and drainage 2. Left lower extremity debridement of non-viable soft tissue and bone 3. Left possible guillotine amputation
--- NOTE | 2019-10-03 08:03 | Progress Note ---
Internal Medicine - PN: Subj *Date: 10/03/19 *Time: 08:02 Interval history: Overnight patient did well. She is much more alert, pleasant. Talkative, oriented x3. Is very understanding of the possible amputation this morning. Exam Vital signs and Labs for Last 24 Hours: Temp Pulse Resp BP Pulse Ox 98.4 F 85 20 105/51 L 95 10/03/19 04:00 10/03/19 04:00 10/03/19 04:00 10/03/19 04:00 10/03/19 04:00 Laboratory Results - last 24 hr 10/02/19 06:51: ESR > 140 H 10/02/19 11:25: POC Glucose 284 H 10/02/19 16:19: POC Glucose 337 H* 10/02/19 20:33: POC Glucose 280 H I & O for Last 24 hours: Intake & Output 09/30/19 10/01/19 10/02/19 10/03/19 11:59 11:59 11:59 11:59 Intake Total 1427 / 1427 3248 / 3248 4514 / 4514 1591 / 1591 Output Total 600 / 600 625 / 625 425 / 425 1300 / 1300 Balance 827 / 827 2623 / 2623 4089 / 4089 291 / 291 Weight 251 lb 9 oz 261 lb 9 oz 275 lb 2 oz 103 lb 7 oz Microbiology Reports for the Last 24 Hours: Microbiology 10/01/19 10:10 Foot,Left - Wound Gram Stain - Final 10/01/19 10:10 Foot,Left - Wound Wound Culture - Preliminary Gram Positive Cocci 10/01/19 10:10 Leg,Left - Wound Gram Stain - Final 10/01/19 10:10 Leg,Left - Wound Surgical Biopsy Culture - Preliminary Gram Positive Cocci 09/30/19 11:49 Bone Gram Stain - Final 09/30/19 11:49 Bone Surgical Biopsy Culture - Final Staphylococcus aureus 09/30/19 11:49 Bone - Abscess Gram Stain - Final 09/30/19 11:49 Bone - Abscess Surgical Biopsy Culture - Final Staphylococcus aureus 09/30/19 11:49 Ankle,Left Gram Stain - Final 09/30/19 11:49 Ankle,Left Surgical Biopsy Culture - Final Staphylococcus aureus 09/30/19 11:49 Ankle,Left Gram Stain - Final 09/30/19 11:49 Ankle,Left Abscess Culture - Final Staphylococcus aureus Narrative: Left ankle as previously described on the wound from podiatry/orthopedics. Patient is alert. No scleral icterus. No jaundice. Oropharynx clear. Lungs in the anterior yoder are clear. Abdomen soft. Heart rate regular. Neurologic exam nonfocal. Assessment and Plan (1) Cellulitis of left ankle Current visit: Yes Status: Acute Category: Medical Code(s): L03.116 - Cellulitis of left lower limb (2) Wound of left ankle Current visit: Yes Status: Acute Category: Medical Code(s): S91.002A - Unspecified open wound, left ankle, initial encounter (3) Hyperkalemia Current visit: Yes Status: Acute Category: Medical Code(s): E87.5 - Hyperkalemia (4) MELVINA (acute kidney injury) Current visit: Yes Status: Acute Category: Medical Code(s): N17.9 - Acute kidney failure, unspecified (5) Hyponatremia Current visit: Yes Status: Chronic Category: Medical Code(s): E87.1 - Hypo-osmolality and hyponatremia (6) Type 2 diabetes mellitus, with long-term current use of insulin Current visit: Yes Status: Chronic Qualifiers: Diabetes mellitus complication status: with hyperglycemia Qualified Code(s): E11.65 - Type 2 diabetes mellitus with hyperglycemia; Z79.4 - retirement (current) use of insulin Category: Medical Code(s): E11.9 - Type 2 diabetes mellitus without complications; Z79.4 - computer terminal operator (current) use of insulin (7) Morbid obesity with BMI of 45.0-49.9, adult Current visit: Yes Status: Chronic Category: Medical Code(s): E66.01 - Morbid (severe) obesity due to excess calories; Z68.42 - Body mass index (BMI) 45.0-49.9, adult (8) Hypoalbuminemia Current visit: Yes Status: Acute Category: Medical Code(s): E88.09 - Other disorders of plasma-protein metabolism, not elsewhere classified (9) Hypothyroidism Current visit: No Status: Chronic Category: Medical Code(s): E03.9 - Hypothyroidism, unspecified (10) Esophageal varices Current visit: No Status: Chronic Qualifiers: Esophageal varices bleeding: without bleeding Category: Medical Code(s): I85.00 - Esophageal varices without bleeding (11) Hepatic cirrhosis Current visit: No Status: Chronic Category: Medical Code(s): K74.60 - Unspecified cirrhosis of liver (12) Chronic pain Current visit: No Status: Chronic Qualifiers: Chronic pain type: other chronic pain Qualified Code(s): G89.29 - Other chronic pain Category: Medical Code(s): G89.29 - Other chronic pain (13) Decreased pedal pulses Start date: 09/30/19 Current visit: Yes Status: Acute Category: Medical Code(s): R09.89 - Other specified symptoms and signs involving the circulatory and respiratory systems (14) Other specified symptoms and signs involving the circulatory and respiratory systems Start date: 09/30/19 Current visit: Yes Status: Acute Category: Medical Code(s): R09.89 - Other specified symptoms and signs involving the circulatory and respiratory systems (15) Lower extremity edema Start date: 09/30/19 Current visit: Yes Status: Acute Category: Medical Code(s): R60.0 - Localized edema (16) Cutaneous abscess of left ankle Current visit: Yes Status: Acute Category: Medical Code(s): L02.416 - Cutaneous abscess of left lower limb (17) Abscess of bursa of left ankle Current visit: Yes Status: Acute Category: Medical Code(s): M71.072 - Absc ess of bursa, left ankle and foot (18) Necrotizing fasciitis of ankle and foot Current visit: Yes Status: Acute Category: Medical Code(s): M72.6 - Necrotizing fasciitis (19) Necrotizing fasciitis of lower leg Current visit: Yes Status: Acute Category: Medical Code(s): M72.6 - Necrotizing fasciitis - Assessment and plan all Dx Assessment and Plan for all problems:: Problems as noted above noted. Patient is stable from a cardiovascular and pulmonary standpoint. Orthopedic/podiatry procedures today, probably BKA. Type and screen given patient's low H&H from yesterday morning.
[2019-10-03 08:43] LABS: Basophils % 0.3 % (0.1-2.0); Eosinophils # 0.2 K/mm3 (0.0-0.4); Eosinophils % 4.4 % (0.1-12.0); Lymphocytes # 0.8 K/mm3 (0.7-4.5); Lymphocytes % 18.7 % (10-50); Mean Corpuscular Volume 88.4 fl (81-99); Mean Platelet Volume 8.4 fl (7.4-10.4); Monocytes # 0.3 K/mm3 (0.1-1.0); Monocytes % 6.9 % (1.7-9.3); Neutrophils % 69.8 % (37.0-80.0); Platelet Count 84 K/mm3 (142-424); Red Blood Count 2.68 M/mm3 (4.20-5.40); Red Cell Distribution Width 16.4 % (11.5-17.5); White Blood Count 4.3 K/mm3 (4.8-10.8)
[2019-10-03 08:59] LABS: Hematocrit 23.6 % (37.0-47.0); Hemoglobin 7.6 g/dL (12.2-16.2)
--- NOTE | 2019-10-03 09:50 | Operative Note ---
Date of procedure: 10/03/19 Pre-op Diagnosis:: 1. Left foot necrotizing fasciitis 2. Left ankle gas gangrene 3. Left foot/ankle cellulitis 4. S/p left ankle I&D, debridement of wound on 10/01/19, 10/02/19 Post-op Diagnosis:: Same Procedure performed:: 1. Left guillotine - below knee amputation Surgeon:: MD Nunu Rizo DPM RIBBON CLEANER:: Rodrick Bolton Anesthesia: GETA Estimated blood loss (mL): 100 Clinical Note:: S/p left ankle incision and drainage, debridement of ankle and bone biospy Sx: 09/30/19, POD #3, Sx: 10/01/19, POD #2 I called the , Leodan and discussed plan of care with him and the patient. We discussed conservative versus surgical treatment options. Conservative treatment options include local wound care, oral and IV ant ibiotics. But because of how fast the infection is spreading, I do not recommend conservative care. I recommend more aggressive debridement and possible BKA. We discussed surgical intervention for repeat wash out, debridement of non-viable soft tissue and bone, possible guillotine BKA. Patient also understands that they could have wound healing complications including delayed healing and infection. We discussed that if the wound does not heal, it is possible that they may need a more proximal amputation and could result loss of partial foot or loss of leg. We discussed the risks and benefits in great detail. Other surgical risks include: prolonged pain and swelling, further infection requiring oral or IV antibiotics, delay in healing of soft tissue or bone, nerve or blood vessel damage, CRPS/RSD, DVT, anesthesia complications, and even . Concern over necrotizing fasciitis, gangrenous changes, small vessel disease, DM and other co-morbidities that will delay wound healing. Dr. Kirby given update, she has medical clearance. Consulted Dr. Pardo, she will scrub the case and do proximal debridement vs. amputation as needed. Operative findings:: The left foot and ankle had several incision sites from previous biopsy and incision and drainage, debridement. The medial ankle and open wound with exposed necrotic subcutaneous tissue and deep fascia. Sinus tracking down to the MPJ as well as proximal of the Achilles tendon. Purulent drainage expressed when the foot was compressed. Decision was made to proceed with more proximal amputation. Guillotine amputation performed by orthopedic surgeon Dr. Pardo. The tibia and fibula healthy at the level of the amputation with no purulence, malodor or drainage from the surrounding tissues. Operative note:: On this date and time patient was deemed an appropriate surgical candidate. With informed consent signed, the patient was taken to the operating theater. The patient was positioned supine. General anesthesia was induced. Left thigh tourniquet used @330mmHg. The left lower extremity was prepped and draped in normal sterile fashion. See Dr. Pardo's operative note. Given the extent of the infection, exposed soft tissue with tracking distally to the MPJs and proximally at the Achilles tendon combined with the positive bone culture x4 different sites growing MSSA decision was made to do a proximal amputation. Dr. Pardo performed a guillotine below-knee amputation. The bone was hard and appeared healthy with no purulence or malodor noted from the amputation site. The tissue looked healthy with blood flow. At that level there was no cellulitis, no drainage and no signs of skin soft tissue or bone necrosis. Please refer to her orthopedic operative note for full details of the procedure. Patient was transferred to recovery with vital signs stable and neurovascular status intact. She will be transferred back to floor. Tourniquet time (min): 16 Condition: stable Disposition: floor Specimens:: Left tibia bone culture Left tibia bone pathology - proximal margin Left fibula bone culture Left fibula bone pathology - proximal margin Left leg pathology Complications:: None
--- NOTE | 2019-10-03 10:03 | Consult Report ---
*Admission Date: 09/29/19 *Reason for consult:: L foot/ankle necrotizing fasciitis *History of present illness: 69yo F who presented to her PCP's office on 09/29/2019 with complaints of LEFT ankle pain, swelling, erythema and drainage. She reports having struck her left ankle on her motorized wheelchair 2 week prior, which resulted in pain, redness and swelling. She saw her PCP around that time and there was concern for a gout flare, as she has a history of gout. She was started on indomethacin and allopurinol but her symptoms progressed, prompting her visit on 09/29/19; symptoms appeared worst over the medial ankle. Multiple pustules were noted over the medial ankle, which were draining serous and somewhat purulent drainage. X- rays indicated likely osteomyelitis and ESR/CRP were markedly elevated. She was taken to the OR by Dr. Shin on 09/30/19 for I&D, bone biopsy and antibiotic bead placement. Post-operatively her foot/ankle continued to worsen, with new/worsening skin sloughing, gangrenous necrotic changes and turbid/purulent fluid noted tracking along fascial planes and extending proximally around 4-5cm from ankle joint. Repeat I&D with bone biopsy was performed on 10/01/19; all bone cultures were positive for MSSA. She has been on IV vancomycin and clindamycin. The speed of progression, significantly elevated inflammatory markers, severe pain and tissue appearance were concerning for necrotizing fasciitis. Dr. Shin has an extensive discussion with the patient and her , and the decision was made to bring the patient back to the OR 10/03/19 for repeat I&D with likely BKA should the distal limb appear non-viable. I met with the patient prior to surgery and she appeared alert and oriented; in days prior her mental status appeared to be declining. She vocalized understanding of the plan and expressed a desire to be rid of the infection; if this meant amputation, she was fine with that. ABIs were performed 09/30/19 with EBENEZER 1.0/0.98 (DP/PT) and toe pressure 0.48 on the left leg. Discussion was had with the patient and her (via telephone); verbal consent was done on the phone with the because the patient's mental status was impaired. The surgical recommendations were discussed with her , including risks, benefits and alternatives to surgery. The plan was to perform repeat wash out, debridement of non-viable soft tissue and bone, possible guillotine BKA. We discussed the risks including: prolonged pain and swelling, further infection requiring oral or IV antibiotics, delay in healing of soft tissue or bone, nerve or blood vessel damage, CRPS/RSD, DVT, anesthesia complications, and even . Concern over necrotizing fasciitis, gangrenous changes, small vessel disease, DM and other co-morbidities that will delay wound healing were discussed. The patient was cleared medically by Dr. Kirby. Pre-operative Hgb was 7.6. Type and cross were ordered but blood was not ready pre-operatively. The decision was made to proceed with surgery and transfuse as soon as blood was available, which we were advised wound be <1 hour. IV clindamycin was last given at 4:45am today, and last IV vancomycin dose was 4:30pm yesterday. Antibiotics were not re-dosed during surgery. Guillotine BKA was performed this morning without complication; see operative note for more detail. EBL was <100cc and proximal stump tissues appeared healthy without gross infection. Bone specimens from the tibia and fibula were sent for culture and pathology, and the amputated leg sent for pathology. Tourniquet time was 16 minutes; all bleeding vessels were ligated with silk ties. The stump was left open and pressure dressing applied. 1L crystalloid was given in the OR, with urine output not recorded (patient has PureWick catheter). She was stable on entry to PACU; no complications during the case. PMH = DM, cirrhosis of liver with esophageal varices, COPD, CHF, depression/anxiety, HTN, HL, h/o MRSA infection, chronic anemia, hypothyroidism *h/o non-compliance with medical follow-up PSH = R great toe amputation (sequelae of DM), L TKA, cholecystectomy, colonoscopy/EGD, total hysterectomy, tubal ligation Allg = diazepam, sucralfate, tuberculin PPD Meds = see EMR; no anticoagulants SocHx = never smoker, denies alcohol/drug use; retired, lives in apartment with Review of Systems - Review of Systems Review of systems:: pertinent systems reviewed and negative unless documented below - *Neurologic Reports unsteadiness, Denies dizziness, Denies localized weakness [facility] History I have reviewed the patient's past medical history: Yes Medical History: Reports:: Anxiety, Congestive Heart Failure, Chronic Obstructive Pulmonary Disease (COPD), Depression, Diabetes Mellitus Type 2, Heart Murmur, Hyperlipidemia, Hypertension, MRSA, Renal Insufficiency Denies:: Cancer, Diabetes Mellitus Type 1, Internal Pacemaker, Lung Disease, Seizures *Have you ever received a pneumonia vaccine?: Yes *Have you received a flu vaccine this season?: Yes Other Medical History: Reports: Anemia, Arthritis, Hypothyroidism, Liver Disease, Sinus Problems, Thyroid Disease, Other (cirrhosis with esophageal varicies). Denies: Blood Transfusion Reaction Anesthesia experience/problems:: none Laterality Cases: Left: Arthroscopy Knee Other Surgeries: Yes: Cholecystectomy, Colonoscopy, EGD, Hysterectomy-Total, Tubal Ligation. 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 Smoking Status: Never smoker Alcohol Intake: never Substance Use Type: denies use *Occupational Status:: retired Housing: apartment Household Members: spouse *Travel in the last 8 weeks: None - Psychiatric History Pschychiatric History:: Reports:: Anxiety, Depression Family Hx:: Anemia, Asthma, Cancer, Diabetes, Hyperlipidemia, Hypertension, Kidney Disease Meds Home Medications Medication Instructions Recorded Confirmed Type Budesonide/Formoterol Fumarate 2 puffs IH BID 09/17/17 09/29/19 History [Symbicort 160-4.5 Mcg Inhaler] Insulin Regular, Human [Humulin R] 0 units SQ ACHS 09/17/17 09/29/19 History Albuterol Sulfate [Albuterol HFA 2 puffs IH Q4HP PRN 09/18/17 09/29/19 History Inhaler] Insulin Glargine,Hum.rec.anlog 55 unit SQ HS 09/18/17 09/29/19 History [Lantus Insulin 100units/mL 10mL vial] Levothyroxine Sodium 137 mcg PO DAILY 02/28/19 09/29/19 History [Levothyroxine 137mcg (0.137mg) Tab] Furosemide [Lasix 20mg tablet] 20 mg PO DAILY 03/05/19 09/29/19 History cyclobenzaprine 10 mg tablet 10 mg PO BID tab 04/08/19 09/29/19 History hydrocodone 10 mg-acetaminophen 1 tab PO TID PRN tab 04/08/19 09/29/19 History 325 mg tablet pantoprazole 40 mg tablet,delayed 40 mg PO DAILY 04/08/19 09/29/19 History release Metoprolol Succinate 25 mg PO DAILY 04/12/19 09/30/19 History Fluoxetine HCl 40 mg PO DAILY 09/29/19 09/29/19 History Insulin Glargine,Hum.rec.anlog 25 unit SQ DAILY 09/29/19 09/29/19 History [Lantus Insulin 100units/mL 10mL vial] Metformin HCl [Metformin HCl ER] 500 mg PO DAILY 09/29/19 09/29/19 History Spironolactone 100 mg PO DAILY 09/29/19 09/29/19 History glipiZIDE [Glipizide ER] 10 mg PO BID 09/29/19 09/29/19 History Allergies Allergy/AdvReac Type Severity Reaction Status Date / Time diazepam Allergy Intermediate Hives Verified 09/29/19 16:41 sucralfate Allergy Intermediate Swelling Verified 09/29/19 16:41 of Lip/Tongue/Throat tuberculin,PPD,multi-puncture Allergy Intermediate Redness of Verified 09/29/19 16:41 Skin tuberculin, purified protein Allergy Mild Redness of Verified 09/29/19 16:41 deriva Skin [From Tubersol] Exam Vital signs and Labs for Last 24 Hours: Temp Pulse Resp BP Pulse Ox 98.2 F 82 18 107/55 L 98 10/03/19 08:00 10/03/19 08:00 10/03/19 08:00 10/03/19 08:00 10/03/19 08:00 Laboratory Results - last 24 hr 10/02/19 11:25: POC Glucose 284 H 10/02/19 16:19: POC Glucose 337 H* 10/02/19 20:33: POC Glucose 280 H 10/03/19 08:07: WBC 4.3 L, RBC 2.68 L, Hgb 7.6 L*, Hct 23.6 L*, MCV 88.4, MCH 28.3, MCHC 32.0, RDW 16.4, Plt Count 84 L, MPV 8.4, Neut % (Auto) 69.8, Lymph % (Auto) 18.7, [place] % (Auto) 6.9, Eos % (Auto) 4.4, Baso % (Auto) 0.3, Neut # (Auto) 3.0, Lymph # (Auto) 0.8, [place] # (Auto) 0.3, Eos # (Auto) 0.2, Baso # (Auto) 0.0 10/03/19 08:07: Blood Type O Positive, Antibody Screen Negative, Crossmatch (AHG) See Detail 10/03/19 08:07: Hemoglobin A1c 10.2 H I & O for Last 24 hours: Intake & Output 09/30/19 10/01/19 10/02/19 10/03/19 11:59 11:59 11:59 11:59 Intake Total 1427 / 1427 3248 / 3248 4514 / 4514 1591 / 1591 Output Total 600 / 600 625 / 625 425 / 425 1300 / 1300 Balance 827 / 827 2623 / 2623 4089 / 4089 291 / 291 Weight 251 lb 9 oz 261 lb 9 oz 275 lb 2 oz 103 lb 7 oz Microbiology Reports for the Last 24 Hours: Microbiology 10/01/19 10:10 Foot,Left - Wound Gram Stain - Final 10/01/19 10:10 Foot,Left - Wound Wound Culture - Preliminary Gram Positive Cocci 10/01/19 10:10 Leg,Left - Wound Gram Stain - Final 10/01/19 10:10 Leg,Left - Wound Surgical Biopsy Culture - Preliminary Gram Positive Cocci 09/30/19 11:49 Bone Gram Stain - Final 09/30/19 11:49 Bone Surgical Biopsy Culture - Final Staphylococcus aureus 09/30/19 11:49 Bone - Abscess Gram Stain - Final 09/30/19 11:49 Bone - Abscess Surgical Biopsy Culture - Final Staphylococcus aureus 09/30/19 11:49 Ankle,Left Gram Stain - Final 09/30/19 11:49 Ankle,Left Surgical Biopsy Culture - Final Staphylococcus aureus - Constitutional no acute distress, morbidly obese - *Routine HEENT Exam Head: Present: normocephalic Eye: Present: EOMI ENT: Present: mucous membranes moist - *Routine Respiratory Exam Absent: respiratory distress, wheezes - *Routine Cardiovascular Exam Present: RRR - *Routine Abdominal Exam Present: soft. Absent: tenderness - *Routine Exam Comments: PureWick catheter in place - *Routine Extremities Exam Comments: L foot medial ankle wound appears necrotic, skin has been debrided down to fascia; wound margins dusky active turbid/cloudy drainage from medial ankle wound and bone biopsy sites LLE packing removed from biopsy sites, fascial planes appear and wounds track distal to MPJs and proximally 4-5cm from ankle joint diffuse skin sloughing with necrotic gangrenous changes L foot/ankle pedal pulses weakly palpable LLE; cap refill ok decreased sensation L foot/ankle - *Routine Neurological Exam Present: alert, oriented X3, sensory deficit, motor deficit, moving all ex tremities, normal tone, hearing grossly intact. Absent: altered mental status Results - Labs Result Diagrams: 10/03/19 08:07 10/02/19 06:51 Labs: Abnormal lab results 10/02/19 10/02/19 10/02/19 Range/Units 11:25 16:19 20:33 WBC (4.8-10.8) K/mm3 RBC (4.20-5.40) M/mm3 Hgb (12.2-16.2) g/dL Hct (37.0-47.0) % Plt Count (142-424) K/mm3 POC Glucose 284 H 337 H* 280 H (70-110) Hemoglobin A1c (4.0-6.0) % Crossmatch (AHG) 10/03/19 10/03/19 10/03/19 Range/Units 08:07 08:07 08:07 WBC 4.3 L (4.8-10.8) K/mm3 RBC 2.68 L (4.20-5.40) M/mm3 Hgb 7.6 L* (12.2-16.2) g/dL Hct 23.6 L* (37.0-47.0) % Plt Count 84 L (142-424) K/mm3 POC Glucose (70-110) Hemoglobin A1c 10.2 H (4.0-6.0) % Crossmatch (AHG) See Detail H & H 09/29/19 09/30/19 10/01/19 Range/Units 13:29 06:10 06:03 Hgb 10.4 L 9.4 L 9.2 L (12.2-16.2) g/dL Hct 31.4 L 29.0 L 28.0 L (37.0-47.0) % 10/02/19 10/03/19 Range/Units 06:51 08:07 Hgb 8.2 L 7.6 L* (12.2-16.2) g/dL Hct 25.4 L 23.6 L* (37.0-47.0) % All other labs normal. - Diagnostic results Ankle/Foot x-ray: image reviewed (XR of L foot/ankle 09/29/19, 09/30/19, 10/01/19 suspicous for osteomyelitis; no fracture seen) Ankle/Foot MRI: image reviewed (MRI L ankle/foot showes abscess in soft tissues medial to medial malleolus with signal change within medial tibia concerning for osteomyelitis; no pus seen tracking proximally. Diffuse soft tissue edema.) Assessment and Plan (1) Cellulitis of left ankle Current visit: Yes Status: Acute Category: Medical Code(s): L03.116 - Cellulitis of left lower limb (2) Wound of left ankle Current visit: Yes Status: Acute Category: Medical Code(s): S91.002A - Unspecified open wound, left ankle, initial encounter (3) Hyperkalemia Current visit: Yes Status: Acute Category: Medical Code(s): E87.5 - Hyperkalemia (4) MELVINA (acute kidney injury) Current visit: Yes Status: Acute Category: Medical Code(s): N17.9 - Acute kidney failure, unspecified (5) Hyponatremia Current visit: Yes Status: Chronic Category: Medical Code(s): E87.1 - Hypo-osmolality and hyponatremia (6) Type 2 diabetes mellitus, with long-term current use of insulin Current visit: Yes Status: Chronic Qualifiers: Diabetes mellitus complication status: with hyperglycemia Qualified C ode(s): E11.65 - Type 2 diabetes mellitus with hyperglycemia; Z79.4 - terminal gauger (current) use of insulin Category: Medical Code(s): E11.9 - Type 2 diabetes mellitus without complications; Z79.4 - terminal gauger (current) use of insulin (7) Morbid obesity with BMI of 45.0-49.9, adult Current visit: Yes Status: Chronic Category: Medical Code(s): E66.01 - Morbid (severe) obesity due to excess calories; Z68.42 - Body mass index (BMI) 45.0-49.9, adult (8) Hypoalbuminemia Current visit: Yes Status: Acute Category: Medical Code(s): E88.09 - Other disorders of plasma-protein metabolism, not elsewhere classified (9) Hypothyroidism Current visit: No Status: Chronic Category: Medical Code(s): E03.9 - Hypothyroidism, unspecified (10) Esophageal varices Current visit: No Status: Chronic Qualifiers: Esophageal varices bleeding: without bleeding Category: Medical Code(s): I85.00 - Esophageal varices without bleeding (11) Hepatic cirrhosis Current visit: No Status: Chronic Category: Medical Code(s): K74.60 - Unspecified cirrhosis of liver (12) Chronic pain Current visit: No Status: Chronic Qualifiers: Chronic pain type: other chronic pain Qualified Code(s): G89.29 - Other chronic pain Category: Medical Code(s): G89.29 - Other chronic pain (13) Decreased pedal pulses Start date: 09/30/19 Current visit: Yes Status: Acute Category: Medical Code(s): R09.89 - Other specified symptoms and signs involving the circulatory and respiratory systems (14) Other specified symptoms and signs involving the circulatory and respiratory systems Start date: 09/30/19 Current visit: Yes Status: Acute Category: Medical Code(s): R09.89 - Other specified symptoms and signs involving the circulatory and respiratory systems (15) Lower extremity edema Start date: 09/30/19 Current visit: Yes Status: Acute Category: Medical Code(s): R60.0 - Localized edema (16) Cutaneous abscess of left ankle Current visit: Yes Status: Acute Category: Medical Code(s): L02.416 - Cutaneous abscess of left lower limb (17) Abscess of bursa of left ankle Current visit: Yes Status: Acute Category: Medical Code(s): M71.072 - Abscess of bursa, left ankle and foot (18) Necrotizing fasciitis of ankle and foot Current visit: Yes Status: Acute Category: Medical Code(s): M72.6 - Necrotizing fasciitis (19) Necrotizing fasciitis of lower leg Current visit: Yes Status: Acute Category: Medical Code(s): M72.6 - Necrotizing fasciitis - Assessment and plan all Dx Assessment and Plan for all problems:: 69yo F POD #0 s/p L guillotine below-knee amputation for L foot/ankle cellulitis/gas gangrene with suspected necrotizing fasciitis -- NWB LLE, elevate on pillow at all times -- reinforce dressing for any strikethrough; do not remove dressings. Notify MD if any persistent drainage. -- continue IV antibiotics per schedule; clindamycin and vancomycin -- intra-operative bone cultures/pathology + specimen pathology pending -- will take back to OR for stump revision/closure later this week, date TBD pending lab/culture results and medical status -- transfuse 2 units PRBC now; 1 hr post-transfusion H/H -- SCD RLE, encourage IS 10x/hr while awake -- DVT prophy; I am fine with lovenox if needed, but not until tomorrow. Continue SCD for prophy today. -- continue appropriate analgesics for pain control -- will trend CRP during post-op course to track resolution of infection -- continue medial management per Drs. Kirby/Emani -- PT to continue for mobilization as medically appropriate -- dispo: will need SNF referral after next surgery
--- NOTE | 2019-10-03 10:03 | Progress Note ---
[facility] Anesthesia Record Part I Intake, IV Amount: 1,000 Estimated blood loss (mL): 100 Urine output (mL): 0 Blood Pressure: 164/90 SaO2: 99 Pulse Rate: 98 Respiratory Rate: 16 Temperature: 98.5 F Patient is:: Drowsy, Stable Stable to PACU at:: 09:50
--- NOTE | 2019-10-03 10:11 | Progress Note ---
Internal Medicine - PN: Subj *Date: 10/03/19 *Time: 10:11 Exam Vital signs and Labs for Last 24 Hours: Temp Pulse Resp BP Pulse Ox 98.5 F 98 H 16 164/90 H 98 10/03/19 10:03 10/03/19 10:03 10/03/19 10:03 10/03/19 10:03 10/03/19 08:00 Laboratory Results - last 24 hr 10/02/19 11:25: POC Glucose 284 H 10/02/19 16:19: POC Glucose 337 H* 10/02/19 20:33: POC Glucose 280 H 10/03/19 08:07: WBC 4.3 L, RBC 2.68 L, Hgb 7.6 L*, Hct 23.6 L*, MCV 88.4, MCH 28.3, MCHC 32.0, RDW 16.4, Plt Count 84 L, MPV 8.4, Neut % (Auto) 69.8, Lymph % (Auto) 18.7, [place] % (Auto) 6.9, Eos % (Auto) 4.4, Baso % (Auto) 0.3, Neut # (Auto) 3.0, Lymph # (Auto) 0.8, [place] # (Auto) 0.3, Eos # (Auto) 0.2, Baso # (Auto) 0.0 10/03/19 08:07: Blood Type O Positive, Antibody Screen Negative, Crossmatch (AHG) See Detail 10/03/19 08:07: Hemoglobin A1c 10.2 H I & O for Last 24 hours: Intake & Output 09/30/19 10/01/19 10/02/19 10/03/19 23:59 23:59 23:59 23:59 Intake Total 1627 / 1867 5728 / 5728 2093 / 2093 Output Total 700 / 700 525 / 525 1225 / 1225 500 / 500 Balance 927 / 1167 5203 / 5203 869 / 869 1491 / 1491 Weight 114.107 kg 119 kg 124.795 kg 46.918 kg Microbiology Reports for the Last 24 Hours: Microbiology 10/01/19 10:10 Foot,Left - Wound Gram Stain - Final 10/01/19 10:10 Foot,Left - Wound Wound Culture - Preliminary Gram Positive Cocci 10/01/19 10:10 Leg,Left - Wound Gram Stain - Final 10/01/19 10:10 Leg,Left - Wound Surgical Biopsy Culture - Preliminary Gram Positive Cocci 09/30/19 11:49 Bone Gram Stain - Final 09/30/19 11:49 Bone Surgical Biopsy Culture - Final Staphylococcus aureus 09/30/19 11:49 Bone - Abscess Gram Stain - Final 09/30/19 11:49 Bone - Abscess Surgical Biopsy Culture - Final Staphylococcus aureus 09/30/19 11:49 Ankle,Left Gram Stain - Final 09/30/19 11:49 Ankle,Left Surgical Biopsy Culture - Final Staphylococcus aureus Assessment and Plan (1) Cellulitis of left ankle Current visit: Yes Status: Acute Category: Medical Code(s): L03.116 - Cellulitis of left lower limb (2) Wound of left ankle Current visit: Yes Status: Acute Category: Medical Code(s): S91.002A - Unspecified open wound, left ankle, initial encounter (3) Hyperkalemia Current visit: Yes Status: Acute Category: Medical Code(s): E87.5 - Hyperkalemia (4) MELVINA (acute kidney injury) Current visit: Yes Status: Acute Category: Medical Code(s): N17.9 - Acute kidney failure, unspecified (5) Hyponatremia Current visit: Yes Status: Chronic Category: Medical Code(s): E87.1 - Hypo-osmolality and hyponatremia (6) Type 2 diabetes mellitus, with long-term current use of insulin Current visit: Yes Status: Chronic Qualifiers: Qualified Code(s): E11.65 - Type 2 diabetes mellitus with hyperglycemia; Z79.4 - medical terminologist (current) use of insulin Category: Medical Code(s): E11.9 - Type 2 diabetes mellitus without compl ications; Z79.4 - [facility] (current) use of insulin (7) Morbid obesity with BMI of 45.0-49.9, adult Current visit: Yes Status: Chronic Category: Medical Code(s): E66.01 - Morbid (severe) obesity due to excess calories; Z68.42 - Body mass index (BMI) 45.0-49.9, adult (8) Hypoalbuminemia Current visit: Yes Status: Acute Category: Medical Code(s): E88.09 - Other disorders of plasma-protein metabolism, not elsewhere classified (9) Hypothyroidism Current visit: No Status: Chronic Category: Medical Code(s): E03.9 - Hypothyroidism, unspecified (10) Esophageal varices Current visit: No Status: Chronic Category: Medical Code(s): I85.00 - Esophageal varices without bleeding (11) Hepatic cirrhosis Current visit: No Status: Chronic Category: Medical Code(s): K74.60 - Unspecified cirrhosis of liver (12) Chronic pain Current visit: No Status: Chronic Qualifiers: Qualified Code(s): G89.29 - Other chronic pain Category: Medical Code(s): G89.29 - Other chronic pain (13) Decreased pedal pulses Start date: 09/30/19 Current visit: Yes Status: Acute Category: Medical Code(s): R09.89 - Other specified symptoms and signs involving the circulatory and respiratory systems (14) Other specified symptoms and signs involving the circulatory and respiratory systems Start date: 09/30/19 Current visit: Yes Status: Acute Category: Medical Code(s): R09.89 - Other specified symptoms and signs involving the circulatory and respiratory systems (15) Lower extremity edema Start date: 09/30/19 Current visit: Yes Status: Acute Category: Medical Code(s): R60.0 - Localized edema (16) Cutaneous abscess of left ankle Current visit: Yes Status: Acute Category: Medical Code(s): L02.416 - Cutaneous abscess of left lower limb (17) Abscess of bursa of left ankle Current visit: Yes Status: Acute Category: Medical Code(s): M71.072 - Abscess of bursa, left ankle and foot (18) Necrotizing fasciitis of ankle and foot Current visit: Yes Status: Acute Category: Medical Code(s): M72.6 - Necrotizing fasciitis (19) Necrotizing fasciitis of lower leg Current visit: Yes Status: Acute Category: Medical Code(s): M72.6 - Necrotizing fasciitis The patient's infection will respond to the chosen ABx?: Yes Is the patient receiving the right drug, dose, and route?: Yes Could a more targeted ABx be ordered?: No
--- NOTE | 2019-10-03 10:59 | Operative Note ---
Date of procedure: 10/03/19 Pre-op Diagnosis:: 1) LEFT foot/ankle cellulitis w/gas gangrene, suspect necrotizing fasciitis 2) LEFT ankle osteomyelitis Post-op Diagnosis:: 1) LEFT foot/ankle cellulitis w/gas gangrene, suspect necrotizing fasciitis 2) LEFT ankle osteomyelitis Procedure performed:: LEFT guillotine below knee amputation Surgeon:: MD Nunu Rizo DPM Engineer Systems(s):: Aruna Fields [employer] OFFICER:: Rodrick Bolton Anesthesia: GETA Estimated blood loss (mL): 100 Clinical Note:: 69yo F who presented to her PCP's office on 09/29/2019 with complaints of LEFT ankle pain, swelling, erythema and drainage. She reports having struck her left ankle on her motorized wheelchair 2 week prior, which resulted in pain, redness and swelling. She saw her PCP around that time and there was concern for a gout flare, as she has a history of gout. She was started on indomethacin and allopurinol but her symptoms progressed, prompting her visit on 09/29/19; symptoms appeared worst over the medial ankle. Multiple pustules were noted over the medial ankle, which were draining serous and somewhat purulent drainage. X- rays indicated likely osteomyelitis and ESR/CRP were markedly elevated. She was taken to the OR by Dr. Shin on 09/30/19 for I&D, bone biopsy and antibiotic bead placement. Post-operatively her foot/ankle continued to worsen, with new/worsening skin sloughing, gangrenous necrotic changes and turbid/purulent fluid noted tracking along fascial planes and extending proximally around 4-5cm from ankle joint. Repeat I&D with bone biopsy was performed on 10/01/19; all bone cultures were positive for MSSA. She has been on IV vancomycin and clindamycin. The speed of progression, significantly elevated inflammatory markers, severe pain and tissue appearance were concerning for necrotizing fasciitis. Dr. Shin has an extensive discussion with the patient and her , and the decision was made to bring the patient back to the OR 10/03/19 for repeat I&D with likely BKA should the distal limb appear non-viable. I met with the patient prior to surgery and she appeared alert and oriented; in days prior her mental status appeared to be declining. She vocalized understanding of the plan and expressed a desire to be rid of the infection; if this meant amputation, she was fine with that. ABIs were performed 09/30/19 with EBENEZER 1.0/0.98 (DP/PT) and toe pressure 0.48 on the left leg. Discussion was had with the patient and her (via telephone); verbal consent was done on the phone with the because the patient's mental status was impaired. The surgical recommendations were discussed with her , including risks, benefits and alternatives to surgery. The plan was to perform repeat wash out, debridement of non-viable soft tissue and bone, possible guillotine BKA. We discussed the risks including: prolonged pain and swelling, further infection requiring oral or IV antibiotics, delay in healing of soft tissue or bone, nerve or blood vessel damage, CRPS/RSD, DVT, anesthesia complications, and even . Concern over necrotizing fasciitis, gangrenous changes, small vessel disease, DM and other co-morbidities that will delay wound healing were discussed. The patient was cleared medically by Dr. Kirby. Pre-operative Hgb was 7.6. Type and cross were ordered but blood was not ready pre-operatively. The decision was made to proceed with surgery and transfuse as soon as blood was available, which we were advised wound be <1 hour. IV clindamycin was last given at 4:45am today, and last IV vancomycin dose was 4:30pm yesterday. Antibiotics were not re-dosed during surgery. Operative findings:: L medial ankle wound with exposed necrotic subcutaneous tissue and deep fascia, active turbid/cloudy but non-purulent drainage from all incisions. Sinus tracking down to MPJs as well as 4-5cm proximal to ankle joint, tracks along fascial planes and along Achilles tendon. Purulent drainage was expressed when foot was compressed. This, in combination with multiple bone biopsies confirming osteomyelitis of both tibia/fibula led us to believe the distal limb was not salvageable and BKA was prudent. All tissue of proximal stump appeared clinically healthy without obvious infection, no purulence or necrotic tissue; robust bleeding. Operative note:: The patient was identified in preoperative holding and L leg signed. Consent was reviewed with the patient and all questions answered. She was then taken to the OR, where IV antibiotics were not re-dosed; last IV clindamycin dose was 4:45am this morning and last vancomycin was 4:30pm yesterday. The patient was transferred to the OR table and general endotracheal anesthesia induced. SCD was placed on the RLE, PureWick catheter placement confirmed, and all bony prominences well-padded. Once the patient was anesthetized, bandages were removed from LLE and the extremity was examined closely: medial ankle wound with exposed necrotic subcutaneous tissue and deep fascia, active turbid/cloudy but non-purulent drainage from all incisions. Sinus tracking down to MPJs as well as 4-5cm proximal to ankle joint, tracks along fascial planes and along Achilles tendon. Purulent drainage was expressed when foot was compressed. This, in combination with multiple bone biopsies confirming osteomyelitis of both tibia/fibula led us to believe the distal limb was not salvageable and BKA was prudent. The left leg was then prepped and draped in the usual sterile fashion, using a non-sterile tourniquet on the upper thigh. Time out was performed, identifying the correct patient and correct site. The procedure was begun by elevating the left lower extremity for 2 minutes; esmarch was not used to exsanguinate the limb. Tourniquet was inflated to 300 mmHg. The left foot/ankle was covered by sterile stockinette/coban to isolate from surgical site and protect amputation site from possible contamination. The level of amputation was determined based on tracking from distal wounds; they extended ~4-5cm proximal to ankle. The level of amputation was roughly 14cm from the tibial tubercle. A gigli saw was placed over the posterior leg at this desired level of amputation, with with firm upwards pressure, the saw was oscillated back and forth, transecting soft tissues and bone until the lower leg was amputated and removed intact. The amputated specimen was placed in a biohazard bag and sent for pathology. The tourniquet was inflated so bleeding was minimal at this point. The stump tissues appeared clinically healthy without obvious infection, no purulence or necrotic tissue. Tissues were irrigated with 3L sterile saline delivered via pulsivac. Tourniquet was then dropped, with robust bleeding seen. All actively bleeding vessels were clamped with hemostats and doubly ligated with silk ties. Additional samples of bone were taken from the tibia and fibula on the stump, using a rongeur. The bone was hard and of apparent good quality, with no purulence or malodor noted from the bone or soft tissues. Bone was sent for both culture and pathology from the tibia and the fibula. Once hemostatis had been obtained, the stump was dressed with sterile dressings; xeroform, 4x4s, ABD pads, Kerlix, webril, APARNA wrap. These were applied and wrapped in a [id number]-lk-teegm fashion to apply gentle pressure to the wound. The patient was then transferred back to her hospital bed, where the L BKA stump was elevated on a pillow and the patient extubated. She was tra nsferred to PACU in good condition, where she awoke comfortably and with stable vital signs. The patient tolerated the procedure well with no immediate eve- operative complications. Tourniquet time (min): 16 Condition: stable Disposition: PACU Specimens:: left lower leg, amputated left tibia/fibula bone specimens for both culture and pathology Complications:: none
--- NOTE | 2019-10-03 14:03 | Progress Note ---
[facility] Anesthesia Record Part II Discharge Time: 10:20 Destination: Medical Surgical Department PACU nurse assessment reviewed?: Yes Patient Condition:: Good Anesthesia Complications:: None Swallowing reflex intact?: Yes Cyanosis?: No Blood Pressure: 165/83 Pulse Rate: 98 Temperature: 98.5 F Mental Status: Alert & Oriented Pain level:: 6 Nausea and/or vomitting:: None Intake, IV Amount: 0
[2019-10-03 19:07] LABS: Hematocrit 26.7 % (37.0-47.0); Hemoglobin 8.7 g/dL (12.2-16.2)
[2019-10-04 06:02] LABS: Basophils % 0.4 % (0.1-2.0); Eosinophils # 0.2 K/mm3 (0.0-0.4); Eosinophils % 4.1 % (0.1-12.0); Hemoglobin 8.8 g/dL (12.2-16.2); Lymphocytes # 0.8 K/mm3 (0.7-4.5); Lymphocytes % 20.3 % (10-50); Mean Corpuscular HGB Conc 32.5 g/dL (31.8-35.4); Mean Corpuscular Volume 89.6 fl (81-99); Mean Platelet Volume 9.3 fl (7.4-10.4); Monocytes # 0.2 K/mm3 (0.1-1.0); Neutrophils # 2.9 K/mm3 (1.8-7.8); Neutrophils % 70.2 % (37.0-80.0); Platelet Count 89 K/mm3 (142-424); Red Blood Count 3.04 M/mm3 (4.20-5.40); Red Cell Distribution Width 16.8 % (11.5-17.5); White Blood Count 4.1 K/mm3 (4.8-10.8)
[2019-10-04 06:04] LABS: Hematocrit 27.2 % (37.0-47.0)
[2019-10-04 06:14] LABS: Albumin Level 2.5 g/dl (3.5-5.0); Albumin/Globulin Ratio 0.7 (1.1-1.8); Anion Gap 12.2 mEq/L (5-15); Globulin 3.8 g/dL (1.3-3.2); Total Protein,Serum 6.3 g/dl (6.3-8.2)
[2019-10-04 06:20] LABS: C-Reactive Protein 66.7 mg/L (0-4)
--- NOTE | 2019-10-04 07:49 | Progress Note ---
Internal Medicine - PN: Subj *Date: 10/04/19 *Time: 07:45 Interval history: Patient is vigorously eating breakfast. Denies symptoms of fever or chest pain issues. Tolerated amputation well. Exam Vital signs and Labs for Last 24 Hours: Temp Pulse Resp BP Pulse Ox 97.7 F 91 H 18 124/63 100 10/04/19 04:00 10/04/19 04:00 10/04/19 04:00 10/04/19 04:00 10/04/19 04:00 Laboratory Results - last 24 hr 10/03/19 05:54: POC Glucose 263 H 10/03/19 08:07: WBC 4.3 L, RBC 2.68 L, Hgb 7.6 L*, Hct 23.6 L*, MCV 88.4, MCH 28.3, MCHC 32.0, RDW 16.4, Plt Count 84 L, MPV 8.4, Neut % (Auto) 69.8, Lymph % (Auto) 18.7, [place] % (Auto) 6.9, Eos % (Auto) 4.4, Baso % (Auto) 0.3, Neut # (Auto) 3.0, Lymph # (Auto) 0.8, [place] # (Auto) 0.3, Eos # (Auto) 0.2, Baso # (Auto) 0.0 10/03/19 08:07: Blood Type O Positive, Antibody Screen Negative, Crossmatch (AHG) See Detail 10/03/19 08:07: Hemoglobin A1c 10.2 H 10/03/19 08:21: POC Glucose 259 H 10/03/19 09:57: POC Glucose 174 H 10/03/19 11:30: POC Glucose 219 H 10/03/19 15:40: POC Glucose 254 H 10/03/19 18:58: Hgb 8.7 L D, Hct 26.7 L 10/03/19 21:02: POC Glucose 191 H 10/04/19 05:04: POC Glucose 240 H 10/04/19 05:48: WBC 4.1 L, RBC 3.04 L, Hgb 8.8 L, Hct 27.2 L, MCV 89.6, MCH 29.1, MCHC 32.5, RDW 16.8, Plt Count 89 L, MPV 9.3, Neut % (Auto) 70.2, Lymph % (Auto) 20.3, [place] % (Auto) 5.0, Eos % (Auto) 4.1, Baso % (Auto) 0.4, Neut # (Auto) 2.9, Lymph # (Auto) 0.8, [place] # (Auto) 0.2, Eos # (Auto) 0.2, Baso # (Auto) 0.0 10/04/19 05:48: Sodium 130 L, Potassium 4.2, Chloride 103, Carbon Dioxide 19 L, Anion Gap 12.2, BUN 13 D, Creatinine 1.00, Estimated Creat Clear 40, Estimated GFR 55 L, Est GFR ( Amer) 67, Glucose 215 H, Calcium 7.0 L, Total Bilirubin 1.0, AST 38 H, ALT 22, Alkaline Phosphatase 169 H, C-Reactive Protein 66.7 H, Total Protein 6.3, Albumin 2.5 L, Globulin 3.8 H, Albumin/Globulin Ratio 0.7 L I & O for Last 24 hours: Intake & Output 10/01/19 10/02/19 10/03/19 10/04/19 11:59 11:59 11:59 11:59 Intake Total 3248 / 3248 4514 / 4514 2591 / 2591 3436 / 3436 Output Total 625 / 625 425 / 425 1300 / 1300 725 / 725 Balance 2623 / 2623 4089 / 4089 1291 / 1291 2711 / 2711 Weight 261 lb 9 oz 275 lb 2 oz 103 lb 7 oz 277 lb 1 oz Microbiology Reports for the Last 24 Hours: Microbiology 10/01/19 10:10 Foot,Left - Wound Gram Stain - Final 10/01/19 10:10 Foot,Left - Wound Wound Culture - Final Staphylococcus aureus 10/01/19 10:10 Leg,Left - Wound Gram Stain - Final 10/01/19 10:10 Leg,Left - Wound Surgical Biopsy Culture - Final Staphylococcus aureus 09/30/19 11:49 Bone Gram Stain - Final 09/30/19 11:49 Bone Surgical Biopsy Culture - Final Staphylococcus aureus 09/30/19 11:49 Bone - Abscess Gram Stain - Final 09/30/19 11:49 Bone - Abscess Surgical Biopsy Culture - Final Staphylococcus aureus 09/30/19 11:49 Ankle,Left Gram Stain - Final 09/30/19 11:49 Ankle,Left Surgical Biopsy Culture - Final Staphylococcus aureus Narrative: Patient is pleasant, alert. Oriented x3. No scleral icterus. Lungs are clear. Abdomen soft. Heart rate regular. Neurologic exam intact. Extremities show left leg stump wrapped. Other exam per Ortho note. Assessment and Plan (1) Cellulitis of left ankle Current visit: Yes Status: Acute Category: Medical Code(s): L03.116 - Cellulitis of left lower limb (2) Wound of left ankle Current visit: Yes Status: Acute Category: Medical Code(s): S91.002A - Unspecified open wound, left ankle, initial encounter (3) Hyperkalemia Current visit: Yes Status: Acute Category: Medical Code(s): E87.5 - Hyperkalemia (4) MELVINA (acute kidney injury) Current visit: Yes Status: Acute Category: Medical Code(s): N17.9 - Acute kidney failure, unspecified (5) Hyponatremia Current visit: Yes Status: Chronic Category: Medical Code(s): E87.1 - Hypo-osmolality and hyponatremia (6) Type 2 diabetes mellitus, with long-term current use of insulin Current visit: Yes Status: Chronic Qualifiers: Diabetes mellitus complication status: with hyperglycemia Qualified Code(s): E11.65 - Type 2 diabetes mellitus with hyperglycemia; Z79.4 - residential (current) use of insulin Category: Medical Code(s): E11.9 - Type 2 diabetes mellitus without complications; Z79.4 - residential (current) use of insulin (7) Morbid obesity with BMI of 45.0-49.9, adult Current visit: Yes Status: Chronic Category: Medical Code(s): E66.01 - Morbid (severe) obesity due to excess calories; Z68.42 - Body mass index (BMI) 45.0-49.9, adult (8) Hypoalbuminemia Current visit: Yes Status: Acute Category: Medical Code(s): E88.09 - Other disorders of plasma-protein metabolism, not elsewhere classified (9) Hypothyroidism Current visit: No Status: Chronic Category: Medical Code(s): E03.9 - Hypothyroidism, unspecified (10) Esophageal varices Current visit: No Status: Chronic Qualifiers: Esophageal varices bleeding: without bleeding Category: Medical Code(s): I85.00 - Esophageal varices without bleeding (11) Hepatic cirrhosis Current visit: No Status: Chronic Category: Medical Code(s): K74.60 - Unspecified cirrhosis of liver (12) Chronic pain Current visit: No Status: Chronic Qualifiers: Chronic pain type: other chronic pain Qualified Code(s): G89.29 - Other chronic pain Category: Medical Code(s): G89.29 - Other chronic pain (13) Decreased pedal pulses Start date: 09/30/19 Current visit: Yes Status: Acute Category: Medical Code(s): R09.89 - Other specified symptoms and signs involving the circulatory and respiratory systems (14) Other specified symptoms and signs involving the circulatory and respiratory systems Start date: 09/30/19 Current visit: Yes Status: Acute Category: Medical Code(s): R09.89 - Other specified symptoms and signs involving the circulatory and respiratory systems (15) Lower extremity edema Start date: 09/30/19 Current visit: Yes Status: Acute Category: Medical Code(s): R60.0 - Localized edema (16) Cutaneous abscess of left ankle Current visit: Yes Status: Acute Category: Medical Code(s): L02.416 - Cutaneous abscess of left lower limb (17) Abscess of bursa of left ankle Current visit: Yes Status: Acute Category: Medical Code(s): M71.072 - Abscess of bursa, left ankle and foot (18) Necrotizing fasciitis of ankle and foot Current visit: Yes Status: Acute Category: Medical Code(s): M72.6 - Necrotizing fasciitis (19) Necrotizing fasciitis of lower leg Current visit: Yes Status: Acute Category: Medical Code(s): M72.6 - Necrotizing fasciitis - Assessment and plan all Dx Assessment and Plan for all problems:: Status post left BKA. Patient should not need further antibiotic therapy. This was stopped today. assisted placement for short-term rehab.
--- NOTE | 2019-10-04 12:04 | Progress Note ---
Subjective Date: 10/04/19 Time: 09:00 Principal diagnosis: L foot/ankle cellulitis, gangrene, suspect necrotizing fasciitis Interval history: The patient is much improved today. She is awake and alert, currently working with physical therapy on transfer to bedside chair. She reports some discomfort in the L leg, but improved from what was present pre-operatively. Remains afebrile, vitals stable. PN: Obj Ex Vital signs: Temp Pulse Resp BP Pulse Ox 98.7 F 92 H 16 138/75 97 10/04/19 08:00 10/04/19 08:00 10/04/19 08:00 10/04/19 08:00 10/04/19 08:00 - Constitutional no acute distress - Routine HEENT Exam Head: Present: normocephalic Eye: Present: EOMI ENT: Present: mucous membranes moist - Routine Respiratory Exam Absent: respiratory distress, wheezes - Routine Cardiovascular Exam Present: RRR - Routine Rectal Exam Comments: purewick catheter in place - Routine Extremities Exam Comments: L BKA stump dressings c/d/i without strikethrough minimal ROM L knee; patient reports discomfort and this was not pushed no swelling, erythema or ecchymosis of thigh, no pain with L hip ROM - Routine Neurological Exam Present: alert, oriented X3, moving all extremities, normal tone, hearing grossly intact, normal speech. Absent: altered mental status Progress Note: A&P (1) Cellulitis of left ankle Status: Acute Current Visit: Yes (2) Wound of left ankle Status: Acute Current Visit: Yes (3) Hyperkalemia Status: Acute Current Visit: Yes (4) MELVINA (acute kidney injury) Status: Acute Current Visit: Yes (5) Hyponatremia Status: Chronic Current Visit: Yes (6) Type 2 diabetes mellitus, with long-term current use of insulin Status: Chronic Current Visit: Yes (7) Morbid obesity with BMI of 45.0-49.9, adult Status: Chronic Current Visit: Yes (8) Hypoalbuminemia Status: Acute Current Visit: Yes (9) Hypothyroidism Status: Chronic Current Visit: No (10) Esophageal varices Status: Chronic Current Visit: No (11) Hepatic cirrhosis Status: Chronic Current Visit: No (12) Chronic pain Status: Chronic Current Visit: No (13) Decreased pedal pulses Status: Acute Current Visit: Yes (14) Other specified symptoms and signs involving the circulatory and respiratory systems Status: Acute Current Visit: Yes (15) Lower extremity edema Status: Acute Current Visit: Yes (16) Cutaneous abscess of left ankle Status: Acute Current Visit: Yes (17) Abscess of bursa of left ankle Status: Acute Current Visit: Yes (18) Necrotizing fasciitis of ankle and foot Status: Acute Current Visit: Yes (19) Necrotizing fasciitis of lower leg Status: Acute Current Visit: Yes Assessment and Plan for All Diagnoses:: 69yo F POD #1 s/p L guillotine below-knee amputation for L foot/ankle cellulitis/gas gangrene with suspected necrotizing fasciitis -- NWB LLE, elevate on pillow at all times -- reinforce dressing for any strikethrough; do not remove dressings. Notify MD if any persistent drainage. -- continue IV antibiotics per schedule; clindamycin and vancomycin -- intra-operative bone cultures/pathology + specimen pathology pending -- will take back to OR for stump revision/closure later this week, date TBD pending lab/culture results and medical status -- transfused 2 units PRBC yesterday, H/H responded appropriately. Recommend watching closely and potentially transfusing again prior to revision surgery, as I anticipate potentially moderate blood loss during that procedure. -- DVT prophy: SCD RLE -- encourage IS 10x/hr while awake -- continue appropriate analgesics for pain control -- will trend CRP during post-op course to track resolution of infection -- continue medial management per Drs. Kirby/Emani -- PT to continue for mobilization as medically appropriate -- dispo: will need SNF referral after next surgery
[2019-10-04 12:42] LABS: Hemoglobin 8.2 g/dL (12.2-16.2)
--- NOTE | 2019-10-04 17:54 | Pharmacy Consult Notes ---
- Pharmacy Consult Date: 10/04/19 Time: 17:53 Referring provider: DR. PRESSLEY Reason for Consult:: VANCOMYCIN TROUGH LEVEL Allergies and ADEs:: Allergies Allergy/AdvReac Type Severity Reaction Status Date / Time diazepam Allergy Intermediate Hives Verified 09/29/19 16:41 sucralfate Allergy Intermediate Swelling Verified 09/29/19 16:41 of Lip/Tongue/Throat tuberculin,PPD,multi-puncture Allergy Intermediate Redness of Verified 09/29/19 16:41 Skin tuberculin, purified protein Allergy Mild Redness of Verified 09/29/19 16:41 deriva Skin [From Tubersol] Home Medications:: Home Medications Medication Instructions Recorded Confirmed Type Budesonide/Formoterol Fumarate 2 puffs IH BID 09/17/17 09/29/19 History [Symbicort 160-4.5 Mcg Inhaler] Insulin Regular, Human [Humulin R] 0 units SQ ACHS 09/17/17 09/29/19 History Albuterol Sulfate [Albuterol HFA 2 puffs IH Q4HP PRN 09/18/17 09/29/19 History Inhaler] Insulin Glargine,Hum.rec.anlog 55 unit SQ HS 09/18/17 09/29/19 History [Lantus Insulin 100units/mL 10mL vial] Levothyroxine Sodium 137 mcg PO DAILY 02/28/19 09/29/19 History [Levothyroxine 137mcg (0.137mg) Tab] Furosemide [Lasix 20mg tablet] 20 mg PO DAILY 03/05/19 09/29/19 History cyclobenzaprine 10 mg tablet 10 mg PO BID tab 04/08/19 09/29/19 History hydrocodone 10 mg-acetaminophen 1 tab PO TID PRN tab 04/08/19 09/29/19 History 325 mg tablet pantoprazole 40 mg tablet,delayed 40 mg PO DAILY 04/08/19 09/29/19 History release Metoprolol Succinate 25 mg PO DAILY 04/12/19 09/30/19 History Fluoxetine HCl 40 mg PO DAILY 09/29/19 09/29/19 History Insulin Glargine,Hum.rec.anlog 25 unit SQ DAILY 09/29/19 09/29/19 History [Lantus Insulin 100units/mL 10mL vial] Metformin HCl [Metformin HCl ER] 500 mg PO DAILY 09/29/19 09/29/19 History Spironolactone 100 mg PO DAILY 09/29/19 09/29/19 History glipiZIDE [Glipizide ER] 10 mg PO BID 09/29/19 09/29/19 History Height: 1.6 m Weight: 125.673 kg Laboratory Results:: Laboratory Results - last 24 hr 09/30/19 13:39: POC Glucose 257 H 09/30/19 13:40: POC Glucose 253 H 10/02/19 06:51: Hgb 8.2 L 10/03/19 05:54: POC Glucose 263 H 10/03/19 08:07: Crossmatch (AHG) See Detail 10/03/19 18:58: Hgb 8.7 L D, Hct 26.7 L 10/03/19 21:02: POC Glucose 191 H 10/04/19 05:04: POC Glucose 240 H 10/04/19 05:48: WBC 4.1 L, RBC 3.04 L, Hgb 8.8 L, Hct 27.2 L, MCV 89.6, MCH 29.1, MCHC 32.5, RDW 16.8, Plt Count 89 L, MPV 9.3, Neut % (Auto) 70.2, Lymph % (Auto) 20.3, [place] % (Auto) 5.0, Eos % (Auto) 4.1, Baso % (Auto) 0.4, Neut # (Auto) 2.9, Lymph # (Auto) 0.8, [place] # (Auto) 0.2, Eos # (Auto) 0.2, Baso # (Auto) 0.0 10/04/19 05:48: Sodium 130 L, Potassium 4.2, Chloride 103, Carbon Dioxide 19 L, Anion Gap 12.2, BUN 13 D, Creatinine 1.00, Estimated Creat Clear 40, Estimated GFR 55 L, Est GFR ( Amer) 67, Glucose 215 H, Calcium 7.0 L, Total Bilirubin 1.0, AST 38 H, ALT 22, Alkaline Phosphatase 169 H, C-Reactive Protein 66.7 H, Total Protein 6.3, Albumin 2.5 L, Globulin 3.8 H, Albumin/Globulin Ratio 0.7 L 10/04/19 11:41: POC Glucose 280 H 10/04/19 15:56: POC Glucose 395 H* 10/04/19 17:00: Vancomycin Trough 12.8 H Medical History: Reports:: Anxiety, Congestive Heart Failure, Chronic Obstructive Pulmonary Disease (COPD), Depression, Diabetes Mellitus Type 2, Heart Murmur, Hyperlipidemia, Hypertension, MRSA, Renal Insufficiency Denies:: Cancer, Diabetes Mellitus Type 1, Internal Pacemaker, Lung Disease, Seizures Assessment and Plan (1) Cellulitis of left ankle Current visit: Yes Status: Acute Category: Medical Code(s): L03.116 - Cellulitis of left lower limb (2) Wound of left ankle Current visit: Yes Status: Acute Category: Medical Code(s): S91.002A - Unspecified open wound, left ankle, initial encounter (3) Hyperkalemia Current visit: Yes Status: Acute Category: Medical Code(s): E87.5 - Hyperkalemia (4) MELVINA (acute kidney injury) Current visit: Yes Status: Acute Category: Medical Code(s): N17.9 - Acute kidney failure, unspecified (5) Hyponatremia Current visit: Yes Status: Chronic Category: Medical Code(s): E87.1 - Hypo-osmolality and hyponatremia (6) Type 2 diabetes mellitus, with long-term current use of insulin Current visit: Yes Status: Chronic Qualifiers: Diabetes mellitus complication status: with hyperglycemia Qualified Code(s): E11.65 - Type 2 diabetes mellitus with hyperglycemia; Z79.4 - correction (current) use of insulin Category: Medical Code(s): E11.9 - Type 2 diabetes mellitus without complications; Z79.4 - correction (current) use of insulin (7) Morbid obesity with BMI of 45.0-49.9, adult Current visit: Yes Status: Chronic Category: Medical Code(s): E66.01 - Morbid (severe) obesity due to excess calories; Z68.42 - Body mass index (BMI) 45.0-49.9, adult (8) Hypoalbuminemia Current visit: Yes Status: Acute Category: Medical Code(s): E88.09 - Other disorders of plasma-protein metabolism, not elsewhere classified (9) Hypothyroidism Current visit: No Status: Chronic Category: Medical Code(s): E03.9 - Hypothyroidism, unspecified (10) Esophageal varices Current visit: No Status: Chronic Qualifiers: Esophageal varices bleeding: without bleeding Category: Medical Code(s): I85.00 - Esophageal varices without bleeding (11) Hepatic cirrhosis Current visit: No Status: Chronic Category: Medical Code(s): K74.60 - Unspecified cirrhosis of liver (12) Chronic pain Current visit: No Status: Chronic Qualifiers: Chronic pain type: other chronic pain Qualified Code(s): G89.29 - Other chronic pain Category: Medical Code(s): G89.29 - Other chronic pain (13) Decreased pedal pulses Start date: 09/30/19 Current visit: Yes Status: Acute Category: Medical Code(s): R09.89 - Other specified symptoms and signs involving the circulatory and respiratory systems (14) Other specified symptoms and signs involving the circulatory and respirator y systems Start date: 09/30/19 Current visit: Yes Status: Acute Category: Medical Code(s): R09.89 - Other specified symptoms and signs involving the circulatory and respiratory systems (15) Lower extremity edema Start date: 09/30/19 Current visit: Yes Status: Acute Category: Medical Code(s): R60.0 - Localized edema (16) Cutaneous abscess of left ankle Current visit: Yes Status: Acute Category: Medical Code(s): L02.416 - Cutaneous abscess of left lower limb (17) Abscess of bursa of left ankle Current visit: Yes Status: Acute Category: Medical Code(s): M71.072 - Abscess of bursa, left ankle and foot (18) Necrotizing fasciitis of ankle and foot Current visit: Yes Status: Acute Category: Medical Code(s): M72.6 - Necrotizing fasciitis (19) Necrotizing fasciitis of lower leg Current visit: Yes Status: Acute Category: Medical Code(s): M72.6 - Necrotizing fasciitis - Assessment and plan all Dx Assessment and Plan for all problems:: BASED ON PATIENT FACTORS AND VANCOMYCIN TROUGH LEVEL, RECOMMEND CONTINUING VANCOMYCIN 1750 MG IV Q24H. PHARMACY WILL CONTINUE TO MONITOR DAILY AND ADJUST APPROPRIATE.
--- NOTE | 2019-10-05 08:43 | Progress Note ---
Internal Medicine - PN: Subj *Date: 10/05/19 *Time: 08:38 Interval history: Ms. Amin did well overnight. States she is actually feeling better and has better pain control since amputation. Eating breakfast this morning in no acute distress. Hemodynamically stable today, afebrile, denies shortness of breath, cough, chest pain, nausea, vomiting. Physical therapy working with her this morning upon leaving the room. Patient openly states that she is lazy. Physical therapy goal working with her to transfer to her wheelchair. Patient overall pleased with results of amputation. Exam Vital signs and Labs for Last 24 Hours: Temp Pulse Resp BP Pulse Ox 98.4 F 80 17 126/51 L 99 10/05/19 04:00 10/05/19 04:00 10/05/19 04:00 10/05/19 04:00 10/05/19 04:00 Laboratory Results - last 24 hr 09/30/19 13:39: POC Glucose 257 H 09/30/19 13:40: POC Glucose 253 H 10/02/19 06:51: Hgb 8.2 L 10/04/19 11:41: POC Glucose 280 H 10/04/19 15:56: POC Glucose 395 H* 10/04/19 17:00: Vancomycin Trough 12.8 H 10/04/19 20:53: POC Glucose 309 H* I & O for Last 24 hours: Intake & Output 10/02/19 10/03/19 10/04/19 10/05/19 23:59 23:59 23:59 23:59 Intake Total 2094 / 2094 4261 / 4381 4097 / 4097 1137 / 1137 Output Total 1225 / 1225 825 / 1225 1900 / 1900 550 / 550 Balance 869 / 869 3436 / 3156 2197 / 2197 587 / 587 Weight 124.795 kg 46.918 kg 125.673 kg 125.672 kg Microbiology Reports for the Last 24 Hours: Microbiology 09/30/19 11:49 Ankle,Left - Preliminary 09/30/19 11:49 Ankle,Left - Preliminary 09/30/19 11:49 Ankle,Left - Final 09/30/19 11:49 Ankle,Left - Final 09/30/19 11:49 Ankle,Left - Final 10/01/19 10:10 Foot,Left - Wound - Preliminary 10/01/19 10:10 Foot,Left - Wound - Preliminary 10/01/19 10:10 Foot,Left - Wound - Final 10/01/19 10:10 Foot,Left - Wound - Final 10/01/19 10:10 Foot,Left - Wound - Final 09/29/19 17:15 Blood Blood Culture - Final NO GROWTH AFTER 5 DAYS 09/29/19 17:15 Blood Blood Culture - Final NO GROWTH AFTER 5 DAYS 10/03/19 10:00 Foot,Left Gram Stain - Final 10/03/19 10:00 Foot,Left Surgical Biopsy Culture - Preliminary NO GROWTH AFTER 24 HOURS 10/03/19 10:00 Foot,Left Gram Stain - Final 10/03/19 10:00 Foot,Left Surgical Biopsy Culture - Preliminary NO GROWTH AFTER 24 HOURS 10/01/19 10:10 Foot,Left - Wound Gram Stain - Final 10/01/19 10:10 Foot,Left - Wound Wound Culture - Final Staphylococcus aureus 10/01/19 10:10 Leg,Left - Wound Gram Stain - Final 10/01/19 10:10 Leg,Left - Wound Surgical Biopsy Culture - Final Staphylococcus aureus Narrative: Patient is pleasant, alert. Oriented x3. No scleral icterus. Lungs are clear. Abdomen soft. Heart rate regular. Neurologic exam intact. Extremities show left leg stump wrapped. Trace edema right lower leg, neurovascularly intact in right distal extremity. Assessment and Plan (1) Cellulitis of left ankle Current visit: Yes Status: Acute Category: Medical Code(s): L03.116 - Cellulitis of left lower limb (2) Wound of left ankle Current visit: Yes Status: Acute Category: Medical Code(s): S91.002A - Unspecified open wound, left ankle, initial encounter (3) Hyperkalemia Current visit: Yes Status: Acute Category: Medical Code(s): E87.5 - Hyperkalemia (4) MELVINA (acute kidney injury) Current visit: Yes Status: Acute Category: Medical Code(s): N17.9 - Acute kidney failure, unspecified (5) Hyponatremia Current visit: Yes Status: Chronic Category: Medical Code(s): E87.1 - H ypo-osmolality and hyponatremia (6) Type 2 diabetes mellitus, with long-term current use of insulin Current visit: Yes Status: Chronic Qualifiers: Diabetes mellitus complication status: with hyperglycemia Qualified Code(s): E11.65 - Type 2 diabetes mellitus with hyperglycemia; Z79.4 - terminal operations manager (current) use of insulin Category: Medical Code(s): E11.9 - Type 2 diabetes mellitus without complications; Z79.4 - terminal operations manager (current) use of insulin (7) Morbid obesity with BMI of 45.0-49.9, adult Current visit: Yes Status: Chronic Category: Medical Code(s): E66.01 - Morbid (severe) obesity due to excess calories; Z68.42 - Body mass index (BMI) 45.0-49.9, adult (8) Hypoalbuminemia Current visit: Yes Status: Acute Category: Medical Code(s): E88.09 - Other disorders of plasma-protein metabolism, not elsewhere classified (9) Hypothyroidism Current visit: No Status: Chronic Category: Medical Code(s): E03.9 - Hypothyroidism, unspecified (10) Esophageal varices Current visit: No Status: Chronic Qualifiers: Esophageal varices bleeding: without bleeding Category: Medical Code(s): I85.00 - Esophageal varices without bleeding (11) Hepatic cirrhosis Current visit: No Status: Chronic Category: Medical Code(s): K74.60 - Unspecified cirrhosis of liver (12) Chronic pain Current visit: No Status: Chronic Qualifiers: Chronic pain type: other chronic pain Qualified Code(s): G89.29 - Other chronic pain Category: Medical Code(s): G89.29 - Other chronic pain (13) Decreased pedal pulses Start date: 09/30/19 Current visit: Yes Status: Acute Category: Medical Code(s): R09.89 - Other specified symptoms and signs involving the circulatory and respiratory systems (14) Other specified symptoms and signs involving the circulatory and respiratory systems Start date: 09/30/19 Current visit: Yes Status: Acute Category: Medical Code(s): R09.89 - Other specified symptoms and signs involving the circulatory and respiratory systems (15) Lower extremity edema Start date: 09/30/19 Current visit: Yes Status: Acute Category: Medical Code(s): R60.0 - Localized edema (16) Cutaneous abscess of left ankle Current visit: Yes Status: Acute Category: Medical Code(s): L02.416 - Cutaneous abscess of left lower limb (17) Abscess of bursa of left ankle Current visit: Yes Status: Acute Category: Medical Code(s): M71.072 - Abscess of bursa, left ankle and foot (18) Necrotizing fasciitis of ankle and foot Current visit: Yes Status: Acute Category: Medical Code(s): M72.6 - Necrotizing fasciitis (19) Necrotizing fasciitis of lower leg Current visit: Yes Status: Acute Category: Medical Code(s): M72.6 - Necrotizing fasciitis - Assessment and plan all Dx Assessment and Plan for all problems:: Status post left BKA, postop day 1. Patient should not need further antibiotic therapy. Did well overnight. Physical therapy working with patient this morning. Goal of being able to transfer to wheelchair as she used to use her former left leg which is no longer available. Patient has been accepted by [facility] if able to discharge this week. Planning for revision of stump later this week. [facility] placement for short-term rehab.
--- NOTE | 2019-10-05 16:12 | Progress Note ---
Subjective Date: 10/05/19 Time: 14:00 Principal diagnosis: L foot/ankle cellulitis, gangrene, suspect necrotizing fasciitis Interval history: The patient is doing well this afternoon, reports less pain in the left leg than yesterday. In preparation for her dressing change today, she was pre-medicated with 4mg IV morphine. Denies fevers/chills, no chest pain or shortness of breath. She has been using her incentive spirometer, which is making her cough; no phlegm production. She is eating and drinking well. PN: Obj Ex Vital signs: Temp Pulse Resp BP Pulse Ox 98.1 F 72 20 135/80 96 10/05/19 11:53 10/05/19 11:53 10/05/19 11:53 10/05/19 11:53 10/05/19 11:53 - Constitutional no acute distress - Routine HEENT Exam Head: Present: normocephalic Eye: Present: EOMI ENT: Present: mucous membranes moist - Routine Respiratory Exam Present: CTA bilaterally. Absent: respiratory distress, wheezes - Routine Cardiovascular Exam Present: RRR - Routine Abdominal Exam Present: soft. Absent: tenderness - Routine Exam Comments: PureWick catheter in place, draining clear yellow urine to canister - Routine Extremities Exam Comments: L BKA stump dressings c/d/i without strikethrough minimal ROM L knee; patient reports discomfort and this was not pushed no swelling, erythema or ecchymosis of thigh, no pain with L hip ROM dressings removed, moderate drainage on dressings L guillotine BKA stump with grossly healthy-appearing tissues, no purulence, active drainage or foul smell no erythema/cellulitis on stump or around wound margins - Routine Skin Exam Present: warm - Routine Neurological Exam Present: alert, oriented X3, normal tone, vision grossly intact, hearing grossly intact, normal speech. Absent: sensory deficit, motor deficit, altered mental status - Routine Psychiatric Exam Present: normal affect Progress Note: A&P (1) Cellulitis of left ankle Status: Acute Current Visit: Yes (2) Wound of left ankle Status: Acute Current Visit: Yes (3) Hyperkalemia Status: Acute Current Visit: Yes (4) MELVINA (acute kidney injury) Status: Acute Current Visit: Yes (5) Hyponatremia Status: Chronic Current Visit: Yes (6) Type 2 diabetes mellitus, with long-term current use of insulin Status: Chronic Current Visit: Yes (7) Morbid obesity with BMI of 45.0-49.9, adult Status: Chronic Current Visit: Yes (8) Hypoalbuminemia Status: Acute Current Visit: Yes (9) Hypothyroidism Status: Chronic Current Visit: No (10) Esophageal varices Status: Chronic Current Visit: No (11) Hepatic cirrhosis Status: Chronic Current Visit: No (12) Chronic pain Status: Chronic Current Visit: No (13) Decreased pedal pulses Status: Acute Current Visit: Yes (14) Other specified symptoms and signs involving the circulatory and respiratory systems Status: Acute Current Visit: Yes (15) Lower extremity edema Status: Acute Current Visit: Yes (16) Cutaneous abscess of left ankle Status: Acute Current Visit: Yes (17) Abscess of bursa of left ankle Status: Acute Current Visit: Yes (18) Necrotizing fasciitis of ankle and foot Status: Acute Current Visit: Yes (19) Necrotizing fasciitis of lower leg Status: Acute Current Visit: Yes (20) Osteomyelitis Status: Acute Current Visit: Yes Assessment and Plan for All Diagnoses:: 69yo F POD #2 s/p L guillotine below-knee amputation for L foot/ankle cellulitis/gas gangrene with suspected necrotizing fasciitis -- NWB LLE, elevate on pillow at all times; dressings changed today -- continue IV antibiotics per schedule; clindamycin and vancomycin -- intra-operative bone cultures/pathology + specimen pathology pending; preliminary cultures NGTD x 48 hours -- DVT prophy: SCD RLE -- encourage IS 10x/hr while awake -- continue appropriate analgesics for pain control -- continue medial management per Drs. Kirby/Emani -- PT to continue for mobilization as medically appropriate -- dispo: will need SNF referral after next surgery -- will take back to OR for stump revision/closure tomorrow, 10/06/2019; I spoke with both the patient and with her via telephone. I discussed the plan as well as the risks of the surgery; both vocalized understanding and are in agreement with the plan for surgery tomorrow. -- 2 units PRBC on hold, will likely be needed post-op
[2019-10-06 06:46] LABS: Basophils % 0.5 % (0.1-2.0); Eosinophils # 0.2 K/mm3 (0.0-0.4); Eosinophils % 3.5 % (0.1-12.0); Hematocrit 28.1 % (37.0-47.0); Lymphocytes # 0.9 K/mm3 (0.7-4.5); Lymphocytes % 19.1 % (10-50); Mean Corpuscular HGB Conc 31.9 g/dL (31.8-35.4); Mean Corpuscular Volume 89.9 fl (81-99); Mean Platelet Volume 8.7 fl (7.4-10.4); Monocytes # 0.3 K/mm3 (0.1-1.0); Monocytes % 6.1 % (1.7-9.3); Neutrophils # 3.3 K/mm3 (1.8-7.8); Neutrophils % 70.8 % (37.0-80.0); Platelet Count 125 K/mm3 (142-424); Red Blood Count 3.12 M/mm3 (4.20-5.40); Red Cell Distribution Width 17.1 % (11.5-17.5); White Blood Count 4.6 K/mm3 (4.8-10.8)
[2019-10-06 07:04] LABS: Anion Gap 12.5 mEq/L (5-15); Calcium 7.2 mg/dl (8.4-10.2)
--- NOTE | 2019-10-06 08:07 | Progress Note ---
Internal Medicine - PN: Subj *Date: 10/06/19 *Time: 08:05 Interval history: Overnight patient feels good, understands plan about revision of stump. Pleasant, oriented x3. Exam Vital signs and Labs for Last 24 Hours: Temp Pulse Resp BP Pulse Ox 97.4 F L 75 17 112/55 L 99 10/06/19 07:41 10/06/19 07:41 10/06/19 07:41 10/06/19 07:41 10/06/19 07:41 Laboratory Results - last 24 hr 10/03/19 08:07: Crossmatch (G) See Detail 10/05/19 05:43: POC Glucose 248 H 10/05/19 11:40: POC Glucose 368 H* 10/05/19 16:49: POC Glucose 390 H* 10/05/19 17:00: Blood Type O Positive, Antibody Screen Negative, Crossmatch (AHG) See Detail 10/05/19 20:53: POC Glucose 244 H 10/06/19 06:10: ESR > 140 H 10/06/19 06:10: C-Reactive Protein 50.9 H 10/06/19 06:10: WBC 4.6 L, RBC 3.12 L, Hgb 9.0 L, Hct 28.1 L, MCV 89.9, MCH 28.7, MCHC 31.9, RDW 17.1, Plt Count 125 L D, MPV 8.7, Neut % (Auto) 70.8, Lymph % (Auto) 19.1, [place] % (Auto) 6.1, Eos % (Auto) 3.5, Baso % (Auto) 0.5, Neut # (Auto) 3.3, Lymph # (Auto) 0.9, [place] # (Auto) 0.3, Eos # (Auto) 0.2, Baso # (Auto) 0.0 10/06/19 06:10: Sodium 131 L, Potassium 4.5, Chloride 104, Carbon Dioxide 19 L, Anion Gap 12.5, BUN 12, Creatinine 0.90, Estimated Creat Clear 43, Estimated GFR 62, Est GFR ( Amer) 76, Glucose 280 H, Calcium 7.2 L 10/06/19 06:33: POC Glucose 286 H I & O for Last 24 hours: Intake & Output 03/10/04/19 10/05/19 10/06/19 11:59 11:59 11:59 11:59 Intake Total 2591 / 2591 3916 / 3916 3588 / 3588 1840 / 1840 Output Total 1300 / 1300 725 / 725 2049 / 2049 325 / 325 Balance 1291 / 1291 3191 / 3191 1538 / 1538 1515 / 1515 Weight 103 lb 7 oz 277 lb 1 oz 277 lb 0.949 oz 288 lb Microbiology Reports for the Last 24 Hours: Microbiology 10/03/19 10:00 Foot,Left Gram Stain - Final 10/03/19 10:00 Foot,Left Surgical Biopsy Culture - Preliminary NO GROWTH AFTER 48 HOURS 10/03/19 10:00 Foot,Left Gram Stain - Final 10/03/19 10:00 Foot,Left Surgical Biopsy Culture - Preliminary NO GROWTH AFTER 48 HOURS 09/30/19 11:49 Ankle,Left - Preliminary 09/30/19 11:49 Ankle,Left - Preliminary 09/30/19 11:49 Ankle,Left - Final 09/30/19 11:49 Ankle,Left - Final 09/30/19 11:49 Ankle,Left - Final 10/01/19 10:10 Foot,Left - Wound - Preliminary 10/01/19 10:10 Foot,Left - Wound - Preliminary 10/01/19 10:10 Foot,Left - Wound - Final 10/01/19 10:10 Foot,Left - Wound - Final 10/01/19 10:10 Foot,Left - Wound - Final Narrative: Patient is pleasant, alert, no icterus. Oropharynx clear, Breathing easily. Pulse rate regular. Abdomen soft. Extremity exam per Ortho. Neuro exam unremarkable. Assessment and Plan (1) Cellulitis of left ankle Current visit: Yes Status: Acute Category: Medical Code(s): L03.116 - Cellulitis of left lower limb (2) Wound of left ankle Current visit: Yes Status: Acute Category: Medical Code(s): S91.002A - Unspecified open wound, left ankle, initial encounter (3) Hyperkalemia Current visit: Yes Status: Acute Category: Medical Code(s): E87.5 - Hyperkalemia (4) MELVINA (acute kidney injury) Current visit: Yes Status: Acute Category: Medical Code(s): N17.9 - Acute kidney failure, unspecified (5) Hyponatremia Current visit: Yes Status: Chronic Category: Medical Code(s): E87.1 - Hypo-osmolality and hyponatremia (6) Type 2 diabetes mellitus, with long-term current use of insulin Current visit: Yes Status: Chronic Qualifiers: Diabetes mellitus complication status: with hyperglycemia Qualified Code(s): E11.65 - Type 2 diabetes mellitus with hyperglycemia; Z79.4 - termite treater helper (current) use of insulin Category: Medical Code(s): E11.9 - Type 2 diabetes mellitus without complications; Z79.4 - termite treater helper (current) use of insulin (7) Morbid obesity with BMI of 45.0-49.9, adult Current visit: Yes Status: Chronic Category: Medical Code(s): E66.01 - Morbid (severe) obesity due to excess calories; Z68.42 - Body mass index (BMI) 45.0-49.9, adult (8) Hypoalbuminemia Current visit: Yes Status: Acute Category: Medical Code(s): E88.09 - Other disorders of plasma-protein metabolism, not elsewhere classified (9) Hypothyroidism Current visit: No Status: Chronic Category: Medical Code(s): E03.9 - Hypothyroidism, unspecified (10) Esophageal varices Current visit: No Status: Chronic Qualifiers: Esophageal varices bleeding: without bleeding Category: Medical Code(s): I85.00 - Esophageal varices without bleeding (11) Hepatic cirrhosis Current visit: No Status: Chronic Category: Medical Code(s): K74.60 - Unspecified cirrhosis of liver (12) Chronic pain Current visit: No Status: Chronic Qualifiers: Chronic pain type: other chronic pain Qualified Code(s): G89.29 - Other chronic pain Category: Medical Code(s): G89.29 - Other chronic pain (13) Decreased pedal pulses Start date: 09/30/19 Current visit: Yes Status: Acute Category: Medical Code(s): R09.89 - Other specified symptoms and signs involving the circulatory and respiratory systems (14) Other specified symptoms and signs involving the circulatory and respiratory systems Start date: 09/30/19 Current visit: Yes Status: Acute Category: Medical Code(s): R09.89 - Other specified symptoms and signs involving the circulatory and respiratory systems (15) Lower extremity edema Start date: 09/30/19 Current visit: Yes Status: Acute Category: Medical Code(s): R60.0 - Loc alized edema (16) Cutaneous abscess of left ankle Current visit: Yes Status: Acute Category: Medical Code(s): L02.416 - Cutaneous abscess of left lower limb (17) Abscess of bursa of left ankle Current visit: Yes Status: Acute Category: Medical Code(s): M71.072 - Abscess of bursa, left ankle and foot (18) Necrotizing fasciitis of ankle and foot Current visit: Yes Status: Acute Category: Medical Code(s): M72.6 - Necrotizing fasciitis (19) Necrotizing fasciitis of lower leg Current visit: Yes Status: Acute Category: Medical Code(s): M72.6 - Necrotizing fasciitis (20) Osteomyelitis Current visit: Yes Status: Acute Category: Medical Code(s): M86.9 - Osteomyelitis, unspecified - Assessment and plan all Dx Assessment and Plan for all problems:: Stump revision today. Continue antibiotics. custodial placement in the next 2 days
--- NOTE | 2019-10-06 14:56 | Progress Note ---
[facility] Anesthesia Record Part I Intake, IV Amount: 1,400 Estimated blood loss (mL): 300 Urine output (mL): 0 Blood Pressure: 147/62 SaO2: 96 Pulse Rate: 78 Respiratory Rate: 16 Temperature: 98.7 F Patient is:: Drowsy, Stable Stable to PACU at:: 14:45
--- NOTE | 2019-10-06 15:13 | Operative Note ---
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 She injured the ankle several weeks ago and developed cellulitis, subcutaneous abscesses, acute osteomyelitis, and rapid worsening/spread of the infection proximally up fascial planes concerning for necrotizing fasciitis. She underwent [address] Shin, and by the morning of 10/03/2019 the foot did not appear viable. Guillotine BKA was performed and the stump left open, while she continued to receive intravenous clindamycin and vancomycin. CRP remained elevated but began trending downwards, intra-operative cultures from 10/03/2019 were negative x3 days, and surgical specimen was deemed to have clear margins w/o evidence of infection; I discussed this with the pathologist Dr. Bonilla via telephone this morning. The decision was made to take the patient back today for repeat I&D of the BKA stump with revision and closure of the wound if possible. I discussed the procedure with the patient and her and the associated risks, which include bleeding, need for blood transfusion, wound infection or spread of persistent stump infection, wound healing complications including breakdown, need for stump revision in the future, and the risks of anesthesia. The patient vocalized understanding and provided informed consent for the procedure. Operative findings:: all tissues appeared healthy and viable, no purulence or necrotic tissue Operative note:: The patient was identified in preoperative holding and L leg signed. Consent was reviewed with the patient and all questions answered. She was then taken to the OR, where IV antibiotics were not re-dosed; last IV clindamycin dose was 4:45am this morning and last vancomycin was 5pm yesterday. The patient was transferred to the OR table and general endotracheal anesthesia induced. SCD was placed on the RLE, PureWick catheter placement confirmed, and all bony prominences well- padded. Once the patient was anesthetized, bandages were removed from L BKA stump and the leg prepped and draped in the usual sterile fashion, using a betadine; a non-sterile tourniquet was placed on the upper thigh. Time out was performed, identifying the correct patient and correct site. The procedure was begun by elevating the left lower extremity for 2 minutes; esmarch was not used to exsanguinate the limb. Tourniquet was inflated to 300 mmHg. The left BKA stump was open from the prior procedure and was irrigated with 3 L sterile saline with bacitracin delievered via pulsivac. All tissues appeared healthy and viable without purulence or necrotic tissue. The posterior margin of the wound was left intact, to become the new posterior flap of the stump. A new anterior flap was drawn with marking pen; the anterior leg was taken back by about 5 cm proximally. Using a 10 blade the skin of the distal stump was incised anteriorly following this line, curving around posteriorly to meet the posterior flap. Electrocautery was used to transect the musculature of the anterior and lateral compartments. The distal tibia was transected with an oscillating saw around 2 cm proximal to the anterior wound margin, and the fibula around 1 cm proximal to the tibia. The free edge of the tibia was rasped to create blunt edges. Posterior muscle was debulked so that the flap could be closed; this left sufficient tissue to create a well-padded stump. All major neurovascular bundles were identified, dissected out and individually double ligated with silk ties. The larger vessels were backed up with small vascular clips. Tourniquet was then dropped, without major bleeding. Both tissue and bone samples were sent for culture and pathology. The stump was irrigated with bulb syringe once more and dried with clean lap sponges. The wound was then closed in a layered fashion, using ethibond to perform myodesis of the anterior / posterior musculature; this was followed by 0-vicryl on the deep tissues, 2-0 vicryl for subcutaneous tissue, and 2-0 nylon on the skin in an interrupted horizontal mattress suture. Prior to wound closure a KATIE drain was placed submuscularly; this was hooked to bulb suction. Sterile dressings were applied to the stump and a U-splint applied with 4" orthoglass. The patient was then awoken from anesthesia, extubated, transferred back to her bed and taken to PACU in good condition. The patient tolerated the procedure well without any immediate eve-operative complications. We will check an H/H in PACU and 2 units PRBC are already on hold for her if needed. Tourniquet time (min): 60 Condition: stable Disposition: PACU Specimens:: bone + tissue sent for culture + path Complications:: none
[2019-10-06 15:27] LABS: Hemoglobin 8.8 g/dL (12.2-16.2)
--- NOTE | 2019-10-06 15:30 | Progress Note ---
Subjective Date: 10/06/19 Time: 15:30 Principal diagnosis: L foot/ankle cellulitis, gangrene, suspect necrotizing fasciitis Interval history: The patient underwent L BKA guillotine stump revision with wound closure this afternoon without complication. PN: Obj Ex Vital signs: Temp Pulse Resp BP Pulse Ox 98.7 F 78 16 147/62 H 99 10/06/19 14:56 10/06/19 14:56 10/06/19 14:56 10/06/19 14:56 10/06/19 07:41 Narrative: the patient is resting comfortably in PACU, vitals stable LLE dressing c/d/i Progress Note: A&P (1) Cellulitis of left ankle Status: Acute Current Visit: Yes (2) Wound of left ankle Status: Acute Current Visit: Yes (3) Hyperkalemia Status: Acute Current Visit: Yes (4) MELVINA (acute kidney injury) Status: Acute Current Visit: Yes (5) Hyponatremia Status: Chronic Current Visit: Yes (6) Type 2 diabetes mellitus, with long-term current use of insulin Status: Chronic Current Visit: Yes (7) Morbid obesity with BMI of 45.0-49.9, adult Status: Chronic Current Visit: Yes (8) Hypoalbuminemia Status: Acute Current Visit: Yes (9) Hypothyroidism Status: Chronic Current Visit: No (10) Esophageal varices Status: Chronic Current Visit: No (11) Hepatic cirrhosis Status: Chronic Current Visit: No (12) Chronic pain Status: Chronic Current Visit: No (13) Decreased pedal pulses Status: Acute Current Visit: Yes (14) Other specified symptoms and signs involving the circulatory and respiratory systems Status: Acute Current Visit: Yes (15) Lower extremity edema Status: Acute Current Visit: Yes (16) Cutaneous abscess of left ankle Status: Acute Current Visit: Yes (17) Abscess of bursa of left ankle Status: Acute Current Visit: Yes (18) Necrotizing fasciitis of ankle and foot Status: Acute Current Visit: Yes (19) Necrotizing fasciitis of lower leg Status: Acute Current Visit: Yes (20) Osteomyelitis Status: Acute Current Visit: Yes Assessment and Plan for All Diagnoses:: 69yo F POD #0 s/p revision L guillotine BKA stump with wound closure POD #3 s/p L guillotine below-knee amputation for L foot/ankle cellulitis/gas gangrene with suspected necrotizing fasciitis -- H/H drawn in PACU, 2 units PRBC on hold if needed -- NWB LLE, elevate on pillow at all times -- continue IV antibiotics per schedule; clindamycin and vancomycin -- intra-operative bone/tissue cultures/pathology sent today -- cultures from 10/03/19 have been negative to date; pathology verbally reported to be negative for infection -- DVT prophy: SCD RLE -- encourage IS 10x/hr while awake -- continue appropriate analgesics for pain control -- continue medial management per Drs. Kirby/Emani -- PT to continue for mobilization as medically appropriate -- dispo: will need SNF referral
--- NOTE | 2019-10-06 19:25 | Progress Note ---
[facility] Anesthesia Record Part II Discharge Time: 15:26 Destination: Medical Surgical Department PACU nurse assessment reviewed?: Yes Patient Condition:: Good Anesthesia Complications:: None Swallowing reflex intact?: Yes Cyanosis?: No Blood Pressure: 127/88 Pulse Rate: 88 Temperature: 98.7 F Mental Status: Alert & Oriented Pain level:: 0 Nausea and/or vomitting:: None Intake, IV Amount: 0
[2019-10-07 06:28] LABS: Basophils % 0.4 % (0.1-2.0); Eosinophils # 0.2 K/mm3 (0.0-0.4); Eosinophils % 1.6 % (0.1-12.0); Hematocrit 26.5 % (37.0-47.0); Hemoglobin 8.3 g/dL (12.2-16.2); Lymphocytes # 1.3 K/mm3 (0.7-4.5); Lymphocytes % 13.7 % (10-50); Mean Corpuscular HGB Conc 31.3 g/dL (31.8-35.4); Mean Corpuscular Volume 90.1 fl (81-99); Mean Platelet Volume 8.9 fl (7.4-10.4); Monocytes # 0.6 K/mm3 (0.1-1.0); Monocytes % 5.9 % (1.7-9.3); Neutrophils # 7.4 K/mm3 (1.8-7.8); Neutrophils % 78.4 % (37.0-80.0); Platelet Count 178 K/mm3 (142-424); Red Blood Count 2.94 M/mm3 (4.20-5.40); Red Cell Distribution Width 17.9 % (11.5-17.5); White Blood Count 9.5 K/mm3 (4.8-10.8)
[2019-10-07 06:37] LABS: Calcium 7.1 mg/dl (8.4-10.2)
--- NOTE | 2019-10-07 08:16 | Progress Note ---
Internal Medicine - PN: Subj *Date: 10/07/19 *Time: 08:14 Interval history: Patient is in good spirits except for some restless leg complaints of her lower extremities that caused her significant pain and cramping last night. Exam Vital signs and Labs for Last 24 Hours: Temp Pulse Resp BP Pulse Ox 98.1 F 81 18 119/49 L 99 10/07/19 07:46 10/07/19 07:46 10/07/19 07:46 10/07/19 07:46 10/07/19 07:46 Laboratory Results - last 24 hr 10/06/19 11:16: POC Glucose 258 H 10/06/19 12:47: POC Glucose 204 H 10/06/19 13:49: POC Glucose 192 H 10/06/19 15:07: POC Glucose 180 H 10/06/19 15:15: Hgb 8.8 L, Hct 27.0 L 10/06/19 21:05: POC Glucose 303 H* 10/07/19 05:55: POC Glucose 324 H* 10/07/19 06:03: WBC 9.5 D, RBC 2.94 L, Hgb 8.3 L, Hct 26.5 L, MCV 90.1, MCH 28.2, MCHC 31.3 L, RDW 17.9 H, Plt Count 178 D, MPV 8.9, Neut % (Auto) 78.4, Lymph % (Auto) 13.7, [place] % (Auto) 5.9, Eos % (Auto) 1.6, Baso % (Auto) 0.4, Neut # (Auto) 7.4, Lymph # (Auto) 1.3, [place] # (Auto) 0.6, Eos # (Auto) 0.2, Baso # (Auto) 0.0 10/07/19 06:03: Sodium 129 L, Potassium 5.0, Chloride 101, Carbon Dioxide 20 L, Anion Gap 13.0, BUN 16 D, Creatinine 1.10 H D, Estimated Creat Clear 39, Estimated GFR 50 L, Est GFR ( Amer) 60 D, Glucose 344 H D, Calcium 7.1 L I & O for Last 24 hours: Intake & Output 10/04/19 10/05/19 10/06/19 10/07/19 11:59 11:59 11:59 11:59 Intake Total 3916 / 3916 3588 / 3588 1840 / 1840 2878 / 2878 Output Total 725 / 725 2049 / 2049 325 / 325 850 / 850 Balance 3191 / 3191 1538 / 1538 1515 / 1515 2027 Weight 277 lb 1 oz 277 lb 0.949 oz 288 lb 289 lb 7 oz Microbiology Reports for the Last 24 Hours: Microbiology 10/03/19 10:00 Foot,Left Gram Stain - Final 10/03/19 10:00 Foot,Left Surgical Biopsy Culture - Preliminary NO GROWTH AFTER 72 HOURS 09/30/19 11:49 Ankle,Left - Final 09/30/19 11:49 Ankle,Left - Final 09/30/19 11:49 Ankle,Left - Final 09/30/19 11:49 Ankle,Left - Final 09/30/19 11:49 Ankle,Left - Final 10/01/19 10:10 Foot,Left - Wound - Final 10/01/19 10:10 Foot,Left - Wound - Final 10/01/19 10:10 Foot,Left - Wound - Final 10/01/19 10:10 Foot,Left - Wound - Final 10/01/19 10:10 Foot,Left - Wound - Final 10/03/19 10:00 Foot,Left Gram Stain - Final 10/03/19 10:00 Foot,Left Surgical Biopsy Culture - Preliminary NO GROWTH AFTER 72 HOURS Narrative: Patient is pleasant, alert. JVD not noticed. Lungs are clear. Heart rate regular. Oropharynx clear. Abdomen soft nontender. Left lower leg dressing clean/dry/intact. Assessment and Plan (1) Cellulitis of left ankle Current visit: Yes Status: Acute Category: Medical Code(s): L03.116 - Cellulitis of left lower limb (2) Wound of left ankle Current visit: Yes Status: Acute Category: Medical Code(s): S91.002A - Unspecified open wound, left ankle, initial encounter (3) Hyperkalemia Current visit: Yes Status: Acute Category: Medical Code(s): E87.5 - Hyperkalemia (4) MELVINA (acute kidney injury) Current visit: Yes Status: Acute Category: Medical Code(s): N17.9 - Acute kidney failure, unspecified (5) Hyponatremia Current visit: Yes Status: Chronic Category: Medical Code(s): E87.1 - Hypo-osmolality and hyponatremia (6) Type 2 diabetes mellitus, with long-term current use of insulin Current visit: Yes Status: Chronic Qualifiers: Diabetes mellitus complication status: with hyperglycemia Qualified Code(s): E11.65 - Type 2 diabetes mellitus with hyperglycemia; Z79.4 - shelter (current) use of insulin Category: Medical Code(s): E11.9 - Type 2 diabetes mellitus without complications; Z79.4 - long term care social worker (current) use of insulin (7) Morbid obesity with BMI of 45.0-49.9, adult Current visit: Yes Status: Chronic Category: Medical Code(s): E66.01 - Morbid (severe) obesity due to excess calories; Z68.42 - Body mass index (BMI) 45.0-49.9, adult (8) Hypoalbuminemia Current visit: Yes Status: Acute Category: Medical Code(s): E88.09 - Other disorders of plasma-protein metabolism, not elsewhere classified (9) Hypothyroidism Current visit: No Status: Chronic Category: Medical Code(s): E03.9 - Hy pothyroidism, unspecified (10) Esophageal varices Current visit: No Status: Chronic Qualifiers: Esophageal varices bleeding: without bleeding Category: Medical Code(s): I85.00 - Esophageal varices without bleeding (11) Hepatic cirrhosis Current visit: No Status: Chronic Category: Medical Code(s): K74.60 - Unspecified cirrhosis of liver (12) Chronic pain Current visit: No Status: Chronic Qualifiers: Chronic pain type: other chronic pain Qualified Code(s): G89.29 - Other chronic pain Category: Medical Code(s): G89.29 - Other chronic pain (13) Decreased pedal pulses Start date: 09/30/19 Current visit: Yes Status: Acute Category: Medical Code(s): R09.89 - Other specified symptoms and signs involving the circulatory and respiratory systems (14) Other specified symptoms and signs involving the circulatory and respiratory systems Start date: 09/30/19 Current visit: Yes Status: Acute Category: Medical Code(s): R09.89 - Other specified symptoms and signs involving the circulatory and respiratory systems (15) Lower extremity edema Start date: 09/30/19 Current visit: Yes Status: Acute Category: Medical Code(s): R60.0 - Localized edema (16) Cutaneous abscess of left ankle Current visit: Yes Status: Acute Category: Medical Code(s): L02.416 - Cutaneous abscess of left lower limb (17) Abscess of bursa of left ankle Current visit: Yes Status: Acute Category: Medical Code(s): M71.072 - Abscess of bursa, left ankle and foot (18) Necrotizing fasciitis of ankle and foot Current visit: Yes Status: Acute Category: Medical Code(s): M72.6 - Necrotizing fasciitis (19) Necrotizing fasciitis of lower leg Current visit: Yes Status: Acute Category: Medical Code(s): M72.6 - Necrotizing fasciitis (20) Osteomyelitis Current visit: Yes Status: Acute Category: Medical Code(s): M86.9 - Osteomyelitis, unspecified (21) Acute postoperative anemia due to expected blood loss Current visit: Yes Status: Acute Category: Medical Code(s): D62 - Acute posthemorrhagic anemia - Assessment and plan all Dx Assessment and Plan for all problems:: Overall patient doing well. Restless leg symptoms noticed. We will add low-dose Requip at night. Cardiopulmonary status is stable. Hemoglobin 8.3 today. Would not recommend transfusion. Check CBC and electrolytes tomorrow morning. Medically stable to transfer to SNF facility when cleared by orthopedics.
--- NOTE | 2019-10-07 12:38 | Progress Note ---
Subjective Date: 10/07/19 Time: 10:00 Principal diagnosis: L foot/ankle cellulitis, gangrene, suspect necrotizing fasciitis Interval history: The patient underwent L delfino BKA stump revision/closure yesterday without complication. Post-operatively she reported severe pain and cried & screamed throughout the night, to the point her splint was removed and a NICKER started. This helped somewhat. The patient says the pain medication helps when she pushes the button, but then she falls asleep and wakes later in pain. Otherwise no medical issues overnight. PN: Obj Ex Vital signs: Temp Pulse Resp BP Pulse Ox 98.7 F 82 20 108/38 L 98 10/07/19 10:00 10/07/19 10:00 10/07/19 11:36 10/07/19 10:00 10/07/19 10:00 - Constitutional no acute distress, morbidly obese - Routine HEENT Exam Head: Present: normocephalic Eye: Present: EOMI ENT: Present: mucous membranes moist - Routine Respiratory Exam Absent: respiratory distress, wheezes - Routine Cardiovascular Exam Present: RRR - Routine Abdominal Exam Present: soft. Absent: tenderness - Routine Exam Comments: purewick catheter in place - Routine Extremities Exam Comments: L BKA stump surgical dressings not removed, c/d/i w/o strikethrough splint has been removed, APARNA wraps intact; KATIE drain with <5cc in bulb, drain not emptied overnight *KATIE drain removed intact L BKA stump re-wrapped with APARNA bandages and elevated on pillow - Routine Skin Exam Present: warm - Routine Neurological Exam Present: alert, oriented X3, moving all extremities, normal tone, hearing grossly intact, normal speech. Absent: sensory deficit, motor deficit, altered mental status - Routine Psychiatric Exam Present: anxious Progress Note: A&P (1) Cellulitis of left ankle Status: Acute Current Visit: Yes (2) Wound of left ankle Status: Acute Current Visit: Yes (3) Hyperkalemia Status: Acute Current Visit: Yes (4) MELVINA (acute kidney injury) Status: Acute Current Visit: Yes (5) Hyponatremia Status: Chronic Current Visit: Yes (6) Type 2 diabetes mellitus, with long-term current use of insulin Status: Chronic Current Visit: Yes (7) Morbid obesity with BMI of 45.0-49.9, adult Status: Chronic Current Visit: Yes (8) Hypoalbuminemia Status: Acute Current Visit: Yes (9) Hypothyroidism Status: Chronic Current Visit: No (10) Esophageal varices Status: Chronic Current Visit: No (11) Hepatic cirrhosis Status: Chronic Current Visit: No (12) Chronic pain Status: Chronic Current Visit: No (13) Decreased pedal pulses Status: Acute Current Visit: Yes (14) Other specified symptoms and signs involving the circulatory and respiratory systems Status: Acute Current Visit: Yes (15) Lower extremity edema Status: Acute Current Visit: Yes (16) Cutaneous abscess of left ankle Status: Acute Current Visit: Yes (17) Abscess of bursa of left ankle Status: Acute Current Visit: Yes (18) Necrotizing fasciitis of ankle and foot Status: Acute Current Visit: Yes (19) Necrotizing fasciitis of lower leg Status: Acute Current Visit: Yes (20) Osteomyelitis Status: Acute Current Visit: Yes (21) Acute postoperative anemia due to expected blood loss Status: Acute Current Visit: Yes Assessment and Plan for All Diagnoses:: 69yo F POD #1 s/p revision L guillotine BKA stump with wound closure POD #4 s/p L guillotine below-knee amputation for L foot/ankle cellulitis/gas gangrene with suspected necrotizing fasciitis -- NWB LLE, elevate on pillow at all times -- continue IV antibiotics per schedule; clindamycin and vancomycin -- intra-operative bone/tissue cultures/pathology sent today -- cultures from 10/03/19 have been negative to date; pathology verbally reported to be negative for infection -- DVT prophy: SCD RLE -- encourage IS 10x/hr while awake -- continue appropriate analgesics for pain control; stopped NICKER, placed back on oral/IV push meds but scheduled them -- continue medial management per Drs. Kirby/Emani -- PT to continue for mobilization as medically appropriate -- dispo: will need SNF referral
--- NOTE | 2019-10-07 17:11 | Pharmacy Consult Notes ---
- Pharmacy Consult Date: 10/07/19 Time: 17:10 Referring provider: DR. PRESSLEY Reason for Consult:: VANCOMYCIN TROUGH LEVEL Allergies and ADEs:: Allergies Allergy/AdvReac Type Severity Reaction Status Date / Time diazepam Allergy Intermediate Hives Verified 09/29/19 16:41 sucralfate Allergy Intermediate Swelling Verified 09/29/19 16:41 of Lip/Tongue/Throat tuberculin,PPD,multi-puncture Allergy Intermediate Redness of Verified 09/29/19 16:41 Skin tuberculin, purified protein Allergy Mild Redness of Verified 09/29/19 16:41 deriva Skin [From Tubersol] Home Medications:: Home Medications Medication Instructions Recorded Confirmed Type Budesonide/Formoterol Fumarate 2 puffs IH BID 09/17/17 09/29/19 History [Symbicort 160-4.5 Mcg Inhaler] Insulin Regular, Human [Humulin R] 0 units SQ ACHS 09/17/17 09/29/19 History Albuterol Sulfate [Albuterol HFA 2 puffs IH Q4HP PRN 09/18/17 09/29/19 History Inhaler] Insulin Glargine,Hum.rec.anlog 55 unit SQ HS 09/18/17 09/29/19 History [Lantus Insulin 100units/mL 10mL vial] Levothyroxine Sodium 137 mcg PO DAILY 02/28/19 09/29/19 History [Levothyroxine 137mcg (0.137mg) Tab] Furosemide [Lasix 20mg tablet] 20 mg PO DAILY 03/05/19 09/29/19 History cyclobenzaprine 10 mg tablet 10 mg PO BID tab 04/08/19 09/29/19 History hydrocodone 10 mg-acetaminophen 1 tab PO TID PRN tab 04/08/19 09/29/19 History 325 mg tablet pantoprazole 40 mg tablet,delayed 40 mg PO DAILY 04/08/19 09/29/19 History release Metoprolol Succinate 25 mg PO DAILY 04/12/19 09/30/19 History Fluoxetine HCl 40 mg PO DAILY 09/29/19 09/29/19 History Insulin Glargine,Hum.rec.anlog 25 unit SQ DAILY 09/29/19 09/29/19 History [Lantus Insulin 100units/mL 10mL vial] Metformin HCl [Metformin HCl ER] 500 mg PO DAILY 09/29/19 09/29/19 History Spironolactone 100 mg PO DAILY 09/29/19 09/29/19 History glipiZIDE [Glipizide ER] 10 mg PO BID 09/29/19 09/29/19 History Height: 1.6 m Weight: 131.287 kg Laboratory Results:: Laboratory Results - last 24 hr 10/06/19 21:05: POC Glucose 303 H* 10/07/19 05:55: POC Glucose 324 H* 10/07/19 06:03: WBC 9.5 D, RBC 2.94 L, Hgb 8.3 L, Hct 26.5 L, MCV 90.1, MCH 28.2, MCHC 31.3 L, RDW 17.9 H, Plt Count 178 D, MPV 8.9, Neut % (Auto) 78.4, Lymph % (Auto) 13.7, [place] % (Auto) 5.9, Eos % (Auto) 1.6, Baso % (Auto) 0.4, Neut # (Auto) 7.4, Lymph # (Auto) 1.3, [place] # (Auto) 0.6, Eos # (Auto) 0.2, Baso # (Auto) 0.0 10/07/19 06:03: Sodium 129 L, Potassium 5.0, Chloride 101, Carbon Dioxide 20 L, Anion Gap 13.0, BUN 16 D, Creatinine 1.10 H D, Estimated Creat Clear 39, Estimated GFR 50 L, Est GFR ( Amer) 60 D, Glucose 344 H D, Calcium 7.1 L 10/07/19 11:18: POC Glucose 332 H* 10/07/19 16:12: POC Glucose 343 H* 10/07/19 16:33: Vancomycin Trough 17.9 H Medical History: Reports:: Anxiety, Congestive Heart Failure, Chronic Obstructive Pulmonary Disease (COPD), Depression, Diabetes Mellitus Type 2, Heart Murmur, Hyperlipidemia, Hypertension, MRSA, Renal Insufficiency Denies:: Cancer, Diabetes Mellitus Type 1, Internal Pacemaker, Lung Disease, Seizures Assessment and Plan (1) Cellulitis of left ankle Current visit: Yes Status: Acute Category: Medical Code(s): L03.116 - Cellulitis of left lower limb (2) Wound of left ankle Current visit: Yes Status: Acute Category: Medical Code(s): S91.002A - Unspecified open wound, left ankle, initial encounter (3) Hyperkalemia Current visit: Yes Status: Acute Category: Medical Code(s): E87.5 - Hyperkalemia (4) MELVINA (acute kidney injury) Current visit: Yes Status: Acute Category: Medical Code(s): N17.9 - Acute kidney failure, unspecified (5) Hyponatremia Current visit: Yes Status: Chronic Category: Medical Code(s): E87.1 - Hypo-osmolality and hyponatremia (6) Type 2 diabetes mellitus, with long-term current use of insulin Current visit: Yes Status: Chronic Qualifiers: Diabetes mellitus complication status: with hyperglycemia Qualified Code(s): E11.65 - Type 2 diabetes mellitus with hyperglycemia; Z79.4 - terminal press operator (current) use of insulin Category: Medical Code(s): E11.9 - Type 2 diabetes mellitus without complications; Z79.4 - terminal press operator (current) use of insulin (7) Morbid obesity with BMI of 45.0-49.9, adult Current visit: Yes Status: Chronic Category: Medical Code(s): E66.01 - Morbid (severe) obesity due to excess calories; Z68.42 - Body mass index (BMI) 45.0-49.9, adult (8) Hypoalbuminemia Current visit: Yes Status: Acute Category: Medical Code(s): E88.09 - Other disorders of plasma-protein metabolism, not elsewhere classified (9) Hypothyroidism Current visit: No Status: Chronic Category: Medical Code(s): E03.9 - Hypothyroidism, unspecified (10) Esophageal varices Current visit: No Status: Chronic Qualifiers: Esophageal varices bleeding: without bleeding Category: Medical Code(s): I85.00 - Esophageal varices without bleeding (11) Hepatic cirrhosis Current visit: No Status: Chronic Category: Medical Code(s): K74.60 - Unspecified cirrhosis of liver (12) Chronic pain Current visit: No Status: Chronic Qualifiers: Chronic pain type: other chronic pain Qualified Code(s): G89.29 - Other chronic pain Category: Medical Code(s): G89.29 - Other chronic pain (13) Decreased pedal pulses Start date: 09/30/19 Current visit: Yes Status: Acute Category: Medical Code(s): R09.89 - Other specified symptoms and signs involving the circulatory and respiratory systems (14) Other specified symptoms and signs involving the circulatory and respiratory systems Start date: 09/30/19 Current visit: Yes Status: Acute Category: Medical Code(s): R09.89 - Other specified symptoms and signs involving the circulatory and respiratory systems (15) Lower extremity edema Start date: 09/30/19 Current visit: Yes Status: Acute Category: Medical Code(s): R60.0 - Localized edema (16) Cutaneous abscess of left ankle Current visit: Yes Status: Acute Category: Medical Code(s): L02.416 - Cutaneous abscess of left lower limb (17) Abscess of bursa of left ankle Current visit: Yes Status: Acute Category: Medical Code(s): M71.072 - Abscess of bursa, left ankle and foot (18) Necrotizing fasciitis of ankle and foot Current visit: Yes Status: Acute Category: Medical Code(s): M72.6 - Necrotizing fasciitis (19) Necrotizing fasciitis of lower leg Current visit: Yes Status: Acute Category: Medical Code(s): M72.6 - Necrotizing fasciitis (20) Osteomyelitis Current visit: Yes Status: Acute Category: Medical Code(s): M86.9 - Osteomyelitis, unspecified (21) Acute postoperative anemia due to expected blood loss Current visit: Yes Status: Acute Category: Medical Code(s): D62 - Acute posthemorrhagic anemia - Assessment and plan all Dx Assessment and Plan for all problems:: BASED ON PATIENT FACTORS AND VANCOMYCIN TROUGH LEVEL OF 17.9 RECOMMEND CONTINUING CURRENT DOSE OF VANCOMYCIN (1,750MG IV EVERY 24 HOURS). PHARMACY WILL CONTINUE TO MONITOR AND WILL ADJUST DOSE APPROPRIATE. -CLARKE TORRES, MASOUDD
[2019-10-08 06:13] LABS: Basophils % 0.4 % (0.1-2.0); Eosinophils # 0.2 K/mm3 (0.0-0.4); Eosinophils % 2.4 % (0.1-12.0); Lymphocytes # 1.3 K/mm3 (0.7-4.5); Lymphocytes % 13.1 % (10-50); Mean Corpuscular Volume 88.3 fl (81-99); Mean Platelet Volume 9.1 fl (7.4-10.4); Monocytes # 0.5 K/mm3 (0.1-1.0); Monocytes % 5.4 % (1.7-9.3); Neutrophils # 7.9 K/mm3 (1.8-7.8); Neutrophils % 78.8 % (37.0-80.0); Platelet Count 127 K/mm3 (142-424); Red Blood Count 2.08 M/mm3 (4.20-5.40); Red Cell Distribution Width 17.9 % (11.5-17.5)
[2019-10-08 06:15] LABS: Mean Corpuscular HGB Conc 40.1 g/dL (31.8-35.4)
[2019-10-08 06:16] LABS: Calcium 7.4 mg/dl (8.4-10.2)
[2019-10-08 06:18] LABS: Hematocrit 18.4 % (37.0-47.0); Hemoglobin 7.4 g/dL (12.2-16.2)
--- NOTE | 2019-10-08 07:54 | Progress Note ---
Internal Medicine - PN: Subj *Date: 10/08/19 *Time: 07:53 Interval history: Patient is in good spirits, sitting up in the chair eating breakfast. Exam Vital signs and Labs for Last 24 Hours: Temp Pulse Resp BP Pulse Ox 98.3 F 80 18 103/60 L 96 10/08/19 04:00 10/08/19 04:00 10/08/19 04:00 10/08/19 04:00 10/08/19 07:23 Laboratory Results - last 24 hr 10/05/19 17:00: Blood Type O Positive, Antibody Screen Negative, Crossmatch (AHG) See Detail 10/07/19 11:18: POC Glucose 332 H* 10/07/19 16:12: POC Glucose 343 H* 10/07/19 16:33: Vancomycin Trough 17.9 H 10/07/19 20:10: POC Glucose 302 H* 10/08/19 06:00: WBC 10.0, RBC 2.08 L D, Hgb 7.4 L*, Hct 18.4 L*, MCV 88.3, MCH 35.5 H D, MCHC 40.1 H* D, RDW 17.9 H, Plt Count 127 L D, MPV 9.1, Neut % (Auto) 78.8, Lymph % (Auto) 13.1, [place] % (Auto) 5.4, Eos % (Auto) 2.4, Baso % (Auto) 0.4, Neut # (Auto) 7.9 H, Lymph # (Auto) 1.3, [place] # (Auto) 0.5, Eos # (Auto) 0.2, Baso # (Auto) 0.0 10/08/19 06:00: Sodium 127 L, Potassium 5.0, Chloride 101, Carbon Dioxide 19 L, Anion Gap 12.0, BUN 19 H, Creatinine 1.30 H, Estimated Creat Clear 33, Estimated GFR 41 L, Est GFR ( Amer) 49 L, Glucose 255 H D, Calcium 7.4 L 10/08/19 06:08: POC Glucose 281 H I & O for Last 24 hours: Intake & Output 10/05/19 10/06/19 10/07/19 10/08/19 11:59 11:59 11:59 11:59 Intake Total 3588 / 3588 1840 / 1840 2878 / 2878 1466 / 1466 Output Total 2049 325 / 325 855 / 855 400 / 400 Balance 1538 / 1538 1515 / 1515 2022 1066 / 1066 Weight 277 lb 0.949 oz 288 lb 289 lb 7 oz 296 lb 7 oz Microbiology Reports for the Last 24 Hours: Microbiology 10/06/19 13:30 Leg,Left - Deep Gram Stain - Final 10/06/19 13:30 Leg,Left - Deep Surgical Biopsy Culture - Preliminary Gram Negative Rods 10/06/19 13:30 Bone - Left Gram Stain - Final 10/06/19 13:30 Bone - Left Surgical Biopsy Culture - Preliminary Gram Negative Rods 10/06/19 13:30 Leg,Left - Wound Gram Stain - Final 10/06/19 13:30 Leg,Left - Wound Surgical Biopsy Culture - Preliminary NO GROWTH AFTER 24 HOURS 10/03/19 10:00 Foot,Left Gram Stain - Final 10/03/19 10:00 Foot,Left Surgical Biopsy Culture - Preliminary NO GROWTH AFTER 4 DAYS 10/03/19 10:00 Foot,Left Gram Stain - Final 10/03/19 10:00 Foot,Left Surgical Biopsy Culture - Preliminary NO GROWTH AFTER 4 DAYS Narrative: Patient is pleasant, alert, talkative, no jaundice. Lungs clear. Heart rate regular. Abdomen soft. Stump site well bandaged, clean and dry and intact. Otherwise neurologically intact, ENT exam clear Assessment and Plan (1) Cellulitis of left ankle Current visit: Yes Status: Acute Category: Medical Code(s): L03.116 - Cellulitis of left lower limb (2) Wound of left ankle Current visit: Yes Status: Acute Category: Medical Code(s): S91.002A - Unspecified open wound, left ankle, initial encounter (3) Hyperkalemia Current visit: Yes Status: Acute Category: Medical Code(s): E87.5 - Hyperkalemia (4) MELVINA (acute kidney injury) Current visit: Yes Status: Acute Category: Medical Code(s): N17.9 - Acute kidney failure, unspecified (5) Hyponatremia Current visit: Yes Status: Chronic Category: Medical Code(s): E87.1 - Hypo-osmolality and hyponatremia (6) Type 2 diabetes mellitus, with long-term current use of insulin Current visit: Yes Status: Chronic Qualifiers: Diabetes mellitus complication status: with hyperglycemia Qualified Cod e(s): E11.65 - Type 2 diabetes mellitus with hyperglycemia; Z79.4 - intermediate card tender (current) use of insulin Category: Medical Code(s): E11.9 - Type 2 diabetes mellitus without complications; Z79.4 - intermediate card tender (current) use of insulin (7) Morbid obesity with BMI of 45.0-49.9, adult Current visit: Yes Status: Chronic Category: Medical Code(s): E66.01 - Morbid (severe) obesity due to excess calories; Z68.42 - Body mass index (BMI) 45.0-49.9, adult (8) Hypoalbuminemia Current visit: Yes Status: Acute Category: Medical Code(s): E88.09 - Other disorders of plasma-protein metabolism, not elsewhere classified (9) Hypothyroidism Current visit: No Status: Chronic Category: Medical Code(s): E03.9 - Hypothyroidism, unspecified (10) Esophageal varices Current visit: No Status: Chronic Qualifiers: Esophageal varices bleeding: without bleeding Category: Medical Code(s): I85.00 - Esophageal varices without bleeding (11) Hepatic cirrhosis Current visit: No Status: Chronic Category: Medical Code(s): K74.60 - Unspecified cirrhosis of liver (12) Chronic pain Current visit: No Status: Chronic Qualifiers: Chronic pain type: other chronic pain Qualified Code(s): G89.29 - Other chronic pain Category: Medical Code(s): G89.29 - Other chronic pain (13) Decreased pedal pulses Start date: 09/30/19 Current visit: Yes Status: Acute Category: Medical Code(s): R09.89 - Other specified symptoms and signs involving the circulatory and respiratory systems (14) Other specified symptoms and signs involving the circulatory and respiratory systems Start date: 09/30/19 Current visit: Yes Status: Acute Category: Medical Code(s): R09.89 - Other specified symptoms and signs involving the circulatory and respiratory systems (15) Lower extremity edema Start date: 09/30/19 Current visit: Yes Status: Acute Category: Medical Code(s): R60.0 - Localized edema (16) Cutaneous abscess of left ankle Current visit: Yes Status: Acute Category: Medical Code(s): L02.416 - Cutaneous abscess of left lower limb (17) Abscess of bursa of left ankle Current visit: Yes Status: Acute Category: Medical Code(s): M71.072 - Abscess of bursa, left ankle and foot (18) Necrotizing fasciitis of ankle and foot Current visit: Yes Status: Acute Category: Medical Code(s): M72.6 - Necrotizing fasciitis (19) Necrotizing fasciitis of lower leg Current visit: Yes Status: Acute Category: Medical Code(s): M72.6 - Necrotizing fasciitis (20) Osteomyelitis Current visit: Yes Status: Acute Category: Medical Code(s): M86.9 - Osteomyelitis, unspecified (21) Acute postoperative anemia due to expected blood loss Current visit: Yes Status: Acute Category: Medical Code(s): D62 - Acute posthemorrhagic anemia - Assessment and plan all Dx Assessment and Plan for all problems:: Overall improving. Continue antibiotics intravenously until negative cultures from stump site. Transfuse today given her postoperative anemia. If post transfusion H&H looks good we will transfer to alf this afternoon.
--- NOTE | 2019-10-08 12:58 | Progress Note ---
Subjective Date: 10/08/19 Time: 12:00 Principal diagnosis: L foot/ankle cellulitis, gangrene, suspect necrotizing fasciitis Interval history: The patient is more comfortable today, reports better pain control, but her nurse reports continued periods of screaming and complaining of pain/pressure in the foot (which is now absent). No fevers reported. Hgb 7.4 this morning, transfusion ordered. PN: Obj Ex Vital signs: Temp Pulse Resp BP Pulse Ox 98.7 F 76 18 99/56 L 97 10/08/19 12:00 10/08/19 12:00 10/08/19 12:00 10/08/19 12:00 10/08/19 12:00 - Constitutional no acute distress - Routine HEENT Exam Head: Present: normocephalic Eye: Present: EOMI ENT: Present: mucous membranes moist - Routine Respiratory Exam Absent: respiratory distress, wheezes - Routine Cardiovascular Exam Present: RRR - Routine Extremities Exam Comments: L BKA stump surgical dressings c/d/i w/o strikethrough splint has been removed, APARNA wraps intact; KATIE drain pulled yesterday all dressings removed, incision c/d/i w/o duskiness or necrosis of wound margins, all suture intact no periwound erythema or drainage, moderate soft tissue swelling L BKA stump sensitive to touch, but patient tolerated dressing change well; new dressings applied - Routine Skin Exam Present: warm - Routine Neurological Exam Present: alert, oriented X3, moving all extremities, normal tone, hearing grossly intact, normal speech. Absent: sensory deficit, motor deficit, altered mental status - Routine Psychiatric Exam Present: cooperative, anxious Progress Note: A&P (1) Cellulitis of left ankle Status: Acute Current Visit: Yes (2) Wound of left ankle Status: Acute Current Visit: Yes (3) Hyperkalemia Status: Acute Current Visit: Yes (4) MELVINA (acute kidney injury) Status: Acute Current Visit: Yes (5) Hyponatremia Status: Chronic Current Visit: Yes (6) Type 2 diabetes mellitus, with long-term current use of insulin Status: Chronic Current Visit: Yes (7) Morbid obesity with BMI of 45.0-49.9, adult Status: Chronic Current Visit: Yes (8) Hypoalbuminemia Status: Acute Current Visit: Yes (9) Hypothyroidism Status: Chronic Current Visit: No (10) Esophageal varices Status: Chronic Current Visit: No (11) Hepatic cirrhosis Status: Chronic Current Visit: No (12) Chronic pain Status: Chronic Current Visit: No (13) Decreased pedal pulses Status: Acute Current Visit: Yes (14) Other specified symptoms and signs involving the circulatory and respiratory systems Status: Acute Current Visit: Yes (15) Lower extremity edema Status: Acute Current Visit: Yes (16) Cutaneous abscess of left ankle Status: Acute Current Visit: Yes (17) Abscess of bursa of left ankle Status: Acute Current Visit: Yes (18) Necrotizing fasciitis of ankle and foot Status: Acute Current Visit: Yes (19) Necrotizing fasciitis of lower leg Status: Acute Current Visit: Yes (20) Osteomyelitis Status: Acute Current Visit: Yes (21) Acute postoperative anemia due to expected blood loss Status: Acute Current Visit: Yes Assessment and Plan for All Diagnoses:: 69yo F POD #2 s/p revision L guillotine BKA stump with wound closure POD #5 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 Preliminary wound cultures concerning for gram positive cocci and possibly gram negative rods. Will continue to follow and adjust antibiotics as needed. -- DVT prophy: SCD RLE -- encourage IS 10x/hr while awake -- continue appropriate analgesics for pain control -- f/u post-transfusion H/H this afternoon -- continue medial management per Drs. Kirby/Emani -- PT to continue for mobilization as medically appropriate -- dispo: will need SNF referral; ok from my standpoint to transfer when approved
[2019-10-08 13:19] LABS: Hematocrit 26.7 % (37.0-47.0)
[2019-10-08 13:22] LABS: Hemoglobin 8.6 g/dL (12.2-16.2)
--- NOTE | 2019-10-08 14:17 | Discharge Summary ---
General - General Admission date:: 09/29/19 Discharge date: 10/08/19 HPI HPI: 69 yr old female with complicated past medical history presented to clinic accompanied by her today with complaint of LEFT ankle pain, swelling, erythema, drainage. Evidently symptoms began around 2 weeks ago after she hit her ankle on her motorized wheelchair. Was seen in clinic around that time, labs were obtained and labs along with exam were felt to be consistent with acute gout. She was started on indomethacin and later prescribed allopurinol. She has been taking the indomethacin which helps a little with her pain but has not started allopurinol. Pain, swelling, drainage have increased steadily and they came in today for re- evaluation. She was noted to have significant swelling around the LEFT ankle worse at the medial aspect and had multiple pustules that were draining serous to purulent drainage. Wound drainage was obtained for culture and she was sent for imaging and lab evaluation which were both markedly abnormal, concerning for osteomyelitis and she was admitted for management. History additionally includes diabetes mellilitus on long-term insulin. She notes that glucose has been averaging over 500. She does have a history of complicated infection requiring amputation of the right great toe. Also has history of liver cirrhosis with esophageal varicies and her medical care has been quite fragmented over the past couple of years as she is noncompliant with follow-up. Hospital Course Hospital Course: Patient was admitted, podiatry and orthopedics were consulted. After debridement revealed significant infectious to damage and poor blood flow was recognized patient was subjected to a BKA with subsequent revision. This was very successful, excellent clean tissue was obtained. Patient felt much better after the BKA. She was able to eat well, pain was controlled with morphine therapy. Cultures during the revision are pending, currently show Gram stain with gram- negative rods although blood counts, fever curve and clinical examination do not reveal signs or symptoms of infection. Final identification of this organism is pending. Patient has reached maximal medical improvement in the hospital. She will be discharged to [facility] today with p.o. Zyvox and p.o. Omnicef to cover gram-positive and gram-negative infections. We will do close follow-up on [facility] rounds on Friday. We will start Percocet therapy for postsurgical pain as well as gabapentin for ongoing neuropathy pain. Of note I discontinued metformin and glipizide because of acute kidney injury a nd high risk medication status respectively. Discontinued spironolactone because of her hyperkalemia on this agent. Sliding scale insulin in addition to one-time only long-acting insulin will be done at the [facility]. She will need ongoing wound care as done here at the hospital for her amputation site. Objective Vital signs: Temp Pulse Resp BP Pulse Ox 98.2 F 82 20 114/56 L 95 10/08/19 13:00 10/08/19 13:00 10/08/19 13:00 10/08/19 13:00 10/08/19 13:00 no acute distress, obese - *Routine HEENT Exam Head: Present: normocephalic Eye: Present: EOMI, PERRL - *Routine Neck Exam Present: supple, full ROM - *Routine Respiratory Exam Present: CTA bilaterally - *Routine Cardiovascular Exam Present: RRR - *Routine Abdominal Exam Present: soft, normoactive bowel sounds. Absent: tenderness - *Routine Extremities Exam Comments: Stump on the left leg is clean/dry/intact. See operative notes for details. Right leg with old forefoot amputation. - *Routine Skin Exam Present: warm. Absent: rash - *Routine Neurological Exam Present: alert, oriented X3, moving all extremities, vision grossly intact, hearing grossly intact Results Labs on day of discharge: Labs from last 24 hours 10/08/19 10/08/19 10/08/19 13:10 11:15 06:08 WBC RBC Hgb 8.6 L D Hct 26.7 L MCV MCH MCHC RDW Plt Count MPV Neut % (Auto) Lymph % (Auto) [place] % (Auto) Eos % (Auto) Baso % (Auto) Neut # (Auto) Lymph # (Auto) [place] # (Auto) Eos # (Auto) Baso # (Auto) Sodium Potassium Chloride Carbon Dioxide Anion Gap BUN Creatinine Estimated Creat Clear Estimated GFR Est GFR ( Amer) Glucose POC Glucose 276 H 281 H Calcium Vancomycin Trough Blood Type Antibody Screen Crossmatch ([facility]) 10/08/19 10/08/19 10/07/19 06:00 06:00 20:10 WBC 10.0 RBC 2.08 L D Hgb 7.4 L* Hct 18.4 L* MCV 88.3 MCH 35.5 H D MCHC 40.1 H* D RDW 17.9 H Plt Count 127 L D MPV 9.1 Neut % (Auto) 78.8 Lymph % (Auto) 13.1 [place] % (Auto) 5.4 Eos % (Auto) 2.4 Baso % (Auto) 0.4 Neut # (Auto) 7.9 H Lymph # (Auto) 1.3 [place] # (Auto) 0.5 Eos # (Auto) 0.2 Baso # (Auto) 0.0 Sodium 127 L Potassium 5.0 Chloride 101 Carbon Dioxide 19 L Anion Gap 12.0 BUN 19 H Creatinine 1.30 H Estimated Creat Clear 33 Estimated GFR 41 L Est GFR ( Amer) 49 L Glucose 255 H D POC Glucose 302 H* Calcium 7.4 L Vancomycin Trough Blood Type Antibody Screen Crossmatch ([facility]) 10/07/19 10/07/19 10/05/19 16:33 16:12 17:00 WBC RBC Hgb Hct MCV MCH MCHC RDW Plt Count MPV Neut % (Auto) Lymph % (Auto) [place] % (Auto) Eos % (Auto) Baso % (Auto) Neut # (Auto) Lymph # (Auto) [place] # (Auto) Eos # (Auto) Baso # (Auto) Sodium Potassium Chloride Carbon Dioxide Anion Gap BUN Creatinine Estimated Creat Clear Estimated GFR Est GFR ( Amer) Glucose POC Glucose 343 H* Calcium Vancomycin Trough 17.9 H Blood Type O Positive Antibody Screen Negative Crossmatch ([facility]) See Detail 10/03/19 08:07 WBC RBC Hgb Hct MCV MCH MCHC RDW Plt Count MPV Neut % (Auto) Lymph % (Auto) [place] % (Auto) Eos % (Auto) Baso % (Auto) Neut # (Auto) Lymph # (Auto) [place] # (Auto) Eos # (Auto) Baso # (Auto) Sodium Potassium Chloride Carbon Dioxide Anion Gap BUN Creatinine Estimated Creat Clear Estimated GFR Est GFR ( Amer) Glucose POC Glucose Calcium Vancomycin Trough Blood Type Antibody Screen Crossmatch ([facility]) See Detail Preliminary micro results at discharge 10/06/19 13:30 Surgical Biopsy Culture - Preliminary Leg,Left - Deep Gram Negative Rods 10/06/19 13:30 Surgical Biopsy Culture - Preliminary Bone - Left Gram Negative Rods 10/06/19 13:30 Surgical Biopsy Culture - Preliminary Leg,Left - Wound NO GROWTH AFTER 24 HOURS DS: Diagnosis - Discharge Diagnosis (1) Cellulitis of left ankle Status: Resolved (2) Wound of left ankle Status: Resolved (3) Hyperkalemia Status: Resolved (4) MELVINA (acute kidney injury) Status: Acute (5) Hyponatremia Status: Chronic (6) Type 2 diabetes mellitus, with long-term current use of insulin Status: Chronic (7) Morbid obesity with BMI of 45.0-49.9, adult Status: Chronic (8) Hypoalbuminemia Status: Acute (9) Hypothyroidism Status: Chronic (10) Esophageal varices Status: Chronic (11) Hepatic cirrhosis Status: Chronic (12) Chronic pain Status: Chronic (13) Decreased pedal pulses Status: Acute (14) Other specified symptoms and signs involving the circulatory and respiratory systems Status: Acute (15) Lower extremity edema Status: Acute (16) Cutaneous abscess of left ankle Status: Acute (17) Abscess of bursa of left ankle Status: Acute (18) Necrotizing fasciitis of ankle and foot Status: Resolved (19) Necrotizing fasciitis of lower leg Status: Resolved (20) Osteomyelitis Status: Acute (21) Acute postoperative anemia due to expected blood loss Status: Resolved (22) Status post below-knee amputation of left lower extremity Status: Acute Discharge Plan - Patient Discharge Instructions ACTIVITY: Up with assistance DIET: diabetic diet Additional Instructions: -- NWB LLE, up with assistance -- continue PT/OT at SNF -- change dressing once daily: xeroform, 4x4s, kerlix, APARNA wrap -- elevate LLE as high/frequently as possible to aid with reduction of leg edema Patient Instructions: Complications of Type 2 Diabetes, Carbohydrate-Counting Diet, DI for Osteomyelitis, DI for Hyperkalemia, DI for Hyponatremia, Low-Sodium Diet, The Importance of Counting Carbs If You Have Diabetes, DI for Acute Kidney Injury - Follow up Plan Follow up with: Alejandra Pardo MD [Physician] - 10/14/19 10:30 am Fabiola Modi APRN [Nurse Practitioner] - Home Medications: Home Medications Medication Instructions Recorded Confirmed Type Budesonide/Formoterol Fumarate 2 puffs IH BID 09/17/17 09/29/19 History [Symbicort 160-4.5 Mcg Inhaler] Insulin Regular, Human [Humulin R] 0 units SQ ACHS 09/17/17 09/29/19 History Albuterol Sulfate [Albuterol HFA 2 puffs IH Q4HP PRN 09/18/17 09/29/19 History Inhaler] Insulin Glargine,Hum.rec.anlog 55 unit SQ HS 09/18/17 09/29/19 History [Lantus Insulin 100units/mL 10mL vial] Levothyroxine Sodium 137 mcg PO DAILY 02/28/19 09/29/19 History [Levothyroxine 137mcg (0.137mg) Tab] Furosemide [Lasix 20mg tablet] 20 mg PO DAILY 03/05/19 09/29/19 History cyclobenzaprine 10 mg tablet 10 mg PO BID tab 04/08/19 09/29/19 History hydrocodone 10 mg-acetaminophen 1 tab PO TID PRN tab 04/08/19 09/29/19 History 325 mg tablet pantoprazole 40 mg tablet,delayed 40 mg PO DAILY 04/08/19 09/29/19 History release Metoprolol Succinate 25 mg PO DAILY 04/12/19 09/30/19 History Fluoxetine HCl 40 mg PO DAILY 09/29/19 09/29/19 History Insulin Glargine,Hum.rec.anlog 25 unit SQ DAILY 09/29/19 09/29/19 History [Lantus Insulin 100units/mL 10mL vial] Metformin HCl [Metformin HCl ER] 500 mg PO DAILY 09/29/19 09/29/19 History Spironolactone 100 mg PO DAILY 09/29/19 09/29/19 History glipiZIDE [Glipizide ER] 10 mg PO BID 09/29/19 09/29/19 History Gabapentin [Gabapentin 100mg Cap] 100 mg PO TID 30 Days #90 cap 10/08/19 Rx Oxycodone HCl/Acetaminophen 1 - 2 each PO Q4H PRN #45 tab 10/08/19 Rx [Percocet 7.5/325mg tablet] Ropinirole HCl [Requip 1mg Tablet] 1 mg PO HS 30 Days #30 tab 10/08/19 Rx Prescriptions/Medication Reconciliation: New Oxycodone HCl/Acetaminophen [Percocet 7.5/325mg tablet] 1 - 2 each PO Q4H PRN #45 tab PRN Reason: Breakthru Moderate Pain Ropinirole HCl [Requip 1mg Tablet] 1 mg PO HS 30 Days #30 tab Gabapentin [Gabapentin 100mg Cap] 100 mg PO TID 30 Days #90 cap Continued pantoprazole 40 mg tablet,delayed release 40 mg PO DAILY Insulin Regular, Human [Humulin R] 0 units SQ ACHS Budesonide/Formoterol Fumarate [Symbicort 160-4.5 Mcg Inhaler] 2 puffs IH BID Insulin Glargine,Hum.rec.anlog [Lantus Insulin 100units/mL 10mL vial] 55 unit SQ HS Levothyroxine Sodium [Levothyroxine 137mcg (0.137mg) Tab] 137 mcg PO DAILY Fluoxetine HCl 40 mg PO DAILY Albuterol Sulfate [Albuterol HFA Inhaler] 2 puffs IH Q4HP PRN PRN Reason: Shortness Of Breath Or Wheezing Metoprolol Succinate 25 mg PO DAILY Discontinued cyclobenzaprine 10 mg tablet 10 mg PO BID tab hydrocodone 10 mg-acetaminophen 325 mg tablet 1 tab PO TID PRN tab PRN Reason: pain Furosemide [Lasix 20mg tablet] 20 mg PO DAILY Spironolactone 100 mg PO DAILY Insulin Glargine,Hum.rec.anlog [Lantus Insulin 100units/mL 10mL vial] 25 unit SQ DAILY glipiZIDE [Glipizide ER] 10 mg PO BID Metformin HCl [Metformin HCl ER] 500 mg PO DAILY - Problem Reconciliation Problems Reviewed?: Yes
== END 2019-10-08 19:35 | DRG 239 ==
LOC: LAB 13:22 → 2ND 14:58
PROVIDERS: ADMIT Internal Medicine Adolescent Medicine; ATTEND Internal Medicine Adolescent Medicine
CPT/HCPCS: 36415; 71010; 71045; 73590; 73600; 73610; 73630; 73721; 80048; 80053; 80202; 82962; 83036; 83605; 85014; 85018; 85025; 85651; 86140; 86850; 87040; 87070; 87075; 87077; 87186; 87205; 88305; 88307; 88311; 93005; 93923; 97110; 97166; 97530; C1713; J0330; J2405; J2710; J3370; P9016; S0077

== ENCOUNTER → 2019-10-15 10:42 | Outpatient (CLI) | payer MEDICARE, OTHER, SELFPAY ==
--- NOTE | 2019-10-15 10:44 | XR_ITS ---
PROCEDURE: XR TIBIA FIBULA LT 2V CLINICAL INDICATION: SP lt bka Follow-up surgery COMPARISON: MR ANKLE LT WO CON from 09/30/2019 FINDINGS: Status post below the knee amputation. There is a total knee prosthesis present on the left. Small clip is present is present at the medial aspect of the amputation stump. There is some heterogeneous density along the cutaneous tissues at the anterior distal aspect of the amputation stump which could be due to a local bandage artifact along with some folding of the soft tissues at this area. Please correlate with direct visualization. No abnormal soft tissue gas. No bony erosive process IMPRESSION: Status post [id number] amputation as described above Dictated by: Mateo Babin MD 10/15/2019 12:44 Electronically signed by Mateo Babin MD in [place] 10/15/2019 12:44
== END ==
PROVIDERS: PCP Internal Medicine Adolescent Medicine; Visit Provider Orthopaedic Surgery
DX: Z89.512 Acquired absence of left leg below knee (principal); I50.9 Heart failure, unspecified; R06.00 Dyspnea, unspecified; R60.9 Edema, unspecified; R93.1 Abnormal findings on diagnostic imaging of heart and coronary circulation; R94.31 Abnormal electrocardiogram [ECG] [EKG]
CPT/HCPCS: 73590

== ENCOUNTER → 2019-10-15 12:09 | Outpatient (CLI) | payer MEDICARE, OTHER, SELFPAY ==
[2019-10-15 14:35] LABS: C-Reactive Protein 56.7 mg/L (0-4)
== END ==
PROVIDERS: Visit Provider Orthopaedic Surgery
DX: Z89.512 Acquired absence of left leg below knee (principal)
CPT/HCPCS: 73590; 86140

== ENCOUNTER 2019-11-04 14:01 | Emergency (ER) | payer MEDICARE, OTHER, MEDICAID, SELFPAY ==
[2019-11-04] VITALS (12 sets, daily range): BP systolic 92–121; BP diastolic 32–88; PULSE 71–86; RESP 16–22; TEMP 36.7–37.1; O2SAT 94–100; BMI 50.1
--- NOTE | 2019-11-04 14:02 | ECG_ITS ---
APPROVED REPORT Exam: Resting ECG HR:70 bpm ECG Measurements Heart Rate 70 AXES TX 142 P 40 QRSd 82 QRS 24 QT 424 T 83 QTc 457 <Conclusion> Normal sinus rhythm Low voltage QRS Borderline ECG Electronically signed by : Camden Kirby, 11/08/2019 21:07:15
[2019-11-04 14:20] LABS: Chloride 104 mmol/L (98-107)
--- NOTE | 2019-11-04 14:20 | CT_ITS ---
PROCEDURE: CT CHEST W CON CLINCAL INDICATION: pain Shortness of air with chest pain COMPARISON: CT ABDOMEN PELVIS W CON from 11/04/2019 TECHNIQUE: IV Contrast: 75ml Optiray 350 Axial images obtained with sagittal and coronal reformats. All CT scans at the facility use one or more dose reduction, viz: automated exposure control, ma/kV adjustment per patient size (including targeted exams where dose is matched to indication, i.e. head), or iterative reconstruction technique. FINDINGS: HEART AND MEDIASTINAL STRUCTURES: No evidence of aortic aneurysm. Pulmonary arteries are not well opacified. There is some minor calcification at the aortic valve. There is normal heart size. The esophagus is thickened in its mid to distal aspect. LUNGS AND PLEURAL SPACES: There are few scattered calcified granulomas. There is some mild atelectatic or fibrotic changes in the right middle lobe peripherally. There is a small left pleural effusion with mild left basilar atelectasis. BONY STRUCTURES: There are mild degenerative changes of the thoracic spine. UPPER ABDOMEN: Please see abdomen report ADDITIONAL FINDINGS: No other significant abnormalities. IMPRESSION: Thickened esophagus which may be seen with esophagitis. Minimal atelectatic or fibrotic changes in the right middle lobe Small left pleural effusion with mild left basilar atelectasis Dictated by: Mateo Babin MD 11/04/2019 15:21 Electronically signed by Mateo Babin MD in [place] 11/04/2019 15:21
--- NOTE | 2019-11-04 14:20 | CT_ITS ---
PROCEDURE: CT ABDOMEN PELVIS W CON CLINICAL INDICATION: pain Abdominal pain with nausea and distension COMPARISON: CT ABDOMEN PELVIS W CON from 07/03/2019 TECHNIQUE: IV Contrast: 75ML OPTIRAY 350 Oral Contrast 20ml Gastroview Axial images obtained with sagittal and coronal reformats. All CT scans at the facility use one or more dose reduction, viz: automated exposure control, ma/kV adjustment per patient size (including targeted exams where dose is matched to indication, i.e. head), or iterative reconstruction technique. FINDINGS: LOWER THORAX: There is a small left pleural effusion with mild left basilar atelectasis. There is hyperdensity noted in the atelectatic lung ABDOMEN & PELVIS: The liver has a cirrhotic appearance. There is a moderate amount abdominal and pelvic ascites. The spleen is enlarged at 18 cm. Pancreas is atrophic. There is enlargement of the splenic vein. There are perigastric varices. The kidneys have an unremarkable appearance. There is mild nodular enlargement of the left adrenal gland unchanged. No intestinal obstruction or free air. The appendix is not identified. There are degenerative changes in the lumbar spine and severe osteoarthritic changes are noted in the hips right more extensive than left with subarticular cystic changes of the right acetabulum and femoral head There is mild diffuse anasarca IMPRESSION: 1. Cirrhosis with moderate amount of ascites and with splenomegaly and findings of portal hypertension with enlarged splenic vein and perigastric varices. 2. Small left pleural effusion with left basilar atelectasis and hyperdense appearing atelectatic lung on the left. 3. Anasarca 4. Severe osteoarthritis of the right hip with subarticular cystic changes Dictated by: Mateo Babin MD 11/04/2019 15:28 Electronically signed by Mateo Babin MD in [place] 11/04/2019 15:28
[2019-11-04 14:21] LABS: Basophils % 0.4 % (0.1-2.0); Eosinophils # 0.1 K/mm3 (0.0-0.4); Lymphocytes # 0.7 K/mm3 (0.7-4.5); Lymphocytes % 18.5 % (10-50); Mean Corpuscular HGB Conc 32.9 g/dL (31.8-35.4); Mean Corpuscular Volume 88.3 fl (81-99); Mean Platelet Volume 9.2 fl (7.4-10.4); Monocytes # 0.2 K/mm3 (0.1-1.0); Neutrophils % 74.1 % (37.0-80.0); Platelet Count 88 K/mm3 (142-424); Potassium 4.1 mmoL/L (3.5-5.1); Red Blood Count 2.67 M/mm3 (4.20-5.40); Red Cell Distribution Width 16.7 % (11.5-17.5); Sodium 136 mmol/L (136-145)
[2019-11-04 14:22] LABS: Hematocrit 23.6 % (37.0-47.0); Hemoglobin 7.8 g/dL (12.2-16.2)
[2019-11-04 14:23] LABS: Alanine Aminotransferase 20 U/L (12-78); Albumin Level 2.7 g/dl (3.5-5.0); Albumin/Globulin Ratio 0.7 (1.1-1.8); Alkaline Phosphatase 215 U/L (38-126); Anion Gap 9.1 mEq/L (5-15); Aspartate Amino Transferase 45 U/L (14-36); Bilirubin,Total 0.4 mg/dl (0.2-1.3); Blood Urea Nitrogen 29 mg/dl (7-17); Carbon Dioxide 27 mmol/L (22.0-30.0); Creatinine Clearance Estimated 41 mL/min (50-200); Estimated Glomerular Filt Rate 50 ml/min (>60); GFR (African American) 60 ML/MIN (>60); Globulin 3.9 g/dL (1.3-3.2); Total Protein,Serum 6.6 g/dl (6.3-8.2)
[2019-11-04 14:24] LABS: Calcium 8.5 mg/dl (8.4-10.2); Glucose 72 mg/dl (74-100)
--- NOTE | 2019-11-04 14:29 | PC.NURSE ---
PT GOING TO CT
[2019-11-04 14:50] LABS: INR 1.22 (0.9-1.1); Prothrombin Time 12.6 seconds (9.4-11.8)
--- NOTE | 2019-11-04 14:56 | PC.NURSE ---
Pt returned from rad.
--- NOTE | 2019-11-04 16:22 | [facility].EDGENADL ---
ED Disposition Clinical Impression: Anemia, Gastroenteritis, Esophageal varices with bleeding, Ascites due to alcoholic cirrhosis, Upper gastrointestinal bleed, Dyspnea, Splenomegaly, Portal hypertension, Morbid obesity with BMI of 45.0-49.9, adult, Type 2 diabetes mellitus, Abdominal pain Disposition: Xfer Short-Term Hosp Condition on Discharge: Serious Instructions: DI for Diarrhea and Traveler's Diarrhea -- Adult, DI for Diarrhea and Traveler's Diarrhea -- Child, DI for Nausea -- Adult, DI for Nausea -- Child Additional Instructions: Patient has been accepted and sent to [facility] emergency department. Referrals: Camden Kirby MD [Primary Care Provider] - - Critical Care Critical Care Time: Yes Attestation: On 11/04/19, the high probability of a clinically significant, sudden or life threatening deterioration of the following system(s) required my full and direct attention, intervention and personal management. The time I documented below is in addition to time spent performing reported procedures but includes the following listed in this critical care notation. Total Critical Care Time: 55 Vital system(s) involved:: Shock (Hemorrhage) My critical care processes included: Assessment & monitoring of V/S, Initial and Re-exams, Data Review/Interpretation, Coordinating Care, Medication Orders and management, Documentation Medical Decision Making - Medical Records Medical records reviewed: Yes: I reviewed the patient's medical records. - Vaughn Inquiry Pt receiving controlled substance: No Vital Signs: 11/04/19 14:05 11/04/19 14:56 11/04/19 15:04 Temperature 98.2 F Temperature Source Oral Pulse Rate [Left Radial] 72 71 75 Respiratory Rate 16 Blood Pressure [Right Arm] 110/32 L 100/49 L 100/49 L Blood Pressure Mean [Right Arm] 58 66 66 Blood Pressure Source [Right Arm] Automatic Cuff Blood Pressure Position [Right Arm] Sitting Sitting 02 Sat by Pulse Oximetry 98 100 94 L Oxygen Delivery Method Room Air Room Air Room Air 11/04/19 15:44 11/04/19 16:55 Temperature Temperature Source Pulse Rate [Left Radial] 75 86 Respiratory Rate Blood Pressure [Right Arm] 96/46 L 108/88 L Blood Pressure Mean [Right Arm] 62 94 Blood Pressure Source [Right Arm] Automatic Cuff Automatic Cuff Blood Pressure Position [Right Arm] Sitting Sitting 02 Sat by Pulse Oximetry 98 99 Oxygen Delivery Method Room Air Room Air - Lab Data Lab results reviewed: Yes: I reviewed the patient's lab results. Lab Results 11/04/19 14:00: WBC 4.0 L, RBC 2.67 L, Hgb 7.8 L*, Hct 23.6 L*, MCV 88.3, MCH 29.0, MCHC 32.9, RDW 16.7, Plt Count 88 L, MPV 9.2, Neut % (Auto) 74.1, Lymph % (Auto) 18.5, [place] % (Auto) 5.0, Eos % (Auto) 2.0, Baso % (Auto) 0.4, Neut # (Auto) 3.0, Lymph # (Auto) 0.7, [place] # (Auto) 0.2, Eos # (Auto) 0.1, Baso # (Auto) 0.0 11/04/19 14:00: PT 12.6 H, INR 1.22 H 11/04/19 14:00: Sodium 136, Potassium 4.1, Chloride 104, Carbon Dioxide 27, Anion Gap 9.1, BUN 29 H, Creatinine 1.10 H, Estimated Creat Clear 41, Estimated GFR 50 L, Est GFR ( Amer) 60, Glucose 72 L, Calcium 8.5, Total Bilirubin 0.4, AST 45 H, ALT 20, Alkaline Phosphatase 215 H, Total Protein 6.6, Albumin 2.7 L, Globulin 3.9 H, Albumin/Globulin Ratio 0.7 L Result diagrams: 11/04/19 14:00 11/04/19 14:00 Orders (Tests/Meds): ED MEDICATIONS Generic Name Dose Route Start Last Admin Trade Name Freq PRN Reason Stop Dose Admin Octreotide Acetate 50 mcg/ 50.5 mls @ 101 mls/hr 11/04/19 17:04 Sodium Chloride IV 11/04/19 17:05 ONCE ONE Discontinued Medications Generic Name Dose Route Start Last Admin Trade Name Freq PRN Reason Stop Dose Admin Hydromorphone HCl 1 mg 11/04/19 16:02 11/04/19 16:05 Dilaudid 2mg/Ml Syringe IV 11/04/19 16:03 Not Given ONCE ONE Hydromorphone HCl 0.5 mg 11/04/19 16:06 11/04/19 15:52 Dilaudid 2mg/Ml Syringe IV 11/04/19 16:07 0.5 mg ONCE ONE Administration Ioversol 75 ml 10/07
--- NOTE | 2019-11-04 16:45 | PC.NURSE ---
Dr butler talking to Dr Sequeira
--- NOTE | 2019-11-04 16:51 | PC.NURSE ---
Dr Sequeira called again
--- NOTE | 2019-11-04 16:59 | PC.NURSE ---
pt moaning pt vomiting bright red blood clots.
--- NOTE | 2019-11-04 17:00 | PC.NURSE ---
calling [email or web address] at this time.
--- NOTE | 2019-11-04 17:01 | PC.NURSE ---
Dionne MOURA RN ON PHONE WITH PHARMACIST AT THIS TIME TO CONFIRM DOSING FOR OCTREOTIDE DOSING.
--- NOTE | 2019-11-04 17:25 | PC.NURSE ---
[facility] unit [id number]
--- NOTE | 2019-11-04 17:25 | PC.NURSE ---
O- blood 1 unit uncrossed PRBC started
--- NOTE | 2019-11-04 17:31 | PC.NURSE ---
MELE ROSA SPOKE WITH CLARKE FROM PHARMACY AND RECEIVED DOSING FOR OCTREOTIDE DRIP. DOSING WAS GIVEN PER CLARKE AT 300MCG MIXED IN 50ML GIVEN AT A RATE OF 50MCG/HR EQUALING 8ML/HR.
--- NOTE | 2019-11-04 17:48 | PC.NURSE ---
report called to [facility]
--- NOTE | 2019-11-04 17:57 | PC.NURSE ---
[facility]
[2019-11-04 18:13] LABS: Hematocrit 20.4 % (37.0-47.0); Hemoglobin 6.5 g/dL (12.2-16.2)
--- NOTE | 2019-11-04 19:50 | PC.NURSE ---
Addendum entered by Marietta Escobar RN 11/04/19 20:04: 1747 103/52 79hr 18 rr 98.6 1752 102/85 76 22 98.7 1808 92/49 76 18 98.6 1840 110/76 76hr 95% 98.8 Addendum entered by Marietta Escobar RN 11/04/19 19:55: report at 1740 Original Note: received report for Vanessa severino RN and Emma Fulton RN in order to transport pt to . Pt currently has NS wide open, Octreotide 300mcg/50ml @ 8ml. and blood infusing wide open. vital signs obtained during transport: 1746 103/52 79hr 18 rr 98.6 1806 102/85 76 22 98.7 1816 92/49 76 18 98.6 1840 110/76 76hr 95% 98.8
--- NOTE | 2019-11-05 00:15 | PC.NURSE ---
spoke to pharmacy at about what meds were given prior to transport.
== END 2019-11-04 18:04 | disposition short-term general hospital (02) ==
PROVIDERS: Emergency Provider Family Medicine; PCP Internal Medicine Adolescent Medicine
DX: K70.31 Alcoholic cirrhosis of liver with ascites (principal); I85.01 Esophageal varices with bleeding; K76.6 Portal hypertension; D64.9 Anemia, unspecified; E11.649 Type 2 diabetes mellitus with hypoglycemia without coma; R16.1 Splenomegaly, not elsewhere classified; F41.8 Other specified anxiety disorders; Z88.7 Allergy status to serum and vaccine; K92.2 Gastrointestinal hemorrhage, unspecified; Z88.8 Allergy status to other drugs, medicaments and biological substances; E66.01 Morbid (severe) obesity due to excess calories; Z68.43 Body mass index [BMI] 50.0-59.9, adult; Z79.899 Other long term (current) drug therapy
CPT/HCPCS: 36430; 71260; 74177; 80053; 85014; 85018; 85025; 85610; 86850; 86870; 93005; 96365; 96367; 96375; 96376; 99285; J2354; J2405; P9016; Q9967